=== PATIENT | female | born 1950 | race Two or more races ===

== ENCOUNTER 2016-08-12 16:40 | Emergency (ER) | payer OTHER ==
[2016-08-12 16:51] VITALS: TEMP 98.9; BMI 22.6
--- NOTE | 2016-08-12 16:58 | PDOC ---
History of Present Illness - General History Source: Patient, Family, Old Records Exam Limitations: No Limitations - History of Present Illness Initial Comments: 08/12/16 17:49 The patient is a 66 year old female, accompanied by granddaughter, with a significant past medical history of asthma, rheumatoid arthritis, diabetes, CHF , hypercholesterolemia, and HTN, who presents to the emergency department today for further evaluation of shortness of breath since today. The patient states that she woke this morning and felt sick with associated tiredness and body aches. She states that she had pork chops for lunch and began vomiting right after finishing. She states that her vomit was yellow and contained undigested food. The patient states that a few hours after her initial episode of vomiting she began to develop her current symptoms (shortness of breath). She states that her shortness of breath has been alleviated since receiving oxygen in the emergency department The patient denies fever, chills, and sweats. The patient denies chest pain and cough. PCP: Dr. Sneha Calderon [phone] PAST SURGICAL HISTORY: Noncontributory SOCIAL HISTORY: Has a home health aid. Denies history of smoking. Denies alcohol and drug use. <Gordon Thrasher - Last Filed: 08/12/16 20:36> - General History Source: Sibling <Tristan Costa - Last Filed: 08/12/16 20:46> - General Chief Complaint: Shortness of Breath Stated Complaint: DIFFICULTY BREATHING Time Seen by Provider: 08/12/16 16:57 Past History <Gordon Thrasher - Last Filed: 08/12/16 20:36> - Past Medical History Diabetes: Yes HTN: Yes Hypercholesterolemia: Yes - Surgical History Orthopedic Surgery: Yes (lt arm x3) - Psycho/Social/Smoking Cessation Hx Anxiety: No Suicidal Ideation: No Smoking History: Never smoked Have you smoked in the past 12 months: No Hx Alcohol Use: No Drug/Substance Use Hx: No Substance Use Type: None Hx Substance Use Treatment: No <Tristan Costa - Last Filed: 08/12/16 20:46> - Past Medical History Allergies/Adverse Reactions: Allergies Allergy/AdvReac Type Severity Reaction Status Date / Time No Known Allergies Allergy Verified 03/26/15 14:57 Home Medications: Ambulatory Orders Metformin HCl [Glucophage -] 500 mg PO BID 03/26/15 Gabapentin 300 mg PO DAILY 08/12/16 Loratadine 10 mg PO DAILY 08/12/16 Methotrexate [Mexate -] 20 mg PO Q7D 08/12/16 Omeprazole 40 mg PO DAILY 08/12/16 Pantoprazole Sodium 40 mg PO DAILY 08/12/16 Rosuvastatin [Crestor -] 20 mg PO DAILY 08/12/16 Triamterene/Hydrochlorothiazid [Triamterene-Hctz 37.5-25 mg Tb] 1 each PO DAILY 08/12/16 Review of Systems - Review of Systems Able to Perform ROS?: Yes Comments:: 08/12/16 17:50 GENERAL/CONSTITUTIONAL: (+) Generalized weakness/tiredness. No fever or chills. HEAD, EYES, EARS, NOSE AND THROAT: No change in vision. No ear pain or discharge. No sore throat. CARDIOVASCULAR: (+) Shortness of breath. No chest pain. RESPIRATORY: No cough, wheezing, or hemoptysis. GASTROINTESTINAL: (+) Vomiting. Nausea. No diarrhea or constipation. GENITOURINARY: No dysuria, frequency, or change in urination. MUSCULOSKELETAL: (+) Body aches. SKIN: No rash NEUROLOGIC: No headache, vertigo, loss of consciousness, or change in strength/ sensation. ENDOCRINE: No increased thirst. No abnormal weight change. HEMATOLOGIC/LYMPHATIC: No anemia, easy bleeding, or history of blood clots. ALLERGIC/IMMUNOLOGIC: No hives or skin allergy. <Gordon Thrasher - Last Filed: 08/12/16 20:36> *Physical Exam - Vital Signs Last Vital Signs Temp Pulse Resp BP Pulse Ox 98.9 F 98 H 20 151/95 100 08/12/16 16:46 08/12/16 16:46 08/12/16 16:46 08/12/16 16:46 08/12/16 16:46 - Physical Exam Comments: 08/12/16 17:50 GENERAL: Awake, alert, and fully oriented, in no acute distress HEAD: No signs of trauma EYES: PERRLA, EOMI, sclera anicteric, conjunctiva clear ENT: Auricles normal inspection, hearing grossly normal, nares patent, oropharynx clear without exudates. Moist mucosa NECK: Normal ROM, supple, no lymphadenopathy, JVD, or masses LUNGS: (+) Left lower lobe crackles. Right lung clear. HEART: (+) Tachycardic, regular rhythm, normal S1 and S2, no murmurs, rubs or gallops ABDOMEN: Soft, nontender, normoactive bowel sounds. No guarding, no rebound. No masses EXTREMITIES: Normal range of motion, no edema. No clubbing or cyanosis. No cords, erythema, or tenderness NEUROLOGICAL: Cranial nerves II through XII grossly intact. Normal speech, normal gait SKIN: Warm, Dry, normal turgor, no rashes or lesions noted. <Gordon Thrasher - Last Filed: 08/12/16 20:36> - Vital Signs Last Vital Signs Temp Pulse Resp BP Pulse Ox 98.9 F 98 H 20 151/95 100 08/12/16 16:46 08/12/16 16:46 08/12/16 16:46 08/12/16 16:46 08/12/16 16:46 <Tristan Costa - Last Filed: 08/12/16 20:46> Heart Score/ECG Review - ECG Impressions Comment:: 08/12/16 17:[address] Costa Impression: Normal sinus rhythm Normal rate Normal axis Normal EKG Vent rate 99 bpm <Gordon Thrasher - Last Filed: 08/12/16 20:36> ED Treatment Course - LABORATORY CBC & Chemistry Diagram: 08/12/16 12:00 08/12/16 12:00 - ADDITIONAL ORDERS Additional order review: 08/12/16 12:00 RBC 3.32 L MCV 105.9 H MCHC 33.2 RDW 16.7 H MPV 9.2 D Neutrophils % Y Lymphocytes % Y - RADIOLOGY Radiograph Interpretation: 08/12/16 18:34 EXAM#: TYPE/EXAM: RESULT: [id number] US/GALLBLADDER US Gallbladder ultrasound Clinical information: bilious emesis No prior abdominal imaging studies are available at this facility for direct comparison. The current exam demonstrates mild nonspecific common bile duct dilatation with a 0.7 cm diameter. No gross intraductal calculus is identified. There is no definite gallbladder calculus. A 0.5 cm moderately echogenic nonmobile focus is seen along the posterior gallbladder wall at the level the middle third consistent with a polyp. The remainder of the gallbladder demonstrates no discrete abnormality. No pericholecystic fluid accumulation is noted. The pancreatic head and body demonstrate no gross mass lesion. The pancreatic tail is obscured due to overlapping bowel gas. The liver and right kidney demonstrate no sonographic abnormality. No free intraperitoneal fluid is noted. Impression: Mild nonspecific common bile duct dilatation is seen with a 0.7 cm diameter. There is no definite sonographic evidence of cholelithiasis or acute cholecystitis. A 0.5 cm gallbladder polyp is noted. Correlation with 3-4 month follow-up sonography is suggested to document stability. Chest X-ray. Impression: No official read. EXAM#: TYPE/EXAM: RESULT: [id number] CT/ABDOMEN PELVIS CT WITH CONTR Abdomen and pelvis CT with intravenous contrast Clinical information: common bile duct dilatation on ultrasound Multiplanar imaging was performed following the intravenous administration of nonionic contrast. As requested enteric contrast was not administered. As noted on sonography performed earlier the same date there is minimal to mild common bile duct dilatation with a 7 mm diameter. No gross intraductal calculus is visualized. There is no intrahepatic biliary tract dilatation. No dilatation of the main pancreatic duct is seen. A 4 to 5 mm gallbladder polyp is noted better visualized on sonography. There is mild focal nonspecific wall thickening involving the gallbladder fundus. This appearance could not be appreciated on recently performed sonography. No gallbladder overdistention or pericholecystic fluid is seen. There is no definite radiopaque gallbladder calculus. The liver, spleen, pancreas, adrenal glands and kidneys demonstrate no discrete abnormality. There is no evidence of pneumoperitoneum, free intraperitoneal fluid or bowel obstruction. A small umbilical hernia is noted containing properitoneal fat only. No aortic aneurysm is identified. There is no discrete lymphadenopathy. The appendix is not definitely visualized however there are no indirect CT signs of acute appendicitis. No evidence of acute diverticulitis. There is no gross small bowel pathology. Lower lumbar degenerative disc changes are seen. IMPRESSION: Minimal to mild common bile duct dilatation is noted as also visualized on recently performed sonography. No intrahepatic biliary tract dilatation is identified. Mild focal nonspecific wall thickening is seen involving the gallbladder fundus. Correlation with endoscopic sonography may be performed. As on sonography a 4 to 5 mm gallbladder polyp is noted at the level of the middle third. Small umbilical hernia containing fat only. The partially imaged lower lung hall demonstrate findings consistent with pulmonary fibrosis (as better visualized on a chest CT exam of 03/28/2015). Reported By: Sandro Kurtz MD 08/12/162032 <Gordon Thrasher - Last Filed: 08/12/16 20:36> - LABORATORY CBC & Chemistry Diagram: 08/12/16 12:00 08/12/16 12:00 - RADIOLOGY Radiology Studies Ordered: Category Date Time Status CHEST X-RAY PORTABLE* [RAD] Stat Radiology 08/12/16 16:48 Ordered <Tristan Costa - Last Filed: 08/12/16 20:46> *DC/Admit/Observation/Transfer - Attestations Scribe Attestion: 08/12/16 17:50 Documentation prepared by Gordon Thrasher, acting as spanish medical interpreter for Tristan Costa DO. <Gordon Thrasher - Last Filed: 08/12/16 20:36> - Discharge Dispostion Admit: No - Attestations Physician Attestion: 08/12/16 16:57 I, Dr. Tristan Costa, attest that this document has been prepared under my direction and personally reviewed by me in its entirety. I further attest, that it accurately reflects all work, treatment, procedures and medical decision -making performed by me. <Tristan Costa - Last Filed: 08/12/16 20:46> Diagnosis at time of Disposition: Acquired dilation of common bile duct - Discharge Dispostion Disposition: HOME Condition at time of disposition: Good - Referrals Referrals: Sneha Heiwtt MD [Primary Care Provider] - Asaf Muller MD [Staff Physician] - - Patient Instructions Printed Discharge Instructions: DI for Biliary Colic Additional Instructions: USe the zofran for nausea or vomiting. Call Dr. Muller tomorrow for follow up.
[2016-08-12 17:27] LABS: MCH 35.2 pg (25.7-33.7); MCHC 33.2 g/dl (32.0-36.0); MEAN CELL VOLUME 105.9 fl (80-96); MEAN PLT VOLUME 9.2 fl (7.5-11.1); PLATELET COUNT 219 K/MM3 (134-434); RDW 16.7 % (11.6-15.6); WHITE BLOOD COUNT 10.5 K/mm3 (4.0-10.0)
[2016-08-12 17:54] LABS: ALBUMIN 3.5 g/dl (3.4-5.0); BILIRUBIN,TOTAL 0.5 mg/dL (0.2-1.0); CALCIUM 8.8 mg/dL (8.5-10.1); COCKROFT - GAULT 48.8325; TOT PROT 7.6 g/dl (6.4-8.2)
[2016-08-12 20:59] LABS: TROPONIN I < 0.02 ng/ml (0.00-0.05)
[2016-08-12 21:03] LABS: PLATELET ESTIMATE ADEQUATE (NORMAL)
[2016-08-12 21:04] LABS: POLYCHROMASIA RARE
[2016-08-12 21:51] VITALS: BP 142/81; PULSE 81
--- NOTE | 2016-08-13 10:56 | EKG ---
Test Reason : Blood Pressure : / mmHG Vent. Rate : 099 BPM Atrial Rate : 099 BPM P-R Int : 160 ms QRS Dur : 068 ms QT Int : 370 ms P-R-T Axes : 029 -25 052 degrees QTc Int : 474 ms POOR DATA QUALITY, INTERPRETATION MAY BE ADVERSELY AFFECTED NORMAL SINUS RHYTHM LEFTWARD AXIS WHEN COMPARED WITH ECG OF 26-MAR-2015 14:32, NO SIGNIFICANT CHANGE WAS FOUND Confirmed by MARISEL TEJADA MD ([id number]) on 08/13/2016 10:56:06 AM Referred By: Confirmed By:MARISEL TEJADA MD
== END 2016-08-12 22:15 | disposition home or self-care (01) ==
LOC: JER 16:40
DX: K83.8 Other specified diseases of biliary tract (principal); J84.10 Pulmonary fibrosis, unspecified
CPT/HCPCS: 36415; 71010-TC; 74177-TC; 76705-TC; 80053; 82550; 83690; 84484; 85025; 93005; 93010; 99284-25

== ENCOUNTER 2016-09-17 18:31 | Emergency (ER) | payer OTHER ==
[2016-09-17 18:41] VITALS: BMI 21.2
--- NOTE | 2016-09-17 18:43 | PDOC ---
History of Present Illness - General History Source: Patient Exam Limitations: No Limitations - History of Present Illness Initial Comments: 09/17/16 19:00 The patient is a 66 year old female, accompanied by granddaughter, with a significant past medical history of asthma, diabetes, hypertension, hyperlipidemia, CHF, and rheumatoid arthritis, who presents to the emergency department complaining of a dry cough and fever since yesterday. As per granddaughter, when she arrived to the patients home today, she noted the patient was not herself. Patient reports she has been experiencing a fever, for which her health aide gave her tea and tylenol for with mild relief. She reports associated diaphoresis, but denies any chest pain, shortness of breath, palpitations, or lower extremity edema. She denies any weakness, chills, headache, dizziness, or rhinorrhea. The patient denies any recent travel or sick contacts. Allergies: None reported. Past Surgical History: Lt arm(X3) Social History: Non-smoker. Denies alcohol or drug use. PCP: Dr. Calderon <Soha Carcamo - Last Filed: 09/17/16 19:06> <Bel Fair - Last Filed: 09/18/16 06:30> - General Chief Complaint: Cold Symptoms Stated Complaint: CHEST PAIN Time Seen by Provider: 09/17/16 18:43 Past History <Soha Carcamo - Last Filed: 09/17/16 19:06> - Past Medical History Diabetes: Yes HTN: Yes Hypercholesterolemia: Yes Other medical history: arthritis - Surgical History Orthopedic Surgery: Yes (lt arm x3) - Psycho/Social/Smoking Cessation Hx Anxiety: No Suicidal Ideation: No Smoking History: Never smoked Have you smoked in the past 12 months: No Information on smoking cessation initiated: No Hx Alcohol Use: No Drug/Substance Use Hx: No Substance Use Type: None Hx Substance Use Treatment: No <Bel Fair - Last Filed: 09/18/16 06:30> - Past Medical History Allergies/Adverse Reactions: Allergies Allergy/AdvReac Type Severity Reaction Status Date / Time No Known Allergies Allergy Verified 03/26/15 14:57 Home Medications: Ambulatory Orders Metformin HCl [Glucophage -] 500 mg PO BID 03/26/15 Gabapentin 300 mg PO DAILY 08/12/16 Methotrexate [Mexate -] 20 mg PO Q7D 08/12/16 Omeprazole 40 mg PO DAILY 08/12/16 Pantoprazole Sodium 40 mg PO DAILY 08/12/16 Rosuvastatin [Crestor -] 20 mg PO DAILY 08/12/16 Triamterene/Hydrochlorothiazid [Triamterene-Hctz 37.5-25 mg Tb] 1 each PO DAILY 08/12/16 Albuterol Sulfate Inhaler - [Ventolin Hfa Inhaler -] 1 - 2 inh PO QID 09/17/16 Budesonide/Formeterol Fumarate [SYMBICORT 80/4.5mcg -] 1 inh PO DAILY 09/17/16 Review of Systems - Review of Systems Able to Perform ROS?: Yes Comments:: 09/17/16 19:00 GENERAL/CONSTITUTIONAL: Yes: +fever. No chills. No weakness. HEAD, EYES, EARS, NOSE AND THROAT: No change in vision. No ear pain or discharge. No sore throat. CARDIOVASCULAR: No chest pain or shortness of breath. RESPIRATORY: Yes: +cough. No wheezing or hemoptysis. GASTROINTESTINAL: No nausea, vomiting, diarrhea or constipation. GENITOURINARY: No dysuria, frequency, or change in urination. MUSCULOSKELETAL: No joint or muscle swelling or pain. No neck or back pain. SKIN: No rash NEUROLOGIC: No headache, vertigo, loss of consciousness, or change in strength/ sensation. ENDOCRINE: No increased thirst. No abnormal weight change. HEMATOLOGIC/LYMPHATIC: No anemia, easy bleeding, or history of blood clots. ALLERGIC/IMMUNOLOGIC: No hives or skin allergy. <Soha Carcamo - Last Filed: 09/17/16 19:06> *Physical Exam - Vital Signs Last Vital Signs Temp Pulse Resp BP Pulse Ox 98.6 F 85 20 143/68 98 09/17/16 18:38 09/17/16 18:38 09/17/16 18:38 09/17/16 18:38 09/17/16 18:52 - Physical Exam Comments: 09/17/16 19:07 GENERAL: Awake, alert, and fully oriented, in no acute distress HEAD: No signs of trauma EYES: PERRLA, EOMI, sclera anicteric, conjunctiva clear ENT: Auricles normal inspection, hearing grossly normal, nares patent, oropharynx clear without exudates. Moist mucosa NECK: Normal ROM, supple, no lymphadenopathy, JVD, or masses LUNGS: Fibrotic crackles at the bilateral bases. No wheezes. HEART: Regular rate and rhythm, normal S1 and S2, no murmurs, rubs or gallops ABDOMEN: Soft, nontender, normoactive bowel sounds. No guarding, no rebound. No masses EXTREMITIES: Normal range of motion, no edema. No clubbing or cyanosis. No cords, erythema, or tenderness NEUROLOGICAL: Cranial nerves II through XII grossly intact. Normal speech, normal gait SKIN: Rash to the left foot over the lateral dorsal aspect of the 4th and 5th toes. Warm, Dry, normal turgor, no lesions noted. <Soha Carcamo - Last Filed: 09/17/16 19:06> - Vital Signs Last Vital Signs Temp Pulse Resp BP Pulse Ox 98.6 F 85 20 143/68 97 09/17/16 18:38 09/17/16 18:38 09/17/16 18:38 09/17/16 18:38 09/17/16 18:38 <Bel Fair - Last Filed: 09/18/16 06:30> ED Treatment Course - LABORATORY CBC & Chemistry Diagram: 09/17/16 19:20 09/17/16 19:20 <Bel Fair - Last Filed: 09/18/16 06:30> Medical Decision Making - Medical Decision Making 09/17/16 22:46 Patient Name: Madiha Davis THIS IS A PRELIMINARY REPORT FROM [facility] OPER[facility] EXAM: X-ray chest PA and lateral views IMAGES: 3 EXAM DATE AND TIME: 21:10:04.0 REASON FOR EXAM: Cough COMPARISON: Not provided FINDINGS: There are coarse bilateral interstitial markings, possibly chronic changes. No focal airspace consolidation. No pneumothorax. The costophrenic angles are well defined The cardiac silhouette is within normal limits Atherosclerotic calcifications in the thoracic aorta Mild degenerative changes in the thoracic spine THIS DOCUMENT HAS BEEN ELECTRONICALLY SIGNED 09/18/16 06:26 Granddaughter brings grandirving into the hospital with EMS, as she was in bed and under the covers and feeling unwell. Grandma is usually up and about the housr. Granddaughter goes there daily to eat a meal. Pt states that she has generalized malaise. but no specific complaints. She is coughing in the ER. CXR is normal. Labs normal and exam normal. Pt will be discharged home with PMD follow up. Hydrated in the ER and she is feeling better. UA is normal. Pt has vesicle like papular rash arounf and on the left 4th and 5th toes and dorsal foot. No rash on the rest of the leg. Rash is itchy but not painful. This is not shingles. Pt has a dog, and perhaps this is insect bites, or bug bites. SHe will be given permethrin to apply to the foot. Follow with PMD. <Bel Fair - Last Filed: 09/18/16 06:30> *DC/Admit/Observation/Transfer - Attestations Scribe Attestion: 09/17/16 19:01 Documentation prepared by Soha Carcamo, acting as medical office scheduler for Bel Fair MD. <Soha Carcamo - Last Filed: 09/17/16 19:06> - Discharge Dispostion Admit: No <Bel Fair - Last Filed: 09/18/16 06:30> Diagnosis at time of Disposition: Generalized weakness, Rash - Discharge Dispostion Disposition: HOME Condition at time of disposition: Stable - Referrals Referrals: Sneha Hewitt MD [Primary Care Provider] - - Patient Instructions Printed Discharge Instructions: DI for Fatigue, Insect Bites and Stings Print Language: ALBANIAN
[2016-09-17] MEDS ORDERED: SODIUM CHLORIDE 0.9% 500 ML INFUS.BAG IV ONE (18:54)
[2016-09-17 19:43] LABS: MCH 35.1 pg (25.7-33.7); MCHC 32.9 g/dl (32.0-36.0); MEAN CELL VOLUME 106.7 fl (80-96); MEAN PLT VOLUME 8.8 fl (7.5-11.1); PLATELET COUNT 165 K/MM3 (134-434); RDW 15.7 % (11.6-15.6); WHITE BLOOD COUNT 7.1 K/mm3 (4.0-10.0)
[2016-09-17 19:45] LABS: URINE APPEARANCE CLEAR; URINE BILIRUBIN NEGATIVE (NEGATIVE); URINE BLOOD NEGATIVE (NEGATIVE); URINE COLOR LTYELLOW; URINE GLUCOSE (UA) NEGATIVE (NEGATIVE); URINE KETONE NEGATIVE (NEGATIVE); URINE LEUK ESTERASE NEGATIVE (NEGATIVE); URINE NITRITE NEGATIVE (NEGATIVE); URINE PROTEIN NEGATIVE (NEGATIVE); URINE UROBILINOGEN NEGATIVE E.U./dl (0.2-1.0)
[2016-09-17 20:06] LABS: ALBUMIN 3.2 g/dl (3.4-5.0); ALK PHOS 91 U/L (45-117); ANION GAP 9 (8-16); BILIRUBIN,TOTAL 0.3 mg/dL (0.2-1.0); CALCIUM 8.8 mg/dL (8.5-10.1); CO2 29 mmol/L (21-32); COCKROFT - GAULT 69.7595; CREATININE 0.7 mg/dL (0.55-1.02); GLUCOSE,RANDOM 86 mg/dL (74-106); METAMYELOCYTE 2 % (0-2); PLATELET ESTIMATE ADEQUATE (NORMAL); POLYCHROMASIA OCC; SGOT/AST 19 U/L (15-37); SGPT/ALT 26 U/L (12-78); TOT PROT 7.1 g/dl (6.4-8.2)
[2016-09-17 21:55] VITALS: BP 149/84; PULSE 80; TEMP 98.5
--- NOTE | 2016-09-18 15:32 | EKG ---
Test Reason : Blood Pressure : / mmHG Vent. Rate : 077 BPM Atrial Rate : 077 BPM P-R Int : 164 ms QRS Dur : 074 ms QT Int : 392 ms P-R-T Axes : 034 -07 056 degrees QTc Int : 443 ms NORMAL SINUS RHYTHM NORMAL ECG WHEN COMPARED WITH ECG OF 12-AUG-2016 16:59, NO SIGNIFICANT CHANGE WAS FOUND Confirmed by JOVON BRANDT MD ([id number]) on 09/18/2016 3:31:39 PM Referred By: Confirmed By:JOVON BRANDT MD
== END 2016-09-17 23:06 | disposition home or self-care (01) ==
LOC: JER 18:31
DX: R21 Rash and other nonspecific skin eruption (principal); Z79.84 Long term (current) use of oral hypoglycemic drugs; E11.9 Type 2 diabetes mellitus without complications; I10 Essential (primary) hypertension; E78.00 Pure hypercholesterolemia, unspecified
CPT/HCPCS: 36415; 71020-TC; 80053; 81003; 85025; 87040; 87086; 93005; 93010; 99283-25

== ENCOUNTER 2016-09-21 09:33 | Day surgery (SDC) | payer OTHER ==
[2016-09-21 10:33] VITALS: BMI 23.0
[2016-09-21] MEDS ORDERED: PROPOFOL 20 ML ONE ×2 (11:14)
[2016-09-21 12:19] VITALS: TEMP 98
[2016-09-21 13:11] VITALS: BP 150/84; PULSE 60
--- NOTE | 2016-09-22 13:45 | PATH ---
Surgical Pathology Report Patient Name: ALYCIA ROLLINS [facility]. Rec. #: [id number] /Age/Gender: 1950 (Age: 66) / F Account: [id number] Location: [facility]-ENDOSCOPY Taken: 09/21/2016 Received: 09/21/2016 Reported: 09/22/2016 Physicians: Asaf Muller M.D. Specimen(s) Received A: BX POLYPS GASTRIC BODY B: BX ERYTHEMA BODY C: BX IRREGULAR Z-LINE Clinical History Persistent GERD despite PPI (medication) Irregular Z-line, hiatal hernia, polyps, erythema of body Final Diagnosis A. STOMACH, GASTRIC BODY, POLYPS, BIOPSY: GASTRIC OXYNTIC MUCOSA WITH FUNDIC GLAND POLYPS WITH FOCAL HYPERPLASTIC CHANGE AND MODERATE CHRONIC GASTRITIS. NEGATIVE FOR DYSPLASIA. IMMUNOSTAIN FOR H. PYLORI IS NEGATIVE FOR ORGANISMS. B. STOMACH, BODY, ERYTHEMA, BIOPSY: GASTRIC OXYNTIC MUCOSA WITH MODERATE CHRONIC GASTRITIS WITH CHANGES SUGGESTIVE OF PPI EFFECT. IMMUNOSTAIN FOR H. PYLORI IS NEGATIVE FOR ORGANISMS. C. IRREGULAR Z-LINE, BIOPSY: SQUAMOCOLUMNAR JUNCTIONAL MUCOSA WITH CHRONIC INFLAMMATION AND REFLUX TYPE CHANGES. NO INTESTINAL METAPLASIA (SILVERIO'S ESOPHAGUS) IDENTIFIED. Electronically Signed Renzo Bonilla M.D. Gross Description A. Received in formalin, labeled "biopsy polyps of gastric body" are 4 ornelas, irregular portions of soft tissue ranging from 0.1-0.3 cm in greatest dimension. The specimens are submitted in toto in one cassette. B. Received in formalin, labeled "biopsy erythema of body" is a ornelas, irregular portion of soft tissue measuring 0.3 cm in greatest dimension. The specimen is submitted in toto in one cassette. C. Received in formalin, labeled "biopsy irregular Z-line" are 2 ornelas, irregular portions of soft tissue measuring 0.3 and 0.4 cm in greatest dimension. The specimens are submitted in toto in one cassette. 09/21/201609/21/2016
== END 2016-09-21 13:09 | disposition home or self-care (01) ==
LOC: JASU-ENDO 09:33
PROVIDERS: ATTEND Internal Medicine Gastroenterology
PROC: 0DB68ZX Excision of Stomach, Via Natural or Artificial Opening Endoscopic, Diagnostic (ICD-10-PCS; 2016-09-21)
PROC: 0DB58ZX Excision of Esophagus, Via Natural or Artificial Opening Endoscopic, Diagnostic (ICD-10-PCS; principal; 2016-09-21 10:30)
DX: K21.9 Gastro-esophageal reflux disease without esophagitis (principal); K31.7 Polyp of stomach and duodenum; K44.9 Diaphragmatic hernia without obstruction or gangrene
CPT/HCPCS: 88305-TC; 88342-TC

== ENCOUNTER 2016-09-28 17:33 | Inpatient (IN) | payer OTHER ==
[2016-09-28] MEDS ORDERED: SODIUM CHLORIDE 1,000 ML IV STA (18:00)
[2016-09-28] MEDS ORDERED: ACETAMINOPHEN 500 MG TABLET (FP) PO ONE (18:00)
--- NOTE | 2016-09-28 18:12 | PDOC ---
History of Present Illness - General History Source: Patient, Family, Old Records Exam Limitations: No Limitations <Niesha Jacques - Last Filed: 09/28/16 18:09> - General History Source: Patient, Family, Old Records Exam Limitations: No Limitations - History of Present Illness Initial Comments: 09/28/16 18:14 The patient is a 66 year old female, accompanied by granddaughter, with a significant past medical history of asthma, diabetes, hypertension, hyperlipidemia, CHF, and rheumatoid arthritis, who presents to the emergency department today for further evaluation of generalized weakness since this morning. As per granddaughter the patient was at her baseline. Granddaughter states that when she got home the patient had vomited on herself and was too weak to ambulate. Granddaughter notes that the patient is much more lethargic compared to her baseline. Patient endorse diffuse abdominal pain. PAST MEDICAL HISTORY: Asthma, diabetes, hypertension, hyperlipidemia, CHF, and rheumatoid arthritis PAST SURGICAL HISTORY: Endoscopy FAMILY HISTORY: No pertinent history reported SOCIAL HISTORY: None reported ALLERGIES: NKDA MEDICATIONS: Reviewed <Gordon Thrasher - Last Filed: 09/28/16 18:15> - General Chief Complaint: Weakness Stated Complaint: Weakness Time Seen by Provider: 09/28/16 17:52 Past History - Past Medical History Asthma: Yes Diabetes: Yes GI Disorders: Yes (Reflux) HTN: Yes Hypercholesterolemia: Yes - Surgical History Orthopedic Surgery: Yes (lt arm x3) - Psycho/Social/Smoking Cessation Hx Anxiety: No Suicidal Ideation: No Smoking History: Never smoked Have you smoked in the past 12 months: No Information on smoking cessation initiated: No Hx Alcohol Use: No Drug/Substance Use Hx: No Substance Use Type: None Hx Substance Use Treatment: No <Niesha Jacques - Last Filed: 09/28/16 18:09> <Gordon Thrasher - Last Filed: 09/28/16 18:15> - Past Medical History Allergies/Adverse Reactions: Allergies Allergy/AdvReac Type Severity Reaction Status Date / Time No Known Allergies Allergy Verified 09/28/16 17:59 Home Medications: Ambulatory Orders Metformin HCl [Glucophage -] 500 mg PO BID 03/26/15 Gabapentin 300 mg PO DAILY 08/12/16 Methotrexate [Mexate -] 20 mg PO Q7D 08/12/16 Omeprazole 40 mg PO DAILY 08/12/16 Triamterene/Hydrochlorothiazid [Triamterene-Hctz 37.5-25 mg Tb] 1 each PO DAILY 08/12/16 Albuterol Sulfate Inhaler - [Ventolin HFA Inhaler -] 1 - 2 inh PO QID PRN Insulin Glargine,Hum.rec.anlog [Lantus Solostar PEN -] 0 units SQ HS 09/20/16 Methotrexate [Mexate -] 1 tab PO DAILY 09/20/16 Pantoprazole Sodium [Protonix -] 40 mg PO DAILY 09/20/16 Pantoprazole Sodium [Protonix -] 40 mg PO DAILY #30 tablet.ec 09/21/16 Review of Systems - Review of Systems Able to Perform ROS?: Yes Comments:: 09/28/16 18:14 CONSTITUTIONAL: Present: Generalized weakness. Absent: fever, chills, diaphoresis, malaise, loss of appetite HEENT: Absent: rhinorrhea, nasal congestion, throat pain, throat swelling, difficulty swallowing, mouth swelling, ear pain, eye pain, visual Changes CARDIOVASCULAR: Absent: chest pain, syncope, palpitations, irregular heart rate, lightheadedness , peripheral edema RESPIRATORY: Absent: cough, shortness of breath, dyspnea with exertion, orthopnea, wheezing, stridor, hemoptysis GASTROINTESTINAL: Present: Abdominal pain Absent: Abdominal distension, nausea, vomiting, diarrhea, constipation, melena, hematochezia GENITOURINARY: Absent: dysuria, frequency, urgency, hesitancy, hematuria, flank pain, genital pain MUSCULOSKELETAL: Absent: myalgia, arthralgia, joint swelling SKIN: Absent: rash, itching, pallor HEMATOLOGIC/IMMUNOLOGIC: Absent: easy bleeding, easy bruising, lymphadenopathy, frequent infections ENDOCRINE: Absent: unexplained weight gain, unexplained weight loss, heat intolerance, cold intolerance NEUROLOGIC: Absent: headache, focal weakness or paresthesias, dizziness, unsteady gait, seizure, mental status changes, bladder or bowel incontinence PSYCHIATRIC: Absent: anxiety, depression, suicidal or homicidal ideation, hallucinations. <Gordon Thrasher - Last Filed: 09/28/16 18:15> *Physical Exam - Vital Signs Last Vital Signs Temp Pulse Resp BP Pulse Ox 104.3 F H 126 H 18 151/84 94 L 09/28/16 17:47 09/28/16 17:47 09/28/16 17:47 09/28/16 17:47 09/28/16 17:47 <Niesha Jacques - Last Filed: 09/28/16 18:09> - Vital Signs Last Vital Signs Temp Pulse Resp BP Pulse Ox 104.3 F H 126 H 18 151/84 94 L 09/28/16 17:47 09/28/16 17:47 09/28/16 17:47 09/28/16 17:47 09/28/16 17:47 - Physical Exam Comments: 09/28/16 18:14 GENERAL: Well developed, well nourished. Awake and alert. In no acute distress. HEENT: Normocephalic, atraumatic. PERRLA, EOMI. No conjunctival pallor. Sclera are non- icteric. Moist mucous membranes. Oropharynx is clear. NECK: Supple. Full ROM. No JVD. Carotid pulses 2+ and symmetric, without bruits. No thyromegaly. No lymphadenopathy. CARDIOVASCULAR: Regular rate and rhythm. No murmurs, rubs, or gallops. Distal pulses are 2+ and symmetric. PULMONARY: No evidence of respiratory distress. Lungs clear to auscultation bilaterally. No wheezing, rales or rhonchi. ABDOMINAL: (+) suprapubic and lower abdominal tenderness on palpation. Soft. Non- distended. No rebound or guarding. No organomegaly. Normoactive bowel sounds. MUSCULOSKELETAL Normal range of motion at all joints. No bony deformities or tenderness. No CVA tenderness. EXTREMITIES: No cyanosis. No clubbing. No edema. No calf tenderness. SKIN: Warm and dry. Normal capillary refill. No rashes. No jaundice. NEUROLOGICAL: Alert, awake, appropriate. Cranial nerves 2-12 intact. No deficits to light touch and temperature in face, upper extremities and lower extremities. No motor deficits in the in face, upper extremities and lower extremities. Normoreflexic in the upper and lower extremities. Normal speech. Toes are downgoing bilaterally. PSYCHIATRIC: Cooperative. Good eye contact. Appropriate mood and affect. <Gordon Thrasher - Last Filed: 09/28/16 18:15> ED Treatment Course - RADIOLOGY Radiology Studies Ordered: Category Date Time Status CHEST X-RAY PORTABLE* [RAD] Stat Radiology 09/28/16 17:58 Ordered <Niesha Jacques - Last Filed: 09/28/16 18:09> Medical Decision Making - Medical Decision Making 09/28/16 18:10 66-year-old female with history of diabetes, hypertension, CHF, rheumatoid arthritis, GERD status post endoscopy one week ago presents to the emergency department with her granddaughter who states that the patient has been lethargic today. Review of systems is only positive for abdominal pain. The patient is febrile and tachycardic. Differential diagnosis includes but is not limited to: Bowel perforation, urinary tract infection, pneumonia, dehydration, DKA, uncontrolled diabetes, electrolyte abnormality, toxic/metabolic derangement. Plan: 1. EKG 2. Labs 3. Urine analysis 4. IV fluids for hydration 5. Glycemic control 6. Chest x-ray 7. CT scan of abdomen and pelvis 8. Observe and reevaluate <Niesha Jacques - Last Filed: 09/28/16 18:09> *DC/Admit/Observation/Transfer - Attestations Physician Attestion: 09/28/16 18:12 I, Dr. Niesha Jacques, attest that the scribes documentation that appears above has been prepared under my direction and personally reviewed by me in its entirety. I confirmed that the note above accurately reflects all work, treatment, procedures, and medical decision-making performed by me. <Niesha Jacques - Last Filed: 09/28/16 18:09> - Attestations Scribe Attestion: 09/28/16 18:15 Documentation prepared by Gordon Thrasher, acting as medical receptionist for Niesha Jacques MD. <Gordon Thrasher - Last Filed: 09/28/16 18:15> Diagnosis at time of Disposition: Fever - Referrals Referrals: Sneha Hewitt MD [Primary Care Provider] -
[2016-09-28] MEDS ORDERED: ACETAMINOPHEN 325 MG TABLET (FP) ONE (18:16)
[2016-09-28 18:56] LABS: BASOPHIL 0.2 % (0-2.0); EOSINOPHIL 0.6 % (0-4.5); MCH 34.1 pg (25.7-33.7); MCHC 32.8 g/dl (32.0-36.0); MEAN CELL VOLUME 103.9 fl (80-96); NEUTROPHILS 86.8 % (42.8-82.8); PLATELET COUNT 151 K/MM3 (134-434); RDW 15.3 % (11.6-15.6); WHITE BLOOD COUNT 13.8 K/mm3 (4.0-10.0)
[2016-09-28] MEDS ORDERED: PIPERACILLIN/TAZOB 3.375 GM/50 ML PRE-DOCKED IV ONE (19:10)
[2016-09-28 19:52] LABS: URINE APPEARANCE CLEAR; URINE BILIRUBIN NEGATIVE (NEGATIVE); URINE BLOOD NEGATIVE (NEGATIVE); URINE COLOR DKYELLOW; URINE GLUCOSE (UA) NEGATIVE (NEGATIVE); URINE KETONE 1+ (NEGATIVE); URINE LEUK ESTERASE NEGATIVE (NEGATIVE); URINE NITRITE NEGATIVE (NEGATIVE); URINE UROBILINOGEN NEGATIVE E.U./dl (0.2-1.0)
[2016-09-28 20:05] LABS: URINE PROTEIN 2+ (NEGATIVE)
[2016-09-28 20:15] LABS: URINE MUCUS MANY; URINE RBC 3 /hpf (0-3); URINE WBC 2 /hpf (3-5)
[2016-09-28 21:16] LABS: ALBUMIN 2.7 g/dl (3.4-5.0); ANION GAP 9 (8-16); CALCIUM 7.7 mg/dL (8.5-10.1); CO2 25 mmol/L (21-32); CREATININE 0.9 mg/dL (0.55-1.02); GLUCOSE,RANDOM 109 mg/dL (74-106); SGOT/AST 22 U/L (15-37); SGPT/ALT 22 U/L (12-78)
[2016-09-28 21:17] LABS: ALK PHOS 59 U/L (45-117); BILIRUBIN,TOTAL 0.8 mg/dL (0.2-1.0); TOT PROT 5.9 g/dl (6.4-8.2)
[2016-09-28] MEDS ORDERED: IBUPROFEN 800 MG/8 ML IJ IVPB ONE (21:23)
[2016-09-28] MEDS ORDERED: IBUPROFEN 800 MG/8 ML IJ IVPB STA (21:23)
--- NOTE | 2016-09-28 21:30 | PDOC ---
*Physical Exam - Vital Signs Last Vital Signs Temp Pulse Resp BP Pulse Ox 102.3 F H 102 H 19 122/66 100 09/28/16 20:25 09/28/16 20:25 09/28/16 20:25 09/28/16 20:25 09/28/16 20:25 ED Treatment Course - LABORATORY CBC & Chemistry Diagram: 09/28/16 18:40 09/28/16 20:40 - ADDITIONAL ORDERS Additional order review: Laboratory Results 09/28/16 09/28/16 09/28/16 20:40 19:30 19:19 Sodium 142 Cancelled Potassium 3.4 L Cancelled Chloride 108 H Cancelled Carbon Dioxide 25 Cancelled Anion Gap 9 Cancelled BUN 20 H D Cancelled Creatinine 0.9 D Cancelled Creat Clearance w eGFR > 60 Cancelled Random Glucose 109 H D Cancelled Lactic Acid Calcium 7.7 L Cancelled Phosphorus Magnesium Total Bilirubin 0.8 D Cancelled AST 22 Cancelled ALT 22 Cancelled Alkaline Phosphatase 59 D Cancelled Creatine Kinase Troponin I Total Protein 5.9 L Cancelled Albumin 2.7 L Cancelled Lipase Urine Color Dkyellow Urine Appearance Clear Urine pH 5.0 Urine Protein 2+ H Urine Glucose (UA) Negative Urine Ketones 1+ H Urine Blood Negative Urine Nitrite Negative Urine Bilirubin Negative Urine Urobilinogen Negative Ur Leukocyte Esterase Negative Urine RBC 3 Urine WBC 2 Ur Epithelial Cells Rare Urine Mucus Many Acetone, Qual 09/28/16 09/28/16 09/28/16 18:40 18:40 18:40 Sodium Cancelled Potassium Cancelled Chloride Cancelled Carbon Dioxide Cancelled Anion Gap Cancelled BUN Cancelled Creatinine Cancelled Creat Clearance w eGFR Cancelled Random Glucose Cancelled Lactic Acid 1.7 Calcium Cancelled Phosphorus Cancelled Magnesium Cancelled Total Bilirubin Cancelled AST Cancelled ALT Cancelled Alkaline Phosphatase Cancelled Creatine Kinase Cancelled Troponin I Cancelled Total Protein Cancelled Albumin Cancelled Lipase Cancelled Urine Color Urine Appearance Urine pH Urine Protein Urine Glucose (UA) Urine Ketones Urine Blood Urine Nitrite Urine Bilirubin Urine Urobilinogen Ur Leukocyte Esterase Urine RBC Urine WBC Ur Epithelial Cells Urine Mucus Acetone, Qual Negative L 09/28/16 18:40 RBC 3.79 MCV 103.9 H MCHC 32.8 RDW 15.3 MPV 9.0 Neutrophils % 86.8 H D Lymphocytes % 10.7 D Monocytes % 1.7 L Eosinophils % 0.6 D Basophils % 0.2 - RADIOLOGY Radiology Studies Ordered: Category Date Time Status HEAD CT WITHOUT CONTRAST [CT] Stat CT Scan 09/28/16 21:23 Ordered - Medications Given in the ED: ED Medications Discontinued Medications Generic Name Dose Route Start Last Admin Trade Name Freq PRN Reason Stop Dose Admin Acetaminophen 1,000 mg 09/28/16 18:00 09/28/16 18:17 Tylenol - PO 09/28/16 18:01 1,000 mg ONCE ONE Administration Sodium Chloride 1,000 mls @ 1,000 mls/hr 09/28/16 18:00 09/28/16 18:17 Normal Saline - IV 09/28/16 18:59 1,000 mls/hr ASDIR STA Administration Piperacillin Sod/Tazobactam Sod 3.375 gm 09/28/16 19:10 09/28/16 20:32 Zosyn 3.375gm Ivpb (Pre-Docked) IV 09/28/16 19:11 3.375 gm ONCE ONE Administration Protocol *DC/Admit/Observation/Transfer Diagnosis at time of Disposition: Fever Qualifiers: Encounter type: initial encounter Pneumonia Qualifiers: Aspiration pneumonia type: unspecified Laterality: right Lung location: lower lobe of lung - Discharge Dispostion Condition at time of disposition: Stable Admit: Yes - Referrals Referrals: Sneha Hewitt MD [Primary Care Provider] - - Patient Instructions - Post Discharge Activity
--- NOTE | 2016-09-28 22:50 | PN ---
Teaching Attending Note Name of Resident: Mariposa Tovar ATTENDING PHYSICIAN STATEMENT I saw and evaluated the patient. I reviewed the resident's note and discussed the case with the resident. I agree with the resident's findings and plan as documented. SUBJECTIVE: 66 yo f with pmhx of asthma, htn, hld and Dm, CHF, RA who presents with generalized weakness. Notes vomiting X 1 this am and with lethargy. Pt. is poor historian at bedside and is only aware of herself. OBJECTIVE: Physical: VS: Vital Signs Period Temp Pulse Resp BP Sys/Agee Pulse Ox Last 24 Hr 102.3 F-104.3 F 91-126 17-22 122-151/63-84 94-100 GEN: [id number](self), No acute distress HEENT: NCAT, PERRL CARD: RRR S1, S2 RESP: Coarse breath sounds r. base ABD: BS X4, NTD EXT: - C/C/E CXR: RLL Infilterat CT ABD/PELVIS- Negative CBCD WBC 13.8 K/mm3 (4.0-10.0) H D 09/28/16 18:40 RBC 3.79 M/mm3 (3.60-5.2) 09/28/16 18:40 Hgb 12.9 GM/dL (10.7-15.3) D 09/28/16 18:40 Hct 39.4 % (32.4-45.2) 09/28/16 18:40 MCV 103.9 fl (80-96) H 09/28/16 18:40 MCHC 32.8 g/dl (32.0-36.0) 09/28/16 18:40 RDW 15.3 % (11.6-15.6) 09/28/16 18:40 Plt Count 151 K/MM3 (134-434) 09/28/16 18:40 MPV 9.0 fl (7.5-11.1) 09/28/16 18:40 CMP Sodium 142 mmol/L (136-145) 09/28/16 20:40 Potassium 3.4 mmol/L (3.5-5.1) L 09/28/16 20:40 Chloride 108 mmol/L (98-107) H 09/28/16 20:40 Carbon Dioxide 25 mmol/L (21-32) 09/28/16 20:40 Anion Gap 9 (8-16) 09/28/16 20:40 BUN 20 mg/dL (7-18) H D 09/28/16 20:40 Creatinine 0.9 mg/dL (0.55-1.02) D 09/28/16 20:40 Creat Clearance w eGFR > 60 (>60) 09/28/16 20:40 Random Glucose 109 mg/dL (74-106) H D 09/28/16 20:40 Calcium 7.7 mg/dL (8.5-10.1) L 09/28/16 20:40 Total Bilirubin 0.8 mg/dL (0.2-1.0) D 09/28/16 20:40 AST 22 U/L (15-37) 09/28/16 20:40 ALT 22 U/L (12-78) 09/28/16 20:40 Alkaline Phosphatase 59 U/L (45-117) D 09/28/16 20:40 Total Protein 5.9 g/dl (6.4-8.2) L 09/28/16 20:40 Albumin 2.7 g/dl (3.4-5.0) L 09/28/16 20:40 CARDIAC ENZYMES Creatine Kinase Cancelled 09/28/16 18:40 Troponin I Cancelled 09/28/16 18:40 ASSESSMENT AND PLAN: 66 yo F with pmhx DM, and HTN, COPD, ashtma, who presents with fever found to be septic secondary to Pneumonia 1.) Sepsis secondary to community aquired pneumonia - Ceftriaxone/Azithro - [place] cx - Repeat LA - IVF - Tylenol prn fever 2.) AMS - DDx: Infection/?COPD - ABG - C/w Abx - NPO until MS improves 2.) DM - FS - RAISS 3.) HTN - Not on any home meds 4.) Hypokalemia - Chk. Mg2+ - Replete 5.) Asthma/COPD - C/w home meds 6.) Diarrhea - Check C. Diff 6.) DVt Ppx - SCD Rest as per resident note Place in Med Sx
[2016-09-28] MEDS ORDERED: AZITHROMYCIN IVPB 500 MG in DEXTROSE 5%-WATER - 250 ML IVPB ONE (22:51)
[2016-09-28] MEDS ORDERED: cefTRIAXone SODIUM 1 GM VIAL ONE (23:05)
[2016-09-28] MEDS ORDERED: ALBUTEROL SO4 6.7 GM HFA INHALER IH PRN ×2 (23:08→23:15)
[2016-09-28] MEDS ORDERED: SODIUM CHLORIDE 1,000 ML IV SCH (23:15)
--- NOTE | 2016-09-28 23:39 | HP ---
CHIEF COMPLAINT: weakness PCP: HISTORY OF PRESENT ILLNESS: 66 year old female with a past medical history of DM, CHF, HTN, HLD, asthma, COPD presents to ER with generalized weakness. As per chart patient, granddaughter states that patient was not at baseline when she found her at home , vomited on herself, too weak to ambulate. ROS N/A, patient to lethargic to respond. ER course notable for fever 104F, tachycardic, oxygen 94 on RA. With leukocytosis and CXR with infiltrated of right base. Lactic acid wnl. Patient was given one time IV rocephin and azithromycin and IVF bolus in ER. CT abdomen was done, showing some watery stool in colon. History of diarrhea is unknown at this point. Recent Travel: unknown PAST MEDICAL HISTORY: DM, CHF, HTN, HLD, asthma, COPD, GERD PAST SURGICAL HISTORY: Social History: Smoking:no Alcohol:no Drugs: no Family History: Allergies No Known Allergies Allergy (Verified 09/28/16 17:59) HOME MEDICATIONS: Home Medications Medication Instructions Recorded Metformin HCl [Glucophage -] 500 mg PO BID 03/26/15 Gabapentin 300 mg PO DAILY 08/12/16 Albuterol Sulfate Inhaler - 1 - 2 inh PO QID PRN 09/17/16 [Ventolin HFA Inhaler -] Insulin Glargine,Hum.rec.anlog 12 units SQ HS 09/20/16 [Lantus Solostar PEN -] Methotrexate [Mexate -] 1 tab PO DAILY 09/20/16 Pantoprazole Sodium [Protonix -] 40 mg PO DAILY 09/20/16 Budesonide/Formeterol Fumarate 2 puff IH BID 09/28/16 [SYMBICORT 80/4.5mcg -] Metoclopramide HCl [Reglan] 5 mg PO TID 09/28/16 PHYSICAL EXAMINATION GENERAL: not awake when i entered room; hard to arouse, oriented to self, not to time or place HEAD: Normal with no signs of trauma. LUNGS: Breath sounds decreased,mild rales right lung base. No wheezes,. No accessory muscle use. HEART: Regular rate and rhythm, normal S1 and S2, systolic murmur extending to right collar, rub or gallop. ABDOMEN: Soft, nontender, not distended, normoactive bowel sounds, no guarding, no rebound, no masses. No hepatomegaly or splenomegaly. UPPER EXTREMITIES: 2+ pulses, warm, well-perfused. No cyanosis. No clubbing. No peripheral edema. LOWER EXTREMITIES: 2+ pulses, warm, well-perfused. No calf tenderness. No peripheral edema. NEUROLOGICAL: lethargic; not responding to all questioning, unknown baseline at this time Current Medications Generic Name Dose Route Start Last Admin Trade Name Freq PRN Reason Stop Dose Admin Acetaminophen 650 mg 09/28/16 23:06 Tylenol - PO Q4H PRN FEVER OR PAIN Albuterol Sulfate 2 puff 09/28/16 23:08 Ventolin Hfa Inhaler - IH Q6H PRN SHORT OF BREATH/WHEEZING Albuterol Sulfate 1 puff 09/28/16 23:15 Ventolin Hfa Inhaler - IH Q6H PRN SHORT OF BREATH/WHEEZING Budesonide/Formoterol Fumarate 2 puff 09/29/16 10:00 Symbicort 80/4.5mcg - IH BID SHELIA Gabapentin 300 mg 09/29/16 10:00 Neurontin - PO DAILY SHELIA Heparin Sodium (Porcine) 5,000 unit 09/29/16 02:00 Heparin - SQ Q8H-IV SHELIA Ceftriaxone Sodium 50 mls @ 100 mls/hr 09/29/16 10:00 Rocephin 1gm Ivpb (Pre-Docked) IVPB DAILY SHELIA Azithromycin 250 mg/ Dextrose 250 mls @ 250 mls/hr 09/29/16 16:00 IVPB DAILY SHELIA Sodium Chloride 1,000 mls @ 72 mls/hr 09/28/16 23:16 09/28/16 23:43 Normal Saline - IV 09/30/16 13:09 72 mls/hr ASDIR SHELIA Administration Insulin Aspart 1 vial 09/29/16 07:00 Novolog Vial Sliding Scale - SQ ACHS SHELIA Protocol Methotrexate 0 mg 09/29/16 10:00 Mexate - PO DAILY SHELIA Metoclopramide HCl 5 mg 09/29/16 06:00 Reglan - PO TID SHELIA Pantoprazole Sodium 40 mg 09/29/16 10:00 Protonix - PO DAILY SHELIA ASSESSMENT/PLAN: 66 year old female with past medical history of DM, CHF, HLD, HTN, COPD, asthma , presents with generalized weakness and lethargy, admitted for community acquired pneumonia. #CAP: -gentle hydration, LA wnl; repeat -cont IV rocpehin and azithromycin -follow up cultures, urine antigens #watery stool on abdominal CT: -monitor for diarrhea, if so, send for c diff #COPD/asthma: -cont albuterol and symbicort -stat ABG assess CO2 status due to lethargy #hypokalemia: -replace/cristi #DM: -insulin SS -BGM ACHS #HTN: -controlled not on any meds #hx of HLD: -not on any home meds FEN: Fluids: gentle hydration NS 75ml/s hr; 2 bags Electrolytes: k 3.4 Diet: npo for now until patient more alert VTE: heparin sq Disposition: med/surg; continue current management Problem List - Problem (1) Fever Code(s): R50.9 - FEVER, UNSPECIFIED Qualifiers: Encounter type: initial encounter (2) Pneumonia Code(s): J18.9 - PNEUMONIA, UNSPECIFIED ORGANISM Qualifiers: Aspiration pneumonia type: unspecified Laterality: right Lung location: lower lobe of lung (3) CHF (congestive heart failure) Code(s): I50.9 - HEART FAILURE, UNSPECIFIED Qualifiers: Congestive heart failure type: unspecified congestive heart failure type Congestive heart failure chronicity: unspecified congestive heart failure chronicity Qualified Code(s): I50.9 - Heart failure, unspecified (4) Diabetes Code(s): E11.9 - TYPE 2 DIABETES MELLITUS WITHOUT COMPLICATIONS (5) Generalized weakness Code(s): R53.1 - WEAKNESS (6) HTN (hypertension) Code(s): I10 - ESSENTIAL (PRIMARY) HYPERTENSION (7) Diarrhea Code(s): R19.7 - DIARRHEA, UNSPECIFIED Visit type - Emergency Visit Emergency Visit: Yes ED Registration Date: 09/28/16 Care time: The patient presented to the Emergency Department on the above date and was hospitalized for further evaluation of their emergent condition. - New Patient This patient is new to me today: Yes Date on this admission: 09/29/16 - Critical Care Critical Care patient: No
[2016-09-28] MEDS: SODIUM CHLORIDE 1,000 ML IV SCH (23:43)
[2016-09-28] MEDS ORDERED: POTASSIUM CHLORIDE TABS 20 MEQ TABLET.ER (FP) PO ONE (23:56)
[2016-09-29] MEDS ORDERED: POTASSIUM CHLORIDE ORAL LIQUID 20 MEQ/15 ML ONE (00:13)
[2016-09-29 01:32] LABS: ARTERIAL BLD GAS O2 SATURATION 98.6 % (90-98.9)
[2016-09-29 01:33] LABS: ALLENS TEST POSITIVE; ART PUNCT SITE RIGHT RADIAL; ARTERIAL BLOOD GAS BASE EXCESS -5.2 meq/l (-2-2); ARTERIAL BLOOD GAS HCO3 18.3 meq/L (22-26); LPM/O2% 2LPM; PT. ON O2? YES; TYPE OF O2 NASAL CANNULA
[2016-09-29 01:36] LABS: ARTERIAL BLOOD GAS pH 7.39 (7.35-7.45)
[2016-09-29] MEDS: SODIUM CHLORIDE 1,000 ML IV SCH (01:57)
[2016-09-29] MEDS: HEPARIN NA (PORCINE) 5,000 UNITS/ML 1ML VIAL SQ SCH ×3 (02:59→17:21)
[2016-09-29 04:33] VITALS: BMI 23.6
[2016-09-29] MEDS: METOCLOPRAMIDE HCL 10 MG TABLET (FP) PO SCH ×3 (06:25→21:40)
[2016-09-29] MEDS: INSULIN SLIDING SCALE (NOVOLOG) 1 VIAL SQ SCH ×4 (06:34→21:40)
[2016-09-29 07:44] LABS: BASOPHIL 0.2 % (0-2.0); EOSINOPHIL 3.3 % (0-4.5); MCH 35.4 pg (25.7-33.7); MCHC 33.2 g/dl (32.0-36.0); MEAN CELL VOLUME 106.7 fl (80-96); NEUTROPHILS 90.9 % (42.8-82.8); PLATELET COUNT 109 K/MM3 (134-434); RDW 15.5 % (11.6-15.6)
[2016-09-29 08:31] LABS: ANION GAP 9 (8-16); CALCIUM 7.8 mg/dL (8.5-10.1); CO2 24 mmol/L (21-32); CREATININE 0.7 mg/dL (0.55-1.02); GLUCOSE,RANDOM 100 mg/dL (74-106)
--- NOTE | 2016-09-29 09:14 | PN ---
Physical Exam: SUBJECTIVE: Patient seen and examined by me at bedside. Patient reports she does not remember what happened yesterday. She reports having chills and is having "pain everywhere". Otherwise, denies chest pain and shortness of breath. OBJECTIVE: Vital Signs Period Temp Pulse Resp BP Sys/Agee Pulse Ox Last 24 Hr 98 F-98.9 F 60-91 16-22 118-133/60-73 99-100 GENERAL: Awake, alert, ill appearing. LUNGS: Decreased breath sounds throughout lung bases bilaterally, mild rales right lung base. No wheezes,. No accessory muscle use. HEART: Tachycardic regular rhythm, 2/6 systolic murmur, normal S1 and S2. No rubs or gallops ABDOMEN: Soft, nontender, not distended, normoactive bowel sounds, no guarding, no rebound, no masses. LOWER EXTREMITIES:No calf tenderness. No peripheral edema. NEUROLOGICAL: Normal speech. No facial drooping Laboratory Results - last 24 hr 09/29/16 09/29/16 09/29/16 00:20 01:10 06:30 WBC 10.0 RBC 3.21 L Hgb 11.4 D Hct 34.3 MCV 106.7 H MCHC 33.2 RDW 15.5 Plt Count 109 L D MPV 9.0 Neutrophils % 90.9 H Lymphocytes % 3.9 L D Monocytes % 1.7 L Eosinophils % 3.3 D Basophils % 0.2 Puncture Site Right radial ABG pH 7.39 ABG pCO2 at Pt Temp 30.8 L ABG pO2 at Pt Temp 110.0 H ABG HCO3 18.3 L ABG O2 Sat (Measured) 98.6 ABG O2 Content 16.1 ABG Base Excess -5.2 L Eran Test Positive O2 Delivery Device Nasal cannula Oxygen Flow Rate 2lpm Sodium Potassium Chloride Carbon Dioxide Anion Gap BUN Creatinine POC Glucometer Random Glucose Lactic Acid Calcium Troponin I < 0.02 09/29/16 09/29/16 09/29/16 06:30 06:33 07:35 WBC RBC Hgb Hct MCV MCHC RDW Plt Count MPV Neutrophils % Lymphocytes % Monocytes % Eosinophils % Basophils % Puncture Site ABG pH ABG pCO2 at Pt Temp ABG pO2 at Pt Temp ABG HCO3 ABG O2 Sat (Measured) ABG O2 Content ABG Base Excess Eran Test O2 Delivery Device Oxygen Flow Rate Sodium 146 H Potassium 4.1 D Chloride 113 H Carbon Dioxide 24 Anion Gap 9 BUN 16 Creatinine 0.7 D POC Glucometer 101 Random Glucose 100 Lactic Acid 1.9 Calcium 7.8 L Troponin I Active Medications Generic Name Dose Route Start Last Admin Trade Name Freq PRN Reason Stop Dose Admin Acetaminophen 650 mg 09/28/16 23:06 Tylenol - PO Q4H PRN FEVER OR PAIN Albuterol Sulfate 2 puff 09/28/16 23:08 Ventolin Hfa Inhaler - IH Q6H PRN SHORT OF BREATH/WHEEZING Albuterol Sulfate 1 puff 09/28/16 23:15 Ventolin Hfa Inhaler - IH Q6H PRN SHORT OF BREATH/WHEEZING Budesonide/Formoterol Fumarate 2 puff 09/29/16 10:00 Symbicort 80/4.5mcg - IH BID SHELIA Gabapentin 300 mg 09/29/16 10:00 Neurontin - PO DAILY SHELIA Heparin Sodium (Porcine) 5,000 unit 09/29/16 02:00 09/29/16 02:59 Heparin - SQ 5,000 unit Q8H-IV SHELIA Administration Ceftriaxone Sodium 50 mls @ 100 mls/hr 09/29/16 10:00 Rocephin 1gm Ivpb (Pre-Docked) IVPB DAILY SHELIA Azithromycin 250 mg/ Dextrose 250 mls @ 250 mls/hr 09/29/16 16:00 IVPB DAILY SHELIA Sodium Chloride 1,000 mls @ 72 mls/hr 09/28/16 23:16 09/29/16 01:57 Normal Saline - IV 09/30/16 13:09 72 mls/hr ASDIR SHELIA Administration Insulin Aspart 1 vial 09/29/16 07:00 09/29/16 06:34 Novolog Vial Sliding Scale - SQ Not Given ACHS [facility] Protocol Methotrexate 0 mg 09/29/16 10:00 Mexate - PO DAILY SHELIA Metoclopramide HCl 5 mg 09/29/16 06:00 09/29/16 06:25 Reglan - PO Not Given TID SHELIA Pantoprazole Sodium 40 mg 09/29/16 10:00 Protonix - PO DAILY SHELIA IMAGES: Head CT (09/28/16): No evidence of a focal intracranial lesion or hemorrhage is seen. Chest X-ray (09/28/16): Interval mild atelectatic changes versus infiltrates in the right lung base, medially. Follow-up chest x-ray is needed for further evaluation. Abdominal CT (09/28/16): Chronic COPD changes, interstitial thickening and scarring again seen in included portion of the lower lung. Previously described mild thickening of the gallbladder wall at the fundus is less well appreciated on this noncontrast exam. There is no evidence of small bowel obstruction. Watery stool in the ascending, transverse and descending colon without gross wall thickening with normal stool burden in the sigmoid colon. Tiny fat- containing umbilical hernia. ASSESSMENT/PLAN: Patient is a 66 year old female with a PMHx of DM, HTN, Asthma, COPD, Rheumatoid Arthritis who presented with generalized weakness and lethargy who was found to have sepsis from community acquired pneumonia. Sepsis Secondary to Community Acquired- Acute -Continue IV NS @72mls/hr -Continue Rocephin 1gm IVPB daily day#2 -Continue Azithromycin 250mg IVPB daily day #2 -Blood cultures and Urine cultures pending -Urine antigens pending -Tylenol 650mg Q4H PRN Diarrhea-Acute -Possibly secondary to gastroenteritis -Abdominal CT revealed watery stool -Continue IV hydration Hypokalemia- Resolved -KCl 40mg PO given -Today's level 4.1 -Continue to monitor COPD/Asthma- Controlled -Continue home medications with albuterol and symbicort DMII-Controlled -ISS -Levemir 12 units HS -BGM HTN -Controlled on no medicatins -Continue to monitor BP Rheumatoid Arthritis-Chronic -Continue Methotrexate 2.5mg once a week on Tuesday's F/E/N -IV NS @100mls/hr -Electrolytes wnl -NPO except for meds. Will resume once patient can tolerate PO Disposition -Remains tachycardic with chills. Patient will remain overnight Visit type - Emergency Visit Emergency Visit: Yes ED Registration Date: 09/28/16 Care time: The patient presented to the Emergency Department on the above date and was hospitalized for further evaluation of their emergent condition. - New Patient This patient is new to me today: Yes Date on this admission: 09/30/16 - Critical Care Critical Care patient: No
[2016-09-29] MEDS: GABAPENTIN 300 MG CAPSULE (FP) PO SCH (09:52)
[2016-09-29] MEDS: CEFTRIAXONE 50 ML IVPB SCH (09:52)
[2016-09-29] MEDS: PANTOPRAZOLE 40 MG TABLET (FP) PO SCH (09:52)
[2016-09-29] MEDS ORDERED: METHOTREXATE 2.5 MG TABLET PO SCH (10:00)
[2016-09-29] MEDS ORDERED: SODIUM CHLORIDE 1,000 ML IV SCH (10:53)
[2016-09-29] MEDS ORDERED: INSULIN (NOVOLOG) ASPART 100 UNITS/ML 10ML VIAL ONE (11:53)
--- NOTE | 2016-09-29 13:39 | EKG ---
Test Reason : Blood Pressure : / mmHG Vent. Rate : 125 BPM Atrial Rate : 125 BPM P-R Int : 154 ms QRS Dur : 076 ms QT Int : 312 ms P-R-T Axes : 040 -42 060 degrees QTc Int : 450 ms SINUS TACHYCARDIA POSSIBLE LEFT ATRIAL ENLARGEMENT LEFT AXIS DEVIATION ABNORMAL ECG WHEN COMPARED WITH ECG OF 17-SEP-2016 19:15, VENT. RATE HAS INCREASED BY 48 BPM Confirmed by JUAN CHARLES, ARLEEN ([id number]) on 09/29/2016 1:39:08 PM Referred By: Confirmed By:ARLEEN MARTINEZ MD
[2016-09-29] MEDS: BUDESONIDE/FORMETEROL FUMARATE 80/4.5 mcg INHALER IH SCH ×2 (15:45→21:39)
[2016-09-29] MEDS ORDERED: AZITHROMYCIN IVPB 250 MG in DEXTROSE 5%-WATER - 250 ML IVPB SCH (16:00)
[2016-09-29] MEDS ORDERED: PT OWN MED DRAWER 7, Y5N ONE (17:07)
--- NOTE | 2016-09-29 18:07 | PN ---
Teaching Attending Note Name of Resident: Dyan Webb ATTENDING PHYSICIAN STATEMENT I saw and evaluated the patient. I reviewed the resident's note and discussed the case with the resident. I agree with the resident's findings and plan as documented. SUBJECTIVE: Patient complains of shaking chills. OBJECTIVE: Vital Signs Period Temp Pulse Resp BP Sys/Agee Pulse Ox Last 24 Hr 98 F-102.3 F 60-102 16-22 118-135/52-73 95-100 HEART: S1S2, RRR LUNGS: Bibasilar crackles ABDOMEN: Soft, non-tender, non-distended, normal BS EXTREMITIES: No edema ASSESSMENT AND PLAN: This is a 66 year old woman with a history of type 2 DM, HTN, hyperlipidemia, asthma, COPD, RA who presented to the ER with generalized weakness and lethargy. 1. Sepsis secondary to pneumonia - Afebrile, WBC improved - Continue IV fluid - Continue Rocephin, Zithromax - Blood and urine cultures pending 2. Diarrhea - Stool negative for C. difficile - Continue IV fluid 3. Hypokalemia - Improved 4. COPD/asthma - Stable - Continue Symbicort, albuterol as needed 5. Type 2 DM - Metformin held - Continue Novolog sliding scale 6. HTN - On no medication 7. Hyperlipidemia 8. Rheumatoid arthritis - Continue Methotrexate
[2016-09-29] MEDS: ACETAMINOPHEN 325 MG TABLET (FP) PO PRN (20:32)
--- NOTE | 2016-09-29 20:45 | HOSP ---
Subjective - Review of Symptoms Events since last encounter: Called to evaluate patient due to fever of 102.2F oral. General: Yes: Fatigue, Other. No: Night Sweats HEENT: Yes: Head Aches Pulmonary: Yes: Cough. No: Dyspnea, Pleuritic Chest Pain Cardiovascular: No: Chest Pain, Palpitations, Orthopnea, Light Headedness Gastrointestinal: No: Nausea, Vomiting, Abdominal Pain Genitourinary: No: Dysuria, Frequency, Incontinence Musculoskeletal: Yes: Other (whole body aches and pain) Neurological: No: Weakness, Numbness Physical Examination Vital Signs: Vital Signs Temperature 102.2 F H 09/29/16 20:11 Pulse Rate 101 H 09/29/16 20:11 Respiratory Rate 20 09/29/16 20:11 Blood Pressure 141/69 09/29/16 20:11 O2 Sat by Pulse Oximetry (%) 100 09/29/16 10:00 Constitutional: Yes: Calm Eyes: Yes: Conjunctiva Clear HENT: Yes: Atraumatic, Normocephalic Cardiovascular: Yes: Regular Rate and Rhythm, Murmur Respiratory: Yes: On Nasal O2, Other (bilateral ins/exp crackles). No: Rhonchi , Wheezes Gastrointestinal: Yes: Normal Bowel Sounds, Soft Extremities: Yes: WNL Edema: No Peripheral Pulses: Left Radial: 2+, Right Radial: 2+, Left Doralis Pedis: 2+, Right Dorsalis Pedis: 2+ Neurological: Yes: Alert, Oriented Psychiatric: Yes: Alert, Oriented Labs: CBC, BMP 09/29/16 06:30 09/29/16 06:30 Hospitalist Encounter Assessment: This is a 66 year old woman with a history of type 2 DM, HTN, hyperlipidemia, asthma, COPD, RA who presented to the ER with generalized weakness and lethargy. Admitted for sepsis secondary to pneumonia. #community acquired pneumonia with fever spike -oral 102.2 -rectal 103.1 -patient on IVF 100mls/hr NS -cont IV antibiotics azithromycin and rocephin -blood and urine cultures were done with in the last 24hrs; both negative -c diff negative -white count trending down -cont Tylenol 650mg q4h prn for fever/pain -monitor vitals Visit type - Emergency Visit Emergency Visit: Yes ED Registration Date: 09/28/16 Care time: The patient presented to the Emergency Department on the above date and was hospitalized for further evaluation of their emergent condition. - New Patient This patient is new to me today: No - Critical Care Critical Care patient: No
[2016-09-29] MEDS: INSULIN DETEMIR 100 UNITS/ML MDV SQ SCH ×2 (21:40→22:32)
[2016-09-30] MEDS: HEPARIN NA (PORCINE) 5,000 UNITS/ML 1ML VIAL SQ SCH ×3 (02:07→17:11)
[2016-09-30] MEDS: METOCLOPRAMIDE HCL 10 MG TABLET (FP) PO SCH ×3 (05:42→22:55)
[2016-09-30] MEDS: INSULIN SLIDING SCALE (NOVOLOG) 1 VIAL SQ SCH ×4 (06:11→23:03)
--- NOTE | 2016-09-30 06:49 | PN ---
Physical Exam: SUBJECTIVE: Patient seen and examined by me at bedside. Overnight events noted for fever >103. Patient still reports feeling ill but improved from yesterday. Chills resolved. She denies any nausea, vomiting, abdominal pain, chest pain , shortness of breath. OBJECTIVE: Vital Signs Period Temp Pulse Resp BP Sys/Agee Pulse Ox Last 24 Hr 97.8 F-103.5 F 71-101 16-20 115-141/52-69 100-100 GENERAL: Awake, alert, in no acute distress LUNGS: Decreased breath sounds throughout lung bases bilaterally, mild rales right lung base. No wheezes,. No accessory muscle use. HEART: Tachycardic regular rhythm, 2/6 systolic murmur, normal S1 and S2. No rubs or gallops ABDOMEN: Soft, nontender, not distended, normoactive bowel sounds, no guarding, no rebound, no masses. LOWER EXTREMITIES:No calf tenderness. No peripheral edema. NEUROLOGICAL: Normal speech. No facial drooping Laboratory Results - last 24 hr 09/29/16 09/29/16 09/29/16 06:30 06:30 06:33 WBC 10.0 RBC 3.21 L Hgb 11.4 D Hct 34.3 MCV 106.7 H MCHC 33.2 RDW 15.5 Plt Count 109 L D MPV 9.0 Neutrophils % 90.9 H Lymphocytes % 3.9 L D Monocytes % 1.7 L Eosinophils % 3.3 D Basophils % 0.2 Sodium 146 H Potassium 4.1 D Chloride 113 H Carbon Dioxide 24 Anion Gap 9 BUN 16 Creatinine 0.7 D POC Glucometer 101 Random Glucose 100 Lactic Acid Calcium 7.8 L 09/29/16 09/29/16 09/29/16 07:35 12:03 17:17 WBC RBC Hgb Hct MCV MCHC RDW Plt Count MPV Neutrophils % Lymphocytes % Monocytes % Eosinophils % Basophils % Sodium Potassium Chloride Carbon Dioxide Anion Gap BUN Creatinine POC Glucometer 95 177 Random Glucose Lactic Acid 1.9 Calcium 09/29/16 09/30/16 21:31 05:34 WBC RBC Hgb Hct MCV MCHC RDW Plt Count MPV Neutrophils % Lymphocytes % Monocytes % Eosinophils % Basophils % Sodium Potassium Chloride Carbon Dioxide Anion Gap BUN Creatinine POC Glucometer 162 99 Random Glucose Lactic Acid Calcium Active Medications Generic Name Dose Route Start Last Admin Trade Name Freq PRN Reason Stop Dose Admin Acetaminophen 650 mg 06/20/17 23:06 09/29/16 20:32 Tylenol - PO 650 mg Q4H PRN Administration FEVER OR PAIN Albuterol Sulfate 2 puff 09/28/16 23:08 Ventolin Hfa Inhaler - IH Q6H PRN SHORT OF BREATH/WHEEZING Albuterol Sulfate 1 puff 09/28/16 23:15 Ventolin Hfa Inhaler - IH Q6H PRN SHORT OF BREATH/WHEEZING Budesonide/Formoterol Fumarate 2 puff 09/29/16 10:00 09/29/16 21:39 Symbicort 80/4.5mcg - IH 2 puff BID SHELIA Administration Gabapentin 300 mg 09/29/16 10:00 09/29/16 09:52 Neurontin - PO 300 mg DAILY SHELIA Administration Heparin Sodium (Porcine) 5,000 unit 09/29/16 02:00 09/30/16 02:07 Heparin - SQ 5,000 unit Q8H-IV SHELIA Administration Ceftriaxone Sodium 50 mls @ 100 mls/hr 09/29/16 10:00 09/29/16 09:52 Rocephin 1gm Ivpb (Pre-Docked) IVPB 100 mls/hr DAILY SHELIA Administration Sodium Chloride 1,000 mls @ 100 mls/hr 09/29/16 10:53 09/29/16 11:59 Normal Saline - IV 09/30/16 09:15 100 mls/hr ASDIR SHELIA Administration Azithromycin 500 mg/ Dextrose 250 mls @ 250 mls/hr 09/30/16 10:00 IVPB DAILY [facility] Insulin Aspart 1 vial 09/29/16 07:00 09/30/16 06:11 Novolog Vial Sliding Scale - SQ Not Given ACHS [facility] Protocol Insulin Detemir 12 units 09/29/16 22:00 09/29/16 22:32 Levemir Vial SQ Not Given HS [facility] Methotrexate 20 mg 10/02/16 10:00 Mexate - PO Sa@10 SHELIA Metoclopramide HCl 5 mg 09/29/16 06:00 09/30/16 05:42 Reglan - PO 5 mg TID SHELIA Administration Pantoprazole Sodium 40 mg 09/29/16 10:00 09/29/16 09:52 Protonix - PO 40 mg DAILY SHELIA Administration IMAGES: Head CT (09/28/16): No evidence of a focal intracranial lesion or hemorrhage is seen. Chest X-ray (09/28/16): Interval mild atelectatic changes versus infiltrates in the right lung base, medially. Follow-up chest x-ray is needed for further evaluation. Abdominal CT (09/28/16): Chronic COPD changes, interstitial thickening and scarring again seen in included portion of the lower lung. Previously described mild thickening of the gallbladder wall at the fundus is less well appreciated on this noncontrast exam. There is no evidence of small bowel obstruction. Watery stool in the ascending, transverse and descending colon without gross wall thickening with normal stool burden in the sigmoid colon. Tiny fat- containing umbilical hernia. ASSESSMENT/PLAN: Patient is a 66 year old female with a PMHx of DM, HTN, Asthma, COPD, Rheumatoid Arthritis who presented with generalized weakness and lethargy who was found to have sepsis from community acquired pneumonia. Sepsis Secondary to Community Acquired- Acute -Continue IV NS @100mls/hr -Continue Rocephin 1gm IVPB daily day#3 -Continue Azithromycin 250mg IVPB daily day #3 -Blood cultures and Urine cultures negative -Urine antigens negative -Tylenol 650mg Q4H PRN Diarrhea-Acute -Possibly secondary to gastroenteritis -Abdominal CT revealed watery stool -C.diff negative -Continue IV hydration Hypokalemia- Resolved -Continue to monitor COPD/Asthma- Controlled -Continue home medications with albuterol and symbicort DMII-Controlled -ISS -Levemir 12 units HS -BGM HTN -Controlled on no medicatins -Continue to monitor BP Rheumatoid Arthritis-Chronic -Continue Methotrexate 2.5mg 8 tabs once a week on Tuesday's F/E/N -IV NS @100mls/hr -Electrolytes wnl -Diabetic controlled diet. Disposition -Remains tachycardic with chills. Patient will remain overnight Visit type - Emergency Visit Emergency Visit: Yes ED Registration Date: 09/28/16 Care time: The patient presented to the Emergency Department on the above date and was hospitalized for further evaluation of their emergent condition. - New Patient This patient is new to me today: No - Critical Care Critical Care patient: No
[2016-09-30 08:09] LABS: MCH 34.9 pg (25.7-33.7); MCHC 32.8 g/dl (32.0-36.0); MEAN CELL VOLUME 106.3 fl (80-96); MEAN PLT VOLUME 9.6 fl (7.5-11.1); PLATELET COUNT 99 K/MM3 (134-434); RDW 15.3 % (11.6-15.6); WHITE BLOOD COUNT 5.7 K/mm3 (4.0-10.0)
[2016-09-30 08:35] LABS: ANION GAP 8 (8-16); CALCIUM 7.6 mg/dL (8.5-10.1); CO2 24 mmol/L (21-32); GLUCOSE,RANDOM 103 mg/dL (74-106); MAGNESIUM 1.8 mg/dL (1.8-2.4)
[2016-09-30 08:36] LABS: CREATININE 0.5 mg/dL (0.55-1.02)
[2016-09-30 10:04] LABS: PLATELET ESTIMATE DECREASED (NORMAL)
--- NOTE | 2016-09-30 10:48 | PN ---
Teaching Attending Note Name of Resident: Dyan Webb ATTENDING PHYSICIAN STATEMENT I saw and evaluated the patient. I reviewed the resident's note and discussed the case with the resident. I agree with the resident's findings and plan as documented. SUBJECTIVE: Patient says she feels better. Had fever 103.5 overnight. OBJECTIVE: Vital Signs Period Temp Pulse Resp BP Sys/Agee Pulse Ox Last 24 Hr 97.8 F-103.5 F 80-101 20-20 115-141/61-73 100 HEART: S1S2, RRR LUNGS: Bibasilar crackles ABDOMEN: Soft, non-tender, non-distended, normal BS EXTREMITIES: No edema ASSESSMENT AND PLAN: This is a 66 year old woman with a history of type 2 DM, HTN, hyperlipidemia, asthma, COPD, RA who presented to the ER with generalized weakness and lethargy. 1. Sepsis secondary to pneumonia - WBC improved but still having fevers - Continue IV fluid - Continue Rocephin, Zithromax - Blood cultures negative after 24 hours - Urine culture negative 2. Diarrhea - Improved - Stool negative for C. difficile 3. Hypokalemia - Improved 4. COPD/asthma - Stable - Continue Symbicort, albuterol as needed 5. Type 2 DM - Metformin held - Continue Levemir, Novolog sliding scale 6. HTN - On no medication 7. Hyperlipidemia 8. Rheumatoid arthritis - Continue Methotrexate
[2016-09-30] MEDS: GABAPENTIN 300 MG CAPSULE (FP) PO SCH (10:49)
[2016-09-30] MEDS: PANTOPRAZOLE 40 MG TABLET (FP) PO SCH (10:49)
[2016-09-30] MEDS: BUDESONIDE/FORMETEROL FUMARATE 80/4.5 mcg INHALER IH SCH ×2 (10:52→22:55)
[2016-09-30] MEDS: ACETAMINOPHEN 325 MG TABLET (FP) PO PRN ×2 (11:16→22:44)
[2016-09-30] MEDS: CEFTRIAXONE 50 ML IVPB SCH (12:56)
[2016-09-30] MEDS: SODIUM CHLORIDE 1,000 ML IV SCH (13:05)
[2016-09-30] MEDS: AZITHROMYCIN IVPB 250 ML IVPB SCH (14:05)
[2016-09-30] MEDS ORDERED: diphenhydrAMINE HCL 12.5 MG/5 ML UNIT-DOSE CUPS PO ONE ×2 (18:58→22:45)
[2016-09-30] MEDS ORDERED: HYDROCORTISONE 0.5% TOPICAL CREAM 30 GM TUBE TP PRN (18:58)
[2016-09-30] MEDS ORDERED: PT OWN MED DRAWER 7, Y5N ONE (22:35)
[2016-09-30] MEDS: INSULIN DETEMIR 100 UNITS/ML MDV SQ SCH (23:03)
[2016-09-30] MEDS ORDERED: GABAPENTIN 300 MG CAPSULE (FP) PO SCH (23:30)
[2016-10-01] MEDS: HEPARIN NA (PORCINE) 5,000 UNITS/ML 1ML VIAL SQ SCH ×3 (02:14→17:23)
[2016-10-01] MEDS: METOCLOPRAMIDE HCL 10 MG TABLET (FP) PO SCH ×3 (05:09→16:20)
[2016-10-01] MEDS: INSULIN SLIDING SCALE (NOVOLOG) 1 VIAL SQ SCH ×3 (06:47→16:22)
[2016-10-01 07:53] LABS: MCH 34.8 pg (25.7-33.7); MCHC 33.3 g/dl (32.0-36.0); MEAN CELL VOLUME 104.4 fl (80-96); MEAN PLT VOLUME 9.8 fl (7.5-11.1); PLATELET COUNT 106 K/MM3 (134-434); RDW 15.1 % (11.6-15.6); WHITE BLOOD COUNT 4.1 K/mm3 (4.0-10.0)
[2016-10-01] MEDS: SODIUM CHLORIDE 1,000 ML IV SCH (09:32)
[2016-10-01] MEDS ORDERED: PT OWN MED DRAWER 7, Y5N ONE (09:33)
[2016-10-01] MEDS: AZITHROMYCIN IVPB 250 ML IVPB SCH (09:36)
[2016-10-01] MEDS: CEFTRIAXONE 50 ML IVPB SCH (09:36)
[2016-10-01] MEDS: BUDESONIDE/FORMETEROL FUMARATE 80/4.5 mcg INHALER IH SCH (09:36)
[2016-10-01] MEDS: PANTOPRAZOLE 40 MG TABLET (FP) PO SCH (09:36)
--- NOTE | 2016-10-01 12:15 | DS ---
Physical Exam: SUBJECTIVE: Patient seen and examined by me at bedside. No overnight events noted. Patient had no fevers or diarrhea in over 24 hours. Patient offers no complaints. Patient denies fever, chills, nausea, vomiting, abdominal pain, chest pain, palpitations. OBJECTIVE: Vital Signs Period Temp Pulse Resp BP Sys/Agee Pulse Ox Last 24 Hr 98 F-99.1 F 77-90 14-20 113-142/46-97 94-100 PHYSICAL EXAM GENERAL: Awake, alert, in no acute distress LUNGS: Decreased breath sounds throughout lung bases bilaterally, No wheezes, rhonchi, or rales. No accessory muscle use. HEART: regular rate and rhythm, 2/6 systolic murmur, normal S1 and S2. No rubs or gallops ABDOMEN: Soft, nontender, not distended, normoactive bowel sounds, no guarding, no rebound, no masses. LOWER EXTREMITIES:No calf tenderness. No peripheral edema. NEUROLOGICAL: Normal speech. No facial drooping LABS Laboratory Results - last 24 hr 09/30/16 09/30/16 10/01/16 16:43 23:02 06:25 WBC 4.1 RBC 2.92 L Hgb 10.2 L Hct 30.5 L MCV 104.4 H MCHC 33.3 RDW 15.1 Plt Count 106 L MPV 9.8 POC Glucometer 115 106 10/01/16 06:46 WBC RBC Hgb Hct MCV MCHC RDW Plt Count MPV POC Glucometer 90 IMAGES: Head CT (09/28/16): No evidence of a focal intracranial lesion or hemorrhage is seen. Chest X-ray (09/28/16): Interval mild atelectatic changes versus infiltrates in the right lung base, medially. Follow-up chest x-ray is needed for further evaluation. Abdominal CT (09/28/16): Chronic COPD changes, interstitial thickening and scarring again seen in included portion of the lower lung. Previously described mild thickening of the gallbladder wall at the fundus is less well appreciated on this noncontrast exam. There is no evidence of small bowel obstruction. Watery stool in the ascending, transverse and descending colon without gross wall thickening with normal stool burden in the sigmoid colon. Tiny fat- containing umbilical hernia. HOSPITAL COURSE: Patient is a 66 year old female with a PMHx of DM, HTN, Asthma, COPD, Rheumatoid Arthritis who presented with generalized weakness and lethargy who was found to have sepsis from community acquired pneumonia. Patient was started on IV antibiotics and was given IV fluids and Tylenol due to fevers. Patient's blood cultures were sent and came back negative and urine antigens were negative. Patient the last 24 hours has no fevers and reports feeling better than initial presentation. Patient stable for discharge and will be discharged with a prescription order for Azithromycin and Ceftin to complete 10 days of antibiotic course. Patient advised to follow up with PCP within a week. Patient's son set to take her home. Date of Admission:09/28/16 Date of Discharge: 10/01/16 Minutes to complete discharge: 45 Discharge Summary Reason For Visit: FEVER Current Active Problems Diarrhea (Acute) Fever (Acute) Pneumonia (Acute) Rash (Acute) Diabetes (Chronic) HTN (hypertension) (Chronic) Condition: Stable - Instructions Diet, Activity, Other Instructions: -You were admitted for a diagnosis of pneumonia. -You were given antibiotics here and I will prescribe you antibiotics to complete at home. 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 -You will need to follow up with your primary care doctor within one week for re -evaluation of symptoms -You may resume your regular diet and daily activities -Continue to stay hydrated -You may take Tylenol over the counter for any fevers or pain -If you have worsening symptoms, return to the emergency department. Referrals: Sneha Hewitt MD [Primary Care Provider] - Disposition: HOME - Home Medications Comprehensive Discharge Medication List: Ambulatory Orders Metformin HCl [Glucophage -] 500 mg PO BID 03/26/15 Gabapentin 300 mg PO DAILY 08/12/16 Albuterol Sulfate Inhaler - [Ventolin HFA Inhaler -] 1 - 2 inh PO QID PRN Insulin Glargine,Hum.rec.anlog [Lantus Solostar PEN -] 12 units SQ HS 09/20/16 Methotrexate [Mexate -] 8 tab PO WEEKLY 09/20/16 Pantoprazole Sodium [Protonix -] 40 mg PO DAILY 09/20/16 Budesonide/Formeterol Fumarate [SYMBICORT 80/4.5mcg -] 2 puff IH BID 09/28/16 Metoclopramide HCl [Reglan] 5 mg PO TID 09/28/16 Azithromycin 500 mg PO DAILY #1 tablet 10/01/16 Cefuroxime Axetil [Ceftin -] 500 mg PO BID #12 tablet 10/01/16 Hydrocortisone 0.5% Cream [Hytone 0.5% Cream -] 1 applic TP BID PRN #0 tube This patient is new to me today: No Emergency Visit: Yes ED Registration Date: 09/28/16 Care time: The patient presented to the Emergency Department on the above date and was hospitalized for further evaluation of their emergent condition. Critical Care patient: No - Discharge Referral Referred to [facility] No
--- NOTE | 2016-10-01 12:21 | PN ---
Teaching Attending Note Name of Resident: Dyan Webb ATTENDING PHYSICIAN STATEMENT I saw and evaluated the patient. I reviewed the resident's note and discussed the case with the resident. I agree with the resident's findings and plan as documented. SUBJECTIVE: Patient has no complaints. OBJECTIVE: Vital Signs Period Temp Pulse Resp BP Sys/Agee Pulse Ox Last 24 Hr 98 F-99.1 F 77-90 14-20 113-142/46-97 94-100 HEART: S1S2, RRR LUNGS: Clear ABDOMEN: Soft, non-tender, non-distended, normal BS EXTREMITIES: No edema ASSESSMENT AND PLAN: This is a 66 year old woman with a history of type 2 DM, HTN, hyperlipidemia, asthma, COPD, RA who presented to the ER with generalized weakness and lethargy. 1. Sepsis secondary to pneumonia - WBC improved - Afebrile >24 hrs - On Rocephin, Zithromax - discharge on Ceftin to complete 10 days 2. Diarrhea - Improved - Stool negative for C. difficile 3. Hypokalemia - Improved 4. COPD/asthma - Stable - Continue Symbicort, albuterol as needed 5. Type 2 DM - Resume Metformin at discharge 6. HTN - On no medication 7. Hyperlipidemia 8. Rheumatoid arthritis - Continue Methotrexate 9. Thrombocytopenia secondary to sepsis - Improving
[2016-10-01 16:02] VITALS: BP 127/58; PULSE 90; TEMP 98
[2016-10-02] MEDS ORDERED: METHOTREXATE 2.5 MG TABLET PO SCH ×2 (10:00)
== END 2016-10-01 17:59 | disposition home or self-care (01) | DRG 871 ==
LOC: JER 17:33 → JERBED 21:30 → UNDOADMIN 23:24 → J5S 09-29 01:22
PROVIDERS: ADMIT Internal Medicine; ATTEND Internal Medicine
DX: A41.9 Sepsis, unspecified organism (principal); J18.9 Pneumonia, unspecified organism; R19.7 Diarrhea, unspecified; E87.6 Hypokalemia; J44.9 Chronic obstructive pulmonary disease, unspecified; J45.909 Unspecified asthma, uncomplicated; E11.9 Type 2 diabetes mellitus without complications; I10 Essential (primary) hypertension; E78.5 Hyperlipidemia, unspecified; M06.9 Rheumatoid arthritis, unspecified; R21 Rash and other nonspecific skin eruption; D69.6 Thrombocytopenia, unspecified
CPT/HCPCS: 36415; 36600; 70450-TC; 71010-TC; 74176-TC; 80048; 80053; 81003; 81015; 82009; 82803; 83605; 83735; 84484; 85025; 85027; 87040; 87086; 87324; 87449; 93005; 93010; 97116-GP; 97161-GP; 99285-25; J1644

== ENCOUNTER 2017-01-12 08:39 | Inpatient (IN) | payer OTHER ==
[2017-01-12] MEDS ORDERED: ACETAMINOPHEN INJECTION 100 ML IVPB ONE (09:45)
[2017-01-12] MEDS ORDERED: ACETAMINOPHEN 1000 MG/100 ML VIAL (NON FORMULARY) IVPB ONE (09:47)
[2017-01-12 10:10] LABS: BASOPHIL 0.6 % (0-2.0); EOSINOPHIL 5.4 % (0-4.5); MCH 33.4 pg (25.7-33.7); MCHC 33.1 g/dl (32.0-36.0); MEAN CELL VOLUME 100.8 fl (80-96); MEAN PLT VOLUME 8.8 fl (7.5-11.1); NEUTROPHILS 65.4 % (42.8-82.8); PLATELET COUNT 190 K/MM3 (134-434); RDW 14.9 % (11.6-15.6)
[2017-01-12 10:12] LABS: URINE APPEARANCE CLEAR; URINE BILIRUBIN NEGATIVE (NEGATIVE); URINE BLOOD NEGATIVE (NEGATIVE); URINE COLOR LTYELLOW; URINE GLUCOSE (UA) NEGATIVE (NEGATIVE); URINE KETONE NEGATIVE (NEGATIVE); URINE LEUK ESTERASE NEGATIVE (NEGATIVE); URINE NITRITE NEGATIVE (NEGATIVE); URINE PROTEIN NEGATIVE (NEGATIVE); URINE UROBILINOGEN NEGATIVE mg/dL (0.2-1.0)
[2017-01-12] MEDS ORDERED: VANCOMYCIN 1,000 MG in DEXTROSE 5%-WATER - 250 ML IVPB ONE (10:21)
[2017-01-12] MEDS ORDERED: PIPERACILLIN/TAZOB 4.5 GM 4.5 GM in DEXTROSE 5%-WATER - 100 ML IVPB ONE (10:21)
[2017-01-12] MEDS ORDERED: SODIUM CHLORIDE 0.9% 500 ML INFUS.BAG IV ONE (10:22)
[2017-01-12] MEDS ORDERED: AZITHROMYCIN IVPB 500 MG in DEXTROSE 5%-WATER - 250 ML IVPB ONE (10:22)
[2017-01-12 10:35] LABS: ALBUMIN 3.1 g/dl (3.4-5.0); ANION GAP 4 (8-16); BILIRUBIN,TOTAL 0.7 mg/dL (0.2-1.0); CALCIUM 8.9 mg/dL (8.5-10.1); CO2 31 mmol/L (21-32); CREATININE 0.7 mg/dL (0.55-1.02); GLUCOSE,RANDOM 116 mg/dL (74-106); MAGNESIUM 2.1 mg/dL (1.8-2.4); SGOT/AST 23 U/L (15-37); SGPT/ALT 30 U/L (12-78)
[2017-01-12 10:38] LABS: ALK PHOS 109 U/L (45-117); TOT PROT 7.8 g/dl (6.4-8.2); TROPONIN I < 0.02 ng/ml (0.00-0.05)
[2017-01-12] MEDS ORDERED: AZITHROMYCIN IVPB 250 ML IVPB ONE (10:38)
[2017-01-12] MEDS ORDERED: VANCOMYCIN 1 GRAM (PRE-DOCKED) 250 ML IVPB ONE (10:39)
[2017-01-12] MEDS ORDERED: PIPERACILLIN/TAZOB 4.5 GM 100 ML IVPB ONE (10:39)
--- NOTE | 2017-01-12 10:49 | PDOC ---
History of Present Illness - General History Source: Patient, Other (Aide) Exam Limitations: No Limitations - History of Present Illness Initial Comments: 01/12/17 11:10 The patient is a 66 year old female, with a significant past medical history of Asthma, DM, HTN, HLD, CHF, GERD, and rheumatoid arthritis who presents to the emergency department accompanied by aide with fever, productive cough (green) and body aches for the past week. Patient reports generalized pain and headache , 4/10 in severity with no associated nausea, vomiting, dizziness or lightheadedness. Headache began gradually 5 days ago. Patient denies taking any medications for the pain and presents to the ED for further evaluation. Upon arrival, patients vital signs significant for 101.5 fever and 112 pulse. She denies chest pain, SOB, abdominal pain, nausea, vomit, diarrhea or constipation. She denies dysuria, frequency, urgency or hematuria. Allergies: NKA Past surgical history:Hysterectomy, Ankle wrist surgery Social history: None PCP: Dr. Joya <Jessie Quinones - Last Filed: 01/12/17 11:10> <Patricia Goodman - Last Filed: 01/12/17 11:35> - General Chief Complaint: SIRS, Suspected/Possible Stated Complaint: R/O PNEUMONIA Time Seen by Provider: 01/12/17 08:56 Past History <Jessie Quinones - Last Filed: 01/12/17 11:10> - Past Medical History Asthma: Yes Diabetes: Yes GI Disorders: Yes (Reflux) HTN: Yes Hypercholesterolemia: Yes - Surgical History Orthopedic Surgery: Yes (lt arm x3) - Suicide/Smoking/Psychosocial Hx Smoking History: Never smoked Have you smoked in the past 12 months: No Information on smoking cessation initiated: No Hx Alcohol Use: No Drug/Substance Use Hx: No Substance Use Type: None Hx Substance Use Treatment: No <Patricia Goodman - Last Filed: 01/12/17 11:35> - Past Medical History Allergies/Adverse Reactions: Allergies Allergy/AdvReac Type Severity Reaction Status Date / Time No Known Allergies Allergy Verified 01/12/17 08:47 Home Medications: Ambulatory Orders Metformin HCl [Glucophage -] 500 mg PO BID 03/26/15 Gabapentin 300 mg PO DAILY 08/12/16 Albuterol Sulfate Inhaler - [Ventolin HFA Inhaler -] 1 - 2 inh PO QID PRN Insulin Glargine,Hum.rec.anlog [Lantus Solostar PEN -] 12 units SQ HS 09/20/16 Pantoprazole Sodium [Protonix -] 40 mg PO DAILY 09/20/16 Budesonide/Formeterol Fumarate [SYMBICORT 80/4.5mcg -] 2 puff IH BID 09/28/16 Metoclopramide HCl [Reglan] 5 mg PO TID 09/28/16 Cefuroxime Axetil [Ceftin -] 500 mg PO BID #12 tablet 10/01/16 Review of Systems - Review of Systems Able to Perform ROS?: Yes Comments:: 01/12/17 11:11 GENERAL/CONSTITUTIONAL: No fever or chills. No weakness. HEAD, EYES, EARS, NOSE AND THROAT: No change in vision. No ear pain or discharge. No sore throat. CARDIOVASCULAR: No chest pain or shortness of breath. RESPIRATORY: No cough, wheezing, or hemoptysis. GASTROINTESTINAL: + suprapubic abdominal pain, nausea, vomiting. No diarrhea or constipation. GENITOURINARY: No dysuria, frequency, or change in urination. MUSCULOSKELETAL: No joint or muscle swelling or pain. No neck or back pain. SKIN: No rash NEUROLOGIC: + dizziness. No headache, vertigo, loss of consciousness, or change in strength/sensation. ENDOCRINE: No increased thirst. No abnormal weight change. HEMATOLOGIC/LYMPHATIC: No anemia, easy bleeding, or history of blood clots. ALLERGIC/IMMUNOLOGIC: No hives or skin allergy. <Jessie Quinones - Last Filed: 01/12/17 11:10> *Physical Exam - Vital Signs Last Vital Signs Temp Pulse Resp BP Pulse Ox 101.5 F H 112 H 20 131/86 95 01/12/17 08:47 01/12/17 08:47 01/12/17 08:47 01/12/17 08:47 01/12/17 08:47 - Physical Exam Comments: 01/12/17 11:26 GENERAL: Awake, alert, and fully oriented, in no acute distress. +Appears comfortable HEAD: No signs of trauma EYES: PERRLA, EOMI, sclera anicteric, conjunctiva clear ENT: Auricles normal inspection, hearing grossly normal, nares patent, oropharynx clear without exudates. Moist mucosa NECK: Normal ROM, supple, no lymphadenopathy, JVD, or masses LUNGS: Breath sounds equal, clear to auscultation bilaterally. No wheezes, and no crackles HEART: Regular rate and rhythm, normal S1 and S2, no murmurs, rubs or gallops ABDOMEN: +Suprapubic tenderness. Soft, nontender, normoactive bowel sounds. No guarding, no rebound. No masses. No CVA tenderness. EXTREMITIES: Normal range of motion, no edema. No clubbing or cyanosis. No cords, erythema, or tenderness NEUROLOGICAL: Normal speech, cranial nerves intact, negative pronator drift, 5/ 5 strength in all 4 extremities, normal sensation to light touch in all 4 extremities, normal cerebellar exam, normal gait, normal reflexes and tone SKIN: Warm, Dry, normal turgor, no rashes or lesions noted. <Jessie Quinones - Last Filed: 01/12/17 11:10> - Vital Signs Last Vital Signs Temp Pulse Resp BP Pulse Ox 101.5 F H 112 H 20 131/86 95 01/12/17 08:47 01/12/17 08:47 01/12/17 08:47 01/12/17 08:47 01/12/17 08:47 <Patricia Goodman - Last Filed: 01/12/17 11:35> ED Treatment Course - LABORATORY CBC & Chemistry Diagram: 01/12/17 09:35 01/12/17 09:35 - ADDITIONAL ORDERS Additional order review: Laboratory Results 01/12/17 01/12/17 01/12/17 10:02 10:02 09:35 Sodium Potassium Chloride Carbon Dioxide Anion Gap BUN Creatinine Creat Clearance w eGFR Random Glucose Lactic Acid 1.4 Calcium Magnesium Total Bilirubin AST ALT Alkaline Phosphatase Troponin I B-Natriuretic Peptide 114.56 Total Protein Albumin Lipase Urine Color Ltyellow Urine Appearance Clear Urine pH 7.0 D Urine Protein Negative Urine Glucose (UA) Negative Urine Ketones Negative Urine Blood Negative Urine Nitrite Negative Urine Bilirubin Negative Urine Urobilinogen Negative 01/12/17 09:35 Sodium 137 Potassium 4.2 Chloride 102 Carbon Dioxide 31 D Anion Gap 4 L BUN 9 D Creatinine 0.7 D Creat Clearance w eGFR > 60 Random Glucose 116 H Lactic Acid Calcium 8.9 Magnesium 2.1 Total Bilirubin 0.7 AST 23 ALT 30 D Alkaline Phosphatase 109 D Troponin I < 0.02 B-Natriuretic Peptide Total Protein 7.8 D Albumin 3.1 L Lipase 184 Urine Color Urine Appearance Urine pH Urine Protein Urine Glucose (UA) Urine Ketones Urine Blood Urine Nitrite Urine Bilirubin Urine Urobilinogen 01/12/17 09:35 RBC 3.74 D MCV 100.8 H MCHC 33.1 RDW 14.9 MPV 8.8 D Neutrophils % 65.4 D Lymphocytes % 21.3 D Monocytes % 7.3 D Eosinophils % 5.4 H Basophils % 0.6 - Medications Given in the ED: ED Medications Discontinued Medications Generic Name Dose Route Start Last Admin Trade Name Freq PRN Reason Stop Dose Admin Acetaminophen 1,000 mg 01/12/17 09:47 01/12/17 09:56 Ofirmev Injection - IVPB 01/12/17 09:48 1,000 mg ONCE ONE Administration Piperacillin Sod/Tazobactam 100 mls @ 200 mls/hr 01/12/17 10:21 01/12/17 10:49 Sod 4.5 gm/ Dextrose IVPB 01/12/17 10:50 200 mls/hr ONCE ONE Administration Protocol Sodium Chloride 1,000 ml 01/12/17 10:22 01/12/17 10:23 Normal Saline - IV 01/12/17 10:23 1,000 ml ONCE ONE Administration <Jessie Quinones - Last Filed: 01/12/17 11:10> - LABORATORY CBC & Chemistry Diagram: 01/12/17 09:35 01/12/17 09:35 - ADDITIONAL ORDERS Additional order review: Laboratory Results 01/12/17 01/12/17 01/12/17 10:02 10:02 09:35 Sodium Potassium Chloride Carbon Dioxide Anion Gap BUN Creatinine Creat Clearance w eGFR Random Glucose Lactic Acid 1.4 Calcium Magnesium Total Bilirubin AST ALT Alkaline Phosphatase Troponin I B-Natriuretic Peptide 114.56 Total Protein Albumin Lipase Urine Color Ltyellow Urine Appearance Clear Urine pH 7.0 D Urine Protein Negative Urine Glucose (UA) Negative Urine Ketones Negative Urine Blood Negative Urine Nitrite Negative Urine Bilirubin Negative Urine Urobilinogen Negative 01/12/17 09:35 Sodium 137 Potassium 4.2 Chloride 102 Carbon Dioxide 31 D Anion Gap 4 L BUN 9 D Creatinine 0.7 D Creat Clearance w eGFR > 60 Random Glucose 116 H Lactic Acid Calcium 8.9 Magnesium 2.1 Total Bilirubin 0.7 AST 23 ALT 30 D Alkaline Phosphatase 109 D Troponin I < 0.02 B-Natriuretic Peptide Total Protein 7.8 D Albumin 3.1 L Lipase 184 Urine Color Urine Appearance Urine pH Urine Protein Urine Glucose (UA) Urine Ketones Urine Blood Urine Nitrite Urine Bilirubin Urine Urobilinogen 01/12/17 09:35 RBC 3.74 D MCV 100.8 H MCHC 33.1 RDW 14.9 MPV 8.8 D Neutrophils % 65.4 D Lymphocytes % 21.3 D Monocytes % 7.3 D Eosinophils % 5.4 H Basophils % 0.6 - RADIOLOGY Radiology Studies Ordered: Category Date Time Status CHEST X-RAY PORTABLE* [RAD] Stat Radiology 01/12/17 09:44 Taken - Medications Given in the ED: ED Medications Discontinued Medications Generic Name Dose Route Start Last Admin Trade Name Freq PRN Reason Stop Dose Admin Acetaminophen 1,000 mg 01/12/17 09:47 01/12/17 09:56 Ofirmev Injection - IVPB 01/12/17 09:48 1,000 mg ONCE ONE Administration Sodium Chloride 1,000 ml 01/12/17 10:22 01/12/17 10:23 Normal Saline - IV 01/12/17 10:23 1,000 ml ONCE ONE Administration <Patricia Goodman - Last Filed: 01/12/17 11:35> Medical Decision Making - Medical Decision Making 01/12/17 10:57 66-year-old female with multiple medical problems including rheumatoid arthritis and recent admission to the hospital for pneumonia presents with 1 week of productive cough, fevers, headaches and body aches. Vitals here remarkable for fever and tachycardia to the low 1 teens. Exam with inspiratory crackles bilaterally, dry mucous membranes, and right calf edema and tenderness to palpation. Differential includes but is not limited to pneumonia versus influenza versus viral syndrome. Will hydrate given dry mucous membranes and will order a lower extremity Doppler given subtle but noticeable right lower extremity edema. -labs -abx -antipyretics -LE US -flu swab -likely admit 01/12/17 11:33 CXR c/f PNA. Given recent admission, covered pt with mario alberto rojo azithro. Pt admitted to Dr. Dahl. Case discussed in detail with admitting physician including history, physical exam and ancillary studies. Admitting physician has assumed care for the patient, will follow all pending diagnostics and will complete the evaluation and treatment. <Patricia Goodman - Last Filed: 01/12/17 11:35> *DC/Admit/Observation/Transfer - Attestations Scribe Attestion: 01/12/17 11:26 Documentation prepared by Jessie Quinones, acting as medical records auditor for Patricia Goodman MD <Jessie Quinones - Last Filed: 01/12/17 11:10> - Discharge Dispostion Admit: Yes - Attestations Physician Attestion: 01/12/17 11:35 I, Dr. Patricia Goodman MD, attest that this document has been prepared under my direction and personally reviewed by me in its entirety. I further attest, that it accurately reflects all work, treatment, procedures and medical decision -making performed by me. <Patricia Goomdan - Last Filed: 01/12/17 11:35> Diagnosis at time of Disposition: Pneumonia - Discharge Dispostion Condition at time of disposition: Stable - Referrals Referrals: Sneha Hewitt MD [Primary Care Provider] -
--- NOTE | 2017-01-12 11:53 | HP ---
CHIEF COMPLAINT: feeling sick/body black PCP: Dr. Red HISTORY OF PRESENT ILLNESS: This is a 66 year old female with a significant past medical history of community acquired pneumonia, (09/25), presents to the emergency dept. complaining of fever, cough, body pain. BERNARDO and inability to ambulate for one day. Patient states that she has become short of breath with chest pain during slight movement which provoked her to come to the ED. Ms. Davis lives at home with her son. She endorses fever, chills, cough productive of green/brown sputum. She denies n,v,sore throat, diarrhea, urinary symptoms. She denies sick contacts. Traveled to [facility] last May. Patient was admitted to [facility] 09/25, for CAP, treated in hospital with IV azithromycin and IV ceftriaxone, sent home of ceftin and azithromycin. ER course was notable for: (1)WBC, lactate wnl. CXR left costophrenic angle not fully visible (2)fever 101.5; as per ER team was given O2 via NC due to hypoxia Recent Travel: [facility] last year PAST MEDICAL HISTORY: COPD, Asthma, DM, Arthritis, CAP, DVT PAST SURGICAL HISTORY: Social History: Smoking:no Alcohol:no Drugs: no Family History: Allergies No Known Allergies Allergy (Verified 01/12/17 08:47) HOME MEDICATIONS: Home Medications Medication Instructions Recorded Metformin HCl [Glucophage -] 500 mg PO BID 03/26/15 Gabapentin 300 mg PO DAILY 08/12/16 Albuterol Sulfate Inhaler - 1 - 2 inh PO QID PRN 09/17/16 [Ventolin HFA Inhaler -] Insulin Glargine,Hum.rec.anlog 12 units SQ HS 09/20/16 [Lantus Solostar PEN -] Pantoprazole Sodium [Protonix -] 40 mg PO DAILY 09/20/16 Budesonide/Formeterol Fumarate 2 puff IH BID 09/28/16 [SYMBICORT 80/4.5mcg -] Metoclopramide HCl [Reglan] 5 mg PO TID 09/28/16 Cefuroxime Axetil [Ceftin -] 500 mg PO BID #12 tablet 10/01/16 REVIEW OF SYSTEMS CONSTITUTIONAL: Positive: fever, chills ,generalized weakness, malaise, Absent: diaphoresis, loss of appetite, weight change HEENT: Absent: rhinorrhea, nasal congestion, throat pain, throat swelling, difficulty swallowing, mouth swelling, ear pain, eye pain, visual changes CARDIOVASCULAR: Positive: chest pain Absent: syncope, palpitations, irregular heart rate, lightheadedness, peripheral edema RESPIRATORY: Positive: cough , sob, dyspnea with exertion, Absent:orthopnea, wheezing, stridor, hemoptysis GASTROINTESTINAL: Absent: abdominal pain, abdominal distension, nausea, vomiting, diarrhea, constipation, melena, hematochezia GENITOURINARY: Absent: dysuria, frequency, urgency, hesitancy, hematuria, flank pain, genital pain MUSCULOSKELETAL: Positive: myalgia, arthralgia, joint swelling, Absent: back pain, neck pain SKIN: Absent: rash, itching, pallor HEMATOLOGIC/IMMUNOLOGIC: Absent: easy bleeding, easy bruising, lymphadenopathy, frequent infections ENDOCRINE: Absent: unexplained weight gain, unexplained weight loss, heat intolerance, cold intolerance NEUROLOGIC: Absent: headache, focal weakness or paresthesias, dizziness, unsteady gait, seizure, mental status changes, bladder or bowel incontinence PSYCHIATRIC: Absent: anxiety, depression, suicidal or homicidal ideation, hallucinations. PHYSICAL EXAMINATION Vital Signs - 24 hr 01/12/17 08:47 Temperature 101.5 F H Pulse Rate 112 H Respiratory 20 Rate Blood Pressure 131/86 O2 Sat by Pulse 95 Oximetry (%) GENERAL: Awake, alert, laying in bed, and fully oriented, in pain HEAD: Normal with no signs of trauma. EYES: Pupils equal, round and reactive to light, extraocular movements intact, sclera anicteric, conjunctiva clear. No lid lag. EARS, NOSE, THROAT: Ears normal, nares patent, oropharynx clear without exudates. Moist mucous membranes. NECK: Normal range of motion, supple without lymphadenopathy, JVD, or masses. LUNGS: Breath sounds equal, clear to auscultation bilaterally. No wheezes, left LL crackles. No accessory muscle use. HEART: tachycardia and reg rhythm, normal S1 and S2 without murmur, rub or gallop. ABDOMEN: Soft, nontender, not distended, normoactive bowel sounds, no guarding, no rebound, no masses. No hepatomegaly or splenomegaly. MUSCULOSKELETAL: No bony deformities. Tenderness of bilateral knee joints, right wrist. No CVA tenderness. UPPER EXTREMITIES: 2+ pulses, warm, well-perfused. No cyanosis. No clubbing. Right wrist swelling LOWER EXTREMITIES: 2+ pulses, warm, well-perfused. No calf tenderness. trace b/ l edema NEUROLOGICAL: Cranial nerves II-XII intact. Normal speech. PSYCHIATRIC: Cooperative. Good eye contact. Appropriate mood and affect. SKIN: Warm, dry, normal turgor, no rashes or lesions noted, normal capillary refill. CBCD WBC 10.0 K/mm3 (4.0-10.0) D 01/12/17 09:35 RBC 3.74 M/mm3 (3.60-5.2) D 01/12/17 09:35 Hgb 12.5 GM/dL (10.7-15.3) D 01/12/17 09:35 Hct 37.7 % (32.4-45.2) D 01/12/17 09:35 MCV 100.8 fl (80-96) H 01/12/17 09:35 MCHC 33.1 g/dl (32.0-36.0) 01/12/17 09:35 RDW 14.9 % (11.6-15.6) 01/12/17 09:35 Plt Count 190 K/MM3 (134-434) D 01/12/17 09:35 MPV 8.8 fl (7.5-11.1) D 01/12/17 09:35 CMP Sodium 137 mmol/L (136-145) 01/12/17 09:35 Potassium 4.2 mmol/L (3.5-5.1) 01/12/17 09:35 Chloride 102 mmol/L (98-107) 01/12/17 09:35 Carbon Dioxide 31 mmol/L (21-32) D 01/12/17 09:35 Anion Gap 4 (8-16) L 01/12/17 09:35 BUN 9 mg/dL (7-18) D 01/12/17 09:35 Creatinine 0.7 mg/dL (0.55-1.02) D 01/12/17 09:35 Creat Clearance w eGFR > 60 (>60) 01/12/17 09:35 Random Glucose 116 mg/dL (74-106) H 01/12/17 09:35 Calcium 8.9 mg/dL (8.5-10.1) 01/12/17 09:35 Total Bilirubin 0.7 mg/dL (0.2-1.0) 01/12/17 09:35 AST 23 U/L (15-37) 01/12/17 09:35 ALT 30 U/L (12-78) D 01/12/17 09:35 Alkaline Phosphatase 109 U/L (45-117) D 01/12/17 09:35 Total Protein 7.8 g/dl (6.4-8.2) D 01/12/17 09:35 Albumin 3.1 g/dl (3.4-5.0) L 01/12/17 09:35 CARDIAC ENZYMES Troponin I < 0.02 ng/ml (0.00-0.05) 01/12/17 09:35 CXR:Portable chest x-ray, AP sitting Since 11/22/2016, the cardiac silhouette remains within normal limits in size with mild unfolding of the aortic arch. Bilateral interstitial thickening again noted without interval change. However, it has increased to prior chest x-ray dated 03/16/2015 Mediastinum and visualized osseous structures appear intact. ASSESSMENT/PLAN: This is a 66 year old female with a significant past medical history of DVT and CAP, presents to the emergency room with above symptoms, admitted for sepsis. Need to rule out other causes of shortness for shortness of breath and chest pain, including PE and ACS. #Sepsis secondary to pneumonia: need to rule out other etiology for sob/cp -Cbc, IVF -IV antibiotics; was treated in September for CAP; will discuss with ID if need to treat for HAP. -ID consulted #sob/cp: -trend troponin; neg x1 -ecg -consider CTA to rule out PE; patient has hx of dvt #COPD/asthma: -cont inhaled broncodilators -incentive spirometry -duonebs prn #DM -Insulin SS -levemir 12 U HS -bgm achs FEN: Fluids: IVF NA Electrolytes: wnl Diet : diabetic VTE prophylaxis: heparin sq GI prophylaxis: protonix Problem List - Problem (1) Pneumonia Code(s): J18.9 - PNEUMONIA, UNSPECIFIED ORGANISM (2) Chest pain Code(s): R07.9 - CHEST PAIN, UNSPECIFIED Qualifiers: Chest pain type: unspecified Qualified Code(s): R07.9 - Chest pain, unspecified; R07.9 - Chest pain, unspecified (3) Fever Code(s): R50.9 - FEVER, UNSPECIFIED Qualifiers: Encounter type: initial encounter (4) Shortness of breath Code(s): R06.02 - SHORTNESS OF BREATH (5) Diabetes Code(s): E11.9 - TYPE 2 DIABETES MELLITUS WITHOUT COMPLICATIONS Visit type - Emergency Visit Emergency Visit: Yes ED Registration Date: 01/12/17 Care time: The patient presented to the Emergency Department on the above date and was hospitalized for further evaluation of their emergent condition. - New Patient This patient is new to me today: Yes Date on this admission: 01/12/17 - Critical Care Critical Care patient: No
[2017-01-12] MEDS ORDERED: SODIUM CHLORIDE 1,000 ML IV SCH (12:30)
--- NOTE | 2017-01-12 13:04 | EKG ---
Test Reason : Blood Pressure : / mmHG Vent. Rate : 103 BPM Atrial Rate : 103 BPM P-R Int : 168 ms QRS Dur : 072 ms QT Int : 354 ms P-R-T Axes : 026 -40 040 degrees QTc Int : 463 ms SINUS TACHYCARDIA LEFT AXIS DEVIATION ABNORMAL ECG WHEN COMPARED WITH ECG OF 28-SEP-2016 18:04, NO SIGNIFICANT CHANGE WAS FOUND Confirmed by ARLEEN MARTINEZ MD ([id number]) on 01/12/2017 1:03:50 PM Referred By: Confirmed By:ARLEEN MARTINEZ MD
--- NOTE | 2017-01-12 13:17 | HP ---
CHIEF COMPLAINT: Generalised bodyache, fever, cough, difficulty breathing PCP: Dr. Joya HISTORY OF PRESENT ILLNESS: 01/12/17 11:10 The patient is a 66 year old swedish speaking female, with a significant past medical history of Asthma, DM, HTN, HLD, CHF, GERD, and rheumatoid arthritis who presents to the emergency department due to fever, nonproductive cough and body aches for the past week. Patient reports generalized pain and headache, 4/ 10 in severity with no associated nausea, vomiting, dizziness or lightheadedness. Headache began gradually 5 days ago. Patient denies taking any medications for the pain and presents to the ED for further evaluation. Upon arrival, patients vital signs significant for 101.5 fever and 112 pulse. Patiet reports right knee pain and enlargment with B/L hand swelling and pain too. She denies chest pain, SOB, abdominal pain, nausea, vomit, diarrhea or constipation. She denies dysuria, frequency, urgency or hematuria. Recent Travel:No PAST MEDICAL HISTORY:Asthma, DM, HTN, HLD, CHF, GERD, and rheumatoid arthritis PAST SURGICAL HISTORY: Hysteroectomy, Ankle, wrist surgery. Social History: Smoking:never Alcohol:never Drugs: never Family History: Heart attach (Mother), stroke in her father Allergies No Known Allergies Allergy (Verified 01/12/17 08:47) HOME MEDICATIONS: Home Medications Medication Instructions Recorded Metformin HCl [Glucophage -] 500 mg PO BID 03/26/15 Gabapentin 300 mg PO DAILY 08/12/16 Albuterol Sulfate Inhaler - 1 - 2 inh PO QID PRN 09/17/16 [Ventolin HFA Inhaler -] Insulin Glargine,Hum.rec.anlog 12 units SQ HS 09/20/16 [Lantus Solostar PEN -] Pantoprazole Sodium [Protonix -] 40 mg PO DAILY 09/20/16 Budesonide/Formeterol Fumarate 2 puff IH BID 09/28/16 [SYMBICORT 80/4.5mcg -] Metoclopramide HCl [Reglan] 5 mg PO TID 09/28/16 Cefuroxime Axetil [Ceftin -] 500 mg PO BID #12 tablet 10/01/16 REVIEW OF SYSTEMS CONSTITUTIONAL: Absent: fever, chills, diaphoresis, generalized weakness, malaise, loss of appetite, weight change HEENT: Absent: rhinorrhea, nasal congestion, throat pain, throat swelling, difficulty swallowing, mouth swelling, ear pain, eye pain, visual changes CARDIOVASCULAR: Absent: chest pain, syncope, palpitations, irregular heart rate, lightheadedness , peripheral edema RESPIRATORY: Absent: cough, shortness of breath, dyspnea with exertion, orthopnea, wheezing, stridor, hemoptysis GASTROINTESTINAL: Absent: abdominal pain, abdominal distension, nausea, vomiting, diarrhea, constipation, melena, hematochezia GENITOURINARY: Absent: dysuria, frequency, urgency, hesitancy, hematuria, flank pain, genital pain MUSCULOSKELETAL: Absent: myalgia, arthralgia, joint swelling, back pain, neck pain SKIN: Absent: rash, itching, pallor HEMATOLOGIC/IMMUNOLOGIC: Absent: easy bleeding, easy bruising, lymphadenopathy, frequent infections ENDOCRINE: Absent: unexplained weight gain, unexplained weight loss, heat intolerance, cold intolerance NEUROLOGIC: Absent: headache, focal weakness or paresthesias, dizziness, unsteady gait, seizure, mental status changes, bladder or bowel incontinence PSYCHIATRIC: Absent: anxiety, depression, suicidal or homicidal ideation, hallucinations. PHYSICAL EXAMINATION Vital Signs - 24 hr 01/12/17 12:58 Pulse Rate [ 92 H Radial] Respiratory 18 Rate Blood Pressure 153/66 [Right Arm] O2 Sat by Pulse 98 Oximetry (%) GENERAL: Awake, alert, and fully oriented, in no acute distress. HEAD: Normal with no signs of trauma. EYES: Pupils equal, round and reactive to light, extraocular movements intact, sclera anicteric, conjunctiva clear. No lid lag. EARS, NOSE, THROAT: Ears normal, nares patent, oropharynx clear without exudates. Moist mucous membranes. NECK: Normal range of motion, supple without lymphadenopathy, JVD, or masses. LUNGS: Breath sounds equal, clear to auscultation bilaterally. No wheezes, and no crackles. No accessory muscle use. HEART: Regular rate and rhythm, normal S1 and S2 without murmur, rub or gallop. ABDOMEN: Soft, nontender, not distended, normoactive bowel sounds, no guarding, no rebound, no masses. No hepatomegaly or splenomegaly. MUSCULOSKELETAL: Normal range of motion at all joints. No bony deformities or tenderness. No CVA tenderness. UPPER EXTREMITIES: 2+ pulses, warm, well-perfused. No cyanosis. No clubbing. No peripheral edema. LOWER EXTREMITIES: 2+ pulses, warm, well-perfused. No calf tenderness. No peripheral edema. NEUROLOGICAL: Cranial nerves II-XII intact. Normal speech. Normal gait. PSYCHIATRIC: Cooperative. Good eye contact. Appropriate mood and affect. SKIN: Warm, dry, normal turgor, no rashes or lesions noted, normal capillary refill. Extremities :right knee with swelling and warmth no erythema, pain on moving the joint both hands with swelling of the first and second joints- right hand with erythema and warmth of the first and second joints no shoulder swelling CBC, BMP 01/12/17 09:35 01/12/17 09:35 Current Medications Acetaminophen (Tylenol -) 650 mg PO Q4H PRN PRN Reason: FEVER OR PAIN Budesonide/Formoterol Fumarate (Symbicort 80/4.5mcg -) 2 puff IH BID [facility] Gabapentin (Neurontin -) 300 mg PO DAILY [facility] Heparin Sodium (Porcine) (Heparin -) 5,000 unit SQ Q8H-IV [facility] Last Admin: 01/12/17 18:32 Dose: 5,000 unit Sodium Chloride (Normal Saline -) 1,000 mls @ 100 mls/hr IV ASDIR [facility] Stop: 01/12/17 22:29 Last Admin: 01/12/17 15:36 Dose: 100 mls/hr Azithromycin 250 mg/ Dextrose 250 mls @ 250 mls/hr IVPB DAILY [facility] Ceftriaxone Sodium 1 gm/ (Dextrose) 50 mls @ 100 mls/hr IVPB DAILY [facility] Last Admin: 01/12/17 15:36 Dose: 100 mls/hr Insulin Aspart (Novolog Vial Sliding Scale -) 1 vial SQ ACHS [facility] PRN Reason: Protocol Last Admin: 01/12/17 17:05 Dose: 2 units Insulin Detemir (Levemir Vial) 12 units SQ HS [facility] Pantoprazole Sodium (Protonix -) 20 mg PO DAILY [facility] 01/12/2017 CXR - Chronic interstitial lung disease worsen since last image in 2014 Knee Xray- pending reading LE US: Negative for DVT ASSESSMENT/PLAN: 66 year old female, with a significant past medical history of Asthma, DM, HTN, HLD, CHF, GERD, and rheumatoid arthritis who presents to the emergency department due to generalized body ache, fever, dry cough, shoertness of breath , she also complained of multiple jount pain (right knee and both hands) she was found to be septic secondary to possible pneumonia and wasadmitted for further evaluation . # Sepsis secondary to CAP vs HAC vs septic joint vs asthma exacerbation * tachycardic 112, febrile 101.5 with chronic changes on CXR * CURB 65 score 0 * O2 to keep o2 sat > 90 % * vanco/zosyn was given in ED , continue with Rocephin 1gm IV qDaily and Azithromycin 250mg IV qDaily * duoneb PRN , * Cotinue Symbicort * Influenza A-B swab negative * Blood culture pending * Urine culture * UA is negative * Well score is low * Doppler LE is negative for PE * # Rheumatoid arthritis * presented with right knee enlargement , both hand swelling * Poly arthritis currently off meds * Xray for the Right knee to R/O effusion , low suspicious infectious * consider aspiration if shows any effusion * consider NSAIDS for pain * consider rhemoatology consultation * start Prednison 40 mg PO once * # DM , * Hold home meds * BGM * ISS * Levemir 12 unites HS * Diabetic diet , low sodium diet * monitor blood sugar # HTN , * controlled , * no on any meds * monitor #CHF, * no symptoms of exacerbation * not on any meds for CHF * last echo from 2014 was normal * # FEN: * on no fluids * Monitor lytes * diabetic low sodium diet # Proph : * DVT : 5000 units SQ Q8hr * GI: protonix 40 mg PO daily (home meds ) * # dispo: * Admit to med surg * confirm patient meds with PCP Visit type - Emergency Visit Emergency Visit: Yes ED Registration Date: 01/12/17 Care time: The patient presented to the Emergency Department on the above date and was hospitalized for further evaluation of their emergent condition. - New Patient This patient is new to me today: Yes Date on this admission: 01/14/17 - Critical Care Critical Care patient: No
[2017-01-12 13:32] VITALS: BMI 26.2
--- NOTE | 2017-01-12 13:50 | CON.ID ---
Consult Consult Specialty:: Infectious Disease Reason for Consultation:: Pneumonia - History of Present Illness History of Present Illness: 66yo Mosotho-speaking F with history of asthma, DM, HTN, HLD, CHF, GERD, and RA who initially presented to the ED with fever (101), SOB, and cough along side of multiple joint pain in hands/shoulders. She reports having her symptoms start 10 days ago with cough and some increased work of breathing which progressively worsened until now. Her joint pain started about 3 days ago and notes her R MCP joints becoming increasingly painful and inflamed. Pt states she has been coughing, but hardly producing any sputum. When she did cough up sputum she stated it was green. Pt also endorses having watery diarrhea for about 2 days which she described as black. No blood on toilet paper or yarely blood noted. Pt denies chills, urinary symptoms including dysuria and polyuria, recent travel, and any sick contacts. Pt states she's been on steroids within the past 2 months for her hand pain, but stopped them because they were not working. SoHx: No recent sick contacts. Lives in [place] alone No smoking No alcohol use NKDA - History Source History Provided By: Patient, Medical Record Limitations to Obtaining History: No Limitations - Past Medical History Cardio/Vascular: Yes: HTN, Hyperlipdemia Pulmonary: Yes: Asthma Gastrointestinal: Yes: GERD Rheumatology: Yes: Rheumatoid Arthritis Endocrine: Yes: Diabetes Mellitus - Past Surgical History Additional Surgical History: Hysterectomy many years ago. L ankle surgery after mechanical fall (4 years ago) - Alcohol/Substance Use Hx Alcohol Use: No History of Substance Use: reports: None - Smoking History Smoking history: Never smoked Have you smoked in the past 12 months: No - Social History Usual Living Arrangement: Alone ADL: Independent History of Recent Travel: No Home Medications - Allergies Allergies/Adverse Reactions: Allergies Allergy/AdvReac Type Severity Reaction Status Date / Time No Known Allergies Allergy Verified 01/12/17 08:47 - Home Medications Home Medications: Ambulatory Orders Metformin HCl [Glucophage -] 500 mg PO BID 03/26/15 Gabapentin 300 mg PO DAILY 08/12/16 Albuterol Sulfate Inhaler - [Ventolin HFA Inhaler -] 1 - 2 inh PO QID PRN Insulin Glargine,Hum.rec.anlog [Lantus Solostar PEN -] 12 units SQ HS 09/20/16 Pantoprazole Sodium [Protonix -] 40 mg PO DAILY 09/20/16 Budesonide/Formeterol Fumarate [SYMBICORT 80/4.5mcg -] 2 puff IH BID 09/28/16 Metoclopramide HCl [Reglan] 5 mg PO TID 09/28/16 Cefuroxime Axetil [Ceftin -] 500 mg PO BID #12 tablet 10/01/16 Physical Exam Vital Signs: Vital Signs Temperature 101.5 F H 01/12/17 08:47 Pulse Rate 92 H 01/12/17 12:58 Respiratory Rate 18 01/12/17 12:58 Blood Pressure 153/66 01/12/17 12:58 O2 Sat by Pulse Oximetry (%) 98 01/12/17 12:58 Constitutional: Yes: Well Nourished, Moderate Distress Eyes: Yes: Conjunctiva Clear, EOM Intact, PERRL Cardiovascular: Yes: Tachycardia (regular rhythm). No: Murmur Respiratory: Yes: Regular, On Nasal O2 (2LNC), Rales (trace rales). No: Accessory Muscle Use, Rhonchi, Wheezes Gastrointestinal: Yes: Normal Bowel Sounds, Soft. No: Hepatomegaly, Splenomegaly, Tenderness Extremities: Yes: Other (Joints: warm and Inflammed: R MCP joints of 1st, 2nd, 3rd digit, Right knee, Right shoulder. Pulses strong and symmetrical. No lesions or rashes noted.) Imaging - Results Chest X-ray: Report Reviewed, Image Reviewed (bilateral interstitial opacities on XR; not previously on 2014 CXR. Interstitial processess noted first appearing on [address] scan) Ultrasound: Report Reviewed (No DVT, bakers cyst R knee), Image Reviewed Assessment/Plan Assessment: Acute exacerbation of Rheumatoid Arthritis Possible Community-acquired PNA Plan: 66yo F who presented to ED with cough, SOB found to have fever of 101F, WBC 10, 000, and CXR with interstitial infiltrates who was admitted for possible CAP. Pt also experiencing severe multi-articular inflammation and pain causing dysfunction with daily living. --Will use Rocephin 1gm IV qDaily and Azithromycin 250mg IV qDaily (first dose given in ED) to cover for CAP --Rocephin will start today; Azithromycin continued tomorrow --Would highly recommend Rheumatology consult to manage her polyarticular pain and inflammation. Will discuss with primary team Case discussed with Dr. Kian Herrera, DO - Internal Medicine PGY-1
--- NOTE | 2017-01-12 15:24 | PN ---
Teaching Attending Note Name of Resident: Brock Herrera ATTENDING PHYSICIAN STATEMENT I saw and evaluated the patient. I reviewed the resident's note and discussed the case with the resident. I agree with the resident's findings and plan as documented. SUBJECTIVE: fevers today cough/sob for one week c/o joint pain right hand first and second joints, both shoulders and right knee lives alone last hospitalization in September OBJECTIVE: Vital Signs Period Temp Pulse Resp BP Sys/Agee Pulse Ox Last 24 Hr 98.9 F-101.5 F 87-112 18-20 131-153/66-86 95-98 cor-rrr lungs bibasilar crackles abd soft,nt ext right knee with swelling and warmth no erythema, pain on moving the joint both hands with swelling of the first and second joints- right hand with erythema and warmth of the first and second joints no shoulder swelling CBC, BMP 01/12/17 09:35 01/12/17 09:35 Microbiology 01/12/17 11:00 Nasopharyngeal Swab Influenza Types A,B Antigen (CHEPE) - Final 01/12/17 11:00 Nasopharyngeal Swab - Final ASSESSMENT AND PLAN: pneumonia - CAP polyarticular arthritis, history of RA (currently off meds)-no history of gout received vancomycin/zithromax/zosyn continue rocephin/zithromax Problem List - Problems (1) Pneumonia Code(s): J18.9 - PNEUMONIA, UNSPECIFIED ORGANISM (2) Polyarticular arthritis Code(s): M13.0 - POLYARTHRITIS, UNSPECIFIED
[2017-01-12] MEDS ORDERED: DEXTROSE 5%-WATER - 50 ML IVPB ONE (15:34)
[2017-01-12] MEDS ORDERED: cefTRIAXone SODIUM 1 GM VIAL ONE (15:34)
[2017-01-12] MEDS: CEFTRIAXONE 1 GM in DEXTROSE 5%-WATER - 50 ML IVPB SCH (15:36)
[2017-01-12] MEDS: INSULIN SLIDING SCALE (NOVOLOG) 1 VIAL SQ SCH ×2 (17:05→21:27)
[2017-01-12] MEDS ORDERED: predniSONE 20 MG TABLET (UD) PO ONE (18:23)
--- NOTE | 2017-01-12 18:28 | PN ---
Teaching Attending Note Name of Resident: Inderjit Anthony ATTENDING PHYSICIAN STATEMENT I saw and evaluated the patient. I reviewed the resident's note and discussed the case with the resident. I agree with the resident's findings and plan as documented. SUBJECTIVE:66yo F wtih PMH asthma, DM, HTN, dyslipidemia, CHF and RA presented to the ER with non productive cough, generalized malaise and diffuse body aches for the past few weeks. also c/o diffuse hand pain and R knee pain. denies CP, SOB, fever, chills, N/V/C/D, hemoptysis, sick contacts or recent travel OBJECTIVE: Last Vital Signs Temp Pulse Resp BP Pulse Ox 98.9 F 92 H 18 153/66 98 01/12/17 11:35 01/12/17 12:58 01/12/17 12:58 01/12/17 12:58 01/12/17 12:58 General lethargic CV S1 S2 RRR no murmur/rub/gallop Lungs CTA B/L anteriorly no wheezing Abdomen soft NT/ND obese Extremities swelling limited to dorsal aspect of hand with significant tenderness, unable to move the digits, diffuse body pains, with R knee swelling +effusion, limited ROM on passive movement ASSESSMENT AND PLAN: 66yo F wtih PMH asthma, DM, HTN, dyslipidemia, CHF and RA presented to the ER with non productive cough 1. Sepsis due to CAP- Medicine admission. Tm 101.5 with tachycardia. both improved. received Vanco and ZOsyn in the ER. agree with ID that can be transition to Ceftriaxone and Azithromycin. cont symbicort, nebs prn. supplemental oxygen as needed to maintain spO2 >90%. Flu negative. Wells score low. Doppler negative for DVT. f/u Cx 2. RA flare- multiple joint involvement. does not appear she is taking steroids at home. will give prednisone 40mg po x1. rheum eval. Knee XR to r/o effusion. knee is not tender or warm therefore low suspicion for infected joint. 3. DM- hold oral agents. continue levemir 12 units HS and iss. 4. HTN- controlled. not on home medication 5. CHF- no signs of volume overload. ?hx of CHF. echo from 2014 was normal. not on any CHF medications 6. DVT ppx- hep sq 7. will need to confirm medications and diagnosis with PMD as pt seems to be poor historian and unreliable.
[2017-01-12] MEDS: HEPARIN NA (PORCINE) 5,000 UNITS/ML 1ML VIAL SQ SCH (18:32)
[2017-01-12] MEDS: INSULIN DETEMIR 100 UNITS/ML MDV SQ SCH (21:26)
[2017-01-12] MEDS: BUDESONIDE/FORMETEROL FUMARATE 80/4.5 mcg INHALER IH SCH (22:00)
[2017-01-12] MEDS: ACETAMINOPHEN 325 MG TABLET (FP) PO PRN (22:00)
[2017-01-13] MEDS: HEPARIN NA (PORCINE) 5,000 UNITS/ML 1ML VIAL SQ SCH ×3 (02:40→18:16)
[2017-01-13] MEDS: INSULIN SLIDING SCALE (NOVOLOG) 1 VIAL SQ SCH ×4 (06:38→21:54)
[2017-01-13] MEDS ORDERED: INSULIN (NOVOLOG) ASPART 100 UNITS/ML 10ML VIAL ONE ×3 (06:38→21:46)
[2017-01-13] MEDS: ACETAMINOPHEN 325 MG TABLET (FP) PO PRN ×2 (06:39→21:56)
[2017-01-13 08:14] LABS: BASOPHIL 0.9 % (0-2.0); EOSINOPHIL 0.3 % (0-4.5); MCHC 32.8 g/dl (32.0-36.0); MEAN CELL VOLUME 100.3 fl (80-96); MEAN PLT VOLUME 9.3 fl (7.5-11.1); NEUTROPHILS 77.6 % (42.8-82.8); PLATELET COUNT 184 K/MM3 (134-434); RDW 14.4 % (11.6-15.6); WHITE BLOOD COUNT 8.9 K/mm3 (4.0-10.0)
[2017-01-13 08:30] LABS: INR 1.1 (0.82-1.09); PROTHROMBIN TIME (PATIENT) 12.1 SEC (9.98-11.88)
[2017-01-13 08:42] LABS: ALBUMIN 2.7 g/dl (3.4-5.0); ANION GAP 7 (8-16); CALCIUM 9.1 mg/dL (8.5-10.1); CO2 28 mmol/L (21-32); GLUCOSE,RANDOM 144 mg/dL (74-106)
[2017-01-13 08:45] LABS: ALK PHOS 91 U/L (45-117); BILIRUBIN,TOTAL 0.5 mg/dL (0.2-1.0); CREATININE 0.6 mg/dL (0.55-1.02); SGOT/AST 18 U/L (15-37); SGPT/ALT 24 U/L (12-78); TOT PROT 7.1 g/dl (6.4-8.2)
[2017-01-13] MEDS ORDERED: cefTRIAXone SODIUM 1 GM VIAL ONE (09:09)
[2017-01-13] MEDS ORDERED: PT OWN MED DRAWER 7, Y5N ONE (09:09)
[2017-01-13] MEDS ORDERED: DEXTROSE 5%-WATER - 50 ML IVPB ONE (09:09)
[2017-01-13] MEDS: GABAPENTIN 300 MG CAPSULE (FP) PO SCH (09:12)
[2017-01-13] MEDS: PANTOPRAZOLE 20 MG TABLET (FP) PO SCH (09:12)
[2017-01-13] MEDS: BUDESONIDE/FORMETEROL FUMARATE 80/4.5 mcg INHALER IH SCH ×2 (09:13→21:50)
[2017-01-13] MEDS: CEFTRIAXONE 1 GM in DEXTROSE 5%-WATER - 50 ML IVPB SCH (09:13)
[2017-01-13] MEDS ORDERED: CEFTRIAXONE 1 GM in DEXTROSE 5%-WATER - 50 ML IVPB SCH (10:00)
[2017-01-13] MEDS: AZITHROMYCIN IVPB 250 MG in DEXTROSE 5%-WATER - 250 ML IVPB SCH (11:36)
--- NOTE | 2017-01-13 11:42 | PN ---
Physical Exam: Consulting Service: Infectious Disease SUBJECTIVE: Patient seen resting comfortably in bed. Pt has been afebrile throughout the night. She reports OBJECTIVE: Vital Signs Period Temp Pulse Resp BP Sys/Agee Pulse Ox Last 24 Hr 98.7 F-99.8 F 92-99 18-21 139-161/66-90 98-98 GENERAL: Pt resting comfortably in bed eating lunch. NAD. HEENT: Moist mucosa, top dentures in place LUNGS: Coarse breath sounds noted b/l. No accessory muscle use. HEART: RRR, No murmurs noted. S1 and S2 normal ABDOMEN: Soft, nontender, nondistended, JOINTS: R MCP joints warm to touch with joint effusions noted. Slight pain on palpation. No erythema (improved from previous exam) R Knee warm to touch. Slight pain on palpation. No erythema B/L shoulder pain with palpation. No enlargement or effusions noted. No erythema EXTREMITIES: No distal leg edema noted. See JOINTS section. Strong and symmetrical pulses distally NEUROLOGICAL: Alert and oriented x3 PSYCH: Normal mood, normal affect. Laboratory Results - last 24 hr 01/12/17 01/12/17 01/12/17 15:30 17:39 20:57 WBC RBC Hgb Hct MCV MCH MCHC RDW Plt Count MPV Neutrophils % Lymphocytes % Monocytes % Eosinophils % Basophils % ESR PT with INR INR Sodium Potassium Chloride Carbon Dioxide Anion Gap BUN Creatinine Creat Clearance w eGFR POC Glucometer 183 148 Random Glucose Calcium Total Bilirubin AST ALT Alkaline Phosphatase Troponin I < 0.02 C-Reactive Protein Total Protein Albumin 01/13/17 01/13/17 01/13/17 05:24 06:45 06:45 WBC 8.9 RBC 3.55 L Hgb 11.7 Hct 35.6 MCV 100.3 H MCH 33.0 MCHC 32.8 RDW 14.4 Plt Count 184 MPV 9.3 Neutrophils % 77.6 Lymphocytes % 17.2 Monocytes % 4.0 Eosinophils % 0.3 D Basophils % 0.9 ESR PT with INR 12.10 H INR 1.10 Sodium Potassium Chloride Carbon Dioxide Anion Gap BUN Creatinine Creat Clearance w eGFR POC Glucometer 179 Random Glucose Calcium Total Bilirubin AST ALT Alkaline Phosphatase Troponin I C-Reactive Protein Total Protein Albumin 01/13/17 01/13/17 01/13/17 06:45 06:45 06:45 WBC RBC Hgb Hct MCV MCH MCHC RDW Plt Count MPV Neutrophils % Lymphocytes % Monocytes % Eosinophils % Basophils % ESR 110 H PT with INR INR Sodium 142 Potassium 4.2 Chloride 107 Carbon Dioxide 28 Anion Gap 7 L BUN 11 D Creatinine 0.6 Creat Clearance w eGFR > 60 POC Glucometer Random Glucose 144 H D Calcium 9.1 Total Bilirubin 0.5 D AST 18 D ALT 24 Alkaline Phosphatase 91 Troponin I C-Reactive Protein 8.7 H Total Protein 7.1 Albumin 2.7 L Active Medications Generic Name Dose Route Start Last Admin Trade Name Freq PRN Reason Stop Dose Admin Acetaminophen 650 mg 01/12/17 12:28 01/13/17 06:39 Tylenol - PO 650 mg Q4H PRN Administration FEVER OR PAIN Budesonide/Formoterol Fumarate 2 puff 01/12/17 22:00 01/13/17 09:13 Symbicort 80/4.5mcg - IH 2 puff BID [facility] Administration Gabapentin 300 mg 01/13/17 10:00 01/13/17 09:12 Neurontin - PO 300 mg DAILY [facility] Administration Heparin Sodium (Porcine) 5,000 unit 01/12/17 18:00 01/13/17 09:12 Heparin - SQ 5,000 unit Q8H-IV [facility] Administration Azithromycin 250 mg/ Dextrose 250 mls @ 250 mls/hr 01/13/17 10:00 01/13/17 11: 36 IVPB 250 mls/hr DAILY [facility] Administration Ceftriaxone Sodium 1 gm/ 50 mls @ 100 mls/hr 01/12/17 15:30 01/13/17 09:13 Dextrose IVPB 100 mls/hr DAILY [facility] Administration Insulin Aspart 1 vial 01/12/17 16:30 01/13/17 06:38 Novolog Vial Sliding Scale - SQ 2 units ACHS [facility] Administration Protocol Insulin Detemir 12 units 01/12/17 22:00 01/12/17 21:26 Levemir Vial SQ 12 units HS [facility] Administration Pantoprazole Sodium 20 mg 01/13/17 10:00 01/13/17 09:12 Protonix - PO 20 mg DAILY [facility] Administration ASSESSMENT: Suspected CAPna Acute exacerbation of rheumatoid arthritis PLAN: 66yo F who presented to ED with cough, SOB found to have fever of 101F, WBC 10, 000, and CXR with interstitial infiltrates who was admitted for possible CAP. Pt also experiencing severe multi-articular inflammation and pain causing dysfunction with daily living. She is clinically better currently. Day 2 of antibiotics: Continue Rocephin 1gm qDaily IV and Zithromax 250mg qDaily for coverage against community-acquired PNA --Pt clinically better Cultures pending; Flu Negative Primary team requested Rheumatology consult --Knee XR per primary team shows degenerative changes and joint effusions R>L --Patient currently on 40mg Prednisone Case discussed with Dr. Ha Herrera, DO - Internal Medicine PGY-1 Visit type - Emergency Visit Emergency Visit: No - New Patient This patient is new to me today: No - Critical Care Critical Care patient: No
--- NOTE | 2017-01-13 13:48 | PN ---
Teaching Attending Note Name of Resident: Inderjit Anthony ATTENDING PHYSICIAN STATEMENT I saw and evaluated the patient. I reviewed the resident's note and discussed the case with the resident. I agree with the resident's findings and plan as documented. SUBJECTIVE:overall improved. continues to have diffuse body aches but feels much better. denies CP, SOB, fever, chills, N/V/C/D OBJECTIVE: Last Vital Signs Temp Pulse Resp BP Pulse Ox 98.7 F 99 H 19 139/83 98 01/13/17 02:00 01/13/17 02:00 01/13/17 09:00 01/13/17 02:00 01/13/17 09:00 General NAD CV S1 S2 RRR no murmur/rub/gallop Lungs Coarse crackles L side no wheezing Abdomen soft NT/ND obese Extremities swelling limited to dorsal aspect of hand with tenderness along each MCP and PIP joints B/L hands, tenderness of shoulders and B/L knees however improved ROM on passive movement minimal swelling to R knee ASSESSMENT AND PLAN: 66yo F wtih PMH asthma, DM, HTN, dyslipidemia, CHF and RA presented to the ER with non productive cough 1. Sepsis due to CAP- no fevers since admission. tachycardia resolved. on Ceftriaxone and Azithro day 2. cont symbicort, nebs prn. supplemental oxygen as needed to maintain spO2 >90%. f/u Cx 2. RA flare- multiple joint involvement. ESR/CRP pending. improvement after prednisone 40mg x1. will give additional dose. awaiting rheum evaluation and recommendations. as per pt she has not seen control technician. will reach out to pmd for collateral info. should ideally being on DMARDS. XR showing degenerative changes. PT assessment 3. DM- controlled. hold oral agents. continue levemir 12 units HS and iss. 4. HTN- controlled. not on home medication 5. CHF- no signs of volume overload. ?hx of CHF. echo from 2014 was normal. not on any CHF medications 6. DVT ppx- hep sq 7. will need to confirm medications and diagnosis with PMD as pt seems to be poor historian and unreliable. 8. d/c planning in AM if continues to improve and evaluated by Rheum
[2017-01-13] MEDS ORDERED: guaiFENesin 200 MG/10 ML 10 ML UNIT-DOSE CUPS PO PRN (14:53)
[2017-01-13] MEDS ORDERED: predniSONE 20 MG TABLET (UD) PO ONE (15:10)
--- NOTE | 2017-01-13 16:06 | PN ---
Teaching Attending Note Name of Resident: Brock Herrera ATTENDING PHYSICIAN STATEMENT I saw and evaluated the patient. I reviewed the resident's note and discussed the case with the resident. I agree with the resident's findings and plan as documented. SUBJECTIVE: No c/o chest pain or dyspnea at present Afebrile OBJECTIVE: Cor S1S2 + rales lower lung hall bilat + deforming arthritis, hands ASSESSMENT AND PLAN: Pneumonia Exacerbation, RA continue zithromax/ ceftriaxone
--- NOTE | 2017-01-13 16:43 | PN ---
Physical Exam: SUBJECTIVE: Patient seen and examined at bedside. She is doing well, but did not move out of bed, she still complains of knee pains and shoulder pain, her cough is better . She denies any chest pain, fever, N/V/D/C. OBJECTIVE: Vital Signs Period Temp Pulse Resp BP Sys/Agee Pulse Ox Last 24 Hr 98.0 F-99.8 F 92-99 19-21 121-161/75-90 98-98 GENERAL: Awake, alert, and fully oriented, in no acute distress HEAD: Normal with no signs of trauma EYES: sclera anicteric, conjunctiva clear EARS, NOSE, THROAT: Moist mucous membranes NECK: No appreciated JVD while sitting upright LUNGS: diminished breath sounds, no wheezes, with Bi basilar crackles. No accessory muscle use HEART: Regular rate and rhythm, no murmur ABDOMEN: Soft, non tender, no distended, normal active bowel sounds, no guarding , no rebound MUSCULOSKELETAL: No CVA tenderness, , bilateral hand swelling, hand joint RA deformities (swan neck) LOWER EXTREMITIES: warm, well-perfused, no peripheral edema,right knee enlargement with effusion NEUROLOGICAL: Normal mentation, grossly normal motor PSYCHIATRIC: Appropriate mood and affect SKIN: Warm and dry, no jaundice Laboratory Results - last 24 hr 01/12/17 01/12/17 01/12/17 15:30 17:39 20:57 WBC RBC Hgb Hct MCV MCH MCHC RDW Plt Count MPV Neutrophils % Lymphocytes % Monocytes % Eosinophils % Basophils % ESR PT with INR INR Sodium Potassium Chloride Carbon Dioxide Anion Gap BUN Creatinine Creat Clearance w eGFR POC Glucometer 183 148 Random Glucose Calcium Total Bilirubin AST ALT Alkaline Phosphatase Troponin I < 0.02 C-Reactive Protein Total Protein Albumin 01/13/17 01/13/17 01/13/17 05:24 06:45 06:45 WBC 8.9 RBC 3.55 L Hgb 11.7 Hct 35.6 MCV 100.3 H MCH 33.0 MCHC 32.8 RDW 14.4 Plt Count 184 MPV 9.3 Neutrophils % 77.6 Lymphocytes % 17.2 Monocytes % 4.0 Eosinophils % 0.3 D Basophils % 0.9 ESR PT with INR 12.10 H INR 1.10 Sodium Potassium Chloride Carbon Dioxide Anion Gap BUN Creatinine Creat Clearance w eGFR POC Glucometer 179 Random Glucose Calcium Total Bilirubin AST ALT Alkaline Phosphatase Troponin I C-Reactive Protein Total Protein Albumin 01/13/17 01/13/17 01/13/17 06:45 06:45 06:45 WBC RBC Hgb Hct MCV MCH MCHC RDW Plt Count MPV Neutrophils % Lymphocytes % Monocytes % Eosinophils % Basophils % ESR 110 H PT with INR INR Sodium 142 Potassium 4.2 Chloride 107 Carbon Dioxide 28 Anion Gap 7 L BUN 11 D Creatinine 0.6 Creat Clearance w eGFR > 60 POC Glucometer Random Glucose 144 H D Calcium 9.1 Total Bilirubin 0.5 D AST 18 D ALT 24 Alkaline Phosphatase 91 Troponin I C-Reactive Protein 8.7 H Total Protein 7.1 Albumin 2.7 L 01/13/17 11:55 WBC RBC Hgb Hct MCV MCH MCHC RDW Plt Count MPV Neutrophils % Lymphocytes % Monocytes % Eosinophils % Basophils % ESR PT with INR INR Sodium Potassium Chloride Carbon Dioxide Anion Gap BUN Creatinine Creat Clearance w eGFR POC Glucometer 170 Random Glucose Calcium Total Bilirubin AST ALT Alkaline Phosphatase Troponin I C-Reactive Protein Total Protein Albumin Active Medications Generic Name Dose Route Start Last Admin Trade Name Freq PRN Reason Stop Dose Admin Acetaminophen 650 mg 01/12/17 12:28 01/13/17 06:39 Tylenol - PO 650 mg Q4H PRN Administration FEVER OR PAIN Budesonide/Formoterol Fumarate 2 puff 01/12/17 22:00 01/13/17 09:13 Symbicort 80/4.5mcg - IH 2 puff BID SHELIA Administration Gabapentin 300 mg 01/13/17 10:00 01/13/17 09:12 Neurontin - PO 300 mg DAILY SHELIA Administration Guaifenesin 10 ml 01/13/17 14:53 Robitussin - PO Q6H PRN COUGH Heparin Sodium (Porcine) 5,000 unit 01/12/17 18:00 01/13/17 09:12 Heparin - SQ 5,000 unit Q8H-IV SHELIA Administration Azithromycin 250 mg/ Dextrose 250 mls @ 250 mls/hr 01/13/17 10:00 01/13/17 11: 36 IVPB 250 mls/hr DAILY SHELIA Administration Ceftriaxone Sodium 1 gm/ 50 mls @ 100 mls/hr 01/12/17 15:30 01/13/17 09:13 Dextrose IVPB 100 mls/hr DAILY SHELIA Administration Insulin Aspart 1 vial 01/12/17 16:30 01/13/17 11:57 Novolog Vial Sliding Scale - SQ 2 units ACHS SHELIA Administration Protocol Insulin Detemir 12 units 01/12/17 22:00 01/12/17 21:26 Levemir Vial SQ 12 units HS SHELIA Administration Pantoprazole Sodium 20 mg 01/13/17 10:00 01/13/17 09:12 Protonix - PO 20 mg DAILY SHELIA Administration CBC, BMP 01/13/17 06:45 01/13/17 06:45 ASSESSMENT/PLAN: 66 year old female, with a significant past medical history of Asthma, DM, HTN, HLD, CHF, GERD, and rheumatoid arthritis who presents to the emergency department due to generalized body ache, fever, dry cough, shortness of breath, she also complained of multiple joint pain (right knee and both hands) she was found to be septic secondary to possible pneumonia and was admitted for further evaluation . # Sepsis secondary to CAP vs HAC vs septic joint vs asthma exacerbation * tachycardia 112, febrile 101.5 with chronic changes on CXR * CURB 65 score 0 * O2 to keep o2 sat > 90 % * vanco/zosyn was given in ED , continue with Rocephin 1gm IV qDaily and Azithromycin 250mg IV qd * duoneb PRN , * Cotinue Symbicort * Guaifenesin 10 ml PO Q6hr PRN for cough * Influenza A-B swab negative * Blood culture pending * Urine culture * UA is negative * Well score is low * Doppler LE is negative for PE * # Rheumatoid arthritis * presented with right knee enlargement , both hand swelling * Poly arthritis currently off meds * Xray for the Right knee to R/O effusion , low suspicious infectious * consider aspiration if shows any effusion * consider NSAIDS for pain * Rheumatology consultation * start Prednisone 40 mg PO once daily * # DM , * Hold home meds * BGM * ISS * Levemir 12 unites HS * Diabetic diet , low sodium diet * monitor blood sugar # HTN , * controlled , * no on any meds * monitor #CHF, * no symptoms of exacerbation * not on any meds for CHF * last echo from 2014 was normal * # FEN: * on no fluids * Monitor lytes * diabetic low sodium diet # Proph : * DVT : 5000 units SQ Q8hr * GI: protonix 40 mg PO daily (home meds ) * # dispo: * Admit to med- surg * confirm patient meds with PCP Visit type - Emergency Visit Emergency Visit: Yes ED Registration Date: 01/12/17 Care time: The patient presented to the Emergency Department on the above date and was hospitalized for further evaluation of their emergent condition. - New Patient This patient is new to me today: No - Critical Care Critical Care patient: No
[2017-01-13] MEDS: INSULIN DETEMIR 100 UNITS/ML MDV SQ SCH (21:50)
--- NOTE | 2017-01-14 00:36 | CONSULT ---
Consult Consult Specialty:: Rheumatology - History of Present Illness History of Present Illness: 66 year old female, with a significant past medical history of rheumatoid arthritis, asthma, DM, HTN, HLD, CHF and GERD, admitted with a 1 week history of fever, nonproductive cough and body aches. On admission temp was 101.5, since then T max 99.6. CXR with interstitial changes and no pneumonia. Rheumatoid arthritis. I initially saw the patient on 10/03/15, however she did not follow up with me as I do not take her insurance and she did not see other bordereau clerk. She has a 10 year history of sero-positive rheumatoid arthritis. Initially she was treated with Methotrexate and in 2007 Leflunomide was added to her treatment. On 09/15/15 she developed ulcers in mouth and genitals and laboratory work-up revealed WBC of 2.2 and platelets 67,000. On the physical examination she had mild disease activity ( 1 swollen joint). The medications were discontinued, mucositis and leukopenia resolved. As she did not have rheumatologic follow-up she did not star other DMARD and developed progressive pain in most peripheral joints. In the past dificult to control diabetes with Prednisone. X rays of the knees revealed mild narrowing of both medial compartments L>R. X ray of the knees from 10/03/15 revealed femoral tibial joint space preserved and significant narrowing of the patello-femoral space in the right knee ( lateral aspect). X rays of the hands (10/03/15) revealed s/p Fx right ulna, narrowingof the radio carpal joint in the right wrist and otherwise mild degenerative changes - History Source History Provided By: Patient, Medical Record - Past Medical History Cardio/Vascular: Yes: HTN, Hyperlipdemia Pulmonary: Yes: Asthma Gastrointestinal: Yes: GERD Rheumatology: Yes: Rheumatoid Arthritis Endocrine: Yes: Diabetes Mellitus - Past Surgical History Additional Surgical History: Hysterectomy many years ago. L ankle surgery after mechanical fall (4 years ago) - Alcohol/Substance Use Hx Alcohol Use: No History of Substance Use: reports: None - Smoking History Smoking history: Never smoked Have you smoked in the past 12 months: No - Social History Usual Living Arrangement: Alone ADL: Independent History of Recent Travel: No Home Medications - Allergies Allergies/Adverse Reactions: Allergies Allergy/AdvReac Type Severity Reaction Status Date / Time No Known Allergies Allergy Verified 01/12/17 08:47 - Home Medications Home Medications: Ambulatory Orders Metformin HCl [Glucophage -] 500 mg PO BID 03/26/15 Gabapentin 300 mg PO DAILY 08/12/16 Albuterol Sulfate Inhaler - [Ventolin HFA Inhaler -] 1 - 2 inh PO QID PRN Insulin Glargine,Hum.rec.anlog [Lantus Solostar PEN -] 12 units SQ HS 09/20/16 Pantoprazole Sodium [Protonix -] 40 mg PO DAILY 09/20/16 Budesonide/Formeterol Fumarate [SYMBICORT 80/4.5mcg -] 2 puff IH BID 09/28/16 Metoclopramide HCl [Reglan] 5 mg PO TID 09/28/16 Cefuroxime Axetil [Ceftin -] 500 mg PO BID #12 tablet 10/01/16 Prednisone 5 mg PO DAILY PRN 01/12/17 Methotrexate [Mexate -] 2.5 mg PO WEEKLY 01/13/17 Family Disease History - Family Disease History Family Disease History: Other: Father (Rheumatoid arthritis) Review of Systems - Review of Systems Constitutional: reports: Malaise Eyes: reports: No Symptoms HENT: reports: No Symptoms Neck: reports: No Symptoms Cardiovascular: reports: No Symptoms Respiratory: reports: Cough, SOB Gastrointestinal: reports: No Symptoms Genitourinary: reports: No Symptoms Musculoskeletal: reports: Other (See HPI) Physical Exam Vital Signs: Vital Signs Temperature 99.6 F 01/13/17 21:00 Pulse Rate 90 01/13/17 21:00 Respiratory Rate 20 01/13/17 21:00 Blood Pressure 141/50 01/13/17 21:00 O2 Sat by Pulse Oximetry (%) 98 01/13/17 09:00 Constitutional: Yes: Moderate Distress Eyes: Yes: WNL HENT: Yes: WNL Neck: Yes: WNL Cardiovascular: Yes: WNL Respiratory: Yes: Other (Bilateral basal crackles.) Gastrointestinal: Yes: WNL Musculoskeletal: Yes: Other (Swelling of both writs, all MCPs and all PIPs in both hands. Tenderness of both shoulders and mild tenderness of knees.) Labs: CBC, BMP 01/13/17 06:45 01/13/17 06:45 Laboratory Tests 01/12/17 01/13/17 01/13/17 10:02 06:45 06:45 ESR 110 H Calcium 9.1 Total Bilirubin 0.5 D AST 18 D ALT 24 Alkaline Phosphatase 91 Urine Color Ltyellow Urine Appearance Clear Urine pH 7.0 D Ur Specific [place] 1.020 Urine Protein Negative Urine Glucose (UA) Negative Urine Ketones Negative Urine Blood Negative Urine Nitrite Negative Urine Bilirubin Negative Urine Urobilinogen Negative Problem List - Problems (1) Rheumatoid arthritis Assessment/Plan: Rheumatoid arthritis, disease very active. Not on DMARDs and history of cytopenia and mucositis probable related to Leflunomide and possible also to Methotrexate. Plan: Start Sulfasalazine 500 mg BID for 3 days and then 1 gr BID. Depomedrol 40 mg IM one dose. Naproxen 500 mg BID. She requires f/u with bordereau clerk as outpatient. Code(s): M06.9 - RHEUMATOID ARTHRITIS, UNSPECIFIED
[2017-01-14] MEDS: HEPARIN NA (PORCINE) 5,000 UNITS/ML 1ML VIAL SQ SCH ×3 (01:58→18:22)
[2017-01-14] MEDS: INSULIN SLIDING SCALE (NOVOLOG) 1 VIAL SQ SCH ×3 (06:33→17:26)
[2017-01-14 08:35] LABS: MCH 33.2 pg (25.7-33.7); MCHC 32.7 g/dl (32.0-36.0); MEAN CELL VOLUME 101.4 fl (80-96); MEAN PLT VOLUME 8.9 fl (7.5-11.1); PLATELET COUNT 203 K/MM3 (134-434); RDW 14.7 % (11.6-15.6); WHITE BLOOD COUNT 7.8 K/mm3 (4.0-10.0)
[2017-01-14 08:51] LABS: ANION GAP 8 (8-16); CALCIUM 8.8 mg/dL (8.5-10.1); CO2 23 mmol/L (21-32); CREATININE 0.7 mg/dL (0.55-1.02); GLUCOSE,RANDOM 275 mg/dL (74-106)
[2017-01-14] MEDS ORDERED: NAPROXEN 500 MG TABLET (FP) PO SCH (10:00)
[2017-01-14] MEDS ORDERED: methylPREDNISolone ACET (DEPO) 40 MG/1 ML VIAL IM ONE (10:00)
[2017-01-14] MEDS ORDERED: PT OWN MED DRAWER 7, Y5N ONE ×4 (10:30→13:27)
[2017-01-14] MEDS ORDERED: DEXTROSE 5%-WATER - 50 ML IVPB ONE (10:31)
[2017-01-14] MEDS ORDERED: cefTRIAXone SODIUM 1 GM VIAL ONE (10:31)
[2017-01-14] MEDS: PANTOPRAZOLE 20 MG TABLET (FP) PO SCH (10:46)
[2017-01-14] MEDS: GABAPENTIN 300 MG CAPSULE (FP) PO SCH (10:46)
[2017-01-14] MEDS: BUDESONIDE/FORMETEROL FUMARATE 80/4.5 mcg INHALER IH SCH (10:48)
[2017-01-14] MEDS: AZITHROMYCIN IVPB 250 MG in DEXTROSE 5%-WATER - 250 ML IVPB SCH (10:51)
[2017-01-14] MEDS: CEFTRIAXONE 1 GM in DEXTROSE 5%-WATER - 50 ML IVPB SCH (10:52)
--- NOTE | 2017-01-14 11:14 | PN ---
Physical Exam: Consulting Specialty: Infectious Disease SUBJECTIVE: Patient seen by rheumatology last night. Pt feeling much better today and agrees with decision to go home. Afebrile overnight, no acute events. Understand she needs to follow up with outpatient rheumatology. Only complaint is that she can't seem to bring up mucous when she coughs OBJECTIVE: Vital Signs Period Temp Pulse Resp BP Sys/Agee Pulse Ox Last 24 Hr 98.0 F-99.6 F 90-94 20-20 121-157/50-85 GENERAL: Alert, awake, NAD LUNGS: Rales bilaterally, no wheezes, no crackles, no accessory muscle use. HEART: RRR, S1, S2 without murmur, rub or gallop. ABDOMEN: Soft, nontender, nondistended, normoactive bowel sounds JOINTS: R MCP joints with slight pain on palpation. No erythema. No enlargement noted compared to L MCP R Knee no pain on palpation. No erythema B/L shoulder pain with palpation. No enlargement or effusions noted. No erythema NEUROLOGICAL: Alert and oriented x3 Laboratory Results - last 24 hr 01/13/17 01/13/17 01/13/17 11:55 17:07 21:52 WBC RBC Hgb Hct MCV MCH MCHC RDW Plt Count MPV Sodium Potassium Chloride Carbon Dioxide Anion Gap BUN Creatinine POC Glucometer 170 152 262 Random Glucose Calcium Rheumatoid Factor 01/14/17 01/14/17 01/14/17 05:24 08:00 08:00 WBC 7.8 RBC 3.58 L Hgb 11.9 Hct 36.3 MCV 101.4 H MCH 33.2 MCHC 32.7 RDW 14.7 Plt Count 203 MPV 8.9 Sodium 139 Potassium 4.5 Chloride 108 H Carbon Dioxide 23 Anion Gap 8 BUN 22 H D Creatinine 0.7 POC Glucometer 196 Random Glucose 275 H D Calcium 8.8 Rheumatoid Factor 01/14/17 08:00 WBC RBC Hgb Hct MCV MCH MCHC RDW Plt Count MPV Sodium Potassium Chloride Carbon Dioxide Anion Gap BUN Creatinine POC Glucometer Random Glucose Calcium Rheumatoid Factor 888.5 H Active Medications Generic Name Dose Route Start Last Admin Trade Name Freq PRN Reason Stop Dose Admin Acetaminophen 650 mg 01/12/17 12:28 01/13/17 21:56 Tylenol - PO 650 mg Q4H PRN Administration FEVER OR PAIN Budesonide/Formoterol Fumarate 2 puff 01/12/17 22:00 01/14/17 10:48 Symbicort 80/4.5mcg - IH 2 puff BID SHELIA Administration Gabapentin 300 mg 01/13/17 10:00 01/14/17 10:46 Neurontin - PO 300 mg DAILY SHELIA Administration Guaifenesin 10 ml 01/13/17 14:53 Robitussin - PO Q6H PRN COUGH Heparin Sodium (Porcine) 5,000 unit 01/12/17 18:00 01/14/17 10:46 Heparin - SQ 5,000 unit Q8H-IV SHELIA Administration Azithromycin 250 mg/ Dextrose 250 mls @ 250 mls/hr 01/13/17 10:00 01/14/17 10: 51 IVPB 250 mls/hr DAILY SHELIA Administration Ceftriaxone Sodium 1 gm/ 50 mls @ 100 mls/hr 01/12/17 15:30 01/14/17 10:52 Dextrose IVPB 100 mls/hr DAILY SHELIA Administration Insulin Aspart 1 vial 01/12/17 16:30 01/14/17 06:33 Novolog Vial Sliding Scale - SQ 2 units ACHS SHELIA Administration Protocol Insulin Detemir 12 units 01/12/17 22:00 01/13/17 21:50 Levemir Vial SQ 12 units HS SHELIA Administration Naproxen 500 mg 01/14/17 10:00 01/14/17 10:52 Naprosyn - PO 500 mg BID SHELIA Administration Pantoprazole Sodium 20 mg 01/13/17 10:00 01/14/17 10:46 Protonix - PO 20 mg DAILY SHELIA Administration Sulfasalazine 500 mg 01/14/17 10:00 Azulfidine En-Tabs - PO BID SHELIA ASSESSMENT: Acute exacerbation of rheumatoid arthritis Community-acquired Pneumonia PLAN: Day 3 of antibiotics today --Switch to Ceftin 500mg BID PO for total of 7 days coverage --OTC mucinex to help with phlegm complaint D/C planning per primary team Per rheumatology: Start Sulfasalazine 500 mg BID for 3 days and then 1 gr BID. Depomedrol 40 mg IM one dose. Naproxen 500 mg BID. --F/u with rheumatology as outpatient Case will be discussed with ID team Brock Herrera, DO - Internal Medicine PGY-1 Visit type - Emergency Visit Emergency Visit: No - New Patient This patient is new to me today: No - Critical Care Critical Care patient: No
--- NOTE | 2017-01-14 12:08 | PN ---
Teaching Attending Note Name of Resident: Inderjit Anthony ATTENDING PHYSICIAN STATEMENT I saw and evaluated the patient. I reviewed the resident's note and discussed the case with the resident. I agree with the resident's findings and plan as documented. SUBJECTIVE: OBJECTIVE: Last Vital Signs Temp Pulse Resp BP Pulse Ox 98.7 F 93 H 20 145/85 98 01/14/17 06:00 01/14/17 06:00 01/14/17 06:00 01/14/17 06:00 01/13/17 09:00 General NAD Lungs Coarse crackles L side no wheezing Extremities decreased hand swelling, no bone point tenderness along joints. B/L knee pain on full extension but ROM improved. no swelling. ASSESSMENT AND PLAN: 66yo F wtih PMH asthma, DM, HTN, dyslipidemia, CHF and RA presented to the ER with non productive cough 1. Sepsis due to CAP- no fevers since admission. tachycardia resolved. on Ceftriaxone and Azithro day 3. can be transitioned to po. cont symbicort, nebs prn. supplemental oxygen as needed to maintain spO2 >90%. f/u Cx 2. RA flare- multiple joint involvement. significant improvement. s/p medrol x1. started on sulfasalzine 500mg BID x3days and then increase to 1g BID and naproxen. appreciate rhematologist recommendations. pt states she has appt with Rheum February 23. encouraged to keep appt. ambulated well with PT. 3. DM- controlled. hold oral agents. continue levemir 12 units HS and iss. 4. HTN- controlled. not on home medication 5. CHF- no signs of volume overload. ?hx of CHF. echo from 2014 was normal. not on any CHF medications 6. DVT ppx- hep sq 7. d/c home
[2017-01-14] MEDS ORDERED: INSULIN (NOVOLOG) ASPART 100 UNITS/ML 10ML VIAL ONE (12:40)
--- NOTE | 2017-01-14 12:45 | DS ---
Physical Exam: SUBJECTIVE: Patient seen and examined at bedside. She is doing better , she denies chest pain, sob, cough is better, knee and shoulder pain has improved. She is stable to discharged home. OBJECTIVE: Vital Signs Period Temp Pulse Resp BP Sys/Agee Pulse Ox Last 24 Hr 98.0 F-99.6 F 90-94 20-20 121-157/50-85 PHYSICAL EXAM GENERAL: The patient is awake, alert, and fully oriented, in no acute distress. HEAD: Normal with no signs of trauma. EYES: conjunctiva clear. ENT: moist mucous membranes. LUNGS: + bibasilar crackles, no accessory muscle use. HEART: Regular rate and rhythm, S1, S2 without murmur, rub or gallop. ABDOMEN: Soft, nontender, nondistended, normoactive bowel sounds, no guarding. EXTREMITIES: warm, well-perfused, no edema. Right knee enlargement compare to left. NEUROLOGICAL: good mentation SKIN: Warm, dry, no rashes or lesions noted. LABS Laboratory Results - last 24 hr 01/13/17 01/13/17 01/14/17 17:07 21:52 05:24 WBC RBC Hgb Hct MCV MCH MCHC RDW Plt Count MPV Sodium Potassium Chloride Carbon Dioxide Anion Gap BUN Creatinine POC Glucometer 152 262 196 Random Glucose Calcium Rheumatoid Factor 01/14/17 01/14/17 01/14/17 08:00 08:00 08:00 WBC 7.8 RBC 3.58 L Hgb 11.9 Hct 36.3 MCV 101.4 H MCH 33.2 MCHC 32.7 RDW 14.7 Plt Count 203 MPV 8.9 Sodium 139 Potassium 4.5 Chloride 108 H Carbon Dioxide 23 Anion Gap 8 BUN 22 H D Creatinine 0.7 POC Glucometer Random Glucose 275 H D Calcium 8.8 Rheumatoid Factor 888.5 H 01/14/17 12:19 WBC RBC Hgb Hct MCV MCH MCHC RDW Plt Count MPV Sodium Potassium Chloride Carbon Dioxide Anion Gap BUN Creatinine POC Glucometer 268 Random Glucose Calcium Rheumatoid Factor HOSPITAL COURSE: Date of Admission:01/12/17 Date of Discharge: 01/14/17 Ms. Davis is a 66yo F wtih PMH asthma, DM, HTN, dyslipidemia, CHF and RA presented to the ER with non productive cough, poly articular joint pain. She was found to have sepsis due to CAP- no fevers since admission. tachycardia was resolved. She was treated with Ceftriaxone and Azithro for 3 days and will be send home with ceftim 500 BID for 7days total completed 3 days inhouse, will receive any 4 days as out patient. She will cont symbicort PRN, nebs PRN. and follow up with her PCP within one week. In term of RA flare she had multiple joint involvement. ESR/CRP elevated. She improved after prednisone 40mg x2 .Dr. Ellis child care supervisor saw her and Sulfasalazine 500 mg BID for 3 days followed with 1 gm BID , Naproxine 500 BID PO . She need to follow up with her [facility] as can not accept her insurance. In term of DM it is controlled. We hold oral agents. continue levemir 12 units HS and iss. She can resume her home meds. In term of HTN- controlled. not on home medication In term CHF- no signs of volume overload. ?hx of CHF. echo from 2015 was normal. not on any CHF medications She was on hep for DVT ppx as in patient . Patient is stable and ready to discharged home. Minutes to complete discharge: 30 Discharge Summary Reason For Visit: PNEUMONIA Current Active Problems Pneumonia (Acute) Polyarticular arthritis (Acute) Rheumatoid arthritis (Acute) Condition: Stable - Instructions Diet, Activity, Other Instructions: Please take your medicine as prescribed . You were diagnosed with Pneumonia you need to take your antibiotics for the next 4 days . You will be taking ceftin twice a day and zithromax once a day. You had a flare of rheumatoid arthritis and you will be taking Sulfalsalazine 500 mg twice daily for the next 3 days and then continue with one 1 gm twice daily. you will also take Naproxen 500 mg twice daily as needed. Take the naproxen with food. you can use Mucinix over the counter medicine from any pharmacy that can help bring up the phlegm. Please follow up with your primary care physician within one week Please follow up with Dr.Barry Wladen infectious disease doctor within one week Please follow up with your [facility] (joint doctor) within one week. Please follow diabetic diet Please resume your daily activity as tolerated. Referrals: Win Bonner MD [Staff Physician] - 1 Week Sneha Hewitt MD [Primary Care Provider] - 1 Week Disposition: HOME - Home Medications Comprehensive Discharge Medication List: Ambulatory Orders Metformin HCl [Glucophage -] 500 mg PO BID 03/26/15 Gabapentin 300 mg PO DAILY 08/12/16 Albuterol Sulfate Inhaler - [Ventolin HFA Inhaler -] 1 - 2 inh PO QID PRN Insulin Glargine,Hum.rec.anlog [Lantus Solostar PEN -] 12 units SQ HS 09/20/16 Pantoprazole Sodium [Protonix -] 40 mg PO DAILY 09/20/16 Budesonide/Formeterol Fumarate [SYMBICORT 80/4.5mcg -] 2 puff IH BID 09/28/16 Metoclopramide HCl [Reglan] 5 mg PO TID 09/28/16 Cefuroxime Axetil [Ceftin -] 500 mg PO BID #12 tablet 10/01/16 Prednisone 5 mg PO DAILY PRN 01/12/17 Methotrexate [Mexate -] 2.5 mg PO WEEKLY 01/13/17 This patient is new to me today: No Emergency Visit: Yes ED Registration Date: 01/12/17 Care time: The patient presented to the Emergency Department on the above date and was hospitalized for further evaluation of their emergent condition. Critical Care patient: No - Discharge Referral Referred to [facility] No
--- NOTE | 2017-01-14 14:44 | PN ---
Teaching Attending Note Name of Resident: Brock Herrera ATTENDING PHYSICIAN STATEMENT I saw and evaluated the patient. I reviewed the resident's note and discussed the case with the resident. I agree with the resident's findings and plan as documented. SUBJECTIVE: C/O occasional cough No c/o chest pain/ dyspnea No c/o fever/ chills OBJECTIVE: Cor S1S2 + crepitations at bases Abdo soft + deforming RA ASSESSMENT AND PLAN: Pneumonia Exacerbation RA Clinically improved Substitute po ceftin OK for discharge from ID standpoint
[2017-01-14 16:21] VITALS: BP 141/70; PULSE 82; TEMP 97.7
== END 2017-01-14 18:12 | disposition home or self-care (01) | DRG 871 ==
LOC: JER 08:39 → JERBED 11:35 → J6S 13:41
PROVIDERS: ADMIT Internal Medicine; ATTEND Internal Medicine
DX: A41.9 Sepsis, unspecified organism (principal); J18.9 Pneumonia, unspecified organism; E11.9 Type 2 diabetes mellitus without complications; I11.0 Hypertensive heart disease with heart failure; I50.9 Heart failure, unspecified; E78.5 Hyperlipidemia, unspecified; K21.9 Gastro-esophageal reflux disease without esophagitis; M06.9 Rheumatoid arthritis, unspecified; Z90.710 Acquired absence of both cervix and uterus; J45.909 Unspecified asthma, uncomplicated; Z79.84 Long term (current) use of oral hypoglycemic drugs; J44.9 Chronic obstructive pulmonary disease, unspecified; Z86.718 Personal history of other venous thrombosis and embolism; Z79.4 Long term (current) use of insulin
CPT/HCPCS: 36415; 71010-TC; 73560-TC-LT; 73560-TC-RT; 80048; 80053; 81003; 83605; 83690; 83735; 83880; 84484; 85025; 85027; 85610; 85651; 86140; 86431; 87040; 87086; 87804; 87899; 93005; 93010; 93971-TC; 94010; 97116-GP; 97161-GP; 99284-25; J1644

== ENCOUNTER 2017-01-28 10:22 | Inpatient (IN) | payer OTHER ==
[2017-01-28 10:55] VITALS: BMI 26.6
[2017-01-28] MEDS ORDERED: KETOROLAC TROMETHAMINE 30 MG/1 ML VIAL IM ONE (10:55)
[2017-01-28] MEDS ORDERED: traMADol HCL 50 MG TABLET PO ONE (10:56)
--- NOTE | 2017-01-28 11:06 | PDOC ---
History of Present Illness - General History Source: Patient - History of Present Illness Timing/Duration: other Severity: severe Associated Symptoms: denies: chest pain, cough, fever/chills, shortness of breath <Lesia Evangelista - Last Filed: 01/28/17 14:38> <Chica Cerna - Last Filed: 01/28/17 16:52> - General Chief Complaint: Pain Stated Complaint: PAIN Time Seen by Provider: 01/28/17 10:39 Past History - Past Medical History Asthma: Yes Diabetes: Yes GI Disorders: Yes (Reflux) HTN: Yes Hypercholesterolemia: Yes - Surgical History Orthopedic Surgery: Yes (lt arm x3) - Suicide/Smoking/Psychosocial Hx Smoking History: Never smoked Have you smoked in the past 12 months: No Hx Alcohol Use: No Drug/Substance Use Hx: No Substance Use Type: None Hx Substance Use Treatment: No <Lesia Evangelista - Last Filed: 01/28/17 14:38> <Chica Cerna - Last Filed: 01/28/17 16:52> - Past Medical History Allergies/Adverse Reactions: Allergies Allergy/AdvReac Type Severity Reaction Status Date / Time No Known Allergies Allergy Verified 01/28/17 11:13 Home Medications: Ambulatory Orders Metformin HCl [Glucophage -] 500 mg PO BID 03/26/15 Gabapentin 300 mg PO DAILY 08/12/16 Albuterol Sulfate Inhaler - [Ventolin HFA Inhaler -] 1 - 2 inh PO QID PRN Insulin Glargine,Hum.rec.anlog [Lantus Solostar PEN -] 12 units SQ HS 09/20/16 Pantoprazole Sodium [Protonix -] 40 mg PO DAILY 09/20/16 Methotrexate [Mexate -] 2.5 mg PO WEEKLY 01/13/17 Naproxen [Naprosyn -] 500 mg PO BID #60 tablet 01/14/17 Review of Systems - Review of Systems Constitutional: No: Chills, Fever Respiratory: No: Cough, Shortness of Breath, Wheezing Musculoskeletal: Yes: Joint Pain, Joint Swelling <Lesia Evangelista Last Filed: 01/28/17 14:38> *Physical Exam - Vital Signs Last Vital Signs Temp Pulse Resp BP Pulse Ox 98.5 F 73 19 165/99 01/28/17 10:25 01/28/17 10:25 01/28/17 10:25 01/28/17 10:25 - Physical Exam General Appearance: Yes: Appropriately Dressed. No: Apparent Distress HEENT: positive: Normal Voice Neck: positive: Supple Respiratory/Chest: positive: Lungs Clear, Normal Breath Sounds. negative: Respiratory Distress Cardiovascular: positive: Regular Rate, S1, S2 Gastrointestinal/Abdominal: positive: Soft. negative: Tender Extremity: positive: Tender, Swelling, Other (swelling and tenderness to MCP joints of fingers b/l, R knee diffusely swollen and tender, no erythema, warmth , has pain w/ ROM of b/l knees and shoulders) Integumentary: positive: Dry, Warm Neurologic: positive: Fully Oriented, Alert, Normal Mood/Affect <Lesia Evangelista - Last Filed: 01/28/17 14:38> - Vital Signs Last Vital Signs Temp Pulse Resp BP Pulse Ox 98.2 F 85 19 157/75 99 01/28/17 16:14 01/28/17 16:14 01/28/17 16:14 01/28/17 16:14 01/28/17 16:14 <Chica Cerna - Last Filed: 01/28/17 16:52> ED Treatment Course - LABORATORY CBC & Chemistry Diagram: 01/28/17 14:50 01/28/17 14:50 - Medications Given in the ED: ED Medications Discontinued Medications Generic Name Dose Route Start Last Admin Trade Name Freq PRN Reason Stop Dose Admin Ketorolac Tromethamine 30 mg 01/28/17 10:55 01/28/17 11:20 Toradol Injection - IM 01/28/17 10:56 30 mg ONCE ONE Administration Tramadol HCl 50 mg 01/28/17 10:56 01/28/17 11:25 Ultram - PO 01/28/17 10:57 50 mg ONCE ONE Administration <Chica Cerna - Last Filed: 01/28/17 16:52> Medical Decision Making - Medical Decision Making 01/28/17 11:05 66-year-old female, history of asthma, diabetes, hypertension, hyperlipidemia, CHF, GERD and rheumatoid arthritis and naproxen, follows up with rheumatology at [facility] here with pain to multiple joints consistent with her arthritis as per patient. For the past 3 days has had pain to bilateral shoulders, hands and knees. States she has not been able to ambulate w/ walker secondary to knee pain. Denies fever or chills. Of note, patient was admitted to ED 2 weeks ago for sepsis 2/2 PNA. While in-house, was seen by rheumatology for pain to multiple joints. As per rheum documentation, pt's RA was "very active" and patient was started on sulfasalazine, depo-Medrol and naproxen. Patient states she's is currently only on naproxen which does not relieve pain. Of note, patient not on DMARDs or prednisone secondary to adverse side effects See exam RA flare On naproxen w/ no relief Not able to jacek DMARDs or prednisone in the past Stable and well appp w/ no hot, red joint -pain control and reassess -has upcoming appt w/ rheum in [place] 01/28/17 11:16 01/28/17 13:57 On reassessment, patient states pain to shoulders and hands improved, but continues to have severe pain to her knees and started unable to ambulate in ED. May need admission for rheum consult for pain management. Will contact hospitalist and admit 01/28/17 14:39 <Lesia Evangelista - Last Filed: 01/28/17 14:38> *DC/Admit/Observation/Transfer - Discharge Dispostion Admit: Yes <Lesia Evangelista - Last Filed: 01/28/17 14:38> - Attestations Physician Attestion: I reviewed the case with the mid-level practitioner and agree with the mid- level practitioner's assessment, diagnosis and disposition. <Chica Cerna - Last Filed: 01/28/17 16:52> Diagnosis at time of Disposition: Rheumatoid arthritis flare, Unable to ambulate - Discharge Dispostion Condition at time of disposition: Fair - Referrals
[2017-01-28] MEDS ORDERED: traMADol HCL 50 MG TABLET ONE (11:17)
[2017-01-28] MEDS ORDERED: KETOROLAC TROMETHAMINE 30 MG/1 ML VIAL ONE (11:18)
[2017-01-28 15:10] LABS: BASOPHIL 0.6 % (0-2.0); EOSINOPHIL 7.1 % (0-4.5); MCH 33.1 pg (25.7-33.7); MCHC 33.4 g/dl (32.0-36.0); MEAN CELL VOLUME 99.2 fl (80-96); MEAN PLT VOLUME 9.5 fl (7.5-11.1); NEUTROPHILS 68.8 % (42.8-82.8); PLATELET COUNT 184 K/MM3 (134-434); RDW 14.2 % (11.6-15.6); WHITE BLOOD COUNT 7.5 K/mm3 (4.0-10.0)
[2017-01-28 15:59] LABS: ANION GAP 8 (8-16); CALCIUM 8.8 mg/dL (8.5-10.1); CO2 27 mmol/L (21-32); CREATININE 0.6 mg/dL (0.55-1.02); GLUCOSE,RANDOM 115 mg/dL (74-106); SGOT/AST 36 U/L (15-37); SGPT/ALT 36 U/L (12-78)
[2017-01-28 16:00] LABS: ALK PHOS 117 U/L (45-117); BILIRUBIN,TOTAL 0.6 mg/dL (0.2-1.0); TOT PROT 7.5 g/dl (6.4-8.2)
--- NOTE | 2017-01-28 17:32 | HP ---
CHIEF COMPLAINT: increased pain on bilateral shoulders, hands and knees PCP: HISTORY OF PRESENT ILLNESS: Patient is a 66 year-old female with a past medical history of asthma, diabetes , hypertension, hyperlipidemia, CHF, GERD and rheumatoid arthritis. She presents to the ED for increased pain on bilateral shoulders, hands and knees. States she has not been able to ambulate secondary to knee pain. Denies fever or chills. On last admission, patient was seen by rheumatology for pain to multiple joints and was started on sulfasalazine, depo-Medrol and naproxen. Patient states she's is currently only on naproxen which does not relieve pain and noted her joints to be getting more inflamed and more painful. Patient confirms that she has been on steriods in the past but her sugars become elevated. She is on weekly Methotreate, last infusion was this week. ER course was notable for: (1) inflamed hands, knees (2) (3) Recent Travel: n/a PAST MEDICAL HISTORY: PAST SURGICAL HISTORY: Social History: Smoking: none Alcohol: none Drugs: none Family History: Allergies No Known Allergies Allergy (Verified 01/28/17 11:13) HOME MEDICATIONS: Home Medications Medication Instructions Recorded Metformin HCl [Glucophage -] 500 mg PO BID 03/26/15 Gabapentin 300 mg PO DAILY 08/12/16 Albuterol Sulfate Inhaler - 1 - 2 inh PO QID PRN 09/17/16 [Ventolin HFA Inhaler -] Insulin Glargine,Hum.rec.anlog 12 units SQ HS 09/20/16 [Lantus Solostar PEN -] Pantoprazole Sodium [Protonix -] 40 mg PO DAILY 09/20/16 Methotrexate [Mexate -] 2.5 mg PO WEEKLY 01/13/17 Naproxen [Naprosyn -] 500 mg PO BID #60 tablet 01/14/17 REVIEW OF SYSTEMS CONSTITUTIONAL: Absent: fever, chills, diaphoresis, generalized weakness, malaise, loss of appetite, weight change HEENT: Absent: rhinorrhea, nasal congestion, throat pain, throat swelling, difficulty swallowing, mouth swelling, ear pain, eye pain, visual changes CARDIOVASCULAR: Absent: chest pain, syncope, palpitations, irregular heart rate, lightheadedness , peripheral edema RESPIRATORY: Absent: cough, shortness of breath, dyspnea with exertion, orthopnea, wheezing, stridor, hemoptysis GASTROINTESTINAL: Absent: abdominal pain, abdominal distension, nausea, vomiting, diarrhea, constipation, melena, hematochezia GENITOURINARY: Absent: dysuria, frequency, urgency, hesitancy, hematuria, flank pain, genital pain MUSCULOSKELETAL: Absent: myalgia, arthralgia, joint swelling, back pain, neck pain SKIN: Absent: rash, itching, pallor HEMATOLOGIC/IMMUNOLOGIC: Absent: easy bleeding, easy bruising, lymphadenopathy, frequent infections ENDOCRINE: Absent: unexplained weight gain, unexplained weight loss, heat intolerance, cold intolerance NEUROLOGIC: Absent: headache, focal weakness or paresthesias, dizziness, unsteady gait, seizure, mental status changes, bladder or bowel incontinence PSYCHIATRIC: Absent: anxiety, depression, suicidal or homicidal ideation, hallucinations. PHYSICAL EXAMINATION Vital Signs - 24 hr 01/28/17 16:14 Temperature 98.2 F Pulse Rate [ 85 Left Radial] Respiratory 19 Rate Blood Pressure 157/75 [Right Arm] O2 Sat by Pulse 99 Oximetry (%) GENERAL: Awake, alert, and fully oriented, in no acute distress. HEAD: Normal with no signs of trauma. EYES: Pupils equal, round and reactive to light, extraocular movements intact, sclera anicteric, conjunctiva clear. No lid lag. EARS, NOSE, THROAT: Ears normal, nares patent, oropharynx clear without exudates. Moist mucous membranes. NECK: Normal range of motion, supple without lymphadenopathy, JVD, or masses. LUNGS: Breath sounds equal, clear to auscultation bilaterally. No wheezes, and no crackles. No accessory muscle use. HEART: Regular rate and rhythm, normal S1 and S2 without murmur, rub or gallop. ABDOMEN: Soft, nontender, not distended, normoactive bowel sounds, no guarding, no rebound, no masses. No hepatomegaly or splenomegaly. MUSCULOSKELETAL: painful and inflamed knees and hands, painful, tender to touch UPPER EXTREMITIES: 2+ pulses, warm, well-perfused. No cyanosis. No clubbing. No peripheral edema. LOWER EXTREMITIES: 2+ pulses, warm, well-perfused. No calf tenderness. No peripheral edema. NEUROLOGICAL: Cranial nerves II-XII intact. Normal speech. Normal gait. Laboratory Results - last 24 hr 01/28/17 01/28/17 14:50 14:50 WBC 7.5 RBC 3.61 Hgb 12.0 Hct 35.8 MCV 99.2 H MCH 33.1 MCHC 33.4 RDW 14.2 Plt Count 184 MPV 9.5 Neutrophils % 68.8 Lymphocytes % 21.4 D Monocytes % 2.1 L Eosinophils % 7.1 H D Basophils % 0.6 Sodium 141 Potassium 3.9 Chloride 106 Carbon Dioxide 27 Anion Gap 8 BUN 13 D Creatinine 0.6 Creat Clearance w eGFR > 60 Random Glucose 115 H D Calcium 8.8 Total Bilirubin 0.6 AST 36 D ALT 36 D Alkaline Phosphatase 117 D Total Protein 7.5 Albumin 3.0 L ASSESSMENT/PLAN: Patient is a 66 year old female, with a significant past medical history of asthma, diabetes, hypertensin, HLD, CHF, GERD, and rheumatoid arthritis who presents to the emergency department due to generalized body ache, Muscular/Skeletal: Rheumatoid arthritis flare, acute on chronic presented with right knee pain, both hand swelling Xray for bilateral knees to rule out effusion Hand xrays to rule out fracture NSAIDs for pain Prednisone 60mg now with taper Rheumatology consult (has seen Dr. Ellis in the past) Will need to ambulate with PT prior to discharge Endocrine: Diabetes BGMs, Levemir, diabetic diet, monitor blood sugars Cardiology: Hypertension, chronic monitor vitals CHF, chronic, not in exacerbation On no home meds FEN: PO Monitor labs diabetic diet Proph: DVT: Heparin Protonix Disposition: OBS
[2017-01-28] MEDS ORDERED: predniSONE 20 MG TABLET (UD) PO ONE ×2 (17:58→20:30)
[2017-01-28] MEDS ORDERED: ACETAMINOPHEN 325 MG TABLET (FP) PO PRN (18:02)
[2017-01-28] MEDS ORDERED: INSULIN DETEMIR 100 UNITS/ML MDV SQ SCH (22:00)
[2017-01-28] MEDS: HEPARIN NA (PORCINE) 5,000 UNITS/ML 1ML VIAL SQ SCH (22:14)
[2017-01-28] MEDS: NAPROXEN 500 MG TABLET (FP) PO SCH (22:15)
[2017-01-28] MEDS: INSULIN SLIDING SCALE (NOVOLOG) 1 VIAL SQ SCH (22:15)
[2017-01-28] MEDS: ALBUTEROL SO4 2.5/IPRATROPIUM 0.5 INH SOL 3 ML VIAL.NEB. NEB SCH (22:21)
[2017-01-29] MEDS: INSULIN SLIDING SCALE (NOVOLOG) 1 VIAL SQ SCH ×4 (06:24→21:39)
[2017-01-29 07:53] LABS: MCH 32.9 pg (25.7-33.7); MEAN CELL VOLUME 99.8 fl (80-96); MEAN PLT VOLUME 9.7 fl (7.5-11.1); PLATELET COUNT 202 K/MM3 (134-434); WHITE BLOOD COUNT 6.4 K/mm3 (4.0-10.0)
[2017-01-29 08:22] LABS: ALBUMIN 2.9 g/dl (3.4-5.0); ALK PHOS 118 U/L (45-117); ANION GAP 8 (8-16); BILIRUBIN,TOTAL 0.5 mg/dL (0.2-1.0); CALCIUM 9.1 mg/dL (8.5-10.1); CO2 26 mmol/L (21-32); CREATININE 0.7 mg/dL (0.55-1.02); GLUCOSE,RANDOM 197 mg/dL (74-106); SGOT/AST 28 U/L (15-37); SGPT/ALT 32 U/L (12-78); TOT PROT 7.7 g/dl (6.4-8.2)
[2017-01-29] MEDS: ALBUTEROL SO4 2.5/IPRATROPIUM 0.5 INH SOL 3 ML VIAL.NEB. NEB SCH ×2 (09:40→23:00)
[2017-01-29] MEDS ORDERED: GABAPENTIN 300 MG CAPSULE (FP) PO SCH (10:00)
[2017-01-29] MEDS ORDERED: predniSONE 20 MG TABLET (UD) PO ONE (10:00)
[2017-01-29] MEDS ORDERED: INSULIN (NOVOLOG) ASPART 100 UNITS/ML 10ML VIAL ONE (10:49)
[2017-01-29] MEDS: PANTOPRAZOLE 40 MG TABLET (FP) PO SCH (10:57)
[2017-01-29] MEDS: NAPROXEN 500 MG TABLET (FP) PO SCH ×2 (10:57→21:36)
[2017-01-29] MEDS: HEPARIN NA (PORCINE) 5,000 UNITS/ML 1ML VIAL SQ SCH ×2 (10:57→21:34)
[2017-01-29] MEDS: ACETAMINOPHEN 325 MG TABLET (FP) PO SCH ×2 (12:04→17:35)
--- NOTE | 2017-01-29 13:09 | EKG ---
Test Reason : Blood Pressure : / mmHG Vent. Rate : 082 BPM Atrial Rate : 082 BPM P-R Int : 178 ms QRS Dur : 070 ms QT Int : 392 ms P-R-T Axes : 043 -06 054 degrees QTc Int : 457 ms NORMAL SINUS RHYTHM NORMAL ECG WHEN COMPARED WITH ECG OF 12-JAN-2017 10:02, NO SIGNIFICANT CHANGE WAS FOUND Confirmed by JOVON BRANDT MD ([id number]) on 01/29/2017 1:09:40 PM Referred By: Confirmed By:JOVON BRANDT MD
--- NOTE | 2017-01-29 13:14 | PN ---
Physical Exam: SUBJECTIVE: Patient seen and examined at the bedside. She reports better movement of her upper extremities, less swelling of her knees. Still having discomfort with ambulation. Assured patient she will need PT prior to discharge. OBJECTIVE: Rhematology consulted Prednisone 60mg yesterday - seems to be helping her swelling Will taper steriods Vital Signs Period Temp Pulse Resp BP Sys/Agee Pulse Ox Last 24 Hr 97.7 F-99.0 F 75-98 19-20 138-157/75-88 97-99 GENERAL: Awake, alert, and fully oriented, in no acute distress. HEAD: Normal with no signs of trauma. EYES: Pupils equal, round and reactive to light, extraocular movements intact, sclera anicteric, conjunctiva clear. No lid lag. EARS, NOSE, THROAT: Ears normal, nares patent, oropharynx clear without exudates. Moist mucous membranes. NECK: Normal range of motion, supple without lymphadenopathy, JVD, or masses. LUNGS: Breath sounds equal, clear to auscultation bilaterally. No wheezes, and no crackles. No accessory muscle use. HEART: Regular rate and rhythm, normal S1 and S2 without murmur, rub or gallop. ABDOMEN: Soft, nontender, not distended, normoactive bowel sounds, no guarding, no rebound, no masses. No hepatomegaly or splenomegaly. MUSCULOSKELETAL: painful and inflamed knees and hands, painful, tender to touch UPPER EXTREMITIES: 2+ pulses, warm, well-perfused. No cyanosis. No clubbing. No peripheral edema. LOWER EXTREMITIES: 2+ pulses, warm, well-perfused. No calf tenderness. No peripheral edema. NEUROLOGICAL: difficulty ambulating, pain ful joints Laboratory Results - last 24 hr 01/28/17 01/28/17 01/28/17 14:50 14:50 22:11 WBC 7.5 RBC 3.61 Hgb 12.0 Hct 35.8 MCV 99.2 H MCH 33.1 MCHC 33.4 RDW 14.2 Plt Count 184 MPV 9.5 Neutrophils % 68.8 Lymphocytes % 21.4 D Monocytes % 2.1 L Eosinophils % 7.1 H D Basophils % 0.6 Sodium 141 Potassium 3.9 Chloride 106 Carbon Dioxide 27 Anion Gap 8 BUN 13 D Creatinine 0.6 Creat Clearance w eGFR > 60 POC Glucometer 163 Random Glucose 115 H D Calcium 8.8 Total Bilirubin 0.6 AST 36 D ALT 36 D Alkaline Phosphatase 117 D Total Protein 7.5 Albumin 3.0 L 01/29/17 01/29/17 01/29/17 05:49 07:25 07:25 WBC 6.4 RBC 3.66 Hgb 12.0 Hct 36.5 MCV 99.8 H MCH 32.9 MCHC 33.0 RDW 14.0 Plt Count 202 MPV 9.7 Neutrophils % Lymphocytes % Monocytes % Eosinophils % Basophils % Sodium 139 Potassium 4.6 Chloride 105 Carbon Dioxide 26 Anion Gap 8 BUN 17 D Creatinine 0.7 Creat Clearance w eGFR > 60 POC Glucometer 199 Random Glucose 197 H D Calcium 9.1 Total Bilirubin 0.5 AST 28 D ALT 32 Alkaline Phosphatase 118 H Total Protein 7.7 Albumin 2.9 L 01/29/17 11:06 WBC RBC Hgb Hct MCV MCH MCHC RDW Plt Count MPV Neutrophils % Lymphocytes % Monocytes % Eosinophils % Basophils % Sodium Potassium Chloride Carbon Dioxide Anion Gap BUN Creatinine Creat Clearance w eGFR POC Glucometer 273 Random Glucose Calcium Total Bilirubin AST ALT Alkaline Phosphatase Total Protein Albumin Active Medications Generic Name Dose Route Start Last Admin Trade Name Thadq PRN Reason Stop Dose Admin Acetaminophen 650 mg 01/29/17 12:00 01/29/17 12:04 Tylenol - PO 650 mg Q6HPO SHELIA Administration Albuterol/Ipratropium 1 amp 01/28/17 22:00 01/29/17 09:40 Duoneb - NEB 1 amp BID SHELIA Administration Gabapentin 300 mg 01/29/17 10:00 01/29/17 10:57 Neurontin - PO 300 mg DAILY SHELIA Administration Heparin Sodium (Porcine) 5,000 unit 01/28/17 22:00 01/29/17 10:57 Heparin - SQ 5,000 unit BID SHELIA Administration Insulin Aspart 1 vial 01/28/17 22:00 01/29/17 11:42 Novolog Vial Sliding Scale - SQ 8 units ACHS SHELIA Administration Protocol Insulin Detemir 5 units 01/28/17 22:00 01/28/17 22:14 Levemir Vial SQ 5 units HS SHELIA Administration Naproxen 500 mg 01/28/17 22:00 01/29/17 10:57 Naprosyn - PO 500 mg BID SHELIA Administration Pantoprazole Sodium 40 mg 01/29/17 10:00 10/21/17 10:57 Protonix - PO 40 mg DAILY SHELIA Administration ASSESSMENT/PLAN: Patient is a 66 year-old female with a past medical history of asthma, diabetes , hypertension, hyperlipidemia, CHF, GERD and rheumatoid arthritis. She presents to the ED for increased pain on bilateral shoulders, hands and knees. States she has not been able to ambulate secondary to knee pain. Denies fever or chills. On last admission, patient was seen by rheumatology for pain to multiple joints and was started on sulfasalazine, Medrol and naproxen. Patient states she's is currently only on naproxen which does not relieve pain and noted her joints to be getting more inflamed and more painful. Patient confirms that she has been on steroids in the past but her sugars become elevated. She is on weekly Methotreate, last infusion was this week. Imaging: Right hand xray 01/28/2017: deg. changes, no fracture Left hand xray 01/28/2017: old trauma involving distal radius and ulna with 2 screws fusing the distal radius and ulna non healing of the distal ulnar fracture and insertion of opaque materail in the distal radius Right knee xray - no sign of fracture Left knee xray - degenerative changes Muscular/Skeletal: Rheumatoid arthritis flare, acute on chronic Patient presented with right knee pain, both hand swelling and difficulty ambulating secondary to painful joints Imaging of joints as above, remains afebrile. Pt states she is more comfora Hand xrays to rule out fracture NSAIDs for pain scheduled Prednisone 60mg started yesterday with 6 day taper Rheumatology consult (has seen Dr. Ellis in the past) Will need to ambulate with PT prior to discharge, PT ordered Endocrine: Diabetes BGMs, Levemir, diabetic diet, monitor blood sugars Cardiology: Hypertension, controlled monitor vitals CHF, chronic, not in exacerbation On no home meds FEN: PO Monitor labs diabetic diet Proph: DVT: Heparin Protonix Disposition: OBS Visit type - Emergency Visit Emergency Visit: Yes ED Registration Date: 01/28/17 Care time: The patient presented to the Emergency Department on the above date and was hospitalized for further evaluation of their emergent condition. - New Patient This patient is new to me today: No - Critical Care Critical Care patient: No - Discharge Referral Referred to [facility] No
[2017-01-29] MEDS ORDERED: PT OWN MED DRAWER 7, Y5N ONE (21:02)
[2017-01-29] MEDS: INSULIN DETEMIR 100 UNITS/ML MDV SQ SCH (21:35)
[2017-01-29] MEDS: GABAPENTIN 300 MG CAPSULE (FP) PO SCH (21:36)
[2017-01-30] MEDS: ACETAMINOPHEN 325 MG TABLET (FP) PO SCH ×4 (00:13→17:42)
[2017-01-30] MEDS: INSULIN SLIDING SCALE (NOVOLOG) 1 VIAL SQ SCH ×4 (06:18→21:48)
[2017-01-30 07:49] LABS: ALBUMIN 2.9 g/dl (3.4-5.0); ALK PHOS 90 U/L (45-117); ANION GAP 10 (8-16); BILIRUBIN,TOTAL 0.6 mg/dL (0.2-1.0); CALCIUM 8.6 mg/dL (8.5-10.1); CO2 26 mmol/L (21-32); CREATININE 0.7 mg/dL (0.55-1.02); GLUCOSE,RANDOM 109 mg/dL (74-106); SGOT/AST 15 U/L (15-37); SGPT/ALT 23 U/L (12-78)
[2017-01-30 08:18] LABS: BASOPHIL 0.7 % (0-2.0); MCH 32.7 pg (25.7-33.7); MCHC 33.2 g/dl (32.0-36.0); MEAN CELL VOLUME 98.7 fl (80-96); MEAN PLT VOLUME 9.4 fl (7.5-11.1); NEUTROPHILS 72.9 % (42.8-82.8); PLATELET COUNT 191 K/MM3 (134-434); RDW 13.9 % (11.6-15.6); WHITE BLOOD COUNT 7.9 K/mm3 (4.0-10.0)
[2017-01-30] MEDS ORDERED: PT OWN MED DRAWER 7, Y5N ONE (08:45)
[2017-01-30] MEDS: NAPROXEN 500 MG TABLET (FP) PO SCH ×2 (09:03→21:47)
[2017-01-30] MEDS: PANTOPRAZOLE 40 MG TABLET (FP) PO SCH (09:03)
[2017-01-30] MEDS: GABAPENTIN 300 MG CAPSULE (FP) PO SCH ×2 (09:03→21:47)
[2017-01-30] MEDS: HEPARIN NA (PORCINE) 5,000 UNITS/ML 1ML VIAL SQ SCH ×2 (09:04→21:48)
[2017-01-30] MEDS: ALBUTEROL SO4 2.5/IPRATROPIUM 0.5 INH SOL 3 ML VIAL.NEB. NEB SCH ×2 (10:00→21:45)
[2017-01-30] MEDS ORDERED: predniSONE 20 MG TABLET (UD) PO SCH (10:00)
[2017-01-30] MEDS ORDERED: INSULIN (NOVOLOG) ASPART 100 UNITS/ML 10ML VIAL ONE ×2 (11:40→18:22)
--- NOTE | 2017-01-30 18:49 | PN ---
Physical Exam: SUBJECTIVE: Patient seen and examined at bedside. Eating dinner without assistance. OBJECTIVE: Vital Signs Period Temp Pulse Resp BP Sys/Agee Pulse Ox Last 24 Hr 98.6 F-99.1 F 69-91 18-20 129-142/66-77 97-99 GENERAL: The patient is awake, alert, and fully oriented, in no acute distress. HEAD: Normal with no signs of trauma. LUNGS: Breath sounds equal, clear to auscultation bilaterally, no wheezes, no crackles, no accessory muscle use. HEART: Regular rate and rhythm, S1, S2 without murmur, rub or gallop. ABDOMEN: Soft, nontender, nondistended, normoactive bowel sounds, no guarding, no rebound, no hepatosplenomegaly, no masses. UPPER EXTREMITIES: Bilateral RA changes, swan-neck deformities; no swelling, no edema; moves upper arms freely LOWER EXTREMITES: diffuse tenderness both lower extremities, no swelling, no edema NEUROLOGICAL: Cranial nerves II through XII grossly intact. Normal speech, gait not observed. Laboratory Results - last 24 hr 01/29/17 01/29/17 01/30/17 07:25 21:27 06:10 WBC 7.9 RBC 3.25 L Hgb 10.6 L D Hct 32.1 L MCV 98.7 H MCH 32.7 MCHC 33.2 RDW 13.9 Plt Count 191 MPV 9.4 Neutrophils % 72.9 Lymphocytes % 23.3 Monocytes % 2.1 L Eosinophils % 1.0 D Basophils % 0.7 Sodium Potassium Chloride Carbon Dioxide Anion Gap BUN Creatinine Creat Clearance w eGFR POC Glucometer 278 Random Glucose Hemoglobin A1c % 7.5 H D Calcium Total Bilirubin AST ALT Alkaline Phosphatase Total Protein Albumin 01/30/17 01/30/17 01/30/17 06:10 06:17 11:15 WBC RBC Hgb Hct MCV MCH MCHC RDW Plt Count MPV Neutrophils % Lymphocytes % Monocytes % Eosinophils % Basophils % Sodium 143 Potassium 3.8 Chloride 107 Carbon Dioxide 26 Anion Gap 10 BUN 22 H D Creatinine 0.7 Creat Clearance w eGFR > 60 POC Glucometer 113 186 Random Glucose 109 H D Hemoglobin A1c % Calcium 8.6 Total Bilirubin 0.6 AST 15 D ALT 23 D Alkaline Phosphatase 90 D Total Protein 7.0 Albumin 2.9 L 01/30/17 16:21 WBC RBC Hgb Hct MCV MCH MCHC RDW Plt Count MPV Neutrophils % Lymphocytes % Monocytes % Eosinophils % Basophils % Sodium Potassium Chloride Carbon Dioxide Anion Gap BUN Creatinine Creat Clearance w eGFR POC Glucometer 250 Random Glucose Hemoglobin A1c % Calcium Total Bilirubin AST ALT Alkaline Phosphatase Total Protein Albumin Active Medications Generic Name Dose Route Start Last Admin Trade Name Freq PRN Reason Stop Dose Admin Acetaminophen 650 mg 01/29/17 12:00 01/30/17 17:42 Tylenol - PO 650 mg Q6HPO SHELIA Administration Albuterol/Ipratropium 1 amp 01/28/17 22:00 01/30/17 10:00 Duoneb - NEB 1 amp BID SHELIA Administration Gabapentin 300 mg 01/29/17 22:00 01/30/17 09:03 Neurontin - PO 300 mg BID SHELIA Administration Heparin Sodium (Porcine) 5,000 unit 01/28/17 22:00 01/30/17 09:04 Heparin - SQ 5,000 unit BID SHELIA Administration Insulin Aspart 1 vial 01/28/17 22:00 01/30/17 17:43 Novolog Vial Sliding Scale - SQ 6 units ACHS SHELIA Administration Protocol Insulin Detemir 10 units 01/29/17 22:00 01/29/17 21:35 Levemir Vial SQ 10 units HS SHELIA Administration Naproxen 500 mg 01/28/17 22:00 01/30/17 09:03 Naprosyn - PO 500 mg BID SHELIA Administration Pantoprazole Sodium 40 mg 01/29/17 10:00 01/30/17 09:03 Protonix - PO 40 mg DAILY SHELIA Administration Prednisone 30 mg 01/31/17 10:00 Deltasone - PO 01/31/17 10:01 DAILY SHELIA Imaging Right hand xray 01/28/2017: degenerative changes, no fracture Left hand xray 01/28/2017: old trauma involving distal radius and ulna with 2 screws fusing the distal radius and ulna; non healing of the distal ulnar fracture and insertion of opaque material in the distal radius Right knee xray - no sign of fracture Left knee xray - degenerative changes ASSESSMENT/PLAN 66 year-old female with a PMH significant for HTN, HLD, CHF, asthma, IDDM, GERD , and rheumatoid arthritis. Placed on observation for symptoms of RA flare. Rheumatoid arthritis --issue of non-compliance --PCP is Dr. Cui who manages patient's RA; as per patient, Dr. Cui has for the past 6 months refused to give her methotrexate and has refused to place her on additional steroid courses; she has seen Dr. Ellis in the hospital but not as outpatient because he does not take her insurance; she has an appointment to see a electrician assistant at [facility] on 03/09/17 but indicated it is too far to go; she has not seen her regular rheumatoloigst in over a year --no joint swelling, edema, or warmth observed on today's exam --continue steroid taper and Naprosyn --PT evaluation in am IDDM --Levemir 10U qhs --Novolog sliding scale coverage Hypertension --BP was initially elevated, improved --on no meds Hyperlipidemia --on no meds CHF, NOS --echo from 03/2015 reviewed, normal LV, normal RV, no significant valvular pathology --no on diuretics --appears euvolemic F/E/N Fluids: PO intake adequate Electrolytes: replete as indicated Nutrition: diabetic, low sodium Physical therapy evaluation DVT prophylaxis: subq heparin Dispo: PT evaluation in am; likely discharge. Full Code. Proph: DVT: Heparin Protonix Disposition: OBS Visit type - Emergency Visit Emergency Visit: Yes ED Registration Date: 01/28/17 Care time: The patient presented to the Emergency Department on the above date and was hospitalized for further evaluation of their emergent condition. - New Patient This patient is new to me today: Yes Date on this admission: 01/30/17 - Critical Care Critical Care patient: No
[2017-01-30] MEDS: INSULIN DETEMIR 100 UNITS/ML MDV SQ SCH (21:47)
[2017-01-31] MEDS: ACETAMINOPHEN 325 MG TABLET (FP) PO SCH ×5 (01:29→23:19)
[2017-01-31] MEDS: INSULIN SLIDING SCALE (NOVOLOG) 1 VIAL SQ SCH ×4 (06:09→22:03)
[2017-01-31] MEDS ORDERED: predniSONE 10 MG TABLET (UD) PO SCH (10:00)
[2017-01-31] MEDS ORDERED: PT OWN MED DRAWER 7, Y5N ONE (10:08)
[2017-01-31] MEDS: PANTOPRAZOLE 40 MG TABLET (FP) PO SCH (10:11)
[2017-01-31] MEDS: NAPROXEN 500 MG TABLET (FP) PO SCH ×2 (10:11→21:58)
[2017-01-31] MEDS: GABAPENTIN 300 MG CAPSULE (FP) PO SCH ×2 (10:11→21:57)
[2017-01-31] MEDS: HEPARIN NA (PORCINE) 5,000 UNITS/ML 1ML VIAL SQ SCH ×2 (10:12→21:56)
[2017-01-31] MEDS: ALBUTEROL SO4 2.5/IPRATROPIUM 0.5 INH SOL 3 ML VIAL.NEB. NEB SCH ×2 (10:15→22:20)
--- NOTE | 2017-01-31 10:33 | PN ---
Physical Exam: SUBJECTIVE: Patient seen and examined. Observed ambulating from bathroom to bed. OBJECTIVE: Vital Signs Period Temp Pulse Resp BP Sys/Agee Pulse Ox Last 24 Hr 98.2 F-99.0 F 69-84 18-20 128-141/69-74 96-99 GENERAL: The patient is awake, alert, and fully oriented, in no acute distress. HEAD: Normal with no signs of trauma. LUNGS: Breath sounds equal, clear to auscultation bilaterally, no wheezes, no crackles, no accessory muscle use. HEART: Regular rate and rhythm, S1, S2 without murmur, rub or gallop. ABDOMEN: Soft, nontender, nondistended, normoactive bowel sounds, no guarding, no rebound, no hepatosplenomegaly, no masses. UPPER EXTREMITIES: Bilateral RA changes, swan-neck deformities; no swelling, no edema; moves upper arms freely LOWER EXTREMITES: diffuse tenderness both lower extremities, no swelling, no edema; unsteady gait. NEUROLOGICAL: Cranial nerves II through XII grossly intact. Normal speech Laboratory Results - last 24 hr 01/29/17 01/30/17 01/30/17 07:25 11:15 16:21 POC Glucometer 186 250 Hemoglobin A1c % 7.5 H D 01/30/17 01/31/17 21:44 06:08 POC Glucometer 175 107 Hemoglobin A1c % Active Medications Generic Name Dose Route Start Last Admin Trade Name Lucio PRN Reason Stop Dose Admin Acetaminophen 650 mg 01/29/17 12:00 01/31/17 06:09 Tylenol - PO 650 mg Q6HPO SHELIA Administration Albuterol/Ipratropium 1 amp 01/28/17 22:00 01/30/17 21:45 Duoneb - NEB 1 amp BID SHELIA Administration Gabapentin 300 mg 01/29/17 22:00 01/31/17 10:11 Neurontin - PO 300 mg BID SHELIA Administration Heparin Sodium (Porcine) 5,000 unit 01/28/17 22:00 01/31/17 10:12 Heparin - SQ 5,000 unit BID SHELIA Administration Insulin Aspart 1 vial 01/28/17 22:00 01/31/17 06:09 Novolog Vial Sliding Scale - SQ Not Given ACHS SHELIA Protocol Insulin Detemir 10 units 01/29/17 22:00 01/30/17 21:47 Levemir Vial SQ 10 units HS SHELIA Administration Naproxen 500 mg 01/28/17 22:00 01/31/17 10:11 Naprosyn - PO 500 mg BID SHELIA Administration Pantoprazole Sodium 40 mg 01/29/17 10:00 01/31/17 10:11 Protonix - PO 40 mg DAILY SHELIA Administration Imaging Right hand xray 01/28/2017: degenerative changes, no fracture Left hand xray 01/28/2017: old trauma involving distal radius and ulna with 2 screws fusing the distal radius and ulna; non healing of the distal ulnar fracture and insertion of opaque material in the distal radius Right knee xray - no sign of fracture Left knee xray - degenerative changes ASSESSMENT/PLAN 66 year-old female with a PMH significant for HTN, HLD, CHF, asthma, IDDM, GERD , and rheumatoid arthritis. Admitted for inability to ambulate secndary to RA flare. Seropositive rheumatoid arthritis, chronic with acute flare Inability to ambulate --no joint swelling, edema, or warmth observed on today's exam, has improved with steroids --continues to have pain particularly in right knee; Dr. Ellis injected right knee today with depomedrol 40mg and lidocaine 1% 2mL --continue steroid taper and Naprosyn --yesterday patient advised she has not been on methotrexate for months; today she advised Dr. Ellis and AJ Siu she restarted methotrexate 20mg/week one week ago; per Dr. Ellis patient should continue this medication and needs close followup with a consultant internship; patient has appointment at [facility] on 03/09/17 --PT evaluation today, could only walk 45 feet with difficulty IDDM --Levemir 10U qhs --Novolog sliding scale coverage Hypertension --BP was initially elevated, improved --on no meds Hyperlipidemia --on no meds CHF, NOS --echo from 03/2015 reviewed, normal LV, normal RV, no significant valvular pathology --no on diuretics --appears euvolemic F/E/N Fluids: PO intake adequate Electrolytes: replete as indicated Nutrition: diabetic, low sodium Daily physical therapy DVT prophylaxis: subq heparin Dispo: converted to inpatient status based upon continued inability to ambulate sufficiently well secondary to RA flare. Full Code. Visit type - Emergency Visit Emergency Visit: Yes ED Registration Date: 01/28/17 Care time: The patient presented to the Emergency Department on the above date and was hospitalized for further evaluation of their emergent condition. - New Patient This patient is new to me today: No - Critical Care Critical Care patient: No
--- NOTE | 2017-01-31 10:36 | CONSULT ---
Consult Consult Specialty:: Rheumatology - History of Present Illness History of Present Illness: 66 year old female, with a significant past medical history of rheumatoid arthritis, asthma, DM, HTN, HLD, CHF and GERD, admitted with a 1 week history of fever, nonproductive cough and body aches. The patient was recently admitted with active rheumatoid arthritis, and at this time she returned to the hospital with severe joint pain. Rheumatoid arthritis. I initially saw the patient on 10/03/15, however she did not follow up with me as I do not take her insurance She has a 10 year history of sero-positive rheumatoid arthritis. In the past intolerance to Leflunomide ( cytopenia and oral ulcers). She was seen by another profile trimmer who treated her with Methrtrexate and apparently a subcutaneous biological (she could not remember the name). Apparently she has not been compliant with follow-ups and recently she was not on any DMARD. She also discontinued Prednisone due to uncontrolled diabetes. Last week she retuned to her profile trimmer and restarted on Methotrexate 20 mg/w. At the present time she reports pain in most peripheral joints, in particular the right knee. On admission she was started on Prednisone 60 mg/d and then tapered down to 30 mg/d. - History Source History Provided By: Patient, Medical Record - Past Medical History Cardio/Vascular: Yes: HTN, Hyperlipdemia Pulmonary: Yes: Asthma Gastrointestinal: Yes: GERD Rheumatology: Yes: Rheumatoid Arthritis Endocrine: Yes: Diabetes Mellitus - Alcohol/Substance Use Hx Alcohol Use: No History of Substance Use: reports: None - Smoking History Smoking history: Never smoked Have you smoked in the past 12 months: No - Social History Usual Living Arrangement: Alone ADL: Independent History of Recent Travel: No Home Medications - Allergies Allergies/Adverse Reactions: Allergies Allergy/AdvReac Type Severity Reaction Status Date / Time No Known Allergies Allergy Verified 01/28/17 11:13 - Home Medications Home Medications: Ambulatory Orders Metformin HCl [Glucophage -] 500 mg PO BID 03/26/15 Gabapentin 300 mg PO DAILY 08/12/16 Albuterol Sulfate Inhaler - [Ventolin HFA Inhaler -] 1 - 2 inh PO QID PRN Insulin Glargine,Hum.rec.anlog [Lantus Solostar PEN -] 12 units SQ HS 09/20/16 Pantoprazole Sodium [Protonix -] 40 mg PO DAILY 09/20/16 Methotrexate [Mexate -] 2.5 mg PO WEEKLY 01/13/17 Naproxen [Naprosyn -] 500 mg PO BID #60 tablet 01/14/17 Family Disease History - Family Disease History Family Disease History: Other: Father (Rheumatoid arthritis) Review of Systems - Review of Systems Constitutional: reports: Malaise Eyes: reports: No Symptoms HENT: reports: No Symptoms Neck: reports: No Symptoms Cardiovascular: reports: No Symptoms Respiratory: reports: No Symptoms Gastrointestinal: reports: No Symptoms Physical Exam Vital Signs: Vital Signs Temperature 98.2 F 01/30/17 22:00 Pulse Rate 82 01/31/17 02:00 Respiratory Rate 18 01/31/17 02:00 Blood Pressure 128/74 01/31/17 02:00 O2 Sat by Pulse Oximetry (%) 96 01/31/17 05:31 Constitutional: Yes: Mild Distress Eyes: Yes: WNL HENT: Yes: WNL Neck: Yes: WNL Cardiovascular: Yes: WNL Respiratory: Yes: WNL Gastrointestinal: Yes: WNL Musculoskeletal: Yes: Other (Swelling in wrists and all MCPs and PIPs. The right knee was tender and had small effusion.) Labs: CBC, BMP 01/30/17 06:10 01/30/17 06:10 Problem List - Problems (1) Rheumatoid arthritis flare Assessment/Plan: Seropositive rheumatoid arthritis, recently no ofn DMARDs with flare-up of the disease. The patient was started on Prednisone, presently 30 mg/d. The patient requires follow-up with her profile trimmer ass out patient, and Continue DMARDs (she restarted Methotrexate 20 mg/week) continue with the medication and evaluate starting a biological DMARD. PROCEDURE. Under aseptic conditions I injected the right knee with 40 mg Depomedrol and 2 ml Lidocaine1%. Code(s): M06.9 - RHEUMATOID ARTHRITIS, UNSPECIFIED
[2017-01-31] MEDS: INSULIN DETEMIR 100 UNITS/ML MDV SQ SCH (21:56)
[2017-02-01] MEDS: ACETAMINOPHEN 325 MG TABLET (FP) PO SCH ×3 (05:32→18:01)
[2017-02-01] MEDS ORDERED: INSULIN (NOVOLOG) ASPART 100 UNITS/ML 10ML VIAL ONE ×4 (06:00→16:35)
[2017-02-01] MEDS: INSULIN SLIDING SCALE (NOVOLOG) 1 VIAL SQ SCH ×4 (06:22→21:14)
[2017-02-01] MEDS ORDERED: INSULIN DETEMIR 100 UNITS/ML MDV SQ ONE ×2 (06:41→12:32)
[2017-02-01] MEDS ORDERED: predniSONE 20 MG TABLET (UD) PO SCH (10:00)
[2017-02-01] MEDS: ALBUTEROL SO4 2.5/IPRATROPIUM 0.5 INH SOL 3 ML VIAL.NEB. NEB SCH ×2 (10:00→22:32)
[2017-02-01] MEDS: predniSONE 10 MG TABLET (UD) PO SCH (11:02)
[2017-02-01] MEDS ORDERED: INSULIN DETEMIR 100 UNITS/ML MDV SQ SCH (11:02)
[2017-02-01] MEDS: GABAPENTIN 300 MG CAPSULE (FP) PO SCH ×2 (11:03→21:14)
[2017-02-01] MEDS: PANTOPRAZOLE 40 MG TABLET (FP) PO SCH (11:03)
[2017-02-01] MEDS: NAPROXEN 500 MG TABLET (FP) PO SCH ×2 (11:08→21:14)
[2017-02-01] MEDS: HEPARIN NA (PORCINE) 5,000 UNITS/ML 1ML VIAL SQ SCH ×2 (11:22→21:13)
--- NOTE | 2017-02-01 19:10 | PN ---
Teaching Attending Note Name of Resident: Delia Morales ATTENDING PHYSICIAN STATEMENT I saw and evaluated the patient. I reviewed the resident's note and discussed the case with the resident. I agree with the resident's findings and plan as documented. SUBJECTIVE: pain in joints Knees,, shoulders and hips OBJECTIVE: NAD CV: RRR Lung s: CTAB ext : joint deformities in hands' joints. ulnar deviation . small R knee effusion . R shoulder tenderness and restricted range of motion A/P 66 y/o lady with h/o RA and other medical problems who presented with joints paina nd was found to have R knee effusion. 1- RA flare : improved gait and pain after steroids and knee injection -cont steroids taper - cont MTX as otu pt - f/u with Rheum - passed PT 2- cont other meds for chronic problems dc home with VNS
--- NOTE | 2017-02-01 19:37 | DS ---
Physical Exam: SUBJECTIVE: Patient seen and examined. She is feeling better today. She still c/o pain in her john shoulders, thumbs and Right knee, but this pain is improved. Pt is Niuean speaking; resident able to translate. No events overnight. She is stable for discharge home. OBJECTIVE: Vital Signs Period Temp Pulse Resp BP Sys/Agee Pulse Ox Last 24 Hr 98.0 F-98.8 F 64-86 18-20 125-145/61-86 96-99 PHYSICAL EXAM GENERAL: The patient is awake, alert, and fully oriented, in no acute distress. HEAD: Normal with no signs of trauma. EYES: Extraocular movements intact, sclera anicteric, conjunctiva clear. ENT: Moist mucous membranes. NECK: Trachea midline, supple. LUNGS: Breath sounds equal, clear to auscultation bilaterally, no wheezes, no crackles, no accessory muscle use. HEART: Regular rate and rhythm, S1, S2 without murmur, rub or gallop. ABDOMEN: Soft, nontender, nondistended, no guarding, no rebound, no masses. UPPER EXTREMITIES: Bradley neck deformities, RA deformities to thumbs, and ulnar deviation noted bilaterally, all Right > Left. No swelling. Unable to abduct arms above 90 degrees 2/2 pain. EXTREMITIES: Small Right knee effusion appreciated. Warm, well-perfused, no edema. Diffuse tenderness to palpation of john lower extremities. NEUROLOGICAL: Cranial nerves II through XII grossly intact. Normal speech, gait not observed. PSYCH: Normal mood, normal affect. SKIN: Warm, dry, normal turgor, no rashes or lesions noted. LABS Laboratory Results - last 24 hr 01/31/17 02/01/17 02/01/17 21:18 05:29 11:18 POC Glucometer 165 116 162 02/01/17 16:23 POC Glucometer 212 HOSPITAL COURSE: Date of Admission:01/31/17 Date of Discharge: 02/01/17 Ms. Davis is a 66yo F with a PMH of rheumatoid arthritis, diabetes, htn, hld, chf, asthma, gerd, presenting with increased pain to john shoulders, hands and knees. Pt was unable to ambulate 2/2 pain. Xrays of john hands and knees reveal degenerative changes with no fractures or acute bony destruction. Prednisone and Naproxen given for Rheumatoid arthritis flare. Pt seen by Physical Therapy today, who assessed that pt is full weight bearing on john lower extremities with a rolling walker. Pt seen by Dr. Ellis (Rheumatology), who provided instructions for Prednisone taper. DM is controlled with diet and insulin regimen. HTN is controlled, pt not taking any medication currently for htn. HLD is controlled, pt not taking any medication currently for hld. CHF -> no signs of volume overload on CXR. Pt not taking any medications for chf. Pt was on Heparin for DVT prophylaxis. Pt is stable and ready to be discharged home. Minutes to complete discharge: 30 Discharge Summary Reason For Visit: RHEUMATOID ARTHRITIS Current Active Problems Rheumatoid arthritis flare (Acute) Unable to ambulate (Acute) Hyperlipidemia (Chronic) Condition: Improved - Instructions Diet, Activity, Other Instructions: You were hospitalized for your rheumatoid arthritis flare. Please continue your home medications as prescribed. Regarding your Naproxen please only take half of your dose as needed for pain, meaning 250mg no more than twice a day for no more than one week. Please follow-up with your Primary Care Doctor within one week. Please follow-up with your Eff[facility]ts Compounder. You will be taking steroids until you see your Efferves[facility] Salts Compounder. Start Prednisone at 30mg once daily for 7 days. Then decrease to 20mg once daily for 7 days. Then decrease to 10mg once daily, and continue this dose until you are able to see your Effervescent Salts Compounder again. Continue your Methotrexate 20mg once weekly. If your symptoms of pain continue or worsen, please come back to the hospital. Referrals: Sneha Hewitt MD [Primary Care Provider] - 1 Week Disposition: HOME - Home Medications Comprehensive Discharge Medication List: Ambulatory Orders Metformin HCl [Glucophage -] 500 mg PO BID 03/26/15 Gabapentin 300 mg PO DAILY 08/12/16 Albuterol Sulfate Inhaler - [Ventolin HFA Inhaler -] 1 - 2 inh PO QID PRN Insulin Glargine,Hum.rec.anlog [Lantus Solostar PEN -] 12 units SQ HS 09/20/16 Pantoprazole Sodium [Protonix -] 40 mg PO DAILY 09/20/16 Insulin Sliding Scale [Novolog Vial Sliding Scale -] See Protocol SQ ACHS #2 vial 02/01/17 Methotrexate [Mexate -] 20 mg PO WEEKLY #0 tab 02/01/17 Naproxen [Naprosyn -] 250 mg PO BID tablet 02/01/17 Prednisone [Deltasone -] 30 mg PO ASDIR #200 tablet 02/01/17 Tramadol HCl 25 mg PO TID PRN #15 tablet MDD 3 tabs 02/01/17 This patient is new to me today: Yes Date on this admission: 02/01/17 Emergency Visit: Yes ED Registration Date: 01/31/17 Care time: The patient presented to the Emergency Department on the above date and was hospitalized for further evaluation of their emergent condition. Critical Care patient: No - Discharge Referral Referred to [facility] No
[2017-02-02] MEDS: ACETAMINOPHEN 325 MG TABLET (FP) PO SCH ×3 (00:30→11:41)
[2017-02-02] MEDS: INSULIN SLIDING SCALE (NOVOLOG) 1 VIAL SQ SCH ×2 (06:33→11:33)
[2017-02-02] MEDS: ALBUTEROL SO4 2.5/IPRATROPIUM 0.5 INH SOL 3 ML VIAL.NEB. NEB SCH (09:20)
[2017-02-02] MEDS: PANTOPRAZOLE 40 MG TABLET (FP) PO SCH (10:05)
[2017-02-02] MEDS: GABAPENTIN 300 MG CAPSULE (FP) PO SCH (10:05)
[2017-02-02] MEDS: predniSONE 10 MG TABLET (UD) PO SCH (10:05)
[2017-02-02] MEDS: NAPROXEN 500 MG TABLET (FP) PO SCH (10:06)
[2017-02-02] MEDS: HEPARIN NA (PORCINE) 5,000 UNITS/ML 1ML VIAL SQ SCH (10:06)
[2017-02-02] MEDS ORDERED: INSULIN (NOVOLOG) ASPART 100 UNITS/ML 10ML VIAL ONE (11:32)
[2017-02-02 15:25] VITALS: BP 138/77; PULSE 73; TEMP 99.1
== END 2017-02-02 15:44 | disposition home or self-care (01) | DRG 547 ==
LOC: JER 10:22 → JERBED 14:30 → UNDOADMOB 14:30 → J5S 17:21 → JERBED 17:21 → OBSVTOIN 18:15 → INTOOBSV 18:15 → J5S 01-31 18:15 → JERBED 01-31 18:15 → OBSVTOIN 01-31 18:15
PROVIDERS: ADMIT Internal Medicine; ATTEND Internal Medicine
PROC: 3E0U33Z Introduction of Anti-inflammatory into Joints, Percutaneous Approach (ICD-10-PCS; principal; 2017-01-31)
PROC: 3E0U3BZ Introduction of Anesthetic Agent into Joints, Percutaneous Approach (ICD-10-PCS; 2017-01-31)
DX: M06.9 Rheumatoid arthritis, unspecified (principal); K21.9 Gastro-esophageal reflux disease without esophagitis; J45.909 Unspecified asthma, uncomplicated; E11.9 Type 2 diabetes mellitus without complications; I11.0 Hypertensive heart disease with heart failure; I50.9 Heart failure, unspecified; E78.5 Hyperlipidemia, unspecified; Z79.4 Long term (current) use of insulin; Z91.19 Patient's noncompliance with other medical treatment and regimen; M25.461 Effusion, right knee
CPT/HCPCS: 36415; 71010-TC; 73130-TC-LT; 73130-TC-RT; 73560-TC-LT; 73560-TC-RT; 80053; 83036; 85025; 85027; 93005; 93010; 93970-TC; 94640; 97116-GP; 97161-GP; 99283-25; G0378; J1644

== ENCOUNTER 2017-06-27 13:34 | Observation (INO) | payer OTHER ==
--- NOTE | 2017-06-27 14:58 | PDOC ---
History of Present Illness - General History Source: Patient Exam Limitations: No Limitations - History of Present Illness Initial Comments: 06/27/17 15:16 The patient is a 67 year old female, with a significant past medical history of hypertension, hyperlipidemia, diabetes mellitus, pulmonary fibrosis, who presents to the emergency department with, chest pain, shortness of breath and chills beginning this morning. The patient states she visited [place] ED on Tuesday (3 days ago) and was prescribed Zithromax antibiotics for a non productive cough which she has been taking as prescribed. The patient states she feels better wearing O2 here in the ED than she did when she was home without it. The patient also reports nausea today without vomiting. She denies recent fevers, headache or dizziness. She denies recent vomit, diarrhea or constipation. She denies recent dysuria, frequency, urgency or hematuria. Allergies: NKA Primary Care Physician: Dr. Sneha Suresh <Orestes Sanches - Last Filed: 06/27/17 16:07> <Chanel Cruz - Last Filed: 06/27/17 19:05> - General Chief Complaint: Chest Pain Stated Complaint: CHILL Time Seen by Provider: 06/27/17 14:42 Past History <Orestes Sanches - Last Filed: 06/27/17 16:07> - Past Medical History Asthma: Yes Diabetes: Yes GI Disorders: Yes (Reflux) HTN: Yes Hypercholesterolemia: Yes - Surgical History Orthopedic Surgery: Yes (lt arm x3) - Suicide/Smoking/Psychosocial Hx Smoking History: Never smoked Have you smoked in the past 12 months: No Information on smoking cessation initiated: No Hx Alcohol Use: No Drug/Substance Use Hx: No Substance Use Type: None Hx Substance Use Treatment: No <Chanel Cruz - Last Filed: 06/27/17 19:05> - Past Medical History Allergies/Adverse Reactions: Allergies Allergy/AdvReac Type Severity Reaction Status Date / Time No Known Allergies Allergy Verified 06/24/17 18:01 Home Medications: Ambulatory Orders metFORMIN HCL [Glucophage -] 500 mg PO BID 03/26/15 Gabapentin 300 mg PO DAILY 08/12/16 Albuterol Sulfate Inhaler - [Ventolin HFA Inhaler -] 1 - 2 inh PO QID PRN Insulin Glargine,Hum.rec.anlog [Lantus Solostar PEN -] 12 units SQ HS 09/20/16 Pantoprazole Sodium [Protonix -] 40 mg PO DAILY 09/20/16 Insulin Sliding Scale [Novolog Vial Sliding Scale -] See Protocol SQ ACHS #2 vial 02/01/17 Methotrexate [Mexate -] 20 mg PO WEEKLY #0 tab 02/01/17 Naproxen [Naprosyn -] 250 mg PO BID tablet 02/01/17 Tramadol HCl 25 mg PO TIDCM PRN #7 tablet MDD 75 mg 02/01/17 predniSONE [Deltasone -] 30 mg PO ASDIR #200 tablet 02/01/17 Azithromycin [Zithromax 250mg Tablets -] 250 mg PO UTDICT #6 tab 06/24/17 Review of Systems - Review of Systems Comments:: 06/27/17 15:18 GENERAL/CONSTITUTIONAL: +Chills. No fever. No weakness. HEAD, EYES, EARS, NOSE AND THROAT: No change in vision. No ear pain or discharge. No sore throat. GASTROINTESTINAL: +Nausea. No vomiting, diarrhea or constipation. GENITOURINARY: No dysuria, frequency, or change in urination. CARDIOVASCULAR: +Chest pain. +Shortness of breath. RESPIRATORY: +Dry cough. No wheezing, or hemoptysis. MUSCULOSKELETAL: No joint or muscle swelling or pain. No neck or back pain. SKIN: No rash NEUROLOGIC: No headache, vertigo, loss of consciousness, or change in strength/ sensation. ENDOCRINE: No increased thirst. No abnormal weight change. HEMATOLOGIC/LYMPHATIC: No anemia, easy bleeding, or history of blood clots. ALLERGIC/IMMUNOLOGIC: No hives or skin allergy. <Orestes Sanches - Last Filed: 06/27/17 16:07> *Physical Exam - Vital Signs Last Vital Signs Temp Pulse Resp BP Pulse Ox 98.1 F 100 H 26 H 178/89 100 06/27/17 13:55 06/27/17 13:55 06/27/17 13:55 06/27/17 13:55 06/27/17 13:55 - Physical Exam Comments: 06/27/17 16:07 Constitutional: Awake, alert, oriented. No acute distress. Head: Normocephalic. Atraumatic Eyes: PERRL. EOMI. Conjunctivae are not pale. ENT: Mucous membranes are moist and intact. Posterior pharynx without exudates or erythema. Uvula midline. Neck: Supple. Full ROM. No lymphadenopathy. Cardiovascular: Regular rate. Regular rhythm. S1, S2 regular. Distal pulses are 2+ and symmetric. Pulmonary/Chest: (+) Course breath sounds bilaterally with rhonchi at the bases. (+) Tachypnea. Patient is speaking in full sentences. Abdominal: Soft and non-distended. There is no tenderness. No rebound, guarding or rigidity. No organomegaly. No palpable masses. Good bowel sounds. Back: No CVA tenderness. Musculoskeletal: No edema. No cyanosis. No clubbing. Full range of motion in all extremities. No calf tenderness. Radial/pedal pulses are intact and 2+ bilaterally Skin: Skin is warm and dry. No petechiae. No purpura. Neurological: Alert and oriented to person, place, and time. Cranial nerves II -XII are grossly intact. Normal speech. Strength is grossly symmetric. No sensory deficits. Psychiatric: Good eye contact. Normal interaction, affect and behavior. <Orestes Sanches - Last Filed: 06/27/17 16:07> - Vital Signs Last Vital Signs Temp Pulse Resp BP Pulse Ox 98.1 F 100 H 26 H 178/89 100 06/27/17 13:55 06/27/17 13:55 06/27/17 13:55 06/27/17 13:55 06/27/17 13:55 <Chanel Cruz - Last Filed: 06/27/17 19:05> Heart Score/ECG Review - ECG Intrepretation Comment:: 06/27/17 17:23 sinus at 91, L axis deviation, q waves inferior leads that are age indeterminate , no acute st/t wave findings <Chanel Cruz - Last Filed: 06/27/17 19:05> ED Treatment Course - LABORATORY CBC & Chemistry Diagram: 06/27/17 15:40 06/27/17 15:40 <Orestes Sanches - Last Filed: 06/27/17 16:07> - LABORATORY CBC & Chemistry Diagram: 06/27/17 15:40 06/27/17 15:40 <Chanel Cruz - Last Filed: 06/27/17 19:05> Medical Decision Making - Medical Decision Making 06/27/17 17:22 a/p:67yo female with cough/congestion - dry cough, cp -feeling better with O2 -cxr shows interstitial lung disease - concern for poss pna that has not responded to azithromycin -will obtain labs, ct chest without contrast for further eval of cough -will monitor and reassess 06/27/17 18:46 pt with interstitial lung disease, difficult to assess for underlying pna 06/27/17 19:04 repeat trop and finger stick pending ct chest pending pt signed out to the oncoming ED physician pending ct, labs, further eval <Chanel Cruz - Last Filed: 06/27/17 19:05> *DC/Admit/Observation/Transfer - Attestations Scribe Attestion: 06/27/17 15:21 Documentation prepared by Orestes Sanches, acting as medical economics consultant for Chanel Cruz DO. <Orestes Sanches - Last Filed: 06/27/17 16:07> - Attestations Physician Attestion: 06/27/17 19:05 I, Dr. Chanel Cruz DO, attest that this document has been prepared under my direction and personally reviewed by me in its entirety. I further attest, that it accurately reflects all work, treatment, procedures and medical decision -making performed by me. <Chanel Cruz - Last Filed: 06/27/17 19:05> Diagnosis at time of Disposition: Cough, Diabetes - Referrals Referrals: Sneha Hewitt MD [Primary Care Provider] - - Patient Instructions - Post Discharge Activity
[2017-06-27] MEDS ORDERED: ONDANSETRON 4 MG/2 ML VIAL IVPUSH ONE (14:59)
[2017-06-27] MEDS ORDERED: ACETAMINOPHEN 1000 MG/100 ML VIAL (NON FORMULARY) IVPB ONE (14:59)
[2017-06-27] MEDS ORDERED: ACETAMINOPHEN INJECTION 100 ML IVPB ONE (15:27)
[2017-06-27] MEDS ORDERED: ONDANSETRON 4 MG/2 ML VIAL ONE (15:28)
[2017-06-27 15:53] LABS: BASO % 0.5 % (0-2.0); EOS % 3.9 % (0-4.5); HEMATOCRIT 38.9 % (32.4-45.2); LYMPH % 11.3 % (8-40); MCH 33.3 pg (25.7-33.7); MCHC 33.5 g/dl (32.0-36.0); MEAN CELL VOLUME 99.4 fl (80-96); MEAN PLT VOLUME 9.6 fl (7.5-11.1); MONO % 4.5 % (3.8-10.2); NEUT % 79.8 % (42.8-82.8); PLATELET COUNT 188 K/MM3 (134-434); RBC 3.92 M/mm3 (3.60-5.2); RDW 15.5 % (11.6-15.6); WHITE BLOOD COUNT 8.4 K/mm3 (4.0-10.0)
--- NOTE | 2017-06-27 16:02 | EKG ---
Test Reason : Blood Pressure : / mmHG Vent. Rate : 091 BPM Atrial Rate : 091 BPM P-R Int : 162 ms QRS Dur : 070 ms QT Int : 360 ms P-R-T Axes : 036 -30 042 degrees QTc Int : 442 ms NORMAL SINUS RHYTHM LEFT AXIS DEVIATION ABNORMAL ECG WHEN COMPARED WITH ECG OF 24-JUN-2017 18:01, NO SIGNIFICANT CHANGE WAS FOUND Confirmed by MANAS TILLEY MD ([id number]) on 06/27/2017 4:02:00 PM Referred By: Confirmed By:MANAS TILLEY MD
[2017-06-27 16:16] LABS: ALBUMIN 3.2 g/dl (3.4-5.0); ALK PHOS 112 U/L (45-117); ANION GAP 9 (8-16); BILIRUBIN,TOTAL 0.2 mg/dL (0.2-1.0); BLOOD UREA NITROGEN 15 mg/dL (7-18); CALCIUM 8.3 mg/dL (8.5-10.1); CHLORIDE 102 mmol/L (98-107); CO2 26 mmol/L (21-32); CREATININE 0.9 mg/dL (0.55-1.02); SGPT/ALT 47 U/L (12-78); SODIUM 137 mmol/L (136-145); TOT PROT 7.1 g/dl (6.4-8.2)
[2017-06-27 16:18] LABS: N-TERMINAL BNP 52.54 pg/ml (5-125)
[2017-06-27 16:24] LABS: GLUCOSE,RANDOM 365 mg/dL (74-106); POTASSIUM 4.3 mmol/L (3.5-5.1); SGOT/AST 30 U/L (15-37)
[2017-06-27] MEDS ORDERED: SODIUM CHLORIDE 0.9% 1000 ML INFUS.BAG IV ONE (17:24)
[2017-06-27 19:11] LABS: MAGNESIUM 2.1 mg/dL (1.8-2.4)
--- NOTE | 2017-06-27 19:18 | PDOC ---
*Physical Exam - Vital Signs Last Vital Signs Temp Pulse Resp BP Pulse Ox 98.1 F 100 H 26 H 178/89 100 06/27/17 13:55 06/27/17 13:55 06/27/17 13:55 06/27/17 13:55 06/27/17 13:55 ED Treatment Course - LABORATORY CBC & Chemistry Diagram: 06/27/17 15:40 06/27/17 15:40 - ADDITIONAL ORDERS Additional order review: Laboratory Results 06/27/17 06/27/17 15:40 15:40 Sodium 137 Potassium 4.3 Chloride 102 Carbon Dioxide 26 Anion Gap 9 BUN 15 Creatinine 0.9 Creat Clearance w eGFR > 60 Random Glucose 365 H* Calcium 8.3 L Magnesium 2.1 Total Bilirubin 0.2 D AST 30 ALT 47 Alkaline Phosphatase 112 Creatine Kinase 115 Troponin I < 0.02 B-Natriuretic Peptide Cancelled 52.54 Total Protein 7.1 Albumin 3.2 L 06/27/17 15:40 RBC 3.92 MCV 99.4 H MCHC 33.5 RDW 15.5 MPV 9.6 Neutrophils % 79.8 Lymphocytes % 11.3 D Monocytes % 4.5 Eosinophils % 3.9 D Basophils % 0.5 - Medications Given in the ED: ED Medications Discontinued Medications Generic Name Dose Route Start Last Admin Trade Name Freq PRN Reason Stop Dose Admin Acetaminophen 1,000 mg 06/27/17 14:59 06/27/17 15:39 Ofirmev Injection - IVPB 06/27/17 15:00 1,000 mg ONCE ONE Administration Ondansetron HCl 4 mg 06/27/17 14:59 06/27/17 15:40 Zofran Injection IVPUSH 06/27/17 15:00 4 mg ONCE ONE Administration Sodium Chloride 500 ml 06/27/17 17:24 06/27/17 17:26 Normal Saline - IV 06/27/17 17:25 500 ml ONCE ONE Administration Medical Decision Making - Medical Decision Making 06/27/17 23:36 Pt feeling better than earlier, but still with some mild SOB. CT without acute pulm findings, just slight worsening of her interstitial lung disease. Pt feels apprehensive for discharge home at this hour and that she still doesn't feel well enough to go. Will place pt to ED obs, could likely go home in the am if feeling improved. *DC/Admit/Observation/Transfer Diagnosis at time of Disposition: Cough, Diabetes - Discharge Dispostion Admit: Yes - Referrals Referrals: Sneha Hewitt MD [Primary Care Provider] - - Patient Instructions - Post Discharge Activity
--- NOTE | 2017-06-28 00:47 | HP ---
CHIEF COMPLAINT: dyspnea on exertion x 1 day, productive cough x 1 week PCP: HISTORY OF PRESENT ILLNESS: 67 y/o F with PMH HTN, HLD, DM, pulmonary fibrosis, RA, who presents to the ED c /o SOB, myalgias, and chills over the past 1-2 days. As per pt, a week ago, she developed a productive cough with yellow sputum (without blood). For this reason , she went to [facility] for further evaluation. She was discharged on Tuesday on Zithromax. Ever since, she has noted dyspnea on exertion, as well as generalized myalgias, subjective chills, and nausea without emesis. However, pt states that her sx are alleviated from tx received in the ED- NC oxygen, and IVF. She is no longer feeling SOB. Pt denies sick contacts, fever, chest pain or pressure, abdominal pain, or changes in urinary or bowel function. ER course was notable for: (1) BG 365 (2) NS, zofran, ofirmev injection (3) Recent Travel: none PAST MEDICAL HISTORY: as above PAST SURGICAL HISTORY: five years ago- broken RUE, R foot - has had "five surgeries" Social History: Smoking: denies Alcohol: denies Drugs: denies Family History: non-contributory Allergies No Known Allergies Allergy (Verified 06/24/17 18:01) HOME MEDICATIONS: Home Medications Medication Instructions Recorded metFORMIN HCL [Glucophage -] 500 mg PO BID 03/26/15 Gabapentin 300 mg PO DAILY 08/12/16 Albuterol Sulfate Inhaler - 1 - 2 inh PO QID PRN 09/17/16 [Ventolin HFA Inhaler -] Insulin Glargine,Hum.rec.anlog 12 units SQ HS 09/20/16 [Lantus Solostar PEN -] Pantoprazole Sodium [Protonix -] 40 mg PO DAILY 09/20/16 Insulin Sliding Scale [Novolog See Protocol SQ ACHS #2 vial 02/01/17 Vial Sliding Scale -] Methotrexate [Mexate -] 20 mg PO WEEKLY #0 tab 02/01/17 Naproxen [Naprosyn -] 250 mg PO BID tablet 02/01/17 Tramadol HCl 25 mg PO TIDCM PRN #7 tablet MDD 02/01/17 75 mg predniSONE [Deltasone -] 30 mg PO ASDIR #200 tablet 02/01/17 Azithromycin [Zithromax 250mg 250 mg PO UTDICT #6 tab 06/24/17 Tablets -] REVIEW OF SYSTEMS CONSTITUTIONAL: +chills Absent: fever, chills, diaphoresis, generalized weakness, malaise, loss of appetite, weight change HEENT: Absent: rhinorrhea, nasal congestion, throat pain, throat swelling, difficulty swallowing, mouth swelling, ear pain, eye pain, visual changes CARDIOVASCULAR: Absent: chest pain, syncope, palpitations, irregular heart rate, lightheadedness , peripheral edema RESPIRATORY: +MEIER Absent: cough, shortness of breath, dyspnea with exertion, orthopnea, wheezing, stridor, hemoptysis GASTROINTESTINAL:+nausea Absent: abdominal pain, abdominal distension, nausea, vomiting, diarrhea, constipation, melena, hematochezia GENITOURINARY: Absent: dysuria, frequency, urgency, hesitancy, hematuria, flank pain, genital pain MUSCULOSKELETAL: +myalgia Absent: myalgia, arthralgia, joint swelling, back pain, neck pain SKIN: Absent: rash, itching, pallor HEMATOLOGIC/IMMUNOLOGIC: Absent: easy bleeding, easy bruising, lymphadenopathy, frequent infections ENDOCRINE: Absent: unexplained weight gain, unexplained weight loss, heat intolerance, cold intolerance NEUROLOGIC: Absent: headache, focal weakness or paresthesias, dizziness, unsteady gait, seizure, mental status changes, bladder or bowel incontinence PSYCHIATRIC: Absent: anxiety, depression, suicidal or homicidal ideation, hallucinations. PHYSICAL EXAMINATION Vital Signs 06/27/17 06/27/17 13:55 22:52 Temperature 98.1 F 98 F Pulse Rate 100 H Pulse Rate [ 89 Apical] Respiratory 26 H 20 Rate Blood Pressure 178/89 Blood Pressure 167/85 [Right Arm] O2 Sat by Pulse 100 100 Oximetry (%) GENERAL: Resting comfortably. Awake, alert, and fully oriented, in no acute distress. HEAD: Normal with no signs of trauma. EYES: Pupils equal, round and reactive to light, extraocular movements intact, sclera anicteric, conjunctiva clear. EARS, NOSE, THROAT: Ears normal, nares patent, oropharynx clear without exudates. Moist mucous membranes. NECK: Normal range of motion, supple LUNGS: +Poor inspiratory effort. Decreased BS b/l. No wheezes, and no crackles. No accessory muscle use. HEART: Regular rate and rhythm, normal S1 and S2 without murmur, rub or gallop. ABDOMEN: Soft, obese, nontender, not distended, normoactive bowel sounds, no guarding, no rebound. MUSCULOSKELETAL: Normal range of motion at all joints. LOWER EXTREMITIES: 2+ posterior tibial pulses, warm, well-perfused. No peripheral edema. NEUROLOGICAL: Cranial nerves II-XII intact. Laboratory Results 06/27/17 06/27/17 06/27/17 15:40 15:40 15:40 WBC 8.4 RBC 3.92 Hgb 13.0 Hct 38.9 MCV 99.4 H MCH 33.3 MCHC 33.5 RDW 15.5 Plt Count 188 MPV 9.6 Neutrophils % 79.8 Lymphocytes % 11.3 D Monocytes % 4.5 Eosinophils % 3.9 D Basophils % 0.5 Sodium 137 Potassium 4.3 Chloride 102 Carbon Dioxide 26 Anion Gap 9 BUN 15 Creatinine 0.9 Creat Clearance w eGFR > 60 POC Glucometer Random Glucose 365 H* Calcium 8.3 L Magnesium 2.1 Total Bilirubin 0.2 D AST 30 ALT 47 Alkaline Phosphatase 112 Creatine Kinase 115 Troponin I < 0.02 B-Natriuretic Peptide 52.54 Cancelled Total Protein 7.1 Albumin 3.2 L EKG: sinus, 91 HR, LAD, q waves inf age indeterminate, no ST-T changes. CXR: chronic interstitial changes Chest CT: chronic interstitial changes, with fibrosis. No acute pathology noted. ASSESSMENT/PLAN: 67 y/o F with PMH HTN, HLD, DM, pulmonary fibrosis, RA, who presents to the ED c /o SOB, myalgias, and chills over the past 1-2 days. As per pt, a week ago, she developed a productive cough with yellow sputum (without blood). For this reason , she went to [facility] for further evaluation. She was discharged on Tuesday on Zithromax. Pt admitted to meds-surg for dyspnea on exertion r/o ACS #Dyspnea on exertion, r/o ACS -Pt with chronic interstitial changes on CXR, CT - without evidence of acute process -Possible d/t rheumatoid arthritis - fibrotic changes, acute change may be from asthma exacerbation -sat well (100%) on RA. Not requiring NC 02, however keep as PRN -Duonebs q4h PRN for SOB -Pulm consult - Dr. Mirza -First two trops (-), will trend 3rd. Follow EKG -F/u ECHO #DM -ISS ACHS -BGM #Rheumatoid arthritis -Continue methotrexate 20mg PO wkly #HTN- uncontrolled -will need to verify home meds with pharmacy #F/E/N -Continue to monitor electrolytes -Na controlled, diabetic controlled diet #Dispo med-surg Visit type - Emergency Visit Emergency Visit: Yes ED Registration Date: 06/27/17 Care time: The patient presented to the Emergency Department on the above date and was hospitalized for further evaluation of their emergent condition. - New Patient This patient is new to me today: Yes Date on this admission: 06/28/17 - Critical Care Critical Care patient: No Hospitalist Screening - Colonoscopy Questionnaire Colonoscopy Questionnaire: Colonoscopy Questionnaire - Patient: 50 - 75 years old and never had a screening colonoscopy: Unknown History of colon or rectal polyps, or CA: Unknown History of IBD, Crohn's disease or UC: Unknown History of abdominal radiation therapy as a child: Unknown - Relative: 1 with colon or rectal CA, or polyps at age 60 or younger: Unknown Colon or rectal CA diagnosed at age 45 or younger: Unknown Multiple relatives with colon or rectal CA: Unknown - Outcome: Screening Result: Negative Screen
--- NOTE | 2017-06-28 00:59 | PN ---
Teaching Attending Note Name of Resident: Iveth Silver ATTENDING PHYSICIAN STATEMENT I saw and evaluated the patient. I reviewed the resident's note and discussed the case with the resident. I agree with the resident's findings and plan as documented. SUBJECTIVE: 67 F with Pmhx. of Asthma, DM, HTN, HLD, CHF, GERD, RA, intersistial lung disease who presents with shortness of breath, chest pain and chills. States symptomas started 1 week ago. She has had productive cough with yellow sputum. She went to [facility] and was d/cd with a Z-pack. States she currently feels sob and chest pain have improved. No SOB currently. No fevers or chills. No N, V ,D, OBJECTIVE: Physical: VS: Vital Signs Period Temp Pulse Resp BP Sys/Agee Pulse Ox Last 24 Hr 98 F-98.1 F 89-100 20-26 167-178/85-89 100-100 GEN: NAd, Resting in bed, AA0X3 HEENT: NCAT, PERRL, Throat without erythema or exudates CARD: RRR S1, S2 RESP: CTAB ABD: BSx4, NTD to palpation EXT: - C/C/E CBCD WBC 8.4 K/mm3 (4.0-10.0) 06/27/17 15:40 RBC 3.92 M/mm3 (3.60-5.2) 06/27/17 15:40 Hgb 13.0 GM/dL (10.7-15.3) 06/27/17 15:40 Hct 38.9 % (32.4-45.2) 06/27/17 15:40 MCV 99.4 fl (80-96) H 06/27/17 15:40 MCHC 33.5 g/dl (32.0-36.0) 06/27/17 15:40 RDW 15.5 % (11.6-15.6) 06/27/17 15:40 Plt Count 188 K/MM3 (134-434) 06/27/17 15:40 MPV 9.6 fl (7.5-11.1) 06/27/17 15:40 CMP Sodium 137 mmol/L (136-145) 06/27/17 15:40 Potassium 4.3 mmol/L (3.5-5.1) 06/27/17 15:40 Chloride 102 mmol/L (98-107) 06/27/17 15:40 Carbon Dioxide 26 mmol/L (21-32) 06/27/17 15:40 Anion Gap 9 (8-16) 06/27/17 15:40 BUN 15 mg/dL (7-18) 06/27/17 15:40 Creatinine 0.9 mg/dL (0.55-1.02) 06/27/17 15:40 Creat Clearance w eGFR > 60 (>60) 06/27/17 15:40 Random Glucose 365 mg/dL (74-106) H* 06/27/17 15:40 Calcium 8.3 mg/dL (8.5-10.1) L 06/27/17 15:40 Total Bilirubin 0.2 mg/dL (0.2-1.0) D 06/27/17 15:40 AST 30 U/L (15-37) 06/27/17 15:40 ALT 47 U/L (12-78) 06/27/17 15:40 Alkaline Phosphatase 112 U/L (45-117) 06/27/17 15:40 Total Protein 7.1 g/dl (6.4-8.2) 06/27/17 15:40 Albumin 3.2 g/dl (3.4-5.0) L 06/27/17 15:40 CARDIAC ENZYMES Creatine Kinase 78 IU/L (26-192) 06/27/17 22:00 Troponin I < 0.02 ng/ml (0.00-0.05) 06/27/17 22:00 Ambulatory Orders RX: metFORMIN HCL [Glucophage -] 500 mg PO BID 03/26/15 RX: Gabapentin 300 mg PO DAILY 08/12/16 RX: Albuterol Sulfate Inhaler - [Ventolin HFA Inhaler -] 1 - 2 inh PO QID PRN RX: Insulin Glargine,Hum.rec.anlog [Lantus Solostar PEN -] 12 units SQ HS RX: Pantoprazole Sodium [Protonix -] 40 mg PO DAILY 09/20/16 RX: Insulin Sliding Scale [Novolog Vial Sliding Scale -] See Protocol SQ ACHS # 2 vial 02/01/17 RX: Methotrexate [Mexate -] 20 mg PO WEEKLY #0 tab 02/01/17 RX: Naproxen [Naprosyn -] 250 mg PO BID tablet 02/01/17 RX: Tramadol HCl 25 mg PO TIDCM PRN #7 tablet MDD 75 mg 02/01/17 RX: predniSONE [Deltasone -] 30 mg PO ASDIR #200 tablet 02/01/17 RX: Azithromycin [Zithromax 250mg Tablets -] 250 mg PO UTDICT #6 tab 06/24/17 CT CHEST- Excessive chronic intersistial disease, no acute process. EKG: NSR, LAD, QtC 442 ASSESSMENT AND PLAN: 67 F with Pmhx. of Asthma, DM, HTN, HLD, CHF, GERD, RA, intersistial lung disease who presents with shortness of breath, 1.) Shortness of Breath/Chest pain - DDx: Asthma RO ACS/Intersisitial lung dz - WELLS Score 0 - ECHO - Pulm. Consult - Trend Trop/EKG 2.) ASTHMA, Acute Exacerbation - ABG - Nebs prn - Improved - PEFR 3.) DM - FS - RAISS - Lantus 4.) RA - C/W Methotrexate - CHECK HOME PRED. DOSE 5.) Dvt Ppx - Scds Place in Obs- Tele
[2017-06-28] MEDS ORDERED: ALBUTEROL SO4 2.5/IPRATROPIUM 0.5 INH SOL 3 ML VIAL.NEB. NEB PRN (01:55)
[2017-06-28 05:05] LABS: ALLENS TEST POSITIVE; ARTERIAL BLD GAS O2 SATURATION 96.2 % (90-98.9); ARTERIAL BLOOD GAS BASE EXCESS 2.8 meq/l (-2-2); ARTERIAL BLOOD GAS PCO2 40.9 mmHg (35-45); ARTERIAL BLOOD GAS PO2 78.8 mmHg (80-100); ARTERIAL BLOOD GAS pH 7.43 (7.35-7.45)
[2017-06-28 07:54] LABS: BASO % 0.4 % (0-2.0); EOS % 5.1 % (0-4.5); HEMATOCRIT 37.6 % (32.4-45.2); HEMOGLOBIN 12.6 GM/dL (10.7-15.3); LYMPH % 28.1 % (8-40); MCH 33.3 pg (25.7-33.7); MCHC 33.6 g/dl (32.0-36.0); MEAN CELL VOLUME 99.1 fl (80-96); MEAN PLT VOLUME 9.6 fl (7.5-11.1); MONO % 5.9 % (3.8-10.2); NEUT % 60.5 % (42.8-82.8); PLATELET COUNT 175 K/MM3 (134-434); RBC 3.79 M/mm3 (3.60-5.2); RDW 15.6 % (11.6-15.6); WHITE BLOOD COUNT 6.7 K/mm3 (4.0-10.0)
[2017-06-28 08:20] LABS: ANION GAP 3 (8-16); BLOOD UREA NITROGEN 16 mg/dL (7-18); CALCIUM 8.7 mg/dL (8.5-10.1); CHLORIDE 108 mmol/L (98-107); CO2 31 mmol/L (21-32); CREATININE 0.6 mg/dL (0.55-1.02); GLUCOSE,RANDOM 134 mg/dL (74-106); MAGNESIUM 2.2 mg/dL (1.8-2.4); PHOSPHOROUS 2.9 mg/dL (2.5-4.9); POTASSIUM 4.4 mmol/L (3.5-5.1); SODIUM 142 mmol/L (136-145)
[2017-06-28] MEDS ORDERED: ALBUTEROL SO4 2.5/IPRATROPIUM 0.5 INH SOL 3 ML VIAL.NEB. NEB ONE ×2 (08:38→17:14)
[2017-06-28] MEDS ORDERED: INSULIN (NOVOLOG) ASPART 100 UNITS/ML 10ML VIAL ONE ×3 (08:39→21:22)
[2017-06-28] MEDS: INSULIN SLIDING SCALE (NOVOLOG) 1 VIAL SQ SCH ×4 (09:09→21:26)
[2017-06-28 13:31] VITALS: BMI 33.4
[2017-06-28] MEDS ORDERED: INSULIN REGULAR HUMAN 100 UNITS/ML *VIAL ONE (14:04)
--- NOTE | 2017-06-28 14:31 | CON.PULM ---
Consult Consult Specialty:: PULMONARY Referred by:: JA Burnham Reason for Consultation:: shortness of breath - History of Present Illness Chief Complaint: shortness of breath History of Present Illness: 67yo HTN, hyperlipidemia, DM, rheuatoid arthritis, interstitial lung disease who presents with worsening shortness of breath x 1 day. Some chest discomfort with coughing. Cough is nonproductive and has been wheezing mostly at night. No fevers but with subjective chills. Denies sick contacts. She is a never smoker. - History Source History Provided By: Patient, Medical Record Limitations to Obtaining History: Language Barrier - Past Medical History Cardio/Vascular: Yes: HTN, Hyperlipdemia Pulmonary: Yes: Asthma Gastrointestinal: Yes: GERD Rheumatology: Yes: Rheumatoid Arthritis Endocrine: Yes: Diabetes Mellitus - Alcohol/Substance Use Hx Alcohol Use: No History of Substance Use: reports: None - Smoking History Smoking history: Never smoked Have you smoked in the past 12 months: No - Social History Usual Living Arrangement: Alone ADL: Independent History of Recent Travel: No Home Medications - Allergies Allergies/Adverse Reactions: Allergies Allergy/AdvReac Type Severity Reaction Status Date / Time No Known Allergies Allergy Verified 06/24/17 18:01 - Home Medications Home Medications: Ambulatory Orders metFORMIN HCL [Glucophage -] 500 mg PO BID 03/26/15 Gabapentin 300 mg PO DAILY 08/12/16 Albuterol Sulfate Inhaler - [Ventolin HFA Inhaler -] 1 - 2 inh PO QID PRN Insulin Glargine,Hum.rec.anlog [Lantus Solostar PEN -] 12 units SQ HS 09/20/16 Pantoprazole Sodium [Protonix -] 40 mg PO DAILY 09/20/16 Insulin Sliding Scale [Novolog Vial Sliding Scale -] See Protocol SQ ACHS #2 vial 02/01/17 Methotrexate [Mexate -] 20 mg PO WEEKLY #0 tab 02/01/17 Naproxen [Naprosyn -] 250 mg PO BID tablet 02/01/17 Tramadol HCl 25 mg PO TIDCM PRN #7 tablet MDD 75 mg 02/01/17 Prednisone 10 mg PO 06/28/17 Family Disease History - Family Disease History Family Disease History: Other: Father (Rheumatoid arthritis) Review of Systems - Review of Systems Constitutional: reports: Chills, Malaise, Weakness Eyes: denies: Recent Change in Vision HENT: denies: Nasal Congestion, Throat Pain Neck: denies: Stiffness, Tenderness Cardiovascular: reports: Chest Pain, Shortness of Breath. denies: Edema, Palpitations Respiratory: reports: Cough, SOB, Wheezing. denies: Hemoptysis Gastrointestinal: reports: Nausea. denies: Abdominal Pain, Vomiting Genitourinary: denies: Dysuria, Hematuria Neurological: reports: Dizziness, Headache Physical Exam Vital Sings: Vital Signs Temperature 97.9 F 06/28/17 08:45 Pulse Rate 82 06/28/17 12:41 Respiratory Rate 18 06/28/17 12:41 Blood Pressure 153/74 06/28/17 12:41 O2 Sat by Pulse Oximetry (%) 96 06/28/17 12:41 Constitutional: Yes: Calm Eyes: Yes: Conjunctiva Clear, EOM Intact HENT: Yes: Atraumatic, Normocephalic Neck: Yes: Supple, Trachea Midline Cardiovascular: Yes: Regular Rate and Rhythm Respiratory: Yes: Rales (bibasilar) ...Clubbing: No Gastrointestinal: Yes: Normal Bowel Sounds, Soft. No: Tenderness Edema: No Labs: CBC, BMP 06/28/17 07:37 06/28/17 07:37 ABG Results ABG pH 7.43 (7.35-7.45) 06/28/17 01:28 ABG pCO2 at Pt Temp 40.9 mmHg (35-45) D 06/28/17 01:28 ABG pO2 at Pt Temp 78.8 mmHg (80-100) L D 06/28/17 01:28 ABG HCO3 26.8 meq/L (22-26) H 06/28/17 01:28 ABG O2 Sat (Measured) 96.2 % (90-98.9) 06/28/17 01:28 ABG O2 Content 16.5 % vol (15-22) 06/28/17 01:28 ABG Base Excess 2.8 meq/l (-2-2) H 06/28/17 01:28 Imaging - Results Chest X-ray: Report Reviewed, Image Reviewed Cat Scan: Report Reviewed, Image Reviewed (chronic interstitial lung disease) Problem List - Problems (1) Upper respiratory infection Code(s): J06.9 - ACUTE UPPER RESPIRATORY INFECTION, UNSPECIFIED (2) Interstitial lung disease Code(s): J84.9 - INTERSTITIAL PULMONARY DISEASE, UNSPECIFIED (3) Rheumatoid arthritis Code(s): M06.9 - RHEUMATOID ARTHRITIS, UNSPECIFIED (4) Diabetes Code(s): E11.9 - TYPE 2 DIABETES MELLITUS WITHOUT COMPLICATIONS (5) HTN (hypertension) Code(s): I10 - ESSENTIAL (PRIMARY) HYPERTENSION (6) Hyperlipidemia Code(s): E78.5 - HYPERLIPIDEMIA, UNSPECIFIED Assessment/Plan Upper Respiratory Tract Infection Interstitial Lung Disease Rheumatoid Arthritis HTN Hyperlipidemia DM - would place on empiric medrol for 24-48hrs and assess response - inhaled bronchodilators standing and PRN - O2 to keep SpO2 >90% - verify home dose of prednisone - can monitor off antibiotics - glucose control while on systemic steroids - DVT prophylaxis - outpt PFTs and f/u Thank you for this consult Grayson Vasquez MD
[2017-06-28] MEDS ORDERED: ALBUTEROL SO4 0.083% IH SOL 2.5 MG/3 ML VIAL.NEB. NEB PRN (14:45)
[2017-06-28] MEDS ORDERED: methylPREDNISolone NA SUCC 40 MG/1 ML VIAL ONE (16:13)
[2017-06-28] MEDS: methylPREDNISolone NA SUCC 40 MG/1 ML VIAL IVPUSH SCH ×2 (16:17→19:42)
[2017-06-28] MEDS: ALBUTEROL SO4 2.5/IPRATROPIUM 0.5 INH SOL 3 ML VIAL.NEB. NEB SCH ×2 (17:21→21:00)
[2017-06-29] MEDS: methylPREDNISolone NA SUCC 40 MG/1 ML VIAL IVPUSH SCH ×2 (02:07→10:09)
[2017-06-29] MEDS: INSULIN SLIDING SCALE (NOVOLOG) 1 VIAL SQ SCH ×2 (06:06→12:01)
[2017-06-29 07:45] VITALS: TEMP 98.6
[2017-06-29] MEDS: ALBUTEROL SO4 2.5/IPRATROPIUM 0.5 INH SOL 3 ML VIAL.NEB. NEB SCH (08:30)
--- NOTE | 2017-06-29 10:02 | DS ---
Physical Exam: SUBJECTIVE: Patient seen and examined. She states she feels a little better and shes able to ambulate with less distress from when she came to the ED OBJECTIVE: Vital Signs Period Temp Pulse Resp BP Sys/Gaee Pulse Ox Last 24 Hr 97.4 F-98.9 F 70-99 18-20 121-153/63-88 95-97 PE Neuro: alert, awake, cn 2-12intact Pulm: course bases, rales CV: s1 s2 rrr Abd: s nt nd + bs Ext: bilateral knee tenderness, no le edema, +DP pulses Laboratory Results - last 24 hr 06/28/17 06/28/17 06/28/17 14:00 17:18 21:11 POC Glucometer [id number] 160.23315 331 06/29/17 06/29/17 01:39 05:55 POC Glucometer 267 279 HOSPITAL COURSE: Date of Admission:06/27/17 Date of Discharge: 06/29/17 Minutes to complete discharge: 37 Discharge Summary Reason For Visit: INTERSTITIAL LUNG DISEASE Current Active Problems Cough (Acute) Interstitial lung disease (Acute) Upper respiratory infection (Acute) Diabetes (Chronic) Hospital Course: Initial Hospital Course: Briefly, this 67 year old female with PMH HTN, HLD, DM, pulmonary fibrosis, RA, presented to the ED c/o SOB, myalgias, and chills x 1-2 days. Per pt, a week ago , she developed a productive cough with yellow sputum (without blood) went to [facility] and was discharged on zithromax. Since discharged she dyspneic on exertion, generalized myalgias, subjective chills, and nausea no vomiting. Her symptoms resolved after oxygen and fluids in the ED. Imaging: Chest CT: chronic interstitial changes, with fibrosis. No acute pathology noted. Subsequent Hospital Course/Progress Note/DC Summary: 1. Dyspnea on exertion, interstitial lung disease/URI - Improved with short course IV medrol - Home with prednisone 40mg daily x5 days - Resume home dose prednisone 10mg daily 2. R/o ACS - ECHO normal - Trops negative 3. DM II - Resume home po anti diabetics 4. Rheumatoid arthritis - Continue methotrexate 20mg PO wkly - Prednisone 10mg daily - Ambulates with cane 5. HTN - Controlled on DC Dispo: - Home with above meds and PCP followup Condition: Stable - Instructions Diet, Activity, Other Instructions: Please return to the ED for any new, persistent, or worsening symptoms. Follow up with your PCP in 1 week Take home medications as directed Take 40mg of prednisone daily for 5 days and then resume 10mg daily Follow up with Dr. Ellis Referrals: Aly Ellis MD [Staff Physician] - Sneha Hewitt MD [Primary Care Provider] - Disposition: HOME - Home Medications Comprehensive Discharge Medication List: Ambulatory Orders metFORMIN HCL [Glucophage -] 500 mg PO BID 03/26/15 Gabapentin 300 mg PO DAILY 08/12/16 Albuterol Sulfate Inhaler - [Ventolin HFA Inhaler -] 1 - 2 inh PO QID PRN Insulin Glargine,Hum.rec.anlog [Lantus Solostar PEN -] 12 units SQ HS 09/20/16 Pantoprazole Sodium [Protonix -] 40 mg PO DAILY 09/20/16 Insulin Sliding Scale [Novolog Vial Sliding Scale -] See Protocol SQ ACHS #2 vial 02/01/17 Methotrexate [Mexate -] 20 mg PO WEEKLY #0 tab 02/01/17 Naproxen [Naprosyn -] 250 mg PO BID tablet 02/01/17 Tramadol HCl 25 mg PO TIDCM PRN #7 tablet MDD 75 mg 02/01/17 Prednisone 10 mg PO DAILY #20 tablet 06/29/17 Prednisone 10 mg PO DAILY #30 tab 06/29/17 This patient is new to me today: Yes Date on this admission: 06/29/17 Emergency Visit: Yes ED Registration Date: 06/27/17 Care time: The patient presented to the Emergency Department on the above date and was hospitalized for further evaluation of their emergent condition. Critical Care patient: No - Discharge Referral Referred to [facility] No
[2017-06-29 10:11] VITALS: BP 141/84; PULSE 100
[2017-06-29] MEDS ORDERED: ACETAMINOPHEN 325 MG TABLET (FP) PO ONE (10:41)
[2017-07-02] MEDS ORDERED: METHOTREXATE 2.5 MG TABLET PO SCH (10:00)
== END 2017-06-29 11:25 | disposition home or self-care (01) ==
LOC: JER 13:34 → JERBED 23:41 → UNDOADMOB 06-28 00:01 → JERBED 06-28 00:01 → J5S 06-28 17:59
PROVIDERS: ADMIT Internal Medicine; ATTEND Nurse Practitioner Acute Care
PROC: 3E033NZ Introduction of Analgesics, Hypnotics, Sedatives into Peripheral Vein, Percutaneous Approach (ICD-10-PCS; principal; 2017-06-27)
PROC: 3E033GC Introduction of Other Therapeutic Substance into Peripheral Vein, Percutaneous Approach (ICD-10-PCS; 2017-06-27)
PROC: 3E0337Z Introduction of Electrolytic and Water Balance Substance into Peripheral Vein, Percutaneous Approach (ICD-10-PCS; 2017-06-27)
PROC: 3E0F7GC Introduction of Other Therapeutic Substance into Respiratory Tract, Via Natural or Artificial Opening (ICD-10-PCS; 2017-06-27)
DX: J84.9 Interstitial pulmonary disease, unspecified (principal); R06.09 Other forms of dyspnea; R07.9 Chest pain, unspecified; R05 Cough; J06.9 Acute upper respiratory infection, unspecified; E11.9 Type 2 diabetes mellitus without complications; I10 Essential (primary) hypertension; E78.5 Hyperlipidemia, unspecified; J84.10 Pulmonary fibrosis, unspecified; J45.901 Unspecified asthma with (acute) exacerbation; K21.9 Gastro-esophageal reflux disease without esophagitis; Z79.84 Long term (current) use of oral hypoglycemic drugs; Z79.4 Long term (current) use of insulin; M06.9 Rheumatoid arthritis, unspecified
CPT/HCPCS: 36415; 36600; 71046-TC-FY; 71250-TC; 80048; 80053; 82550; 82803; 82962; 83735; 83880; 84100; 84484; 85025; 93005; 93010; 93306-TC; 94640; 96374; 96375; 99285-25; G0378; J0131; J7030

== ENCOUNTER 2017-10-19 07:31 | Day surgery (SDC) | payer OTHER ==
[2017-10-19] MEDS ORDERED: diphenhydrAMINE HCL 25 MG CAPSULE (FP) PO ONE (09:30)
[2017-10-19] MEDS ORDERED: ACETAMINOPHEN 500 MG TABLET (FP) PO ONE (09:30)
[2017-10-19] MEDS ORDERED: methylPREDNISolone NA SUCC 125 MG/2 ML VIAL IVPB ONE (09:30)
[2017-10-19] MEDS ORDERED: RITUXIMAB 1,000 MG in DEXTROSE 5%-WATER - 400 ML IVPB ONE (10:00)
[2017-10-19 14:35] VITALS: BP 161/83; PULSE 88; TEMP 98.2
== END 2017-10-19 13:50 | disposition home or self-care (01) ==
LOC: JCHEMO 07:31 → J7W 07:54 → JCHEMO 13:50
PROVIDERS: ATTEND Internal Medicine Rheumatology
PROC: 3E03305 Introduction of Other Antineoplastic into Peripheral Vein, Percutaneous Approach (ICD-10-PCS; principal; 2017-10-19)
PROC: 3E033GC Introduction of Other Therapeutic Substance into Peripheral Vein, Percutaneous Approach (ICD-10-PCS; 2017-10-19)
DX: M05.79 Rheumatoid arthritis with rheumatoid factor of multiple sites without organ or systems involvement (principal)
CPT/HCPCS: 96375; 96413; 96415; J9310

== ENCOUNTER 2018-04-21 07:25 | Day surgery (SDC) | payer OTHER ==
[~2018-04-21 07:25] MED LIST: ACETAMINOPHEN 500 MG TABLET (FP) PO ONE; RITUXIMAB 1,000 MG in DEXTROSE 5%-WATER - 400 ML IVPB ONE; SODIUM CHLORIDE 1,000 ML IV ONE; diphenhydrAMINE HCL 25 MG CAPSULE (FP) PO ONE; methylPREDNISolone NA SUCC 125 MG/2 ML VIAL IVPUSH ONE
[2018-04-21 09:00] LABS: BASO % 0.6 % (0-2.0); EOS % 4.8 % (0-4.5); HEMATOCRIT 39.6 % (32.4-45.2); HEMOGLOBIN 13.6 GM/dL (10.7-15.3); LYMPH % 31.2 % (8-40); MCH 31.6 pg (25.7-33.7); MCHC 34.5 g/dl (32.0-36.0); MEAN CELL VOLUME 91.6 fl (80-96); MEAN PLT VOLUME 9.1 fl (7.5-11.1); MONO % 11.2 % (3.8-10.2); NEUT % 52.2 % (42.8-82.8); PLATELET COUNT 143 K/MM3 (134-434); RBC 4.32 M/mm3 (3.60-5.2); RDW 17.8 % (11.6-15.6); WHITE BLOOD COUNT 7.5 K/mm3 (4.0-10.0)
[2018-04-21] MEDS ORDERED: ACETAMINOPHEN 500 MG TABLET (FP) PO ONE (09:15)
[2018-04-21] MEDS ORDERED: methylPREDNISolone NA SUCC 125 MG/2 ML VIAL IVPB ONE (09:15)
[2018-04-21] MEDS ORDERED: diphenhydrAMINE HCL 25 MG CAPSULE (FP) PO ONE (09:15)
[2018-04-21] MEDS ORDERED: SODIUM CHLORIDE 1,000 ML IV ONE (09:30)
[2018-04-21 09:35] LABS: ALBUMIN 3.5 g/dl (3.4-5.0); ALK PHOS 85 U/L (45-117); ANION GAP 7 MMOL/L (8-16); BILIRUBIN,TOTAL 0.3 mg/dL (0.2-1); BLOOD UREA NITROGEN 15 mg/dL (7-18); CALCIUM 9.3 mg/dL (8.5-10.1); CHLORIDE 107 mmol/L (98-107); CO2 25 mmol/L (21-32); CREATININE 0.8 mg/dL (0.55-1.3); GLUCOSE,RANDOM 232 mg/dL (74-106); MAGNESIUM 2.1 mg/dL (1.8-2.4); POTASSIUM 4.5 mmol/L (3.5-5.1); PREALBUMIN 29.6 mg/dl (20-40); SGOT/AST 14 U/L (15-37); SGPT/ALT 32 U/L (13-61); SODIUM 140 mmol/L (136-145); TOT PROT 6.6 g/dl (6.4-8.2)
[2018-04-21] MEDS ORDERED: RITUXIMAB 1,000 MG in DEXTROSE 5%-WATER - 400 ML IVPB ONE (10:00)
[2018-04-21 15:10] VITALS: BP 154/81; PULSE 81; TEMP 98.2
== END 2018-04-21 14:45 | disposition home or self-care (01) ==
LOC: JCHEMO 07:25 → J7W 08:00 → JCHEMO 14:45
PROVIDERS: ATTEND Internal Medicine Rheumatology
DX: M05.79 Rheumatoid arthritis with rheumatoid factor of multiple sites without organ or systems involvement (principal)
CPT/HCPCS: 36415; 80053; 82962; 83735; 84134; 85025; 96361; 96367; 96375; 96413; 96415; J7030; J9312

== ENCOUNTER 2018-05-05 09:01 | Day surgery (SDC) | payer OTHER ==
[2018-05-05] MEDS ORDERED: ACETAMINOPHEN 500 MG TABLET (FP) PO ONE (10:00)
[2018-05-05] MEDS ORDERED: methylPREDNISolone NA SUCC 125 MG/2 ML VIAL IVPB ONE (10:00)
[2018-05-05] MEDS ORDERED: diphenhydrAMINE HCL 25 MG CAPSULE (FP) PO ONE (10:00)
[2018-05-05 10:05] VITALS: TEMP 98
[2018-05-05] MEDS ORDERED: RITUXIMAB 1,000 MG in DEXTROSE 5%-WATER - 400 ML IVPB ONE (10:30)
[2018-05-05 14:27] VITALS: BP 153/90; PULSE 90
== END 2018-05-05 14:30 | disposition home or self-care (01) ==
LOC: JCHEMO 09:01 → J7W 09:04 → JCHEMO 14:30
PROVIDERS: ATTEND Internal Medicine Rheumatology
DX: M05.79 Rheumatoid arthritis with rheumatoid factor of multiple sites without organ or systems involvement (principal)
CPT/HCPCS: 96375; 96413; 96415; J9312

== ENCOUNTER 2020-01-05 10:45 | Emergency (ER) | payer OTHER ==
[2020-01-05 10:59] VITALS: BP 136/73; PULSE 89; TEMP 98.8; BMI 30.9
--- OUTSIDE RECORDS SUMMARY | 2020-01-05 11:17 | XMS ---
:1950 Author Organization [facility] Care Team Providers Name Role Phone Ringstad Unavailable Unavailable Ringstad Unavailable Unavailable Ringstad Unavailable Unavailable Ringstad Unavailable Unavailable Ringstad Unavailable Unavailable Ringstad Unavailable Unavailable Ringstad Unavailable Unavailable Ringstad Unavailable Unavailable Ringstad Unavailable Unavailable Ringstad Unavailable Unavailable Ringstad Unavailable Unavailable Levar Unavailable [phone] [place] Unavailable [phone] [place] Unavailable [phone] Brenda Unavailable Unavailable Brenda Unavailable Unavailable Coon Unavailable Unavailable Coon Unavailable Unavailable Coon Unavailable Unavailable Coon Unavailable Unavailable Coon Unavailable Unavailable Coon Unavailable Unavailable Radhika CHARLES MD Unavailable [phone] Radhika CHARLES MD Unavailable [phone] BALJIT CASTILLO Unavailable Unavailable Ringstad Unavailable Unavailable Ringstad Unavailable Unavailable Ringstad Unavailable Unavailable Ringstad Unavailable Unavailable Ringstad Unavailable Unavailable Ringstad Unavailable Unavailable Ringstad Unavailable Unavailable Ringstad Unavailable Unavailable Ringstad Unavailable Unavailable Ringstad Unavailable Unavailable Ringstad Unavailable Unavailable ERIK CHAMBERS Unavailable Unavailable MD Fred Unavailable Unavailable MD Fred Unavailable Unavailable MD Fred Unavailable Unavailable MD Fred Unavailable Unavailable MD Fred Unavailable Unavailable [facility] Unavailable Unavailable Aszalos, Angela Unavailable Unavailable Aszalos, Angela Unavailable Unavailable Aszalos, Angela Unavailable Unavailable Aszalos, Angela Unavailable Unavailable Aszalos, Angela Unavailable Unavailable Aszalos, Angela Unavailable Unavailable Aszalos, Angela Unavailable Unavailable Aszalos, Angela Unavailable Unavailable Aszalos, Angela Unavailable Unavailable Jing Michelle MD Unavailable Unavailable Miguel AngelJing MD Unavailable Unavailable Miguel AngelJing MD Unavailable Unavailable Miguel AngelJing MD Unavailable Unavailable Miguel Angel, Jing MD Unavailable Unavailable Miguel Angel, Jing MD Unavailable Unavailable Miguel Angel, Jing MD Unavailable Unavailable Miguel AngelJing MD Unavailable Unavailable Miguel AngelJing MD Unavailable Unavailable Miguel AngelJing MD Unavailable Unavailable Miguel AngelJing MD Unavailable Unavailable Miguel AngelJing MD Unavailable Unavailable Miguel AngelJing MD Unavailable Unavailable Miguel Angel, Jing MD Unavailable Unavailable Miguel AngelJing MD Unavailable Unavailable [facility] Unavailable Unavailable [place] Unavailable [phone] [place] Unavailable [phone] Ayaka Unavailable [phone] Ramya Unavailable Unavailable Ramya Unavailable Unavailable Ramya Unavailable Unavailable Ramay Unavailable Unavailable Re-disclosure Warning The records that you are about to access may contain information from federally- assisted alcohol or drug abuse programs. If such information is present, then the following federally mandated warning applies: This information has been disclosed to you from records protected by federal confidentiality rules (42 CFR part 2). The federal rules prohibit you from making any further disclosure of this information unless further disclosure is expressly permitted by the written consent of the person to whom it pertains or as otherwise permitted by 42 CFR part 2. A general authorization for the release of medical or other information is NOT sufficient for this purpose. The Federal rules restrict any use of the information to criminally investigate or prosecute any alcohol or drug abuse patient.The records that you are about to access may contain highly sensitive health information, the redisclosure of which is protected by Article 27-F of the [facility] Public Health law. If you continue you may haveaccess to information: Regarding HIV / AIDS; Provided by facilities licensed or operated by the [facility] Office of Mental Health; or Provided by the [facility] Office for People With Developmental Disabilities. If such information is present, then the following [facility] mandated warning applies: This information has been disclosed to you from confidential records which are protected by state law. State law prohibits you from making any further disclosure of this information without the specific written consent of the person to whom it pertains, or as otherwise permitted by law. Any unauthorized further disclosure in violation of state law may result in a fine or mcc sentence or both. A general authorization for the release of medical or other information is NOT sufficient authorization for further disclosure. Allergies and Adverse Reactions Type Description Substance Reaction Status Data Source(s ) No Known Allergies No Known Allergies No Known Allergies eCW[facility] ([facility]) No Known Allergies No Known Allergies No Known Allergies eCW3 ([facility]) Propensity to Propensity to Propensity to NEXTG EN ([facility] adverse reactions adverse reactions adverse reactions [facility] (disorder) (disorder) (disorder) Center) No Known Allergies No Known Allergies No Known Allergies eCW3 ([facility]) No Known Allergies No Known Allergies No Known Allergies eCW3 ([facility]) No Known Allergies No Known Allergies No Known Allergies eCW3 ([facility]) No Known Allergies No Known Allergies No Known Allergies eCW3 ([facility]) No Known Allergies No Known Allergies No Known Allergies eCW3 ([facility]) No Known Allergies No Known Allergies No Known Allergies eCW3 ([facility]) No Information No Information No Information eC W2 ([facility]) No Known Allergies No Known Allergies No Known Allergies eCW3 ([facility]) No Known Allergies No Known Allergies No known allergies eCW2 ([facility]situation[facility] Encounters Encounter Providers Location Date Indications Data Source(s ) Attender: [facility] 11/15/2019 GEE (Sa adriana [facility] [place] 12:30:00 PM [facility] EDT - Center) 11/15/2019 12:30:00 PM EDT Attender: Shayy [facility] 11/12/2019 MYLES Michelle MD Center 11:13:[address] AM [address] [facility] EDT - Center) 11/12/2019 11:13:00 AM EDT Outpatient Attender: [email or web address] 11/10/2019 GSI ([facility] 12:23:42 PM [facility] EDT Collaborative) Patient admitted. Outpatient Attender: HRHC9 [facility] 07/13/2019 06:03:44 PM [facility]SI ([facility]) Patient admitted. Outpatient Attender: HRHC9 [facility] 06/29/2019 06:49:44 AM GSI ([facility]) Patient admitted. Outpatient Attender: [email or web address] [facility] 05/29/2019 01:44:19 PM GSI ([facility]) Patient admitted. Attender: [facility]2019 [facility] EST ([facility] 02/15/2019 [facility] 09:39:00 AM [facility] Medical [place]) (NBillable) [facility] 2019 eCW3 ([facility] 12:00:00 AM EDT [facility] - 2019 Care) Management 12:00:00 AM EDT (NBillable) [facility] 12/28/2018 eCW3 ([facility] 12:00:00 AM EDT [facility] - 12/28/2018 Care) Management 12:00:00 AM EDT (NBillable) [facility] 12/22/2018 eCW3 ([facility] 12:00:00 AM EDT [facility] - 12/22/2018 Care) Management 12:00:00 AM EDT Attender: [facility] 12/13/2018 DOMITILA [facility] 10:23:00 AM EDT ([facility] 12/13/2018 [facility] 10:23:00 AM EDT Medical Center) Attender: [facility] 12/13/2018 MYLES Michelle [place] Center 10:23:00 AM EDT ([facility] 12/13/2018 [facility] 10:23:00 AM EDT Medical Center) (NBillable) [facility] 11/24/2018 eCW3 ([facility] 12:00:00 AM EDT [facility] - 11/24/2018 Care) Management 12:00:00 AM EDT Attender: Bo [facility] 11/10/2018 NEX GORDONMARCELLO [facility] 09:57:00 AM EDT ([facility] 11/10/2018 [facility] 09:57:00 AM EDT Medical Center) Attender: Joyce [facility] 11/09/2018 DOMITILA BARBER [facility] 06:43:00 PM EDT ([facility] 11/09/2018 [facility] 06:43:00 PM EDT Medical Center) (NBillable) [facility] 11/01/2018 eCW3 ([facility] 12:00:00 AM EDT [facility] - 11/01/2018 Care) Management 12:00:00 AM EDT (NBillable) [facility] 09/18/2018 eCW3 ([facility] 12:00:00 AM EDT [facility] - 09/18/2018 Care) Management 12:00:00 AM EDT Outpatient Attender: JONATHAN Costello 09/15/2018 [facility] Leni SMILEY 10:48:00 AM EDT Medical RICHARDAdmitter: Center JONATHAN CASTILLOReferrer: JONATHAN CASTILLO Attender: [facility] 08/28/2018 MYLES Michelle MD [place] 10:25:00 AM EDT ([facility] 08/28/2018 [facility] 10:25:00 AM EDT Medical Center) Attender: [facility] 08/22/2018 MYLES Michelle MD [place] 09:39:00 AM EDT ([facility] 08/22/2018 [facility] 09:39:00 AM EDT Medical Center) (NBillable) [facility] 08/15/2018 eCW3 ([facility] 12:00:00 AM EDT [facility] - 08/15/2018 Care) Management 12:00:00 AM EDT Attender: [facility] 08/10/2018 MYLES Michelle MD [place] 10:22:00 AM EDT ([facility] 08/10/2018 [facility] 10:22:00 AM EDT Medical Center) (NBillable) [facility] 07/14/2018 eCW3 ([facility] 12:00:00 AM EDT [facility]Care - 07/14/2018 Care) Management 12:00:00 AM EDT Outpatient 07/04/2018 GSI 12:09:57 PM EDT ([facility] Collaborative ) (NBillable) [facility] 06/30/2018 eCW3 ([facility] 12:00:00 AM EDT [facility] - 06/30/2018 Care) Management 12:00:00 AM EDT Emergency H 06/29/2018 [facility] 12:29:00 PM EDT Medical Center Attender: [facility] 06/29/2018 GEE Garr[facility] 11:27:00 AM EDT ([facility] - 06/29/2018 [facility] 11:27:00 AM EDT Medical Center) Outpatient Attender: Joyce Costello 06/29/2018 [facility] Migueldmitter: 11:27:00 AM EDT [facility] RingstadReferrer: Joyce Merchant Attender: [facility]/31/2018 [facility] 09:[facility] AM EST ([facility] 05/31/2018 [facility] 09:55:00 AM EST Medical Center) Attender: [facility] 05/25/2018 [facility] 02:30:00 PM EST ([facility] - 05/25/2018 [facility] 02:30:00 PM EST Medical Center) Outpatient Admitter: REYES 05/18/2018 [place] kimberley ERIK MUÑIZUTA 01:40:00 PM EST edical Center OutpatientOFFICE/ Attender: Georgenguyen [facility]16/2018 [facility] 10:52:00 AM EST (Sherrill holden EST - 05/16/2018 [facility] 10:52:00 AM EST Medical Center) Emergency 05/12/2018 [facility] 03:32:00 PM EST Medical Center OutpatientOFFICE/ Attender: [facility] 05/09/2018 [facility] OUTPATIENT VIS[facility], [facility] [place] 10:59:00 AM EST ( [facility] CLARY Ibarra MD - 05/09/2018 [place] 10:59:00 AM EST Medical Center) Attender: [facility] 05/02/2018 NEXTGEN [facility] [place] 11:04:00 AM EST ([facility] - 05/02/2018 [place] 11:04:00 AM EST Medical Center) OutpatientOFFICE/ Attender: [facility] 04/26/2018 NEXT GEN OUTPATIENT VISIT, [facility] [place] 10:47:00 AM EST ( [facility] Ibarra MD - 04/26/2018 [place] 10:47:00 AM EST Medical Center) Attender: [facility] 04/14/2018 NELLY Bud Bui [place] 02:23:00 PM EST ([facility] 04/14/2018 [place] 02:23:00 PM [facility] Medical Center) Attender: [facility] 04/14/2018 DOMITILA Mcknighttareta [place] 01:41:00 PM EST ([facility] 04/14/2018 [place] 01:41:00 PM [facility] Medical Center) Attender: [facility] 04/13/2018 DOMITILA Mcknighttareta [place] 09:41:00 AM EST ([facility] 04/13/2018 [place] 09:41:00 AM [facility] Medical Center) Attender: [facility] 03/28/2018 [facility]ILA [facility] 11:17:00 AM EST ([facility] 03/28/2018 [place] 11:17:00 AM [facility] Medical Center) 03/27/2018 [facility] 02:11:00 PM EST ([facility] 03/27/2018 [place] 02:11:00 PM EST Medical Center) OutpatientOFFICE/ Attender: [facility] 03/15/2018 NEXT GEN OUTPATIENT VISIT, [facility] [place] 10:59:00 AM EST ( [facility] CLARY Ibarra MD - 03/15/2018 [place] 10:59:00 AM [facility] Medical Center) Attender: [facility] 03/07/2018 [facility] 02:21:00 PM EST ([facility] 03/07/2018 [place] 02:21:00 PM [facility] Medical Center) OutpatientOFFICE/ Attender: [facility] 03/01/2018 NEXTGEN OUTPATIENT VISIT, Armen Cristobal 01:59:00 PM EST ( [facility] - 03/01/2018 [place] 01:59:00 PM EST Medical Center) Attender: Joyce [facility] 02/24/2018 DOMITILA Mcknightreta Center 10:25:00 AM EST ([facility] 02/24/2018 [place] 10:25:00 AM EST Medical Center) [facility] 02/23/2018 eCW2 ([facility] 12:00:00 AM EST [facility] Care) OutpatientOFFICE/ Attender: [facility] 02/22/2018 NEXT GEN OUTPATIENT VISIT, [place] 01:29:00 PM EST ( [facility] Ibarra MD - 02/22/2018 [place] 01:29:00 PM EST Medical Center) Attender: [facility] 02/22/2018 NELLY Bud Patel [place] 09:20:00 AM EST ([facility] 02/22/2018 [place] 09:20:00 AM EST Medical Center) [facility] 02/07/2018 eCW2 [facility] 12[facility]00 AM EDT [facility] Center Care) Attender: [facility] 02/01/2018 [facility] [place] 11:14:00 AM EDT ([facility] - 02/01/2018 [place] 11:14:00 AM EDT Medical Center) Attender: [facility] 01/25/2018 [facility] 10:38:00 AM EDT ([facility] - 01/25/2018 [place] 10:38:00 AM EDT Medical Center) [facility] 12/30/2017 eCW2 ([facility] 12:00:00 AM EDT [facility] Center Care) [facility] 12/29/2017 eCW2 ([facility] 12:00:00 AM EDT [facility] Care) [facility] 01[facility]00 PM EDT ([facility] 12/17/2017 [place] 01:26:00 PM EDT Medical Center) [facility] 12/16/2017 eCW2 ([facility] 12:00:00 AM EDT [facility] Center Care) [facility] 12/09/2017 eCW2 ([facility] 12:00:00 AM EDT [facility] Center Care) [facility] 12/09/2017 eCW2 ([facility] 12:00:00 AM EDT [facility] Care) [facility] 12/08/2017 eCW2 ([facility] 12:00:00 AM EDT [facility] Care) [facility] 12/08/2017 eCW2 ([facility] 12:00:00 AM EDT [facility] Care) [place] [facility] [place] [facility] 12/05/2017 eCW2 ([facility] 12:00:00 AM EDT [facility]) Attender: [facility] 12/01/2017 NEXT GEN Chester Levar 10:52:00 AM EDT ([facility] 12/01/2017 [place] 10:52:00 AM EDT Medical Center) [facility] 11/28/2017 eCW2 [facility] 12:00:00 AM EDT [facility] Center Care) Attender: [facility] 11/24/2017 NEXT GEN Chester Levar 10:12:00 AM EDT ([facility] 11/24/2017 [place] 10:12:00 AM EDT Medical Center) [facility] 10/31/2017 eCW2 ([facility] 12:00:00 AM EDT [facility] Care) [facility] 10/31/2017 eCW2 ([facility] 12:00:00 AM EDT [facility] Care) [facility] 10/25/2017 eCW2 ([facility] 12:00:00 AM EDT [facility] Care) [facility] 10/19/2017 eCW2 ([facility] 12:00:00 AM EDT [facility] Care) [facility] 10/14/2017 eCW2 ([facility] 12:00:00 AM EDT [facility] Care) Attender: [facility] 10/11/2017 [facility] 10:28:00 AM EDT ([facility] - 10/11/2017 [place] 10:28:00 AM EDT Medical Center) [facility] 10/07/2017 eCW2 ([facility] 12:00:00 AM EDT [facility] Care) Attender: Aria [facility] 10/04/2017 [facility] Center 11:21:00 AM EDT ([facility] 10/04/2017 [place] 11:21:00 AM EDT Medical Center) [facility] 09/28/2017 eCW2 ([facility] 12:00:00 AM EDT [facility] Care) [facility] 09/21/2017 eCW2 ([facility] 12:00:00 AM EDT [facility] Care) [facility] 09/21/2017 eCW2 ([facility] 12:00:00 AM EDT [facility] Care) [facility] 09/09/2017 eCW2 ([facility] 12:00:00 AM EDT [facility] Care) [facility] 08/31/2017 eCW2 ([facility] 12:00:00 AM EDT [facility] Care) [facility] 08/19/2017 eCW2 ([facility] 12:00:00 AM EDT [facility] Care) [facility] 08/18/2017 eCW2 ([facility] 12:00:00 AM EDT [facility] Care) [facility] 08/17/2017 eCW2 ([facility] 12:00:00 AM EDT [facility] Care) [facility] 08/15/2017 eCW2 ([facility] 12:00:00 AM EDT [facility] Care) [facility] 08/15/2017 eCW2 ([facility] 12:00:00 AM EDT [facility] Care) [facility] 08/15/2017 eCW2 ([facility] 12:00:00 AM EDT [facility] Care) [facility] 08/12/2017 eCW2 ([facility] 12:00:00 AM EDT [facility] Care) [facility] 08/04/2017 eCW2 ([facility] 12:00:00 AM EDT [facility] Care) [facility] 07/28/2017 eCW2 ([facility] 12:00:00 AM EDT [facility] Care) [facility] 07/27/2017 eCW2 ([facility] 12:00:00 AM EDT [facility] Care) [facility] 07/27/2017 eCW2 ([facility] 12:00:00 AM EDT [facility] Care) [facility] 07/18/2017 eCW2 ([facility] 12:00:00 AM EDT [facility] Care) [facility] 07/14/2017 eCW2 ([facility] 12:00:00 AM EDT [facility] Care) [facility] 07/12/2017 eCW2 ([facility] 12:00:00 AM EDT [facility] Care) [facility] 07/07/2017 eCW2 ([facility] 12:00:00 AM EDT [facility] Care) [facility] 07/07/2017 eCW2 ([facility] 12:00:00 AM EDT [facility] Care) [facility] 06/27/2017 eCW2 ([facility] 12:00:00 AM EDT [facility] Care) [facility] 06/27/2017 eCW2 ([facility] 12:00:00 AM EDT [facility] Care) [facility] 06/20/2017 eCW2 ([facility] 12:00:00 AM EDT [facility] Care) [facility] 06/01/2017 eCW2 ([facility] 12:00:00 AM EST [facility] Care) [facility] 05/23/2017 eCW2 ([facility] 12:00:00 AM EST [facility] Care) [facility] 05/20/2017 eCW2 ([facility] 12:00:00 AM EST [facility] Care) [facility] 05/12/2017 eCW2 ([facility] 12:00:00 AM EST [facility] Care) [facility] 05/10/2017 eCW2 ([facility] 12:00:00 AM EST [facility] Care) [facility] 05/05/2017 eCW2 ([facility] 12:00:00 AM EST [facility] Care) [facility] 05/04/2017 eCW2 ([facility] 12:00:00 AM EST [facility] Care) [facility] 05/03/2017 eCW2 ([facility] 12:00:00 AM EST [facility] Care) [facility] 04/27/2017 eCW2 ([facility] 12:00:00 AM EST [facility] Care) [facility] 03/22/2017 eCW2 ([facility] 12:00:00 AM EST [facility] Care) [facility] 03/22/2017 eCW2 ([facility] 12:00:00 AM EST [facility] Care) [facility] 03/22/2017 eCW2 ([facility] 12:00:00 AM EST [facility] Care) [facility] 02/18/2017 eCW2 ([facility] 12:00:00 AM EST [facility] Care) [facility] 02/18/2017 eCW2 ([facility] 12:00:00 AM EST [facility] Care) [facility] 02/17/2017 eCW2 ([facility] 12:00:00 AM EST [facility] Care) [facility] 02/04/2017 eCW2 ([facility] 12[facility]00:00 AM EDT [facility]) [facility] 02/03/2017 eCW2 ([facility] 12[facility]00:00 AM EDT [facility]) [facility] 01/25/2017 eCW2 ([facility] 12[facility]00:00 AM EDT [facility]) [facility] 01/21/2017 eCW2 ([facility] 12[facility]00:00 AM EDT [facility]) [facility] 12/24/2016 eCW2 ([facility] 12[facility]00:00 AM EDT [facility]) [facility] 12/24/2016 eCW2 ([facility] 12[facility]00:00 AM EDT [facility]) [facility] 11/22/2016 eCW2 ([facility] 12[facility]00:00 AM EDT [facility]) [facility] 10/28/2016 eCW2 ([facility] 12[facility]00:00 AM EDT [facility]) [facility] 10/21/2016 eCW2 ([facility] 12[facility]00:00 AM EDT [facility]) [facility] 10/14/2016 eCW2 ([facility] 12[facility]00:00 AM EDT [facility]) [facility] 10/04/2016 eCW2 ([facility] 12:00:00 AM EDT [facility]) [facility] 08/27/2016 eCW2 ([facility] 12[facility]00:00 AM EDT [facility]) [facility] 08/24/2016 eCW2 ([facility] 12[facility]00:00 AM EDT [facility]) [facility] 08/04/2016 eCW2 ([facility] 12[facility]00:00 AM EDT [facility]) [facility] 07/26/2016 eCW2 ([facility] 12:00:00 AM EDT [facility]) [facility] 06/28/2016 eCW2 ([facility] 12:00:00 AM EDT [facility]) [facility] 06/03/2016 eCW2 ([facility] 12[facility]00:00 AM EST [facility]) [facility] 05/26/2016 eCW2 ([facility] 12:00:00 AM EST [facility]) [facility] 05/26/2016 eCW2 ([facility] 12:00:00 AM EST [facility]) [facility] 03/12/2016 eCW2 ([facility] 12:00:00 AM EST [facility]) [facility] 03/09/2016 eCW2 ([facility] 12:00:00 AM EST [facility]) [facility] 03/09/2016 eCW2 ([facility] 12:00:00 AM EST [facility]) [facility] 02/27/2016 eCW2 ([facility] 12:00:00 AM EST [facility]) [facility] 02/27/2016 eCW2 ([facility] 12:00:00 AM EST [facility]) [facility] 01/21/2016 [facility] 01/14/2016 eCW2 ([facility] 01/05/2016 eCW2 ([facility] [place] [facility] [place] [facility] 12/17/2015 eCW 2 ([facility] 12:00:00 AM EDT [facility]) [place] [facility] [place] [facility] 12/17/2015 eCW 2 ([facility] 12[facility]00:00 AM EDT [facility]) [facility] 12/05/2015 [facility] 12/05/2015 [facility] [place] [facility] [place] [facility] 10/31/2015 eCW2 ([facility] 12:00:00 AM EDT Door [facility]) [place] [facility] [place] [facility] 10/16/2015 eCW2 ([facility] 12:00:00 AM EDT [facility]) [place] [facility] [place] [facility] 08/13/2015 eCW2 ([facility] 12:00:00 AM EDT [facility] [place] [facility] [place] [facility] 07/23/2015 eCW2 ([facility] 12:00:00 AM EDT [facility]) [place] [facility] [place] [facility] 07/23/2015 eCW2 ([facility] 12:00:00 AM EDT [facility]) [place] [facility] [place] [facility] 07/08/2015 eCW2 ([facility] 12:00:00 AM EDT [facility]) [place] [facility] [place] [facility] 06/05/2015 eCW2 ([facility] 12:00:00 AM EST [facility]) [place] [facility] [place] [facility] 05/20/2015 eCW2 ([facility] 12:00:00 AM EST [facility]) [place] [facility] [place] [facility] 05/16/2015 eCW2 ([facility] 12:00:00 AM EST [facility]) [place] [facility] [place] [facility] 05/13/2015 eCW 2 ([facility] 12:00:00 AM EST [facility]) [place] [facility] [place] [facility] 05/02/2015 eCW2 ([facility] 12:00:00 AM EST [facility]) [place] [facility] 04/29/2015 eCW 2 ([facility] 12:00:00 AM EST [facility]) [place] [facility] [place] [facility] 04/21/2015 eCW2 ([facility] 12:00:00 AM EST [facility]) [place] [facility] [place] [facility] 04/21/2015 eCW2 ([facility] 12:00:00 AM EST [facility]) [place] [facility] [place] [facility] 03/19/2015 eCW2 ([facility] 12:00:00 AM EST [facility]) [place] [facility] [place] [facility] 03/17/2015 eCW2 ([facility] 12:00:00 AM EST [facility]) [place] [facility] [place] [facility] 03/12/2015 eCW 2 ([facility] 12:00:00 AM EST [facility]) [place] [facility] [place] [facility] 03/10/2015 eCW2 ([facility] 12:00:00 AM EST [facility]) [place] [facility] [place] [facility] 02/20/2015 eCW2 ([facility] 12:00:00 AM EST [facility]) [place] [facility] [place] [facility] 02/20/2015 eCW2 ([facility] 12:00:00 AM EST [facility]) [place] [facility] [place] [facility] 01/30/2015 eCW2 ([facility] 12:00:00 AM EDT [facility]) [place] [facility] [place] [facility] 01/20/2015 eCW2 ([facility] 12:00:00 AM EDT [facility]) [place] [facility] [place] [facility] 01/17/2015 eCW2 ([facility] 12:00:00 AM EDT [facility]) [place] [facility] [place] [facility] 11/27/2014 eCW2 ([facility] 12:00:00 AM EDT [facility]) [place] [facility] [place] [facility] 06/12/2014 eCW 2 ([facility] 12:00:00 AM EST [facility]) [place] [facility] [place] [facility] 04/17/2014 eCW 2 ([facility] 12:00:00 AM EST [facility]) [place] [facility] [place] [facility] 03/26/2014 eCW 2 ([facility] 12:00:00 AM EST [facility]) [place] [facility] [place] [facility] 03/22/2014 eCW2 ([facility] 12:00:00 AM EST [facility]) [place] [facility] [place] [facility] 03/19/2014 eCW 2 ([facility] 12:00:00 AM EST [facility]) [place] [facility] [place] [facility] 06/28/2013 eCW2 ([facility] 12:00:00 AM EDT [facility]) [place] [facility] [place] [facility] 06/11/2013 eCW2 ([facility] 12:00:00 AM EST [facility]) [place] [facility] [place] [facility] 04/16/2013 eCW2 ([facility] 12:00:00 AM EST [facility]) [place] [facility] [place] [facility] 04/16/2013 eCW2 ([facility] 12:00:00 AM EST [facility]) [place] [facility] [place] [facility] 03/12/2013 eCW2 ([facility] 12:00:00 AM EST [facility]) [place] [facility] [place] [facility] 02/22/2013 eCW 2 ([facility] 12:00:00 AM EST [facility]) [place] [facility] [place] [facility] 02/16/2013 eCW2 ([facility] 12:00:00 AM EST [facility]) [place] [facility] [place] [facility] 02/14/2013 eCW2 ([facility] 12:00:00 AM EST [facility]) [place] [facility] [place] [facility] 01/25/2013 eCW2 ([facility] 12:00:00 AM EDT [facility]) [place] [facility] [place] [facility] 01/09/2013 eCW2 ([facility] 12:00:00 AM EDT [facility]) [place] [facility] [place] [facility] 12/22/2012 eCW2 ([facility] 12:00:00 AM EDT [facility]) [place] [facility] [place] [facility] 12/18/2012 eCW2 ([facility] 12:00:00 AM EDT [facility]) [place] [facility] [place] [facility] 12/07/2012 eCW2 ([facility] 12:00:00 AM EDT [facility]) [place] [facility] [place] [facility] 11/06/2012 eCW2 ([facility] 12:00:00 AM EDT [facility]) [place] [facility] [place] [facility] 10/28/2012 eCW2 ([facility] 12:00:00 AM EDT [facility]) [place] [facility] [place] [facility] 10/11/2012 eCW2 ([facility] 12:00:00 AM EDT [facility]) [place] [facility] [place] [facility] 10/09/2012 eCW2 ([facility] 12:00:00 AM EDT [facility]) [place] [facility] [place] [facility] 09/12/2012 eCW2 ([facility] 12:00:00 AM EDT [facility]) [place] [facility] [place] [facility] 09/05/2012 eCW2 ([facility] 12:00:00 AM EDT [facility]) [place] [facility] [place] [facility] 08/16/2012 eCW2 ([facility] 12:00:00 AM EDT [facility]) [place] [facility] [place] [facility] 08/16/2012 eCW2 ([facility] 12:00:00 AM EDT [facility]) [place] [facility] [place] [facility] 07/07/2012 eCW2 ([facility] 12:00:00 AM EDT [facility]) [place] [facility] [place] [facility] 06/06/2012 eCW2 ([facility] 12:00:00 AM EST [facility]) [place] [facility] [place] [facility] 06/06/2012 eCW2 ([facility] 12:00:00 AM EST [facility]) [place] [facility] [place] [facility] 06/06/2012 eCW2 ([facility] 12:00:00 AM EST [facility]) [place] [facility] [place] [facility] 05/02/2012 eCW2 ([facility] 12:00:00 AM EST [facility]) [place] [facility] [place] [facility] 04/07/2012 eCW2 ([facility] 12:00:00 AM EST [facility]) [place] [facility] [place] [facility] 02/24/2012 eCW2 ([facility] 12:00:00 AM EST [facility]) [place] [facility] [place] [facility] 02/16/2012 eCW2 ([facility] 12:00:00 AM EST [facility]) [place] [facility] [place] [facility] 12/21/2011 eCW2 ([facility] 12:00:00 AM EDT [facility]) [place] [facility] [place] [facility] 12/20/2011 eCW2 ([facility] 12:00:00 AM EDT [facility]) [place] [facility] [place] [facility] 11/06/2011 eCW2 ([facility] 12:00:00 AM EDT [facility]) [place] [facility] [place] [facility] 10/23/2011 eCW2 ([facility] 12:00:00 AM EDT [facility]) [place] [facility] [place] [facility] 09/14/2011 eCW2 ([facility] 12:00:00 AM EDT [facility]) [place] [facility] [place] [facility] 09/09/2011 eCW2 ([facility] 12:00:00 AM EDT [facility]) [place] [facility] [place] [facility] 08/20/2011 eCW2 ([facility] 12:00:00 AM EDT [facility]) [place] [facility] [place] [facility] 08/13/2011 eCW 2 ([facility] 12:00:00 AM EDT [facility]) [place] [facility] [place] [facility] 08/07/2011 eCW2 ([facility] 12:00:00 AM EDT [facility]) [place] [facility] [place] [facility] 08/04/2011 eCW 2 ([facility] 12:00:00 AM EDT [facility]) [place] [facility] [place] [facility] 08/03/2011 eCW2 ([facility] 12:00:00 AM EDT [facility]) [place] [facility] [place] [facility] 07/26/2011 eCW2 ([facility] 12:00:00 AM EDT [facility]) [place] [facility] [place] [facility] 07/16/2011 eCW2 ([facility] 12:00:00 AM EDT [facility]) [place] [facility] [place] [facility] 07/16/2011 eCW2 ([facility] 12:00:00 AM EDT [facility]) [place] [facility] [place] [facility] 07/05/2011 eCW2 ([facility] 12:00:00 AM EDT [facility]) [place] [facility] [place] [facility] 07/05/2011 eCW2 ([facility] 12:00:00 AM EDT [facility]) [place] [facility] [place] [facility] 06/24/2011 eCW2 ([facility] 12:00:00 AM EDT [facility]) [place] [facility] [place] [facility] 06/18/2011 eCW2 ([facility] 12:00:00 AM EST [facility]) [place] [facility] [place] [facility] 06/08/2011 eCW2 ([facility] 12:00:00 AM EST [facility]) [place] [facility] [place] [facility] 06/08/2011 eCW2 ([facility] 12:00:00 AM EST [facility]) [place] [facility] [place] [facility] 06/07/2011 eCW2 ([facility] 12:00:00 AM EST [facility]) [place] [facility] 05/17/2011 eCW2 ([facility] 12:00:00 AM EST [facility]) [place] [facility] [place] [facility] 04/06/2011 eCW2 ([facility] 12:00:00 AM EST [facility]) [place] [facility] [place] [facility] 02/22/2011 eCW2 ([facility] 12:00:00 AM EST [facility]) [place] [facility] [place] [facility] 02/15/2011 eCW2 ([facility] 12:00:00 AM EST [facility]) [place] [facility] [place] [facility] 02/15/2011 eCW2 ([facility] 12:00:00 AM EST [facility]) [place] [facility] [place] [facility] 01/19/2011 eCW2 ([facility] 12:00:00 AM EDT [facility]) [place] [facility] [place] [facility] 01/12/2011 eCW2 ([facility] 12:00:00 AM EDT [facility]) [place] [facility] [place] [facility] 01/11/2011 eCW2 ([facility] 12:00:00 AM EDT [facility]) [place] [facility] [place] [facility] 01/11/2011 eCW2 ([facility] 12:00:00 AM EDT [facility]) [place] [facility] [place] [facility] 01/05/2011 eCW2 ([facility] 12:00:00 AM EDT [facility]) [place] [facility] [place] [facility] 12/31/2010 eCW2 ([facility] 12:00:00 AM EDT [facility]) [place] [facility] [place] [facility] 12/08/2010 eCW2 ([facility] 12:00:00 AM EDT [facility]) [place] [facility] [place] [facility] 12/07/2010 eCW2 ([facility] 12:00:00 AM EDT [facility]) [place] [facility] [place] [facility] 12/03/2010 eCW2 ([facility] 12:00:00 AM EDT [facility]) [place] [facility] [place] [facility] 11/30/2010 eCW2 ([facility] 12:00:00 AM EDT [facility]) [place] [facility] [place] [facility] 11/30/2010 eCW2 ([facility] 12:00:00 AM EDT [facility]) [place] [facility] [place] [facility] 11/24/2010 eCW2 ([facility] 12:00:00 AM EDT [facility]) [place] [facility] [place] [facility] 11/16/2010 eCW2 ([facility] 12:00:00 AM EDT [facility]) [place] [facility] [place] [facility] 11/16/2010 eCW2 ([facility] 12:00:00 AM EDT [facility]) [place] [facility] [place] [facility] 11/10/2010 eCW2 ([facility] 12:00:00 AM EDT [facility]) [place] [facility] [place] [facility] 11/09/2010 eCW2 ([facility] 12:00:00 AM EDT [facility]) [place] [facility] [place] [facility] 11/04/2010 eCW2 ([facility] 12:00:00 AM EDT [facility]) [place] [facility] [place] [facility] 11/03/2010 eCW2 ([facility] 12:00:00 AM EDT [facility]) [place] [facility] [place] [facility] 11/03/2010 eCW2 ([facility] 12:00:00 AM EDT [facility]) [place] [facility] [place] [facility] 10/07/2010 eCW2 ([facility] 12:00:00 AM EDT [facility]) [place] [facility] [place] [facility] 10/07/2010 eCW2 ([facility] 12:00:00 AM EDT [facility]) [place] [facility] [place] [facility] 09/02/2010 eCW2 ([facility] 12:00:00 AM EDT [facility]) [place] [facility] [place] [facility] 09/02/2010 eCW2 ([facility] 12:00:00 AM EDT [facility]) [place] [facility] [place] [facility] 09/02/2010 eCW2 ([facility] 12:00:00 AM EDT [facility]) [place] [facility] [place] [facility] 08/28/2010 eCW2 ([facility] 12:00:00 AM EDT [facility]) [place] [facility] [place] [facility] 08/24/2010 eCW2 ([facility] 12:00:00 AM EDT [facility]) [place] [facility] [place] [facility] 08/12/2010 eCW2 ([facility] 12:00:00 AM EDT [facility]) [place] [facility] [place] [facility] 08/12/2010 eCW2 ([facility] 12:00:00 AM EDT [facility]) [place] [facility] [place] [facility] 08/04/2010 eCW2 ([facility] 12:00:00 AM EDT [facility]) [place] [facility] [place] [facility] 07/30/2010 eCW2 ([facility] 12:00:00 AM EDT [facility]) [place] [facility] [place] [facility] 07/13/2010 eCW2 ([facility] 12:00:00 AM EDT [facility]) [place] [facility] [place] [facility] 06/29/2010 eCW2 ([facility] 12:00:00 AM EDT [facility]) [place] [facility] [place] [facility] 06/02/2010 eCW 2 ([facility] 12:00:00 AM EST [facility]) [place] [facility] [place] [facility] 05/25/2010 eCW2 ([facility] 12:00:00 AM EST [facility]) [place] [facility] [place] [facility] 05/25/2010 eCW 2 ([facility] 12:00:00 AM EST [facility]) [place] [facility] [place] [facility] 05/18/2010 eCW2 ([facility] 12:00:00 AM EST [facility]) [place] [facility] [place] [facility] 05/11/2010 eCW2 ([facility] 12:00:00 AM EST [facility]) [place] [facility] [place] [facility] 04/13/2010 eCW 2 ([facility] 12:00:00 AM EST [facility]) [place] [facility] [place] [facility] 03/09/2010 eCW2 ([facility] 12:00:00 AM EST [facility]) [place] [facility] [place] [facility] 02/04/2010 eCW2 ([facility] 12:00:00 AM EDT [facility]) [place] [facility] [place] [facility] 01/19/2010 eCW2 ([facility] 12:00:00 AM EDT [facility]) [place] [facility] [place] [facility] 01/19/2010 eCW2 ([facility] 12:00:00 AM EDT [facility]) [place] [facility] [place] [facility] 01/06/2010 eCW2 ([facility] 12:00:00 AM EDT [facility]) [place] [facility] [place] [facility] 01/06/2010 eCW2 ([facility] 12:00:00 AM EDT [facility]) [place] [facility] [place] [facility] 01/05/2010 eCW2 ([facility] 12:00:00 AM EDT [facility]) [place] [facility] [place] [facility] 12/29/2009 eCW2 ([facility] 12:00:00 AM EDT [facility]) [place] [facility] [place] [facility] 12/08/2009 eCW2 ([facility] 12:00:00 AM EDT [facility]) [place] [facility] [place] [facility] 12/01/2009 eCW2 ([facility] 12:00:00 AM EDT [facility]) [place] [facility] [place] [facility] 11/19/2009 eCW2 ([facility] 12:00:00 AM EDT [facility]) [place] [facility] [place] [facility] 11/03/2009 eCW2 ([facility] 12:00:00 AM EDT [facility]) [place] [facility] [place] [facility] 11/03/2009 eCW2 ([facility] 12:00:00 AM EDT [facility]) [place] [facility] [place] [facility] 10/06/2009 eCW2 ([facility] 12:00:00 AM EDT [facility]) [place] [facility] [place] [facility] 07/15/2009 eCW2 ([facility] 12:00:00 AM EDT [facility]) [place] [facility] [place] [facility] 06/11/2009 eCW2 ([facility] 12:00:00 AM EST [facility] [place] [facility] [place] [facility] 06/09/2009 eCW2 ([facility] 12:00:00 AM EST [facility] [place] [facility] [place] [facility] 03/19/2009 eCW2 ([facility] 12:00:00 AM EST [facility] [place] [facility] [place] [facility] 03/04/2009 eCW2 ([facility] 12:00:00 AM EST [facility] [place] [facility] [place] [facility] 02/27/2009 eCW2 ([facility] 12:00:00 AM EST [facility] [place] [facility] [place] [facility] 02/14/2009 eCW2 ([facility] 12:00:00 AM EST [facility] [place] [facility] [place] [facility] 02/12/2009 eCW2 ([facility] 12:00:00 AM EST [facility] [place] [facility] [place] [facility] 01/01/2009 eCW2 ([facility] 12:00:00 AM EDT [facility] [place] [facility] [place] [facility] 12/11/2008 eCW2 ([facility] 12:00:00 AM EDT [facility] [place] [facility] [place] [facility] 12/06/2008 eCW2 ([facility] 12:00:00 AM EDT [facility] [place] [facility] [place] [facility] 12/06/2008 eCW2 ([facility] 12:00:00 AM EDT [facility]) [place] [facility] [place] [facility] 12/03/2008 eCW2 ([facility] 12:00:00 AM EDT [facility]) [place] [facility] [place] [facility] 11/19/2008 eCW2 ([facility] 12:00:00 AM EDT [facility]) [place] [facility] [place] [facility] 11/08/2008 eCW2 ([facility] 12:00:00 AM EDT [facility] [place] [facility] [place] [facility] 11/06/2008 eCW2 ([facility] 12:00:00 AM EDT [facility]) [place] [facility] [place] [facility] 10/30/2008 eCW2 ([facility] 12:00:00 AM EDT [facility]) [place] [facility] [place] [facility] 10/28/2008 eCW2 ([facility] 12:00:00 AM EDT [facility]) [place] [facility] [place] [facility] 10/14/2008 eCW2 ([facility] 12:00:00 AM EDT [facility]) [place] [facility] [place] [facility] 10/09/2008 eCW2 ([facility] 12:00:00 AM EDT [facility] [place] [facility] [place] [facility] 10/07/2008 eCW2 ([facility] 12:00:00 AM EDT [facility]) [place] [facility] [place] [facility] 10/01/2008 eCW2 ([facility] 12:00:00 AM EDT [facility]) [place] [facility] [place] [facility] 09/25/2008 eCW2 ([facility] 12:00:00 AM EDT [facility]) [place] [facility] [place] [facility] 09/23/2008 eCW2 ([facility] 12:00:00 AM EDT [facility] [place] [facility] [place] [facility] 09/09/2008 eCW2 ([facility] 12:00:00 AM EDT [facility] [place] [facility] [place] [facility] 08/19/2008 eCW2 ([facility] 12:00:00 AM EDT [facility] [place] [facility] [place] [facility] 08/16/2008 eCW2 ([facility] 12:00:00 AM EDT [facility] [place] [facility] [place] [facility] 08/16/2008 eCW2 ([facility] 12:00:00 AM EDT [facility] [place] [facility] [place] [facility] 08/12/2008 eCW2 ([facility] 12:00:00 AM EDT [facility] [place] [facility] [place] [facility] 08/08/2008 eCW2 ([facility] 12:00:00 AM EDT [facility] [place] [facility] [place] [facility] 07/22/2008 eCW2 ([facility] 12:00:00 AM EDT [facility] [place] [facility] [place] [facility] 07/22/2008 eCW2 ([facility] 12:00:00 AM EDT [facility] [place] [facility] [place] [facility] 07/08/2008 eCW2 ([facility] 12:00:00 AM EDT [facility] [place] [facility] [place] [facility] 07/01/2008 eCW2 ([facility] 12:00:00 AM EDT [facility] [place] [facility] [place] [facility] 06/26/2008 eCW2 ([facility] 12:00:00 AM EDT [facility] [place] [facility] [place] [facility] 06/12/2008 eCW2 ([facility] 12:00:00 AM EST [facility] [place] [facility] [place] [facility] 05/24/2008 eCW2 ([facility] 12:00:00 AM EST [facility] [place] [facility] [place] [facility] 05/24/2008 eCW2 ([facility] 12:00:00 AM EST [facility] [place] [facility] [place] [facility] 05/17/2008 eCW2 ([facility] 12:00:00 AM EST [facility] [place] [facility] [place] [facility] 05/17/2008 eCW2 ([facility] 12:00:00 AM EST [facility] [place] [facility] [place] [facility] 05/11/2008 eCW2 ([facility] 12:00:00 AM EST [facility] [place] [facility] [place] [facility] 05/11/2008 eCW2 ([facility] 12:00:00 AM EST [facility] [place] [facility] [place] [facility] 05/10/2008 eCW2 ([facility] 12:00:00 AM EST [facility] [place] [facility] [place] [facility] 05/07/2008 eCW2 ([facility] 12:00:00 AM EST [facility] [place] [facility] [place] [facility] 05/07/2008 eCW2 ([facility] 12:00:00 AM EST [facility] [place] [facility] [place] [facility] 05/02/2008 eCW2 ([facility] 12:00:00 AM EST [facility] [place] [facility] [place] [facility] 04/26/2008 eCW2 ([facility] 12:00:00 AM EST [facility] [place] [facility] [place] [facility] 04/26/2008 eCW2 ([facility] 12:00:00 AM EST [facility] [place] [facility] [place] [facility] 04/16/2008 eCW2 ([facility] 12:00:00 AM EST [facility] [place] [facility] [place] [facility] 04/15/2008 eCW2 ([facility] 12:00:00 AM EST [facility] [place] [facility] [place] [facility] 04/15/2008 eCW2 ([facility] 12:00:00 AM EST [facility] [place] [facility] [place] [facility] 04/09/2008 eCW2 ([facility] 12:00:00 AM EST [facility]) [place] [facility] [place] [facility] 04/08/2008 eCW2 ([facility] 12:00:00 AM EST Door [facility]) [place] [facility] [place] [facility] 04/08/2008 eCW2 ([facility] 12:00:00 AM EST Door [facility]) [place] [facility] [place] [facility] 01/22/2008 eCW2 ([facility] 12:00:00 AM EDT [facility]) [place] [facility] [place] [facility] 11/22/2007 eCW2 ([facility] 12:00:00 AM EDT [facility]) [place] [facility] [place] [facility] 11/20/2007 eCW2 ([facility] 12:00:00 AM EDT [facility]) [place] [facility] [place] [facility] 10/30/2007 eCW2 ([facility] 12:00:00 AM EDT [facility]) [place] [facility] [place] [facility] 10/23/2007 eCW2 ([facility] 12:00:00 AM EDT [facility]) [place] [facility] [place] [facility] 10/16/2007 eCW2 ([facility] 12:00:00 AM EDT [facility]) [place] [facility] [place] [facility] 09/13/2007 eCW2 ([facility] 12:00:00 AM EDT [facility]) [place] [facility] [place] [facility] 09/06/2007 eCW2 ([facility] 12:00:00 AM EDT [facility]) [place] [facility] [place] [facility] 08/07/2007 eCW2 ([facility] 12:00:00 AM EDT [facility]) [place] [facility] [place] [facility] 08/07/2007 eCW2 ([facility] 12:00:00 AM EDT [facility]) [place] [facility] [place] [facility] 11/25/2006 eCW2 ([facility] 12:00:00 AM EDT [facility]) [place] [facility] [place] [facility] 11/09/2006 eCW2 ([facility] 12:00:00 AM EDT [facility]) [place] [facility] [place] [facility] 09/16/2006 eCW2 ([facility] 12:00:00 AM EDT [facility]) Immunizations Vaccine Date Status Description Data Source(s) Pneumococcal conjugate 10/04/2017 completed PCV13 NEXTG EN ([facility] PCV 13 12:00:00 AM EDT [facility]) Source: New Immunization Record Pneumococcal conjugate PCV 12/24/2016 11:51:00 AM completed eCW3 ([facility] 13 [facility]) pneumococcal polysaccharide 01/05/2016 01:29:00 PM completed eCW3 ([facility] PPV23 [facility]) IIV3. This vaccine code is 12/05/2015 02:19:00 PM completed eCW3 ([facility] [place] one of two which replace CVX [facility]) 15, influenza, split virus. No Known Immunizations completed eCW2 ([facility]) No Known Immunizations completed eCW2 ([facility]) Medications Medication Brand Start Product Dose Route Administrative Pharmacy [facility] Indications Reaction Description Data Name Date Form Instructions Instructions Source(s) Prednisone predni ORAL active take 3 N EXTGEN 2.5 MG Oral sone 2019 {tbl} tablet by (S aint Tablet 2.5 mg 12:00: oral route [facility] prednisone tablet 00 AM every day M edical 2.5 mg [facility]) tablet Rosuvastati rosuva 1.00 ORAL active take 1 NEXTGEN n calcium statin 2018 {tbl} tablet by (S aint 20 MG Oral 20 mg 12:00: oral route Hannah Tablet tablet 00 AM every day Medic al rosuvastati [facility]) n 20 mg tablet Ascorbic Vitami 05/09/ active Take 1 NEX TGEN Acid 500 MG n C 2019 tablet ( Oral Tablet 500 mg 12:00: orally da ramses Young Vitamin C tablet 00 AM Medical 500 mg [facility]) tablet OneTouch blood 05/09/ active Use to NEXT GEN Ultra Blue sugar 2019 measure (Mark t Test Strip diagno 12:00: blood Asaf phs stic 00 AM glucose Medical EST three times Center) daily pantoprazol Proton ORAL active pantopr azole NEXTGEN e 40 MG ix 40 2018 {tbl} 40 MG ([facility] Delayed mg 12:00: Delayed [facility] Release tablet 00 AM Release Oral M edical Oral Tablet ,delay EST Tablet Cent er) [Protonix] ed [Protonix] Protonix 40 releas mg e tablet,ferdinand yed release Losartan losart ORAL active take 1 NEX TGEN Potassium an 50 2018 {tbl} tablet by (Sa int 50 MG Oral mg 12:00: oral route J osephs Tablet tablet 00 AM every day Medic al losartan 50 EST Center) mg tablet Vitamin B Vitami 05/09/ active Take 1 NE XTGEN 12 0.5 MG n B-12 2019 tablet ([facility] Oral Tablet 500 12:00: orally rafael y [facility] Vitamin mcg 00 AM Medical B-12 500 tablet EST Center) mcg tablet gabapentin gabape ORAL active take 1 N EXTGEN 100 MG Oral ntin 2018 {caps capsule by ( [facility] Capsule 100 mg 12:00: ule} oral route 3 Hannah gabapentin capsul 00 AM times every Medical 100 mg e EST day Center) capsule Acetaminoph Mapap ORAL active Acetamin ophe NEXTGEN en 500 MG (aceta 2019 {caps n 500 MG (Sa int Oral minoph 12:00: ule} Oral Capsule [facility] e[facility] Capsule en) 00 AM [Mapap] Medical [Mapap] 500 mg EST Center) Mapap capsul (acetaminop e hen) 500 mg capsule Guaifenesin guaife . ORAL active take 1 0 NEXTGEN 20 MG/ML nesin 2019 mL milliliter (Anthony nt Oral 100 12:00: by oral Hannah Solution mg/5 00 AM route every Me dical guaifenesin mL EST 4 hours as Ce nter) 100 mg/5 mL oral needed oral liquid liquid benzonatate Tessal ORAL active benzona bryant NEXTGEN 100 MG Oral on 2018 {caps 100 MG Oral ([facility] Capsule Perles 12:00: ule} Capsule Abdirahman hs [Tessalon 100 mg 00 AM [Tessalon Me dical Perles] capsul EST Perles] Center) Tessalon e Perles 100 mg capsule Folic Acid folic .00 ORAL active take 1 NE XTGEN 1 MG Oral acid 1 2018 {tbl} tablet by (S aint Tablet mg 12:00: oral route Abdirahman hs folic acid tablet 00 AM every day M edical 1 mg tablet EST Center) Contour blood 03/28/ active use with NEX TGEN Next Test sugar 2017 contour ([facility] Strips diagno 12:00: glucometer [facility] stic 00 AM Medical EST Center) Insulin Lantus 03/15/ active Insulin NEX TGEN Glargine U-100 2018 Glargine 100 (S aint 100 UNT/ML Insuli 12:00: UNT/ML [facility] Injectable n 100 00 AM Injectable M edical Solution unit/m EST Solution Cente r) [Lantus] L [Lantus] Lantus subcut U-100 aneous Insulin 100 soluti unit/mL on subcutaneou s solution Sulfasalazi sulfas ORAL active take 2 NEXTGEN ne 500 MG alazin 2017 {tbl} tablet by (S aint Oral Tablet e 500 12:00: oral route 2 [facility] sulfasalazi mg 00 AM times every Medical ne 500 mg tablet EST day after [facility]) tablet meals pantoprazol Proton .00 ORAL active pantopr azole NEXTGEN e 40 MG ix 40 2017 {tbl} 40 MG ([facility] Delayed mg 12:00: Delayed Hnanah Release tablet 00 AM Release Oral M edical Oral Tablet ,delay EST Tablet Cent er) [Protonix] ed [Protonix] Protonix 40 releas mg e tablet,ferdinand yed release gabapentin gabape ORAL active take 1 N EXTGEN 100 MG Oral ntin 2018 {caps capsule by ( [facility] Capsule 100 mg 12:00: ule} oral route 3 Hannah gabapentin capsul 00 AM times every Medical 100 mg e EST day Center) capsule bacitracin bacitr 03/07/ active apply as NEXTGEN zinc 0.5 acin 2018 needed once (Anthony nt UNT/MG zinc 12:00: a day [facility] Topical 500 00 AM Medical Ointment unit/g EST Center) bacitracin clara zinc 500 topica unit/gram l topical ointme ointment nt Terbinafine terbin 02/22/ TOPICA active apply by NEXTGEN hydrochlori afine 2018 L topical (Anthony nt de 10 MG/ML HCl 1 12:00: route azalia ry [facility] Topical % 00 AM day to the Medic al Cream topica EST affected and Cent er) terbinafine l surrounding HCl 1 % cream areas of topical skin cream Metformin metfor ORAL active take 1 NE XTGEN hydrochlori min 2018 {tbl} tablet by (S aint de 1000 MG 1,000 12:00: oral route 2 [facility] Oral Tablet mg 00 AM times every Medical metformin tablet EST day with Cent er) 1,000 mg morning and tablet evening meals Diclofenac diclof G TOPICA active apply (2G) NEXTGEN Sodium 0.01 enac 1 2017 L by topical ([facility] MG/MG % 12:00: route 4 [facility] Topical Gel topica 00 AM times ever y Medical diclofenac l gel EST day to the Ce nter) 1 % topical affected gel area(s) Famotidine FAMOTI 02/22/ active Famotidi ne NEXTGEN 20 MG Oral DINE 2017 20 MG Oral (Sa int Tablet 20 MG 12:00: Tablet Hannah [Pepcid] TABLET 00 AM [Pepcid] [facility] FAMOTIDINE EST Center) 20 MG TABLET Terbinafine terbin 02/01/ TOPICA complet appl y by NEXTGEN hydrochlori afine 2018 L ed topical (Anthony nt de 10 MG/ML HCl 1 12:00: route azalia ry [facility] Topical % 00 AM day to the Medic al Cream topica EDT affected and Cent er) terbinafine l surrounding HCl 1 % cream areas of topical skin cream Guaifenesin guaife . ORAL active take 1 0 NEXTGEN 20 MG/ML nesin 2018 mL milliliter (Anthony nt Oral 100 12:00: by oral Hannah Solution mg/5 00 AM route every Me dical guaifenesin mL EDT 4 hours as Ce nter) 100 mg/5 mL oral needed oral liquid liquid Prednisone predni ORAL active take 2 N EXTGEN 20 MG Oral sone 2018 {tbl} tablet by (Sa int Tablet 20 mg 12:00: oral route [facility] ph[facility] prednisone tablet 00 AM every day M edical 20 mg EDT Center) tablet 3 ML Lantus 02/01/ active 3 ML Insulin N EXTGEN Insulin Solost 2018 Glargine 100 (S aint Glargine ar 12:00: UNT/ML Pen [facility] e[facility] 100 UNT/ML U-100 00 AM Injector Med ical Pen Insuli EDT [Lantus] Center) Injector n 100 [Lantus] unit/m Lantus L (3 Solostar mL) U-100 subcut Insulin 100 aneous unit/mL (3 pen mL) subcutaneou s pen Losartan losart 1.00 ORAL active take 1 NEX TGEN Potassium an 25 2017 {tbl} tablet by (Sa int 25 MG Oral mg 12:00: oral route J osephs Tablet tablet 00 AM every day Medic al losartan 25 EDT Center) mg tablet bacitracin bacitr 01/25/ active apply as NEXTGEN zinc 0.5 acin 2018 needed once (Anthony nt UNT/MG zinc 12:00: a day [facility] Topical 500 00 AM Medical Ointment unit/g EDT Center) bacitracin clara zinc 500 topica unit/gram l topical ointme ointment nt Ascorbic Vitami 01/25/ active Take 1 NEX TGEN Acid 500 MG n C 2018 tablet ( Oral Tablet 500 mg 12:00: orally da ramses Young Vitamin C tablet 00 AM Medical 500 mg EDT Center) tablet BD Insulin syring 01/25/ active Use with NEXTGEN Syringe e and 2018 Lantus for (Mark t Ult-Fine II needle 12:00: insulin J osephs 1 mL 31 ,insul 00 AM administrati M edical gauge x in,1mL EDT on Center) 08/24" subcutaneous qhs Levofloxaci Levaqu 1.00 ORAL active Levoflo xacin NEXTGEN n 500 MG in 500 2017 {tbl} 500 MG Oral ( [facility] Oral Tablet mg 12:00: Tablet Asaf phs [Levaquin] tablet 00 AM [Levaquin] Medical Levaquin EDT Center) 500 mg tablet Albuterol 1 albute 01/25/ 0.50 RESPIR active inhal e 0.5 NEXTGEN MG/ML rol 2018 mL ATORY milliliter ( Inhalant sulfat 12:00: (INHAL by Abdirahman hs Solution e 00 AM ATION) nebulization Medical albuterol concen EDT route 3 Cente r) sulfate trate times every concentrate 2.5 day 2.5 mg/0.5 mg/0.5 mL solution mL for soluti nebulizatio on for n nebuli zation 120 ACTUAT Floven .00 RESPIR active 120 AC TUAT NEXTGEN Fluticasone t HFA 2018 {puff ATORY Fluticason e ([facility] propionate 110 12:00: } (INHAL propionate Hannah 0.11 mcg/ac 00 AM ATION) 0.11 Medical MG/ACTUAT tuatio EDT MG/ACTUAT [facility] ter) Metered n Metered Dose Dose aeroso Inhaler Inhaler l [Flovent] [Flovent] inhale Flovent HFA r 110 mcg/actuati on aerosol inhaler Contour blood 12/17/ active use with NEX TGEN Next Strips sugar 2018 contour (Anthony nt diagno 12:00: glucometer Abdirahman hs stic 00 AM Medical EDT Center) Folic Acid folic ORAL active take 1 NE XTGEN 1 MG Oral acid 1 2017 {tbl} tablet by (S aint Tablet mg 12:00: oral route Abdirahman hs folic acid tablet 00 AM every day M edical 1 mg tablet EDT Center) Metformin metfor 00 ORAL complet take 1 N EXTGEN hydrochlori min 2018 {tbl} ed tablet by (S aint de 500 MG 500 mg 12:00: oral route 2 Hannah Oral Tablet tablet 00 AM times ever y Medical metformin EDT day with Center ) 500 mg morning and tablet evening meals pantoprazol Pantop .0 active Pantopr azole eCW3 e 40 MG razole 2018 {tabl Sodium 40 mg ( [facility] Delayed Sodium 12:00: et} [facility] Release 40 mg 00 AM Health Oral Tablet EDT Care) Pantoprazol e Sodium 40 mg pantoprazol Pantop .0 active Pantopr azole eCW3 e 40 MG razole 2018 {tabl Sodium 40 mg ( [facility] Delayed Sodium 12:00: et} [facility] Release 40 mg 00 AM Health Oral Tablet EDT Care) Pantoprazol e Sodium 40 mg pantoprazol Pantop 06/20/ 1.0 active Pantopr azole eCW3 e 40 MG razole 2018 {tabl Sodium 40 mg ( [facility] Delayed Sodium 12:00: et} [facility] Release 40 mg 00 AM Health Oral Tablet EDT Care) Pantoprazol e Sodium 40 mg pantoprazol Pantop 1.0 active Pantopr azole eCW3 e 40 MG razole 2018 {tabl Sodium 40 mg ( [facility] Delayed Sodium 12:00: et} [facility] Release 40 mg 00 AM Health Oral Tablet EDT Care) Pantoprazol e Sodium 40 mg pantoprazol Pantop 1.0 active Pantopr azole eCW3 e 40 MG razole 2018 {tabl Sodium 40 mg ( [facility] Delayed Sodium 12:00: et} [facility] Release 40 mg 00 AM Health Oral Tablet EDT Care) Pantoprazol e Sodium 40 mg pantoprazol Pantop 1.0 active Pantopr azole eCW3 e 40 MG razole 2018 {tabl Sodium 40 mg ( [facility] Delayed Sodium 12:00: et} [facility] Release 40 mg 00 AM Health Oral Tablet EDT Care) Pantoprazol e Sodium 40 mg pantoprazol Pantop 1.0 active Pantopr azole eCW3 e 40 MG razole 2018 {tabl Sodium 40 mg ( [facility] Delayed Sodium 12:00: et} [facility] Release 40 mg 00 AM Health Oral Tablet EDT Care) Pantoprazol e Sodium 40 mg pantoprazol Pantop 1.0 active Pantopr azole eCW3 e 40 MG razole 2018 {tabl Sodium 40 mg ( [facility] Delayed Sodium 12:00: et} [facility] Release 40 mg 00 AM Health Oral Tablet EDT Care) Pantoprazol e Sodium 40 mg pantoprazol Pantop 1.0 active Pantopr azole eCW3 e 40 MG razole 2018 {tabl Sodium 40 mg ( [facility] Delayed Sodium 12:00: et} [facility] Release 40 mg 00 AM Health Oral Tablet EDT Care) Pantoprazol e Sodium 40 mg Nebulizer - Nebuli 08/15/ active Nebuliz er - eCW3 2017 ([facility] 12:00: [facility] 00 AM Health EDT Care) Nebulizer - Nebuli 08/15/ active Nebuliz er - eCW3 2017 ([facility] 12:00: [facility] 00 AM Health EDT Care) Nebulizer - Nebuli 05/07/ active Nebuliz er - eCW3 zer - 2018 ([facility] 12:00: [facility] 00 AM Health EDT Care) Nebulizer - Nebuli 05// active Nebuliz er - eCW3 zer - 2018 ([facility] 12:00: [facility] 00 AM Health EDT Care) Nebulizer - Nebuli 05// active Nebuliz er - eCW3 zer - 2018 ([facility] 12:00: [facility] 00 AM Health EDT Care) Nebulizer - Nebuli 05/07/ active Nebuliz er - eCW3 zer - 2018 ([facility] 12:00: [facility] 00 AM Health EDT Care) Nebulizer - Nebuli 05// active Nebuliz er - eCW3 zer - 2018 ([facility] 12:00: [facility] 00 AM Health EDT Care) Nebulizer - Nebuli 05// active Nebuliz er - eCW3 zer - 2018 ([facility] 12:00: [facility] 00 AM Health EDT Care) Nebulizer - Nebuli 05// active Nebuliz er - eCW3 zer - 2018 ([facility] 12:00: [facility] 00 AM Health EDT Care) Wheelchair Wheelc 07/28/ active Wheelcha ir - eCW3 - hair - 2018 ([facility] 12:00: [facility] 00 AM Health EDT Care) Wheelchair Wheelc 07/28/ active Wheelcha ir - eCW3 - hair - 2018 ([facility] 12:00: [facility] 00 AM Health EDT Care) Wheelchair Wheelc 07/28/ active Wheelcha ir - eCW3 - hair - 2018 ([facility] 12:00: [facility] 00 AM Health EDT Care) Wheelchair Wheelc 07/28/ active Wheelcha ir - eCW3 - hair - 2018 ([facility] 12:00: [facility] 00 AM Health EDT Care) Wheelchair Wheelc 07/28/ active Wheelcha ir - eCW3 - hair - 2018 ([facility] 12:00: [facility] 00 AM Health EDT Care) Wheelchair Wheelc 07/28/ active Wheelcha ir - eCW3 - hair - 2018 ([facility] 12:00: [facility] 00 AM Health EDT Care) Wheelchair Wheelc 07/28/ active Wheelcha ir - eCW3 - hair - 2018 ([facility] 12:00: [facility] 00 AM Health EDT Care) Wheelchair Wheelc 07/28/ active Wheelcha ir - eCW3 - hair - 2018 ([facility] 12:00: [facility] 00 AM Health EDT Care) [facility]/28/ [facility] - hair - 2017 ([facility] 12:00: [facility] 00 AM Health EDT Care) Methotrexat Methot .0 active Methotr exate eCW3 e 2.5 MG rexate 2016 {tabl 2.5 MG ([facility] Oral Tablet 2.5 MG 12:00: ets} Rive r AM Health EDT Care) Methotrexat Methot .0 active Methotr exate eCW3 e 2.5 MG rexate 2016 {tabl 2.5 MG ([facility] Oral Tablet 2.5 MG 12:00: ets} [facility] r 00 AM Health EDT Care) Methotrexat Methot .0 active Methotr exate eCW3 e 2.5 MG rexate 2016 {tabl 2.5 MG ([facility] Oral Tablet 2.5 MG 12:00: ets} R[facility] r 00 AM Health EDT Care) Methotrexat Methot .0 active Methotr exate eCW3 e 2.5 MG rexate 2016 {tabl 2.5 MG ([facility] Oral Tablet 2.5 MG 12:00: ets} Rive r 00 AM Health EDT Care) Methotrexat Methot .0 active Methotr exate eCW3 e 2.5 MG rexate 2016 {tabl 2.5 MG ([facility] Oral Tablet 2.5 MG 12:00: ets} R[facility] r 00 AM Health EDT Care) Methotrexat Methot .0 active Methotr exate eCW3 e 2.5 MG rexate 2016 {tabl 2.5 MG ([facility] Oral Tablet 2.5 MG 12:00: ets} Rive r 00 AM Health EDT Care) Methotrexat Methot .0 active Methotr exate eCW3 e 2.5 MG rexate 2016 {tabl 2.5 MG ([facility] Oral Tablet 2.5 MG 12:00: ets} Rive r 00 AM Health EDT Care) Methotrexat Methot .0 active Methotr exate eCW3 e 2.5 MG rexate 2017 {tabl 2.5 MG ([facility] Oral Tablet 2.5 MG 12:00: ets} Rive r 00 AM Health EDT Care) Methotrexat Methot .0 active Methotr exate eCW3 e 2.5 MG rexate 2017 {tabl 2.5 MG ([facility] Oral Tablet 2.5 MG 12:00: ets} Rive r 00 AM Health EDT Care) Clotrimazol Clotri 1.0 active Clotrim azole eCW3 e 10 MG/ML mazole 2017 {appl 1 % ([facility] Topical 1 % 12:00: icati [place] Cream 00 AM on_to Health Clotrimazol EDT _affe Care) e 1 % cted_ area} Clotrimazol Clotri .0 active Clotrim azole eCW3 e 10 MG/ML mazole 2016 {appl 1 % ([facility] Topical 1 % 12:00: icati [facility] Cream 00 AM on_to Health Clotrimazol EDT _affe Care) e 1 % cted_ area} Clotrimazol Clotri 1.0 active Clotrim azole eCW3 e 10 MG/ML mazole 2016 {appl 1 % ([facility] Topical 1 % 12:00: icati [place] Cream 00 AM on_to Health Clotrimazol EDT _affe Care) e 1 % cted_ area} Clotrimazol Clotri .0 active Clotrim azole eCW3 e 10 MG/ML mazole 2016 {appl 1 % ([facility] Topical 1 % 12:00: icati [place] Cream 00 AM on_to Health Clotrimazol EDT _affe Care) e 1 % cted_ area} Clotrimazol Clotri 1.0 active Clotrim azole eCW3 e 10 MG/ML mazole 2016 {appl 1 % ([facility] Topical 1 % 12:00: icati [place] Cream 00 AM on_to Health Clotrimazol EDT _affe Care) e 1 % cted_ area} Clotrimazol Clotri 1.0 active Clotrim azole eCW3 e 10 MG/ML mazole 2017 {appl 1 % ([facility] Topical 1 % 12:00: icati [place] Cream 00 AM on_to Health Clotrimazol EDT _affe Care) e 1 % cted_ area} Clotrimazol Clotri 1.0 active Clotrim azole eCW3 e 10 MG/ML mazole 2016 {appl 1 % ([facility] Topical 1 % 12:00: icati [place] Cream 00 AM on_to Health Clotrimazol EDT _affe Care) e 1 % cted_ area} Clotrimazol Clotri 1.0 active Clotrim azole eCW3 e 10 MG/ML mazole 2017 {appl 1 % ([facility] Topical 1 % 12:00: icati [place] Cream 00 AM on_to Health Clotrimazol EDT _affe Care) e 1 % cted_ area} Clotrimazol Clotri .0 active Clotrim azole eCW3 e 10 MG/ML mazole 2016 {appl 1 % ([facility] Topical 1 % 12:00: icati [place] Cream 00 AM on_to Health Clotrimazol EDT _affe Care) e 1 % cted_ area} Commode Commod 08/06/ active Commode eCW 3 Bedside - 2016 Bedside - ([facility] 12:00: [facility] e - 00 AM Health EDT Care) Commode Commod 08/06/ active Commode eCW 3 Bedside - 2016 Bedside - ([facility]eds[facility] 12:00: [facility] e - 00 AM Health EDT Care) Commode Commod 08/06/ active Commode eCW 3 Bedside - e 2016 Bedside - ([facility]eds[facility] 12:00: [facility] e - 00 AM Health EDT Care) Commode Commod 08/06/ active Commode eCW 3 Bedside - e 2016 Bedside - ([facility] 12:00: [facility] e - 00 AM Health EDT Care) Commode Commod 08/06/ active Commode eCW 3 Bedside - e 2016 Bedside - ([facility] 12:00: [facility] e - 00 AM Health EDT Care) Commode Commod 08/06/ active Commode eCW 3 Bedside - e 2016 Bedside - ([facility] 12:00: [facility] e - 00 AM Health EDT Care) Commode Commod 08/06/ active Commode eCW 3 Bedside - e 2016 Bedside - ([facility]eds[facility] 12:00: [facility] e - 00 AM Health EDT Care) Commode Commod 08/06/ active Commode eCW 3 Bedside - e 2016 Bedside - ([facility] 12:00: [facility] e - 00 AM Health EDT Care) Commode Commod 08/06/ active Commode eCW 3 Bedside - e 2016 Bedside - ([facility] Bedsid 12:00: [facility] e - 00 AM Health EDT Care) Loratadine Clarit .0 active Claritin 10 eCW3 10 MG Oral in 2016 {tabl MG ([facility] Tablet MG 12:00: et} [facility] [Claritin] 00 AM Health Claritin 10 EDT Care) MG Clindamycin Clinda .0 active Clindam ycin eCW3 0.01 MG/MG mycin 2016 {appl Phosphate 1 ([facility] Topical Gel Phosph 12:00: icati % Fortino er Clindamycin ate 1 00 AM on_to Healt h Phosphate 1 % EDT _affe Care) % cted_ area} Flonase Flonas .0 active Flonase eCW 3 Allergy e 2016 {spra Allergy ([facility] Relief 50 Allerg 12:00: y_in_ Relief 50 [facility] MCG/ACT y 00 AM each_ MCG/ACT Health Relief EDT nostr Care) 50 il} MCG/AC T Flonase Flonas .0 active Flonase eCW 3 Allergy e 2016 {spra Allergy ([facility] Relief 50 Allerg 12:00: y_in_ Relief 50 [facility] MCG/ACT y 00 AM each_ MCG/ACT Health Relief EDT nostr Care) 50 il} MCG/AC T Flonase Flonas .0 active Flonase eCW 3 Allergy e 2016 {spra Allergy ([facility] Relief 50 Allerg 12:00: y_in_ Relief 50 [facility] MCG/ACT y 00 AM each_ MCG/ACT Health Relief EDT nostr Care) 50 il} MCG/AC T Clindamycin Clinda 04/17/ 1.0 active Clindam ycin eCW3 0.01 MG/MG mycin 2017 {appl Phosphate 1 ([facility] Topical Gel Phosph 12:00: icati % Fortino er Clindamycin ate 1 00 AM on_to Healt h Phosphate 1 % EDT _affe Care) % cted_ area} Flonase Flonas .0 active Flonase eCW 3 Allergy e 2017 {spra Allergy ([facility] Relief 50 Allerg 12:00: y_in_ Relief 50 [facility] MCG/ACT y 00 AM each_ MCG/ACT Health Relief EDT nostr Care) 50 il} MCG/AC T Loratadine Clarit .0 active Claritin 10 eCW3 10 MG Oral in 2016 {tabl MG ([facility] Tablet MG 12:00: et} [facility] [Claritin] 00 AM [place] [address] EDT [facility]) MG Loratadine Clarit .0 active Claritin 10 eCW3 10 MG Oral in 2016 {tabl MG ([facility] Tablet MG 12:00: et} [facility] [Claritin] 00 AM [place] [address] EDT [facility]) MG Loratadine Clarit .0 active Claritin 10 eCW3 10 MG Oral in 2016 {tabl MG ([facility] Tablet MG 12:00: et} [facility] [Claritin] 00 AM [place] [address] EDT [facility]) MG Loratadine Clarit .0 active Claritin 10 eCW3 10 MG Oral in 2016 {tabl MG ([facility] Tablet MG 12:00: et} [facility] [Claritin] 00 AM [place] [address] EDT [facility]) MG Flonase Flonas .0 active Flonase eCW 3 Allergy e 2017 {spra Allergy ([facility] Relief 50 Allerg 12:00: y_in_ Relief 50 [facility] MCG/ACT y 00 AM each_ MCG/ACT Health Relief EDT nostr Care) 50 il} MCG/AC T Clindamycin Clinda .0 active Clindam ycin eCW3 0.01 MG/MG mycin 2017 {appl Phosphate 1 ([facility] Topical Gel Phosph 12:00: icati % Fortino er Clindamycin ate 1 00 AM on_to Healt h Phosphate 1 % EDT _affe Care) % cted_ area} Loratadine Clarit .0 active Claritin 10 eCW3 10 MG Oral in 2016 {tabl MG ([facility] Tablet MG 12:00: et} [facility] [Claritin] 00 AM Health Claritin 10 EDT Care) MG Clindamycin Clinda .0 active Clindam ycin eCW3 0.01 MG/MG mycin 2017 {appl Phosphate 1 ([facility] Topical Gel Phosph 12:00: icati % Fortino er Clindamycin ate 1 00 AM on_to Healt h Phosphate 1 % EDT _affe Care) % cted_ area} Flonase Flonas .0 active Flonase eCW 3 Allergy e 2016 {spra Allergy ([facility] Relief 50 Allerg 12:00: y_in_ Relief 50 [facility] MCG/ACT y 00 AM each_ MCG/ACT Health Relief EDT nostr Care) 50 il} MCG/AC T Clindamycin Clinda .0 active Clindam ycin eCW3 0.01 MG/MG mycin 2017 {appl Phosphate 1 ([facility] Topical Gel Phosph 12:00: icati % Fortino er Clindamycin ate 1 00 AM on_to Healt h Phosphate 1 % EDT _affe Care) % cted_ area} Flonase Flonas .0 active Flonase eCW 3 Allergy e 2017 {spra Allergy ([facility] Relief 50 Allerg 12:00: y_in_ Relief 50 [facility] MCG/ACT y 00 AM each_ MCG/ACT Health Relief EDT nostr Care) 50 il} MCG/AC T Clindamycin Clinda .0 active Clindam ycin eCW3 0.01 MG/MG mycin 2017 {appl Phosphate 1 ([facility] Topical Gel Phosph 12:00: icati % Fortino er Clindamycin ate 1 00 AM on_to Healt h Phosphate 1 % EDT _affe Care) % cted_ area} Loratadine Clarit .0 active Claritin 10 eCW3 10 MG Oral in 2016 {tabl MG ([facility] Tablet MG 12:00: et} [facility] [Claritin] 00 AM Health Claritin 10 EDT Care) MG Clindamycin Clinda .0 active Clindam ycin eCW3 0.01 MG/MG mycin 2017 {appl Phosphate 1 ([facility] Topical Gel Phosph 12:00: icati % Fortino er Clindamycin ate 1 00 AM on_to Healt h Phosphate 1 % EDT _affe Care) % cted_ area} Clindamycin Clinda .0 active Clindam ycin eCW3 0.01 MG/MG mycin 2017 {appl Phosphate 1 ([facility] Topical Gel Phosph 12:00: icati % Fortino er Clindamycin ate 1 00 AM on_to Healt h Phosphate 1 % EDT _affe Care) % cted_ area} Loratadine Clarit .0 active Claritin 10 eCW3 10 MG Oral in 2016 {tabl MG ([facility] Tablet MG 12:00: et} [facility] [Claritin] 00 AM Health Claritin 10 EDT Care) MG Clindamycin Clinda .0 active Clindam ycin eCW3 0.01 MG/MG mycin 2017 {appl Phosphate 1 ([facility] Topical Gel Phosph 12:00: icati % Fortino er Clindamycin ate 1 00 AM on_to Healt h Phosphate 1 % EDT _affe Care) % cted_ area} Flonase Flonas .0 active Flonase eCW 3 Allergy e 2016 {spra Allergy ([place] Relief 50 Allerg 12:00: y_in_ Relief 50 [place] MCG/ACT y 00 AM each_ MCG/ACT Health Relief EDT nostr Care) 50 il} MCG/AC T Flonase Flonas .0 active Flonase eCW 3 Allergy e 2016 {spra Allergy ([place] Relief 50 Allerg 12:00: y_in_ Relief 50 [place] MCG/ACT y 00 AM each_ MCG/ACT Health Relief EDT nostr Care) 50 il} MCG/AC T Loratadine Clarit .0 active Claritin 10 eCW3 10 MG Oral in 2016 {tabl MG ([facility] Tablet MG 12:00: et} [place] [Claritin] 00 AM Health Claritin 10 EDT Care) MG pantoprazol Pantop .0 active Pantopr azole eCW3 e 40 MG razole 2016 {tabl Sodium 40 MG ( [place] Delayed Sodium 12:00: et} [place] Release 40 MG 00 AM Health Oral Tablet EST Care) Pantoprazol e Sodium 40 MG pantoprazol Pantop 1.0 active Pantopr azole eCW3 e 40 MG razole 2017 {tabl Sodium 40 MG ( [place] Delayed Sodium 12:00: et} [place] Release 40 MG 00 AM Health Oral Tablet EST Care) Pantoprazol e Sodium 40 MG pantoprazol Pantop 1.0 active Pantopr azole eCW3 e 40 MG razole 2017 {tabl Sodium 40 MG ( [place] Delayed Sodium 12:00: et} [place] Release 40 MG 00 AM Health Oral Tablet EST Care) Pantoprazol e Sodium 40 MG pantoprazol Pantop 1.0 active Pantopr azole eCW3 e 40 MG razole 2017 {tabl Sodium 40 MG ( [place] Delayed Sodium 12:00: et} [place] Release 40 MG 00 AM Health Oral Tablet EST Care) Pantoprazol e Sodium 40 MG pantoprazol Pantop .0 active Pantopr azole eCW3 e 40 MG razole 2017 {tabl Sodium 40 MG ( [place] Delayed Sodium 12:00: et} [place] Release 40 MG 00 AM Health Oral Tablet EST Care) Pantoprazol e Sodium 40 MG pantoprazol Pantop 1.0 active Pantopr azole eCW3 e 40 MG razole 2017 {tabl Sodium 40 MG ( [place] Delayed Sodium 12:00: et} [place] Release 40 MG 00 AM Health Oral Tablet EST Care) Pantoprazol e Sodium 40 MG pantoprazol Pantop 1.0 active Pantopr azole eCW3 e 40 MG razole 2017 {tabl Sodium 40 MG ( [place] Delayed Sodium 12:00: et} [place] Release 40 MG 00 AM Health Oral Tablet EST Care) Pantoprazol e Sodium 40 MG pantoprazol Pantop 1.0 active Pantopr azole eCW3 e 40 MG razole 2017 {tabl Sodium 40 MG ( [place] Delayed Sodium 12:00: et} [place] Release 40 MG 00 AM Health Oral Tablet EST Care) Pantoprazol e Sodium 40 MG pantoprazol Pantop 1.0 active Pantopr azole eCW3 e 40 MG razole 2017 {tabl Sodium 40 MG ( [place] Delayed Sodium 12:00: et} [place] Release 40 MG 00 AM Health Oral Tablet EST Care) Pantoprazol e Sodium 40 MG Ascorbic Vitami 1.0 active Vitamin C eCW3 Acid 500 MG n C 2016 {tabl 500 MG ([facility] Oral Tablet 500 MG 12:00: et} [place] [facility] Vitamin C 00 AM Health 500 MG EST Care) Ascorbic Vitami 1.0 active Vitamin C eCW3 Acid 500 MG n C 2015 {tabl 500 MG ([facility] Oral Tablet 500 MG 12:00: et} [place] Vitamin C 00 AM Health 500 MG EST Care) Ascorbic Vitami 1.0 active Vitamin C eCW3 Acid 500 MG n C 2015 {tabl 500 MG ([facility] Oral Tablet 500 MG 12:00: et} [place] Vitamin C 00 AM Health 500 MG EST Care) Ascorbic Vitami .0 active Vitamin C eCW3 Acid 500 MG n C 2015 {tabl 500 MG ([facility] Oral Tablet 500 MG 12:00: et} [place] Vitamin C 00 AM Health 500 MG EST Care) Ascorbic Vitami .0 active Vitamin C eCW3 Acid 500 MG n C 2015 {tabl 500 MG ([facility] Oral Tablet 500 MG 12:00: et} [place] Vitamin C 00 AM Health 500 MG EST Care) Ascorbic Vitami .0 active Vitamin C eCW3 Acid 500 MG n C 2015 {tabl 500 MG ([facility] Oral Tablet 500 MG 12:00: et} [place] Vitamin C 00 AM Health 500 MG EST Care) Ascorbic Vitami .0 active Vitamin C eCW3 Acid 500 MG n C 2015 {tabl 500 MG ([facility] Oral Tablet 500 MG 12:00: et} [place] Vitamin C 00 AM Health 500 MG EST Care) Ascorbic Vitami 1.0 active Vitamin C eCW3 Acid 500 MG n C 2015 {tabl 500 MG ([facility] Oral Tablet 500 MG 12:00: et} [place] Vitamin C 00 AM Health 500 MG EST Care) Ascorbic Vitami 1.0 active Vitamin C eCW3 Acid 500 MG n C 2015 {tabl 500 MG ([facility] Oral Tablet 500 MG 12:00: et} [place] Vitamin C 00 AM Health 500 MG EST Care) gabapentin Gabape .0 active Gabapent in eCW3 100 MG Oral ntin 2016 {caps 100 MG ([facility] Capsule 100 MG 12:00: ule} [place] Gabapentin 00 AM Health 100 MG EST Care) Methotrexat Methot 8.0 active Methotr exate eCW3 e 2.5 MG rexate 2016 {tabl 2.5 MG ([facility] Oral Tablet 2.5 MG 12:00: ets} [facility] 00 AM Health EST Care) Methotrexat Methot .0 active Methotr exate eCW3 e 2.5 MG rexate 2016 {tabl 2.5 MG ([facility] Oral Tablet 2.5 MG 12:00: ets} [facility] 00 AM Health EST Care) gabapentin Gabape .0 active Gabapent in eCW3 100 MG Oral ntin 2016 {caps 100 MG ([facility] Capsule 100 MG 12:00: ule} [place] Gabapentin 00 AM Health 100 MG EST Care) Cane - Cane - 02/26/ active Cane - eCW3 2015 ([facility] 12:00: [place] 00 AM Health EST Care) Methotrexat Methot .0 active Methotr exate eCW3 e 2.5 MG rexate 2016 {tabl 2.5 MG ([facility] Oral Tablet 2.5 MG 12:00: ets} [facility] 00 AM Health EST Care) Cane - Cane - 02/26/ active Cane - eCW3 2016 ([facility] 12:00: [place] 00 AM Health EST Care) Methotrexat Methot .0 active Methotr exate eCW3 e 2.5 MG rexate 2016 {tabl 2.5 MG ([facility] Oral Tablet 2.5 MG 12:00: ets} [facility] 00 AM Health EST Care) gabapentin Gabape .0 active Gabapent in eCW3 100 MG Oral ntin 2016 {caps 100 MG ([facility] Capsule 100 MG 12:00: ule} [place] Gabapentin 00 AM Health 100 MG EST Care) Cane - Cane - 02/26/ active Cane - eCW3 2015 ([facility] 12:00: [place] 00 AM Health EST Care) gabapentin Gabape 11/18/ 1.0 active Gabapent in eCW3 100 MG Oral ntin 2016 {caps 100 MG ([facility] Capsule 100 MG 12:00: ule} [place] Gabapentin 00 AM Health 100 MG EST Care) Cane - Cane - 02/26/ active Cane - eCW3 2016 ([facility] 12:00: [place] 00 AM Health EST Care) gabapentin Gabape 1.0 active Gabapent in eCW3 100 MG Oral ntin 2016 {caps 100 MG ([facility] Capsule 100 MG 12:00: ule} [place] Gabapentin 00 AM Health 100 MG EST Care) Methotrexat Methot 8.0 active Methotr exate eCW3 e 2.5 MG rexate 2016 {tabl 2.5 MG ([facility] Oral Tablet 2.5 MG 12:00: ets} [facility] 00 AM Health EST Care) Cane - Cane - 02/26/ active Cane - eCW3 2016 ([place] 12:00: [place] 00 AM Health EST Care) Methotrexat Methot .0 active Methotr exate eCW3 e 2.5 MG rexate 2016 {tabl 2.5 MG ([facility] Oral Tablet 2.5 MG 12:00: ets} [facility] 00 AM Health EST Care) Cane - Cane - 02/26/ active Cane - eCW3 2016 ([facility] 12:00: [place] 00 AM Health EST Care) Methotrexat Methot .0 active Methotr exate eCW3 e 2.5 MG rexate 2016 {tabl 2.5 MG ([facility] Oral Tablet 2.5 MG 12:00: ets} [facility] 00 AM Health EST Care) Cane - Cane - 02/26/ active Cane - eCW3 2016 ([facility] 12:00: [place] 00 AM Health EST Care) Cane - Cane - 02/26/ active Cane - eCW3 2016 ([place] 12:00: [place] 00 AM Health EST Care) gabapentin Gabape .0 active Gabapent in eCW3 100 MG Oral ntin 2016 {caps 100 MG ([facility] Capsule 100 MG 12:00: ule} [place] Gabapentin 00 AM Health 100 MG EST Care) Methotrexat Methot 8.0 active Methotr exate eCW3 e 2.5 MG rexate 2016 {tabl 2.5 MG ([facility] [facility] Oral Tablet 2.5 MG 12:00: ets} [facility] 00 AM Health EST Care) gabapentin Gabape .0 active Gabapent in eCW3 100 MG Oral ntin 2016 {caps 100 MG ([facility] Capsule 100 MG 12:00: ule} [place] Gabapentin 00 AM Health 100 MG EST Care) gabapentin Gabape .0 active Gabapent in eCW3 100 MG Oral ntin 2016 {caps 100 MG ([facility] Capsule 100 MG 12:00: ule} [place] Gabapentin 00 AM Health 100 MG EST Care) Methotrexat Methot 8.0 active Methotr exate eCW3 e 2.5 MG rexate 2016 {tabl 2.5 MG ([facility] Oral Tablet 2.5 MG 12:00: ets} [facility] 00 AM Health EST Care) gabapentin Gabape .0 active Gabapent in eCW3 100 MG Oral ntin 2016 {caps 100 MG ([facility] Capsule 100 MG 12:00: ule} [place] Gabapentin 00 AM Health 100 MG EST Care) Cane - Cane - 02/26/ active Cane - eCW3 2015 ([facility] 12:00: [place] 00 AM Health EST Care) Loratadine Lorata 1.0 active Loratadi ne eCW3 10 MG Oral dine 2016 {tabl 10 MG ([facility] Tablet 10 MG 12:00: et} [place] 00 AM Health EDT Care) Albuterol Ipratr 3.0 active Ipratropi um- eCW3 0.833 MG/ML opium- 2016 {ml} Albuterol ( [place] / [place] 12:00: 0.5-2.5 (3) [facility] Ipratropium rol 00 AM MG/3ML Healt h [place] 0.5-2. EDT Care) 0.167 MG/ML 5 (3) Inhalant MG/3ML Solution Ipratropium -Albuterol 0.5-2.5 (3) MG/3ML Nebulizer UNK 01/20/ active Nebulizer e CW3 Compressor 2016 Compressor - ( [place] - 12:00: [place] 00 AM Health EDT Care) jason Valente .0 active Singula ir 10 eCW3 10 MG Oral air 10 2015 {tabl MG ([facility] [facility] Tablet MG 12:00: et_in [place] [Singulair] 00 AM _the_ [facility] Singulair EDT eveni Care) 10 MG ng} Loratadine Lorata .0 active Loratadi ne eCW3 10 MG Oral dine 2015 {tabl 10 MG ([facility] Tablet 10 MG 12:00: et} [place] 00 AM Health EDT Care) Albuterol Ipratr 3.0 active Ipratropi um- eCW3 0.833 MG/ML opium- 2016 {ml} Albuterol ( [place] / [place] 12:00: 0.5-2.5 (3) [place] Ipratropium rol 00 AM MG/3ML Healt h [place] 0.5-2. EDT Care) 0.167 MG/ML 5 (3) Inhalant MG/3ML Solution Ipratropium -Albuterol 0.5-2.5 (3) MG/3ML Loratadine Lorata .0 active Loratadi ne eCW3 10 MG Oral dine 2015 {tabl 10 MG ([facility] Tablet 10 MG 12:00: et} [place] 00 AM Health EDT Care) Loratadine Lorata .0 active Loratadi ne eCW3 10 MG Oral dine 2015 {tabl 10 MG ([place] Tablet 10 MG 12:00: et} [place] 00 AM Health EDT Care) [facility] .0 active Singula ir 10 eCW3 10 MG Oral air 10 2015 {tabl MG ([place] Tablet MG 12:00: et_in [place] [Singulair] 00 AM _the_ Health Singulair EDT eveni Care) 10 MG ng} Loratadine Lorata .0 active Loratadi ne eCW3 10 MG Oral dine 2015 {tabl 10 MG ([place] Tablet 10 MG 12:00: et} [place] 00 AM Health EDT Care) [facility] .0 active Singula ir 10 eCW3 10 MG Oral air 10 2015 {tabl MG ([place] Tablet MG 12:00: et_in [place] [Singulair] 00 AM _the_ [facility] EDT even Care) 10 MG ng} Albuterol Ipratr .0 active Ipratropi um- eCW3 0.833 MG/ML opium- 2015 {ml} Albuterol ( [place] / [place] 12:00: 0.5-2.5 (3) [place] [facility] Ipratropium rol 00 AM MG/3ML Healt h [place] 0.5-2. EDT Care) 0.167 MG/ML 5 (3) Inhalant MG/3ML Solution Ipratropium -Albuterol 0.5-2.5 (3) MG/3ML montelukast Singul . active Singula ir 10 eCW3 10 MG Oral air 2015 {tabl MG ([place] Tablet MG 12:00: et_in [place] [Singulair] 00 AM _the_ [facility] EDT eveni Care) 10 MG ng} Albuterol Ipratr .0 active Ipratropi um- eCW3 0.833 MG/ML opium- 2015 {ml} Albuterol ( [place] / [place] 12:00: 0.5-2.5 (3) [place] Ipratropium rol 00 AM MG/3ML Healt h [place] 0.5-2. EDT Care) 0.167 MG/ML 5 (3) Inhalant MG/3ML Solution Ipratropium -Albuterol 0.5-2.5 (3) MG/3ML Loratadine Lorata .0 active Loratadi ne eCW3 10 MG Oral dine 2015 {tabl 10 MG ([place] Tablet 10 MG 12:00: et} [place] 00 AM Health EDT Care) Loratadine Lorata .0 active Loratadi ne eCW3 10 MG Oral dine 2015 {tabl 10 MG ([place] Tablet 10 MG 12:00: et} [place] 00 AM Health EDT Care) Albuterol Ipratr .0 active Ipratropi um- eCW3 0.833 MG/ML opium- 2015 {ml} Albuterol ( [place] / [place] 12:00: 0.5-2.5 (3) [place] [facility] Ipratropium rol 00 AM MG/3ML Healt h [place] 0.5-2. EDT Care) 0.167 MG/ML 5 (3) Inhalant MG/3ML Solution Ipratropium -Albuterol 0.5-2.5 (3) MG/3ML montelukast Singul .0 active Singula ir 10 eCW3 10 MG Oral air 10 2015 {tabl MG ([place] Tablet MG 12:00: et_in [place] [Singulair] 00 AM _the_ [facility] Singulair EDT eveni Care) 10 MG ng} Loratadine Lorata .0 active Loratadi ne eCW3 10 MG Oral dine 2015 {tabl 10 MG ([place] Tablet 10 MG 12:00: et} [place] 00 AM Health EDT Care) Albuterol Ipratr 3.0 active Ipratropi um- eCW3 0.833 MG/ML opium- 2015 {ml} Albuterol ( [place] / [place] 12:00: 0.5-2.5 (3) [place] [facility] Ipratropium rol 00 AM MG/3ML Healt h [place] 0.5-2. EDT Care) 0.167 MG/ML 5 (3) Inhalant MG/3ML Solution Ipratropium -Albuterol 0.5-2.5 (3) MG/3ML Nebulizer UNK 01/20/ active Nebulizer e CW3 Compressor 2016 Compressor - ( [place] - 12:00: [place] 00 AM Health EDT Care) Nebulizer UNK 01/20/ active Nebulizer e CW3 Compressor 2016 Compressor - ( [place] - 12:00: [place] 00 AM Health EDT Care) Albuterol Ipratr 3.0 active Ipratropi um- eCW3 0.833 MG/ML opium- 2015 {ml} Albuterol ( [place] / [place] 12:00: 0.5-2.5 (3) [place] Ipratropium rol 00 AM MG/3ML Healt h [place] 0.5-2. EDT Care) 0.167 MG/ML 5 (3) Inhalant MG/3ML Solution Ipratropium -Albuterol 0.5-2.5 (3) MG/3ML Loratadine Lorata .0 active Loratadi ne eCW3 10 MG Oral dine 2015 {tabl 10 MG ([facility] Tablet 10 MG 12:00: et} [place] 00 AM Health EDT Care) [facility] .0 active Singula ir 10 eCW3 10 MG Oral air 2015 {tabl MG ([place] Tablet MG 12:00: et_in [place] [Singulair] 00 AM _the_ [facility] EDT even Care) 10 MG ng} Nebulizer UNK 01/20/ active Nebulizer e CW3 Compressor 2015 Compressor - ( [place] - 12:00: [place] 00 AM [facility] EDT Care) [facility] .0 active Singula ir 10 eCW3 10 MG Oral air 2015 {tabl MG ([place] Tablet MG 12:00: et_in [place] [Singulair] 00 AM _[facility] EDT eveni Care) 10 MG ng} Albuterol Ipratr 3.0 active Ipratropi um- eCW3 0.833 MG/ML opium- 2015 {ml} Albuterol ( [place] / [place] 12:00: 0.5-2.5 (3) [place] Ipratropium rol 00 AM MG/3ML Healt h [place] 0.5-2. EDT Care) 0.167 MG/ML 5 (3) Inhalant MG/3ML Solution Ipratropium -Albuterol 0.5-2.5 (3) MG/3ML Nebulizer UNK 01/20/ active Nebulizer e CW3 Compressor 2015 Compressor - ( [place] - 12:00: [place] 00 AM Health EDT Care) Albuterol Ipratr 3.0 active Ipratropi um- eCW3 0.833 MG/ML opium- 2015 {ml} Albuterol ( [place] / [place] 12:00: 0.5-2.5 (3) [place] [facility] Ipratropium rol 00 AM MG/3ML Healt h [place] 0.5-2. EDT Care) 0.167 MG/ML 5 (3) Inhalant MG/3ML Solution Ipratropium -Albuterol 0.5-2.5 (3) MG/3ML Nebulizer UNK 01/20/ active Nebulizer e CW3 Compressor 2015 Compressor - ( - 12:00: [place] 00 AM Health EDT Care) montelukast Singul .0 active Singula ir 10 eCW3 10 MG Oral air 2015 {tabl MG ([place] Tablet MG 12:00: et_in [place] [Singulair] 00 [facility] 10 MG ng} Nebulizer UNK 01/20/ active Nebulizer e CW3 Compressor 2015 Compressor - ( - 12:00: [place] 00 AM Health EDT Care) Nebulizer UNK 01/20/ active Nebulizer e CW3 Compressor 2015 Compressor - ( - 12:00: [place] 00 AM Health EDT Care) montelukast [facility] .0 active Singula ir 10 eCW3 10 MG Oral air 2015 {tabl MG ([place] Tablet MG 12:00: et_in [place] [Singulair] 00 AM [facility]) 10 MG ng} Nebulizer UNK 01/20/ active Nebulizer e CW3 Compressor 2015 Compressor - ( 12:00: [place] 00 AM Health EDT Care) gabapentin gabape 09/05/ active 1 cap(s) eCW2 (Open 100 MG Oral ntin 2015 Door Capsule 100 mg 12:00: Family gabapentin 00 AM Medical 100 mg EDT Center) Metformin metfor 09/05/ active 1 tab(s) eCW2 (Open hydrochlori min 2015 Door de 500 MG 500 mg 12:00: Family Oral Tablet 00 AM Medical metformin EDT Center) 500 mg ferrous ferrou 07/22/ active 1 tab(s) eC W2 (Open sulfate 325 s 2015 Door MG Oral sulfat 12:00: Family Tablet e 325 00 AM Medical ferrous mg EDT Center) sulfate 325 mg Calcium calciu 09/17/ active 1 tab(s) eC W2 (Open Carbonate m 2013 Door 1250 MG carbon 12:00: Family Oral Tablet ate 00 AM Medical calcium 1250 EDT Center) carbonate mg 1250 mg Folic Acid folic 07/18/ active 1 tab(s) eCW2 (Open 1 MG Oral acid 1 2013 Door Tablet mg 12:00: Family folic acid 00 AM Medical 1 mg EDT Center) Insulin Lantus 01/12/ active 50 units eC W2 (Open Glargine 100 2010 Door 100 UNT/ML units/ 12:00: Famil y Injectable mL 00 AM Medical Solution EDT Center) [Lantus] Lantus 100 units/mL Azithromyci Azithr active Azithromy ena eCW3 n 250 MG omycin 250 MG ([place] Oral Tablet 250 MG [facility]) pioglitazon Piogli 1.0 active Pioglitaz one eCW3 e 45 MG tazone {tabl HCl 45 MG ([facility] Oral Tablet HCl 45 et} [place] Pioglitazon Health e HCl 45 MG Care) Insulin, NovoLo active NovoLog 100 eCW3 Aspart, g 100 UNIT/ML ([place] Human 100 UNIT/M [place] UNT/ML Health Injectable Care) Solution [NovoLog] NovoLog 100 UNIT/ML LANCET UNK active LANCET eCW3 ([facility]) Sulfasalazi Sulfas active Sulfasala zin eCW3 ne 500 MG alazin e 500 MG ([facility] Oral Tablet e 500 [facility] Health Care) Insulin Lantus active Lantus 100 eC W3 Glargine 100 UNIT/ML ([place] 100 UNT/ML UNIT/[facility] [place] Injectable [facility] Solution Care) [Lantus] Lantus 100 UNIT/ML Metformin Metfor 1.0 active Metformin e CW3 hydrochlori min {tabl HCl 500 mg ( [place] de 500 MG HCl et_wi [place] Oral Tablet 500 mg th_me Healt h Metformin als} Care) HCl 500 mg Alcohol UNK active Alcohol Prep eC W3 Prep Pads Pads 70 % ([facility] on 70 % [facility]) Rosuvastati rosuva 1.00 ORAL complet take 1 N EXTGEN n calcium statin {tbl} ed tablet by (S aint 20 MG Oral 20 mg oral route Chrissy sephs Tablet tablet every day Medica rosuvastati [place]) n 20 mg tablet Azithromyci Azithr active Azithromy ena eCW3 n 250 MG omycin 250 MG ([place] Oral Tablet 250 MG [facility]) Rosuvastati Cresto active 1 tab(s) eCW2 (Open n calcium r 10 Door 10 MG Oral mg Family [facility] [[facility]] [place]) Crestor 10 mg Azithromyci Azithr active Azithromy ena eCW3 n 250 MG omycin 250 MG ([place] Oral Tablet 250 MG [facility]) Insulin, NovoLo active NovoLog 100 eCW3 Aspart, g 100 UNIT/ML ([place] Human 100 UNIT/M [place] UNT/ML [facility]) Solution [NovoLog] NovoLog 100 UNIT/ML Rosuvastati Cresto 1.0 active Crestor 2 0 eCW3 n calcium r 20 {tabl MG ([place] 20 MG Oral MG et} [facility] [[facility]] [facility]) Crestor 20 MG CONTOUR UNK active CONTOUR eCW3 GLUCOMETER GLUCOMETER ([facility]) Cefuroxime Cefuro active Cefuroxime eCW3 500 MG Oral sourav Axetil 500 (H udson Tablet Axetil MG [place] Cefuroxime 500 MG [facility] Axetil 500 [facility]) MG Azithromyci Azithr active Azithromy ena eCW3 n 250 MG omycin 250 MG ([place] Oral Tablet 250 MG [facility]) CONTOUR UNK active CONTOUR eCW3 GLUCOMETER GLUCOMETER ([facility]) Rosuvastati Cresto 1.0 active Crestor 2 0 eCW3 n calcium r 20 {tabl MG ([place] 20 MG Oral MG et} [facility] [[facility]] [facility]) Crestor 20 MG LANCET UNK active LANCET eCW3 ([facility]) Alcohol UNK active Alcohol Prep eC W3 Prep Pads Pads 70 % ([place] 70 % [facility]) benzonatate complet [facility] 100 mg ed [facility] Insulin, NovoLo active NovoLog 100 eCW3 Aspart, g 100 UNIT/ML ([place] Human 100 UNIT/M [place] UNT/ML [facility] Injectable [facility]) Solution [NovoLog] NovoLog 100 UNIT/ML acetaminoph complet [employer] Mark t en (Mapap ed (acetaminoph Chrissy sephs (acetaminop en) Medical hen)) 500 Center mg Capsule Rosuvastati Cresto 1.0 active Crestor 2 0 eCW3 n calcium r 20 {tabl MG ([place] 20 MG Oral MG et} [place] Tablet Health [Crestor] Care) Crestor 20 MG losartan 50 complet Saint mg Tablet [facility] Center metFORMIN complet [facility] 1,000 mg [facility] sulfaSALAzi complet [facility] ne 500 mg [facility] Hydrochloro Triamt 1.0 active Triamtere ne- eCW3 thiazide 25 erene- {tabl HCTZ 37.5- 25 ([place] MG / HCTZ et_in MG [place] Triamterene 37.5-2 _the_ Healt h 37.5 MG 5 MG morni [facility]) Oral Tablet ng} Triamterene -HCTZ 37.5-25 MG pantoprazol complet Saint e 40 mg [facility] tablet,[facility] (/EC) gabapentin complet [facility] 100 mg [facility] rosuvastati complet [facility] n 20 mg [facility] CONTOUR UNK active CONTOUR eCW3 GLUCOMETER [facility] predniSONE complet [facility] 2.5 mg [facility] Microlet Microl active Microlet eCW 3 Lancets - et Lancets - ([place] Lancet [facility]) Cefuroxime Cefuro active Cefuroxime eCW3 500 MG Oral sourav Axetil 500 (H udson Tablet Axetil MG [place] Cefuroxime 500 MG [facility] Axetil 500 Care) MG ONE TOUCH UNK active ONE TOUCH eCW 3 TEST STRIPS TEST STRIPS ( [place] compatible compatible [place] with with patient Health patient Care) Metformin Metfor 1.0 active Metformin e CW3 hydrochlori min {tabl HCl 500 mg ( [place] de 500 MG HCl et_wi [place] Oral Tablet 500 mg th_me Healt h Metformin als} Care) HCl 500 mg Azithromyci Azithr active Azithromy ena eCW3 n 250 MG omycin 250 MG ([place] Oral Tablet 250 MG [facility]) Insulin Lantus active Lantus 100 eC W3 Glargine 100 UNIT/ML ([place] 100 UNT/ML UNIT/M [place] Injectable L Health Solution Care) [Lantus] Lantus 100 UNIT/ML ONE TOUCH UNK active ONE TOUCH eCW 3 TEST STRIPS TEST STRIPS ( [place] compatible compatible [place] with with patient Health patient Care) pioglitazon Piogli 1.0 active Pioglitaz one eCW3 e 45 MG tazone {tabl HCl 45 MG ([facility] Oral Tablet HCl 45 et} [place] Pioglitazon MG Health e HCl 45 MG Care) ONE TOUCH UNK active ONE TOUCH eCW 3 TEST STRIPS TEST STRIPS ( [place] compatible compatible [place] with with patient Health patient Care) Sulfasalazi Sulfas active Sulfasala zin eCW3 ne 500 MG alazin e 500 MG ([facility] Oral Tablet e 500 [place] MG Health Care) Rosuvastati Cresto 1.0 active Crestor 2 0 eCW3 n calcium r 20 {tabl MG ([place] 20 MG Oral MG et} [facility] Health [Crestor] Care) Crestor 20 MG Alcohol UNK active Alcohol Prep eC W3 Prep Pads Pads 70 % ([place] 70 % [facility]) CONTOUR UNK active CONTOUR eCW3 GLUCOMETER GLUCOMETER ( dson NIDDM NIDDM [facility]) Microlet Microl active Microlet eCW 3 Lancets - et Lancets - ([place] Lancet [facility]) Acetaminoph Acetam 2.0 active Acetamino phe eCW3 en 500 MG inophe {tabl n 500 mg ( dson Oral Tablet n 500 et_as [place] Acetaminoph mg _need Health en 500 mg ed} Care) ONE TOUCH UNK active ONE TOUCH eCW 3 TEST STRIPS TEST STRIPS ( [place] compatible compatible [place] with with patient Health patient Care) Insulin Lantus active Lantus 100 eC W3 Glargine 100 UNIT/ML ([place] 100 UNT/ML UNIT/M [place] Injectable L Health Solution Care) [Lantus] Lantus 100 UNIT/ML ONE TOUCH UNK active ONE TOUCH eCW 3 TEST STRIPS TEST STRIPS ( [place] compatible compatible [place] with with patient Health patient Care) Methotrexat methot active take 8 eC W2 (Open e 2.5 MG rexate tablets by Doo r Oral Tablet 2.5 mg mouth once Family methotrexat every week Me dical e 2.5 mg Center) Hydrochloro Triamt 1.0 active Triamtere ne- eCW3 thiazide 25 erene- {tabl HCTZ 37.5- 25 ([place] MG / HCTZ et_in MG [place] Triamterene 37.5-2 _the_ Healt h 37.5 MG 5 MG morni Care) Oral Tablet ng} Triamterene -HCTZ 37.5-25 MG 120 ACTUAT Symbic active Symbicort eCW3 Budesonide ort 80-4.5 ([place] 0.08 80-4.5 MCG/ACT [place] MG/ACTUAT / MCG/AC Health formoterol T Care) fumarate 0.0045 MG/ACTUAT Metered Dose Inhaler [Symbicort] Symbicort 80-4.5 MCG/ACT Cefuroxime Cefuro active Cefuroxime eCW3 500 MG Oral sourav Axetil 500 (H udson Tablet Axetil MG [place] Cefuroxime 500 MG Health Axetil 500 Care) MG 120 ACTUAT Symbic active Symbicort eCW3 Budesonide ort 80-4.5 ([place] 0.08 80-4.5 MCG/ACT [place] MG/ACTUAT / MCG/AC Health formoterol T Care) fumarate 0.0045 MG/ACTUAT Metered Dose Inhaler [Symbicort] Symbicort 80-4.5 MCG/ACT Rosuvastati Cresto 1.0 active Crestor 2 0 eCW3 n calcium r 20 {tabl MG ([place] 20 MG Oral MG et} [facility] Health [Crestor] Care) Crestor 20 MG Acetaminoph Acetam 2.0 active Acetamino phe eCW3 en 500 MG inophe {tabl n 500 mg (Hu dson Oral Tablet n 500 et_as [place] Acetaminoph mg _need Health en 500 mg ed} Care) Rosuvastati Cresto 1.0 active Crestor 2 0 eCW3 n calcium r 20 {tabl MG (Santos 20 MG Oral MG et} [place] [facility] [Crestor] Care) Crestor 20 MG Rosuvastati Cresto 1.0 active Crestor 2 0 eCW3 n calcium r 20 {tabl MG ([place] 20 MG Oral MG et} [place] [facility] [Crestor] Care) Crestor 20 MG Microlet Microl active Microlet eCW 3 Lancets - et Lancets - ([facility] on [place] [facility] Care) gabapentin gabape 1 ORAL active take 1 NEX TGEN 100 MG Oral ntin {caps capsule by ( [facility] Capsule 100 mg ule} oral route 3 Chrissy sephs gabapentin capsul times every Medical 100 mg e day Center) capsule LANCET UNK active LANCET eCW3 ([facility] Care) ONE TOUCH UNK active ONE TOUCH eCW 3 TEST STRIPS TEST STRIPS ( [place] compatible compatible [place] with with patient Health patient Care) Metformin Metfor 1.0 active Metformin e CW3 hydrochlori min {tabl HCl 500 mg ( [place] de 500 MG HCl et_wi [place] Oral Tablet 500 mg th_me Healt h Metformin als} Care) HCl 500 mg Cefuroxime Cefuro active Cefuroxime eCW3 500 MG Oral sourav Axetil 500 (H udson Tablet Axetil MG [place] Cefuroxime 500 MG [facility] Axetil 500 Care) MG Insulin, NovoLo active NovoLog 100 eCW3 Aspart, g 100 UNIT/ML ([place] Human 100 UNIT/M [place] UNT/ML [facility] Injectable Care) Solution [NovoLog] NovoLog 100 UNIT/ML Sulfasalazi Sulfas active Sulfasala zin eCW3 ne 500 MG alazin e 500 MG ([facility] son Oral Tablet e 500 [place] [facility] Care) Cefuroxime Cefuro active Cefuroxime eCW3 500 MG Oral sourav Axetil 500 (H udson Tablet Axetil MG [place] Cefuroxime 500 MG [facility] Axetil 500 Care) MG Hydrochloro Triamt 1.0 active Triamtere ne- eCW3 thiazide 25 erene- {tabl HCTZ 37.5- 25 ([place]antos MG / HCTZ et_in MG [place] Triamterene 37.5-2 _the_ Healt h 37.5 MG 5 MG morni Care) Oral Tablet ng} Triamterene -HCTZ 37.5-25 MG Alcohol UNK active Alcohol Prep eC W3 Prep Pads Pads 70 % ([place] 70 % [facility]) Rosuvastati Cresto 1.0 active Crestor 2 0 eCW3 n calcium r 20 {tabl MG ([place] 20 MG Oral MG et} [place] Tablet Health [Crestor] Care) Crestor 20 MG Metformin Metfor 1.0 active Metformin e CW3 hydrochlori min {tabl HCl 500 mg ( [place] de 500 MG HCl et_wi [place] Oral Tablet 500 mg th_me Healt h Metformin als} Care) HCl 500 mg ONE TOUCH UNK active ONE TOUCH eCW 3 TEST STRIPS TEST STRIPS ( [place] compatible compatible [place] with with patient Health patient Care) Insulin Lantus active Lantus 100 eC W3 Glargine 100 UNIT/ML ([place] 100 UNT/ML UNIT/ [place] Injectable L Health Solution Care) [Lantus] Lantus 100 UNIT/ML Metformin Metfor 1.0 active Metformin e CW3 hydrochlori min {tabl HCl 500 mg ( [place] de 500 MG HCl et_wi [place] Oral Tablet 500 mg th_me Healt h Metformin als} Care) HCl 500 mg 120 ACTUAT Symbic active Symbicort eCW3 Budesonide ort 80-4.5 ([place]os 0.08 80-4.5 MCG/ACT [place] MG/ACTUAT / MCG/AC Health formoterol T Care) fumarate 0.0045 MG/ACTUAT Metered Dose Inhaler [Symbicort] Symbicort 80-4.5 MCG/ACT Azithromyci AZITHr 1 complet Anthony nt n 250 MG omycin ed Hannah Oral Tablet 250 mg Medica l AZITHromyci Tablet Center n 250 mg , Tablet, Ordere Ordered By: d By: Marium HollyPDkenny Huggins ns: 1 re, tablet oral FNPDir daily ection s: 1 tablet oral daily Insulin Lantus active Lantus 100 eC W3 Glargine 100 UNIT/ML ([place] 100 UNT/ML UNIT/[facility] [place] Injectable L Health Solution Care) [Lantus] Lantus 100 UNIT/ML Cefuroxime Cefuro active Cefuroxime eCW3 500 MG Oral sourav Axetil 500 (H udson Tablet Axetil MG [place] Cefuroxime 500 MG Health Axetil 500 Care) MG Metformin Metfor 1.0 active Metformin e CW3 hydrochlori min {tabl HCl 500 mg ( [place] de 500 MG HCl et_wi [place] Oral Tablet 500 mg th_me Healt h Metformin als} Care) HCl 500 mg 120 ACTUAT Symbic active Symbicort eCW3 Budesonide ort 80-4.5 ([place] 0.08 80-4.5 MCG/ACT [place] MG/ACTUAT / MCG/AC Health formoterol T Care) fumarate 0.0045 MG/ACTUAT Metered Dose Inhaler [Symbicort] Symbicort 80-4.5 MCG/ACT CONTOUR UNK active CONTOUR eCW3 GLUCOMETER GLUCOMETER ( dson NIDDM NIDDM [facility]) Acetaminoph Acetam 2.0 active Acetamino phe eCW3 en 500 MG inophe {tabl n 500 mg ( dson Oral Tablet n 500 et_as [place] Acetaminoph mg _need Health en 500 mg ed} Care) LANCET UNK active LANCET eCW3 ([facility]) Insulin Lantus active Lantus 100 eC W3 Glargine 100 UNIT/ML ([place] 100 UNT/ML UNIT/[facility] [place] Injectable L Health Solution Care) [Lantus] Lantus 100 UNIT/ML 120 ACTUAT Symbic active Symbicort eCW3 Budesonide ort 80-4.5 ([place] 0.08 80-4.5 MCG/ACT [place] MG/ACTUAT / MCG/[facility] formoterol T Care) fumarate 0.0045 MG/ACTUAT Metered Dose Inhaler [Symbicort] Symbicort 80-4.5 MCG/ACT Acetaminoph Acetam 2.0 active Acetamino phe eCW3 en 500 MG inophe {tabl n 500 mg ( dson Oral Tablet n 500 et_as [place] Acetaminoph mg _need Health en 500 mg ed} Care) Sulfasalazi sulfas 2 ORAL active take 2 NE XTGEN ne 500 MG alazin {tbl} tablet by (S aint Oral Tablet e 500 oral route 2 Hannah sulfasalazi mg times every M edical ne 500 mg tablet day after [address] ter) tablet meals Hydrochloro Triamt 1.0 active Triamtere ne- eCW3 thiazide 25 erene- {tabl HCTZ 37.5- 25 ([place] MG / HCTZ et_in MG [place] Triamterene 37.5-2 _the_ Healt h 37.5 MG 5 MG morni Care) Oral Tablet ng} Triamterene -HCTZ 37.5-25 MG Acetaminoph Acetam 2.0 active Acetamino phe eCW3 en 500 MG inophe {tabl n 500 mg ( dson Oral Tablet n 500 et_as [place] Acetaminoph mg _need Health en 500 mg ed} Care) Microlet Microl active Microlet eCW 3 Lancets - et Lancets - ([place] [facility]) Hydrochloro Triamt 1.0 active Triamtere ne- eCW3 thiazide 25 erene- {tabl HCTZ 37.5- 25 ([place] MG / HCTZ et_in MG [place] Triamterene 37.5-2 _the_ Healt h 37.5 MG 5 MG morni Care) Oral Tablet ng} Triamterene -HCTZ 37.5-25 MG pantoprazol Proton 1.00 ORAL active pantopraz ole NEXTGEN e 40 MG ix 40 {tbl} 40 MG ([facility] Delayed mg Delayed [place] Release tablet Release Oral Me dical Oral Tablet ,delay Tablet Cent er) [Protonix] ed [Protonix] Protonix 40 releas mg e tablet,ferdinand yed release CONTOUR UNK active CONTOUR eCW3 GLUCOMETER GLUCOMETER ([facility] NIDDM NIDDM [facility]) 120 ACTUAT Symbic active Symbicort eCW3 Budesonide ort 80-4.5 ([place] 0.08 80-4.5 MCG/ACT [place] MG/ACTUAT / MCG/[facility] formoterol T Care) fumarate 0.0045 MG/ACTUAT Metered Dose Inhaler [Symbicort] Symbicort 80-4.5 MCG/ACT Insulin Lantus active Lantus 100 eC W3 Glargine 100 UNIT/ML ([place] 100 UNT/ML UNIT/M [place] Injectable L Health Solution Care) [Lantus] Lantus 100 UNIT/ML LANCET UNK active LANCET eCW3 ([facility]) Acetaminoph Acetam 2.0 active Acetamino phe eCW3 en 500 MG inophe {tabl n 500 mg ( dson Oral Tablet n 500 et_as [place] Acetaminoph mg _need Health en 500 mg ed} Care) Alcohol UNK active Alcohol Prep eC W3 Prep Pads Pads 70 % ([place] 70 % [facility]) Acetaminoph Acetam 2.0 active Acetamino phe eCW3 en 500 MG inophe {tabl n 500 mg (Hu dson Oral Tablet n 500 et_as [place] Acetaminoph mg _need Health en 500 mg ed} Care) pioglitazon Piogli 1.0 active Pioglitaz one eCW3 e 45 MG tazone {tabl HCl 45 MG ([facility] son Oral Tablet HCl 45 et} [place] Pioglitazon MG Health e HCl 45 MG Care) Metformin Metfor 1.0 active Metformin e CW3 hydrochlori min {tabl HCl 500 mg ( [place] de 500 MG HCl et_wi [place] Oral Tablet 500 mg th_me Healt h Metformin als} Care) HCl 500 mg Microlet Microl active Microlet eCW 3 Lancets - et Lancets - ([facility] on Lancet [facility]) Alcohol UNK active Alcohol Prep eC W3 Prep Pads Pads 70 % ([facility] on 70 % [facility]) pioglitazon Piogli 1.0 active Pioglitaz one eCW3 e 45 MG tazone {tabl HCl 45 MG ([facility] son Oral Tablet HCl 45 et} [place] Pioglitazon MG Health e HCl 45 MG Care) LANCET UNK active LANCET eCW3 ([facility]) Microlet Microl active Microlet eCW 3 Lancets - et Lancets - ([facility] on Lancet [facility]) Cefuroxime Cefuro active Cefuroxime eCW3 500 MG Oral sourav Axetil 500 (H udson Tablet Axetil MG [place] Cefuroxime 500 MG Health Axetil 500 Care) MG Sulfasalazi Sulfas active Sulfasala zin eCW3 ne 500 MG alazin e 500 MG ([facility] Oral Tablet e 500 [place] MG Health Care) Azithromyci Azithr active Azithromy ena eCW3 n 250 MG omycin 250 MG ([place] Oral Tablet 250 MG [facility]) Sulfasalazi Sulfas active Sulfasala zin eCW3 ne 500 MG alazin e 500 MG ([facility] Oral Tablet e 500 [place] MG Health Care) ONE TOUCH UNK active ONE TOUCH eCW 3 TEST STRIPS TEST STRIPS ( [place] compatible compatible [place] with with patient Health patient Care) Sulfasalazi Sulfas active Sulfasala zin eCW3 ne 500 MG alazin e 500 MG ([facility] Oral Tablet e 500 [place] MG Health Care) pioglitazon Piogli 1.0 active Pioglitaz one eCW3 e 45 MG tazone {tabl HCl 45 MG ([facility] son Oral Tablet HCl 45 et} [place] Pioglitazon MG Health e HCl 45 MG Care) Azithromyci Azithr active Azithromy ena eCW3 n 250 MG omycin 250 MG ([place] Oral Tablet 250 MG [facility]) Microlet Microl active Microlet eCW 3 Lancets - et Lancets - ([place] Lancet [facility]) Alcohol UNK active Alcohol Prep eC W3 Prep Pads Pads 70 % ([place] 70 % [facility]) Azithromyci Azithr active Azithromy ena eCW3 n 250 MG omycin 250 MG ([place] Oral Tablet 250 MG [facility]) Cefuroxime Cefuro active Cefuroxime eCW3 500 MG Oral sourav Axetil 500 (H udson Tablet Axetil MG [place] Cefuroxime 500 MG [facility] Axetil 500 [facility]) MG 120 ACTUAT Symbic active Symbicort eCW3 Budesonide ort 80-4.5 ([place] 0.08 80-4.5 MCG/ACT [place] MG/ACTUAT / MCG/AC Health formoterol T Care) fumarate 0.0045 MG/ACTUAT Metered Dose Inhaler [Symbicort] Symbicort 80-4.5 MCG/ACT Insulin, NovoLo active NovoLog 100 eCW3 Aspart, g 100 UNIT/ML ([place] Human 100 UNIT/M [place] UNT/ML [facility] Injectable Care) Solution [NovoLog] NovoLog 100 UNIT/ML Insulin, NovoLo active NovoLog 100 eCW3 Aspart, g 100 UNIT/ML ([place] Human 100 UNIT/M [place] UNT/ML [facility] Care) Solution [NovoLog] NovoLog 100 UNIT/ML Alcohol UNK active Alcohol Prep eC W3 Prep Pads Pads 70 % ([place] 70 % [facility]) CONTOUR UNK active CONTOUR eCW3 GLUCOMETER GLUCOMETER ([facility] NIDDM NIDDM [facility]) 120 ACTUAT Symbic active Symbicort eCW3 Budesonide ort 80-4.5 ([place] 0.08 80-4.5 MCG/ACT [place] MG/ACTUAT / MCG/AC Health formoterol T Care) fumarate 0.0045 MG/ACTUAT Metered Dose Inhaler [Symbicort] Symbicort 80-4.5 MCG/ACT Azithromyci Azithr active Azithromy ena eCW3 n 250 MG omycin 250 MG ([place] Oral Tablet 250 MG [facility]) Insulin, NovoLo active NovoLog 100 eCW3 Aspart, g 100 UNIT/ML ([place] Human 100 UNIT/M [place] UNT/ML [facility] Injectable Care) Solution [NovoLog] NovoLog 100 UNIT/ML LANCET UNK active LANCET eCW3 ([facility]) Hydrochloro Triamt 1.0 active Triamtere ne- eCW3 thiazide 25 erene- {tabl HCTZ 37.5- 25 ([place]antos MG / HCTZ et_in MG [place] Triamterene 37.5-2 _the_ Healt h 37.5 MG 5 MG morni Care) Oral Tablet ng} Triamterene -HCTZ 37.5-25 MG Microlet Microl active Microlet eCW 3 Lancets - et Lancets - ([facility]) Metformin Metfor 1.0 active Metformin e CW3 hydrochlori min {tabl HCl 500 mg ( [place] de 500 MG HCl et_wi [place] Oral Tablet 500 mg th_nh Healt h Metformin als} Care) HCl 500 mg pioglitazon Piogli 1.0 active Pioglitaz one eCW3 e 45 MG tazone {tabl HCl 45 MG ([facility] Oral Tablet HCl 45 et} [place] Pioglitazon Health e HCl 45 MG Care) CONTOUR UNK active CONTOUR eCW3 GLUCOMETER GLUCOMETER ([facility]SSM [facility]) Sulfasalazi Sulfas active Sulfasala zin eCW3 ne 500 MG alazin e 500 MG ([facility] Oral Tablet e 500 [place] [facility] Care) ONE TOUCH UNK active ONE TOUCH eCW 3 TEST STRIPS TEST STRIPS ( [place] compatible compatible [place] with with patient Health patient Care) Microlet Microl active Microlet eCW 3 Lancets - et Lancets - ([facility] on [facility]) Cefuroxime Cefuro active Cefuroxime eCW3 500 MG Oral sourav Axetil 500 (H udson Tablet Axetil MG [place] Cefuroxime 500 MG [facility] Axetil 500 Care) MG Insulin Lantus active Lantus 100 eC W3 Glargine 100 UNIT/ML ([place] 100 UNT/ML UNIT/[facility] [place] Injectable [facility] Solution Care) [Lantus] Lantus 100 UNIT/ML Sulfasalazi Sulfas active Sulfasala zin eCW3 ne 500 MG alazin e 500 MG ([facility] son Oral Tablet e 500 [place] MG Health Care) Metformin Metfor 1.0 active Metformin e CW3 hydrochlori min {tabl HCl 500 mg ( [place] de 500 MG HCl et_wi [place] Oral Tablet 500 mg th_me Healt h Metformin als} Care) HCl 500 mg Acetaminoph Acetam 2.0 active Acetamino phe eCW3 en 500 MG inophe {tabl n 500 mg (Hu dson Oral Tablet n 500 et_as [place] Acetaminoph mg _need Health en 500 mg ed} Care) Acetaminoph Acetam 2.0 active Acetamino phe eCW3 en 500 MG inophe {tabl n 500 mg (Hu dson Oral Tablet n 500 et_as [place] Acetaminoph mg _need Health en 500 mg ed} Care) LANCET UNK active LANCET eCW3 ([facility]) Hydrochloro Triamt 1.0 active Triamtere ne- eCW3 thiazide 25 erene- {tabl HCTZ 37.5- 25 ([place]os MG / HCTZ et_in MG [place] Triamterene 37.5-2 _the_ Healt h 37.5 MG 5 MG morni Care) Oral Tablet ng} Triamterene -HCTZ 37.5-25 MG Insulin, NovoLo active NovoLog 100 eCW3 Aspart, g 100 UNIT/ML ([place] Human 100 UNIT/ [place] UNT/ML L Health Injectable Care) Solution [NovoLog] NovoLog 100 UNIT/ML Insulin Lantus active Lantus 100 eC W3 Glargine 100 UNIT/ML ([place] 100 UNT/ML UNIT/M [place] Injectable L Health Solution Care) [Lantus] Lantus 100 UNIT/ML Insulin, NovoLo active NovoLog 100 eCW3 Aspart, g 100 UNIT/ML ([place] Human 100 UNIT/M [place] UNT/ML L Health Injectable Care) Solution [NovoLog] NovoLog 100 UNIT/ML pioglitazon Piogli 1.0 active Pioglitaz one eCW3 e 45 MG tazone {tabl HCl 45 MG ([facility] son Oral Tablet HCl 45 et} [place] Pioglitazon MG Health e HCl 45 MG Care) 120 ACTUAT Symbic active Symbicort eCW3 Budesonide ort 80-4.5 ([place] 0.08 80-4.5 MCG/ACT [place] MG/ACTUAT / MCG/ Health formoterol [facility]) fumarate 0.0045 MG/ACTUAT Metered Dose Inhaler [Symbicort] Symbicort 80-4.5 MCG/ACT LANCET UNK active LANCET eCW3 ([facility]) metFORMIN 1 complet [facility] 500 mg ed [facility] TabletDirec Medical tions: 1 Center tablet oral twice a day Rosuvastati Cresto 1.0 active Crestor 2 0 eCW3 n calcium r 20 {tabl MG (Santos 20 MG Oral MG et} [facility] Health [Crestor] Care) Crestor 20 MG CONTOUR UNK active CONTOUR eCW3 GLUCOMETER GLUCOMETER ([facility] Alcohol UNK active Alcohol Prep eC W3 Prep Pads Pads 70 % ([facility] on 70 % [facility]) Diclofenac diclof 1 complet Mark t Sodium 0.01 [address]ac [facility] MG/MG sodium Medical Topical Gel 1 % Center diclofenac Gel, sodium 1 % Ordere Gel, d By: Ordered By: Glamil GlamilAustin Hdez, FNPDirectio FNPDir ns: 1 ection application s: 1 topical applic twice a day ation PRN pain topica l twice a day PRN pain Unknown complet eCW2 Medications ed ([facility]) Hydrochloro Triamt 1.0 active Triamtere ne- eCW3 thiazide 25 erene- {tabl HCTZ 37.5- 25 ([place]os MG / HCTZ et_in MG [place] Triamterene 37.5-2 _the_ Healt h 37.5 MG 5 MG [facility]) Oral Tablet ng} Triamterene -HCTZ 37.5-25 MG Sulfasalazi Sulfas active Sulfasala zin eCW3 ne 500 MG alazin e 500 MG ([facility] Oral Tablet e 500 [facility]) Hydrochloro Triamt 1.0 active Triamtere ne- eCW3 thiazide 25 erene- {tabl HCTZ 37.5- 25 ([place] MG / HCTZ et_in MG [place] Triamterene 37.5-2 _the_ Healt h 37.5 MG 5 MG morni Care) Oral Tablet ng} Triamterene -HCTZ 37.5-25 MG pioglitazon Piogli 1.0 active Pioglitaz one eCW3 e 45 MG tazone {tabl HCl 45 MG (Hud son Oral Tablet HCl 45 et} [place] Pioglitazon MG Health e HCl 45 MG Care) pioglitazon Piogli 1.0 active Pioglitaz one eCW3 e 45 MG tazone {tabl HCl 45 MG (Hud son Oral Tablet HCl 45 et} [place] Pioglitazon MG Health e HCl 45 MG Care) Insurance Providers Payer name Policy type Policy ID Covered Covered democrat's Policy P gissell / Coverage democrat ID relationship to [place] Inf ormation type [place] HEALTH FIRST [id number] SP [id number] MEDICARE HEALTH FIRST [id number] SP [id number] [facility] HEALTHCARE MCARE OPD [place] [id number] SP [id number] [facility] [place] DUAL [id number] SP [id number] COMPLETE MEDICAID [id number] SP [id number] AFFINITY [id number] SP [id number] MEDICARE MEDICAID [id number] SP [id number] MIAN MEDICARE [id number] SP [id number] AFFINITY [id number] SP [id number] MEDICARE MEDICARE [id number] SP [id number] A MEDICARE [id number] SP [id number] HEALTH FIRST [id number] SP [id number] MEDICARE M [id number] 01 [id number] A W [id number] M [id number] [id number] [facility] [id number] 01 [id number] HEALTHCARE [facility] [id number] SP [id number] COMPLETE Problems, Conditions, and Diagnoses Code Display Name Description Problem Type Effective Data Dates Source(s) 485349549 Diabetes mellitus Diabetes mellitus Problem 10/04/2017 NEXTGEN without without 12:00:00 AM ([facility]) [id number] Asthma Asthma Problem 10/04/2017 NEXTGEN 12:00:00 AM ([facility]) Z96.1 Pseudophakia of Pseudophakia of Problem 02/26/2017 eCW3 ([place] both eyes both eyes 12:00:00 AM [facility] EST Care) H52.4 Presbyopia of both Presbyopia of both Problem 7 eCW3 ([place] eyes eyes 12:00:00 AM [facility] EST Care) H52.13 Myopia of both Myopia of both Problem 02/26/2017 eCW3 ( [place] eyes eyes 12:00:00 AM [facility] EST Care) H52.4 Presbyopia of both Presbyopia of both Problem 7 eCW2 ([place] eyes eyes 12:00:00 AM [facility] EST Care) Z96.1 Pseudophakia of Pseudophakia of Problem 02/26/2017 eCW2 ([place] both eyes both eyes 12:00:00 AM [facility] EST Care) H52.13 Myopia of both Myopia of both Problem 02/26/2017 eCW2 ( [place] eyes eyes 12:00:00 AM [facility] EST Care) H26.493 Secondary cataract Secondary cataract Problem 7 eCW3 ([place] of both eyes with of both eyes with 12:00:00 AM [facility] vision obscured vision obscured EST Care ) H26.493 Secondary cataract Secondary cataract Problem 7 eCW2 ([place] of both eyes with of both eyes with 12:00:00 AM [facility] vision obscured vision obscured EST Care ) Z68.31 Body mass index Adult BMI Problem 02/03/2017 eCW3 (Hud son 30.00 to 34.99 31.0-31.9 kg/sq m 12:00:00 AM [facility] EDT Care) Z68.31 Body mass index Adult BMI Problem 02/03/2017 eCW2 (Hud son 30.00 to 34.99 31.0-31.9 kg/sq m 12:00:[address] [facility] EDT Care) M19.90 Arthritis Arthritis Problem 02/02/2017 eCW3 ([place]os 12:00:00 AM [place] [facility] EDT Care) M19.90 Arthritis Arthritis Problem 02/02/2017 eCW2 ([place] 12:00:00 AM [place] [facility] EDT Care) J84.9 Interstitial lung Interstitial lung Problem 01/25/2017 eCW3 ([place] disease disease 12:00:00 AM [facility] EDT Care) J84.9 Interstitial lung Interstitial lung Problem 01/25/2017 eCW2 ([place] disease disease 12:00:00 AM [facility] EDT Care) J45.40 Moderate Moderate Problem 12/24/2016 eCW3 ([place] persistent asthma persistent asthma 12:00:00 AM [facility] without without EDT Care) complication complication J45.40 Moderate Moderate Problem 12/24/2016 eCW2 ([place] persistent asthma persistent asthma 12:00:00 AM [facility] without without EDT Care) complication complication J18.9 CAP (community CAP (community Problem 10/21/2016 eCW3 ( [place] acquired acquired 12:00:00 AM [facility] pneumonia) pneumonia) EDT Care) M06.9 Rheumatoid RA (rheumatoid Problem 10/21/2016 eCW3 ([place] arthritis arthritis) 12:00:00 AM [facility] EDT Care) J18.9 CAP (community CAP (community Problem 10/21/2016 eCW2 ( [place] acquired acquired 12:00:00 AM [facility] pneumonia) pneumonia) EDT Care) M06.9 Rheumatoid RA (rheumatoid Problem 10/21/2016 eCW2 ([place] arthritis arthritis) 12:00:00 AM [facility] EDT Care) J44.9 Chronic Chronic Problem 07/26/2016 eCW3 ([place] obstructive obstructive 12:00:00 AM [facility] pulmonary disease, pulmonary disease, EDT Care) unspecified unspecified J30.1 Seasonal allergic Seasonal allergic Problem 07/26/2016 eCW3 ([place] rhinitis due to rhinitis due to 12:00:00 AM [facility] pollen pollen EDT Care) J45.909 Unspecified Unspecified Problem 07/26/2016 eCW3 ([place] asthma, asthma, 12:00:00 AM [facility] uncomplicated uncomplicated EDT Care) J45.909 Unspecified Unspecified Problem 07/26/2016 eCW2 ([place] asthma, asthma, 12:00:00 AM [facility] uncomplicated uncomplicated EDT Care) J30.1 Seasonal allergic Seasonal allergic Problem 07/26/2016 eCW2 ([place] rhinitis due to rhinitis due to 12:00:00 AM [facility] pollen pollen EDT Care) J44.9 Chronic Chronic Problem 07/26/2016 eCW2 ([place] obstructive obstructive 12:00:00 AM [facility] pulmonary disease, pulmonary disease, EDT Care) unspecified unspecified J45.901 Asthma Asthma Problem 06/03/2016 eCW3 ([place] exacerbation exacerbation 12:00:00 AM [facility] EST Care) K59.01 Slow transit Slow transit Problem 06/03/2016 eCW3 ([place] constipation constipation 12:00:00 AM [facility] EST Care) J45.901 Asthma Asthma Problem 06/03/2016 eCW2 ([place] exacerbation exacerbation 12:00:00 AM [facility] EST Care) K59.01 Slow transit Slow transit Problem 06/03/2016 eCW2 ([place] constipation constipation 12:00:00 AM [facility] EST Care) D50.0 Iron deficiency Iron deficiency Problem 05/26/2016 eCW3 ([place] anemia due to anemia due to 12:00:00 AM [facility] chronic blood loss chronic blood loss EST Care) D46.4 RA (refractory RA (refractory Problem 05/26/2016 eCW3 ( [place] anemia) anemia) 12:00:00 AM [facility] EST Care) D46.4 RA (refractory RA (refractory Problem 05/26/2016 eCW2 ( [place] anemia) anemia) 12:00:00 AM [facility] EST Care) D50.0 Iron deficiency Iron deficiency Problem 05/26/2016 eCW2 ([place] anemia due to anemia due to 12:00:00 AM [facility] chronic blood loss chronic blood loss EST Care) L98.499 Ulcer Ulcer Problem 03/09/2016 eCW3 ([place] 12:00:00 AM [facility] EST Care) G62.9 Neuropathy Neuropathy Problem 03/09/2016 eCW3 ([place] 12:00:00 AM [facility] EST Care) 250.80 Diabetic ulcer of Diabetic ulcer of Problem 03/09/2016 eCW3 ([place] toe toe 12:00:00 AM [facility] EST Care) 250.80 Diabetic ulcer of Diabetic ulcer of Problem 03/09/2016 eCW2 ([place] toe toe 12:00:00 AM [facility] EST Care) G62.9 Neuropathy Neuropathy Problem 03/09/2016 eCW2 ([facility] 12:00:00 AM [facility] EST Care) L98.499 Ulcer Ulcer Problem 03/09/2016 eCW2 ([place] 12:00:00 AM [facility] Care) Z87.01 Hx: recurrent Hx: recurrent Problem 01/21/2016 eCW3 (Hu dson pneumonia pneumonia 12:00:00 AM [facility] EDT Care) Z87.01 Hx: recurrent Hx: recurrent Problem 01/21/2016 eCW2 (Hu dson pneumonia pneumonia 12:00:00 AM [facility] EDT Care) E78.4 Other Other Problem 01/05/2016 eCW3 ([place] hyperlipidemia hyperlipidemia 12:00:00 AM [facility] EDT Care) E11.9 DM - Diabetes DM (diabetes Problem 01/05/2016 eCW3 ([facility] son mellitus mellitus) 12:00:00 AM [facility] EDT Care) E11.9 DM - Diabetes DM (diabetes Problem 01/05/2016 eCW2 ([facility] son mellitus mellitus) 12:00:00 AM [facility] EDT Care) E78.4 Other Other Problem 01/05/2016 eCW2 ([facility] hyperlipidemia hyperlipidemia 12:00:00 AM [facility] EDT Care) K21.9 GERD GERD Problem 12/05/2015 eCW3 ([facility] (gastroesophageal (gastroesophageal 12:00:00 AM [facility] reflux disease) reflux disease) EDT Care ) K21.9 GERD GERD Problem 12/05/2015 eCW2 ([facility] (gastroesophageal (gastroesophageal 12:00:00 AM [facility] reflux disease) reflux disease) EDT Care ) K31.84 Gastroparesis Gastroparesis Problem 05/20/2015 eCW2 (Op en 12:00:00 AM [facility]) Z68.28 BMI BMI Problem 05/20/2015 eCW2 (Open 28.0-28.9,adult 28.0-28.9,adult 12:00:00 AM [facility]) J45.909 Reactive airway Reactive airway Problem 05/20/2015 eCW2 (Open disease disease 12:00:00 AM [facility]) E11.40 Neuropathy in Neuropathy in Problem 04/21/2015 eCW2 (Op en diabetes diabetes 12:00:00 AM [facility]) Z68.26 BMI BMI Problem 04/21/2015 eCW2 (Open 26.0-26.9,adult 26.0-26.9,adult 12:00:00 AM [facility]) E11.9 Diabetes mellitus Diabetes mellitus Problem 03/19/2015 eCW2 (Open type 2 without type 2 without 12:00:00 AM [facility] retinopathy retinopathy [facility]) E78.5 Hyperlipidemia Hyperlipidemia Problem 01/17/2015 eCW2 ( Open 12:00:00 AM [facility]) I10 Hypertension Hypertension Problem 01/17/2015 eCW2 (Open 12:00:00 AM [facility]) E66.3 Overweight Overweight Problem 01/17/2015 eCW2 (Open 12:00:00 AM [facility]) Z68.24 Body mass index Body mass index Problem 01/17/2015 eCW2 (Open (BMI) of 24.0-24.9 (BMI) of 24.0-24.9 12:00:00 AM [facility] in adult in adult [facility]) S82.899A Fracture of ankle Fracture of ankle Problem 01/17/2015 eCW2 (Open 12:00:00 AM [facility]) M06.9 Rheumatoid Rheumatoid Problem 01/17/2015 eCW2 (Open arthritis arthritis 12:00:00 AM [facility]) M54.30 Sciatica Sciatica Problem 01/17/2015 eCW2 (Open 12:00:00 AM [facility]) [id number] Rheumatoid Rheumatoid Problem [facility] arthritis arthritis ([facility]) [id number] Hypertensive Hypertensive Problem [facility] disorder disorder ([facility]) J18.9 Pneumonia, PNEUMONIA, Diagnosis 09/15/2018 [facility] unspecified UNSPECIFIED 10:48:00 AM Medical organism ORGANISM EDT Center J45.909 Unspecified UNSPECIFIED Diagnosis 06/29/2018 [facility]ner asthma, ASTHMA, 12:29:00 PM Medical uncomplicated UNCOMPLICATED EDT Center E11.9 Type 2 diabetes TYPE 2 DIABETES Diagnosis 06/29/2018 [facility] mellitus without MELLITUS WITHOUT 12:29:00 PM M edical complications COMPLICATIONS EDT Center J40 Bronchitis, not BRONCHITIS, NOT Diagnosis 06/29/2018 [facility] specified as acute SPECIFIED ACUTE 12:29:00 PM Medical or chronic OR CHRONIC EDT Center R05 Cough COUGH Diagnosis 06/29/2018 [facility] 12:29:00 PM Medical EDT Center M25.512 Pain in left PAIN IN LEFT Diagnosis 05/18/2018 [facility] shoulder SHOULDER 01:40:00 PM Medical [facility] M25.511 Pain in right PAIN IN RIGHT Diagnosis 05/18/2018 [facility] shoulder SHOULDER 01:40:00 PM [facility] Z79.84 detention SWORD SWALLOWER Diagnosis 05/12/2018 [facility] (current) use of (CURRENT) USE OF 03:32:00 PM M edical oral hypoglycemic ORAL HYPOGLYCEMIC [facility] drugs DRUGS M79.18 MYALGIA, OTHER MYALGIA, OTHER Diagnosis 05/12/2018 [facility] SITE SITE 03:32:00 PM [facility] M79.661 Pain in right PAIN IN RIGHT Diagnosis 05/12/2018 [facility] lower leg LOWER LEG 03:32:00 PM [facility] Surgeries/Procedures Procedure Description Date Indications Data Source(s) OFFICE/OUTPATIENT 05/16/2018 [facility] (S aint VISIT, EST 12:00:00 AM [facility]) 05/16/2018 12:00:00 AM EST OFFICE/OUTPATIENT 05/09/2018 [facility] (S aint VISIT, EST 12:00:00 AM [facility]) 05/09/2018 12:00:00 AM EST OFFICE/OUTPATIENT 04/26/2018 [facility] (S aint VISIT, EST 12:00:00 AM [facility]) 04/26/2018 12:00:00 AM EST OFFICE/OUTPATIENT 03/15/2018 [facility] (S aint VISIT, EST 12:00:00 AM [facility]) 03/15/2018 12:00:00 AM EST OFFICE/OUTPATIENT 03/01/2018 [facility] (S aint VISIT, EST 12:00:00 AM [facility]) 03/01/2018 12:00:00 AM EST OFFICE/OUTPATIENT 02/22/2018 [facility] (S aint VISIT, EST 12:00:00 AM [facility]) 02/22/2018 12:00:00 AM EST Federally qualified 12/05/2017 eCW2 ([facility] ([facility]) 12:00:00 AM Family Medical visit, established EDT Center) patient; a medically-necessary, [id number] encounter (one-on-one) between an established patient and a [facility] practitioner during which time one or more [facility] services are rendered and includes a typical bundle of medicare-covered services that would be furnished pharmacist per diem to a patient receiving a [facility] visit DIL RETINA EXAM INTERP 12/05/2017 eCW2 ([facility] No Known procedures No Known procedures e CW2 ([facility]) Results ID Date Data Source [id number] 12/08/2019 02:01:00 PM EDT [facility] Name Value Range Interpretation Code Description Data Alysia rce(s) Supporting Document(s ) SARS-CoV-2 [facility] Ql TAMMY+probe This lab was ordered by [facility] a nd reported by [facility]. ID Date Data Source Liver Profile 05/12/2018 08:45:00 PM EST [facility] Name Value Range Interpretation Description Data Sup porting Code Source(s) Document(s ) Alanine 7-30 <content [facility] aminotransferase styleCode="Bold"> Abdirahman hs [Enzymatic Alanine Medical activity/volume] Aminotransferase Center in Serum or Plasma (ALT) </content>29 IU/L<content styleCode="Italic s"> (7-30 IU/L)</content> Alkaline 38-126 <content [facility] phosphatase styleCode="Bold"> Hannah [Enzymatic Alkaline Medical activity/volume] Phosphatase (ALP) Cente r in Serum or Plasma </content>75 IU/L<content styleCode="Italic s"> (38-126 IU/L)</content> Bilirubin.total 0.2-1.3 <content [facility] [Mass/volume] in styleCode="Bold"> Abdirahman hs Serum or Plasma Bilirubin Total Medical </content>0.4 Center MG/DL<content styleCode="Italic s"> (0.2-1.3 MG/DL)</content> Aspartate 14-36 <content [facility] aminotransferase styleCode="Bold"> Abdirahman hs [Enzymatic Aspartate Medical activity/volume] Aminotransferase Center in Serum or Plasma (AST) </content>25 IU/L<content styleCode="Italic s"> (14-36 IU/L)</content> Albumin 3.5-5.0 <content [facility] [Mass/volume] in styleCode="Bold"> Abdirahman hs Serum or Plasma Albumin Medical </content>4.4 Center G/DL<content styleCode="Italic s"> (3.5-5.0 G/DL)</content> ID Date Data Source GFR(Creatinine) 05/12/2018 08:45:00 PM [facility] Name Value Range Interpretation Code Description Data Alysia rce(s) Supporting Document(s ) UNK > 60 <content [facility] styleCode="Bold"> Medical Cent er EGFR </content>131 GFR<content styleCode="Italic s"> (> 60 GFR)</content> ID Date Data Source CHMROUTINECCDA 05/12/2018 08:45:00 PM [facility] Name Value Range Interpretation Description Data Sup porting Code Source(s) Document(s ) UNK 2.3-3.5 <content [facility] styleCode="Bold Medical ">Globulin Center </content>2.5 G/DL<content styleCode="Ital ics"> (2.3-3.5 G/DL)</content> UNK >= 1.0 <content [facility] styleCode="Bold Medical ">AG Ratio Center </content>1.8 NM<content styleCode="Ital ics"> (>= 1.0 NM)</content> Protein 6.3-8.2 <content [facility] Hannah [Mass/volum styleCode="Bold Medical e] in Serum ">Total Protein Center or Plasma </content>6.9 G/DL<content styleCode="Ital ics"> (6.3-8.2 G/DL)</content> ID Date Data Source BMP 05/12/2018 08:45:00 PM [facility] Name Value Range Interpretation Description Data Sup porting Code Source(s) Document(s ) Carbon dioxide, 22-30 <content [facility] total styleCode="Bold"> Hannah [Moles/volume] in Carbon Dioxide Medical Serum or Plasma </content>25 Center MEQ/L<content styleCode="Italic s"> (22-30 MEQ/L)</content> Potassium 3.5-5.3 <content [facility] [Moles/volume] in styleCode="Bold"> Asaf phs Serum or Plasma Potassium Medical </content>4.6 Center MEQ/L<content styleCode="Italic s"> (3.5-5.3 MEQ/L)</content> Chloride 98-107 <content [facility] [Moles/volume] in styleCode="Bold"> Asaf [facility] Serum or Plasma Chloride Medical </content>103 Center MEQ/L<content styleCode="Italic s"> (98-107 MEQ/L)</content> Sodium 137-145 <content [facility] [Moles/volume] in styleCode="Bold"> Asaf [facility] Serum or Plasma Sodium Medical </content>137 Center MEQ/L<content styleCode="Italic s"> (137-145 MEQ/L)</content> UNK 7-17 <content [facility] styleCode="Bold"> Hannah BUN </content>11 Medical MG/DL<content Center styleCode="Italic s"> (7-17 MG/DL)</content> Creatinine 0.5-1.3 <content [facility] [Mass/volume] in styleCode="Bold"> Abdirahman hs Serum or Plasma Creatinine Medical </content>0.5 Center MG/DL<content styleCode="Italic s"> (0.5-1.3 MG/DL)</content> Glucose 74-106 Above high <content [facility] [Mass/volume] in normal styleCode="Bold"> Abdirahman hs Serum or Plasma Glucose Medical </content>200 Center MG/DL H<content styleCode="Italic s"> (74-106 MG/DL)</content> Calcium 8.4-10. <content [facility] [Mass/volume] in 2 styleCode="Bold"> Abdirahman hs Serum or Plasma Calcium Medical </content>9.4 Center MG/DL<content styleCode="Italic s"> (8.4-10.2 MG/DL)</content> Aspartate 14-36 <content [facility] aminotransferase styleCode="Bold"> Abdirahman hs [Enzymatic Aspartate Medical activity/volume] Aminotransferase Center in Serum or Plasma (AST) </content>25 IU/L<content styleCode="Italic s"> (14-36 IU/L)</content> UNK > 60 <content [facility] styleCode="Bold"> Hannah EGFR Medical </content>131 Center GFR<content styleCode="Italic s"> (> 60 GFR)</content> Alanine 7-30 <content [facility] aminotransferase styleCode="Bold"> Abdirahman hs [Enzymatic Alanine Medical activity/volume] Aminotransferase Center in Serum or Plasma (ALT) </content>29 IU/L<content styleCode="Italic s"> (7-30 IU/L)</content> Albumin 3.5-5.0 <content [facility] [Mass/volume] in styleCode="Bold"> Abdirahman hs Serum or Plasma Albumin Medical </content>4.4 Center G/DL<content styleCode="Italic s"> (3.5-5.0 G/DL)</content> Bilirubin.total 0.2-1.3 <content [facility] [Mass/volume] in styleCode="Bold"> Abdirahman hs Serum or Plasma Bilirubin Total Medical </content>0.4 Center MG/DL<content styleCode="Italic s"> (0.2-1.3 MG/DL)</content> Alkaline 38-126 <content [facility] phosphatase styleCode="Bold"> Hannah [Enzymatic Alkaline Medical activity/volume] Phosphatase (ALP) Cente r in Serum or Plasma </content>75 IU/L<content styleCode="Italic s"> (38-126 IU/L)</content> ID Date Data Source Liver 05/12/2018 08:45:00 PM EST [facility] Profile.[id number] Name Value Range Interpretation Description Data Sup porting Code Source(s) Document(s ) Aspartate 14-36 <content [facility] aminotransferase styleCode="Bold"> Abdirahman hs [Enzymatic Aspartate Medical activity/volume] Aminotransferase Center in Serum or Plasma (AST) </content>25 IU/L<content styleCode="Italic s"> (14-36 IU/L)</content> Albumin 3.5-5.0 <content [facility] [Mass/volume] in styleCode="Bold"> Abdirahman hs Serum or Plasma Albumin Medical </content>4.4 Center G/DL<content styleCode="Italic s"> (3.5-5.0 G/DL)</content> Alanine 7-30 <content [facility] aminotransferase styleCode="Bold"> Abdirahman hs [Enzymatic Alanine Medical activity/volume] Aminotransferase Center in Serum or Plasma (ALT) </content>29 IU/L<content styleCode="Italic s"> (7-30 IU/L)</content> Bilirubin.total 0.2-1.3 <content [facility] [Mass/volume] in styleCode="Bold"> Abdirahman hs Serum or Plasma Bilirubin Total Medical </content>0.4 Center MG/DL<content styleCode="Italic s"> (0.2-1.3 MG/DL)</content> Alkaline 38-126 <content [facility] phosphatase styleCode="Bold"> Hannah [Enzymatic Alkaline Medical activity/volume] Phosphatase (ALP) Cente r in Serum or Plasma </content>75 IU/L<content styleCode="Italic s"> (38-126 IU/L)</content> ID Date Data Source GFR(Creatinine).[id number] 05/12/2018 08:45:00 PM [facility] 0-0500 Name Value Range Interpretation Code Description Data Alysia rce(s) Supporting Document(s ) UNK > 60 <content [facility] styleCode="Bold"> Medical Cent er EGFR </content>131 GFR<content styleCode="Italic s"> (> 60 GFR)</content> ID Date Data Source CHMROUTINECCDA.[id number] 05/12/2018 08:45:00 PM [facility] -0500 Name Value Range Interpretation Description Data Sup porting Code Source(s) Document(s ) UNK >= 1.0 <content [facility] styleCode="Bold Medical ">AG Ratio Center </content>1.8 NM<content styleCode="Ital ics"> (>= 1.0 NM)</content> Protein 6.3-8.2 <content [facility] Hannah [Mass/volum styleCode="Bold Medical e] in Serum ">Total Protein Center or Plasma </content>6.9 G/DL<content styleCode="Ital ics"> (6.3-8.2 G/DL)</content> UNK 2.3-3.5 <content [facility] styleCode="Bold Medical ">Globulin Center </content>2.5 G/DL<content styleCode="Ital ics"> (2.3-3.5 G/DL)</content> ID Date Data Source [id number] 05/12/2018 08:45:00 PM EST [facility] Center Name Value Range Interpretation Description Data Sup porting Code Source(s) Document(s ) Sodium 137-145 <content [facility] [Moles/volume] in styleCode="Bold"> Asaf phs Serum or Plasma Sodium Medical </content>137 Center MEQ/L<content styleCode="Italic s"> (137-145 MEQ/L)</content> Potassium 3.5-5.3 <content [facility] [Moles/volume] in styleCode="Bold"> Asaf phs Serum or Plasma Potassium Medical </content>4.6 Center MEQ/L<content styleCode="Italic s"> (3.5-5.3 MEQ/L)</content> Carbon dioxide, 22-30 <content [facility] total styleCode="Bold"> Hannah [Moles/volume] in Carbon Dioxide Medical Serum or Plasma </content>25 Center MEQ/L<content styleCode="Italic s"> (22-30 MEQ/L)</content> Chloride 98-107 <content [facility] [Moles/volume] in styleCode="Bold"> Asaf phs Serum or Plasma Chloride Medical </content>103 Center MEQ/L<content styleCode="Italic s"> (98-107 MEQ/L)</content> UNK 7-17 <content [facility] styleCode="Bold"> Hannah BUN </content>11 Medical MG/DL<content Center styleCode="Italic s"> (7-17 MG/DL)</content> Glucose 74-106 Above high <content [facility] [Mass/volume] in normal styleCode="Bold"> Abdirahman hs Serum or Plasma Glucose Medical </content>200 Center MG/DL H<content styleCode="Italic s"> (74-106 MG/DL)</content> Calcium 8.4-10. <content [facility] [Mass/volume] in 2 styleCode="Bold"> Abdirahman hs Serum or Plasma Calcium Medical </content>9.4 Center MG/DL<content styleCode="Italic s"> (8.4-10.2 MG/DL)</content> Creatinine 0.5-1.3 <content [facility] [Mass/volume] in styleCode="Bold"> Abdirahman hs Serum or Plasma Creatinine Medical </content>0.5 Center MG/DL<content styleCode="Italic s"> (0.5-1.3 MG/DL)</content> UNK > 60 <content [facility] styleCode="Bold"> Hannah EGFR Medical </content>131 Center GFR<content styleCode="Italic s"> (> 60 GFR)</content> Bilirubin.total 0.2-1.3 <content [facility] [Mass/volume] in styleCode="Bold"> Abdirahman hs Serum or Plasma Bilirubin Total Medical </content>0.4 Center MG/DL<content styleCode="Italic s"> (0.2-1.3 MG/DL)</content> Alanine 7-30 <content [facility] aminotransferase styleCode="Bold"> Abdirahman hs [Enzymatic Alanine Medical activity/volume] Aminotransferase Center in Serum or Plasma (ALT) </content>29 IU/L<content styleCode="Italic s"> (7-30 IU/L)</content> Alkaline 38-126 <content [facility] phosphatase styleCode="Bold"> Hannah [Enzymatic Alkaline Medical activity/volume] Phosphatase (ALP) Cente r in Serum or Plasma </content>75 IU/L<content styleCode="Italic s"> (38-126 IU/L)</content> Aspartate 14-36 <content [facility] aminotransferase styleCode="Bold"> Abdirahman hs [Enzymatic Aspartate Medical activity/volume] Aminotransferase Center in Serum or Plasma (AST) </content>25 IU/L<content styleCode="Italic s"> (14-36 IU/L)</content> Albumin 3.5-5.0 <content [facility] [Mass/volume] in styleCode="Bold"> Abdirahman hs Serum or Plasma Albumin Medical </content>4.4 Center G/DL<content styleCode="Italic s"> (3.5-5.0 G/DL)</content> ID Date Data Source HematologyRou 05/12/2018 07:40:00 PM EST [facility] Name Value Range Interpretation Description Data Sup porting Code Source(s) Document(s ) Erythrocytes 4.0-5.1 <content [facility] [#/volume] in styleCode="Bold Hannah Blood by ">Red Blood Medical Automated count Cell Count Center </content>4.59 MCUMM<content styleCode="Ital ics"> (4.0-5.1 MCUMM)</content > Leukocytes 4.4-11.0 <content [facility] [#/volume] in styleCode="Bold Hannah Blood by ">White Blood Medical Automated count Cell Count Center </content>10.12 KCUMM<content styleCode="Ital ics"> (4.4-11.0 KCUMM)</content > Erythrocyte mean 80.0-100 <content [facility] corpuscular .0 styleCode="Bold Hannah volume [Entitic ">Mean Medical volume] by Corpuscular Center Automated count Volume </content>92.4 FL<content styleCode="Ital ics"> (80.0-100.0 FL)</content> Hematocrit 36.0-46. <content [facility] [Volume 0 styleCode="Bold Hannah Fraction] of ">Hematocrit Medical Blood by </content>42.4 Center Automated count %<content styleCode="Ital ics"> (36.0-46.0 %)</content> Hemoglobin 12.3-16. <content [facility] [Mass/volume] in 0 styleCode="Bold Hannah Blood ">Hemoglobin Medical </content>13.8 Center G/DL<content styleCode="Ital ics"> (12.3-16.0 G/DL)</content> Erythrocyte mean 26.0-34. <content [facility] corpuscular 0 styleCode="Bold Hannah hemoglobin ">Mean Medical [Entitic mass] Corposcular Center by Automated Hemoglobin count </content>30.1 PG<content styleCode="Ital ics"> (26.0-34.0 PG)</content> Erythrocyte 11.5-14. Above high <content [facility] distribution 5 normal styleCode="Bold Hannah width [Ratio] by ">Red Cell Medical Automated count Distribution Center Width </content>16.4 % H<content styleCode="Ital ics"> (11.5-14.5 %)</content> Erythrocyte mean 32.0-37. <content [facility] corpuscular 0 styleCode="Bold Hannah hemoglobin ">Mean Corpus. Medical concentration Hgb Center [Mass/volume] by Concentration Automated count (MCHC) </content>32.5 G/DL<content styleCode="Ital ics"> (32.0-37.0 G/DL)</content> Platelet mean 8.0-11.0 Above high <content [facility] volume [Entitic normal styleCode="Bold Hannah volume] in Blood ">Mean Platelet Medical by Automated Volume Center count </content>11.2 FL H<content styleCode="Ital ics"> (8.0-11.0 FL)</content> Platelets 130-400 <content [facility] [#/volume] in styleCode="Bold Hannah Blood by ">Platelet Medical Automated count Count Center </content>176 KCUMM<content styleCode="Ital ics"> (130-400 KCUMM)</content > UNK 0 Above high <content [facility] normal styleCode="Bold Hannah ">Nucleated Red Medical Blood Cell Center </content>0.2 /100 H<content styleCode="Ital ics"> (0 /100)</content> UNK 0.0 Above high <content [facility] normal styleCode="Bold Hannah ">Nucleated Red Medical Blood Cell Center Count </content>0.02 KCUMM H<content styleCode="Ital ics"> (0.0 KCUMM)</content > ID Date Data Source Coagulation Rout 05/12/2018 07:40:00 PM EST [facility] Name Value Range Interpretation Description Data Sup porting Code Source(s) Document(s ) UNK 9.0-13.0 <content [facility] styleCode="Bold" Hannah >Protime Medical </content>10.4 Center SEC<content styleCode="Itali cs"> (9.0-13.0 SEC)</content> aPTT in 25.1-36. <content [facility] Platelet poor 5 styleCode="Bold" Hannah plasma by >Partial Medical Coagulation Thromboplastin Center assay Time </content>28.6 SEC<content styleCode="Itali cs"> (25.1-36.5 SEC)</content> INR in 0.80-1.2 <content [facility] Platelet poor 0 styleCode="Bold" Hannah plasma by >INR Medical Coagulation </content>0.92 Center assay #<content styleCode="Itali cs"> (0.80-1.20 #)</content> ID Date Data Source BloodBank 05/12/2018 07:40:00 PM [facility] Name Value Range Interpretation Code Description Data Alysia rce(s) Supporting Document(s ) UNK NEGATIVE <content [facility] styleCode="Bold" Medical Cente r >Antibody Screen </content>NEGATI VE <content styleCode="Itali cs"> (NEGATIVE )</content> UNK <content [facility] styleCode="Bold" Medical Cente r >Blood Type </content>GROUP B (Reference Range: not available)
UNK <content [facility] styleCode="Bold" Medical Cente r >RH Type </content>POSITI VE (Reference Range: not available)
ID Date Data Source Liver 05/12/2018 07:40:00 PM [facility] Profile.[id number] Name Value Range Interpretation Description Data Sup porting Code Source(s) Document(s ) Alkaline <content [facility] phosphatase styleCode="Bold"> Hannah [Enzymatic Alkaline Medical activity/volume] Phosphatase (ALP) Cente r in Serum or Plasma </content>Test not performed. IU/L (Reference Range: not available)
Alanine <content [facility] aminotransferase styleCode="Bold"> Abdirahman hs [Enzymatic Alanine Medical activity/volume] Aminotransferase Center in Serum or Plasma (ALT) </content>Test not performed. IU/L (Reference Range: not available)
Aspartate <content [facility] aminotransferase styleCode="Bold"> Abdirahman hs [Enzymatic Aspartate Medical activity/volume] Aminotransferase Center in Serum or Plasma (AST) </content>Test not performed. IU/L (Reference Range: not available)
Albumin <content [facility] [Mass/volume] in styleCode="Bold"> Abdirahman hs Serum or Plasma Albumin Medical </content>Test Center not performed. G/DL (Reference Range: not available)
UNK <content [facility] styleCode="Bold"> Hannah Bilirubin, Direct Medical </content>Test Center not performed. MG/DL (Reference Range: not available)
Bilirubin.total <content [facility] [Mass/volume] in styleCode="Bold"> Abdirahman hs Serum or Plasma Bilirubin Total Medical </content>Test Center not performed. MG/DL (Reference Range: not available)
ID Date Data Source HematologyRou.[id number] 05/12/2018 07:40:00 PM [facility] 0500 Name Value Range Interpretation Description Data Sup porting Code Source(s) Document(s ) Leukocytes 4.4-11.0 <content [facility] [#/volume] in styleCode="Bold Hannah Blood by ">White Blood Medical Automated count Cell Count Center </content>10.12 KCUMM<content styleCode="Ital ics"> (4.4-11.0 KCUMM)</content > Erythrocytes 4.0-5.1 <content [facility] [#/volume] in styleCode="Bold Hannah Blood by ">Red Blood Medical Automated count Cell Count Center </content>4.59 MCUMM<content styleCode="Ital ics"> (4.0-5.1 MCUMM)</content > Hemoglobin 12.3-16. <content [facility] [Mass/volume] in 0 styleCode="Bold Hannah Blood ">Hemoglobin Medical </content>13.8 Center G/DL<content styleCode="Ital ics"> (12.3-16.0 G/DL)</content> Erythrocyte mean 26.0-34. <content [facility] corpuscular 0 styleCode="Bold Hannah hemoglobin ">Mean Medical [Entitic mass] Corposcular Center by Automated Hemoglobin count </content>30.1 PG<content styleCode="Ital ics"> (26.0-34.0 PG)</content> Hematocrit 36.0-46. <content [facility] [Volume 0 styleCode="Bold Hannah Fraction] of ">Hematocrit Medical Blood by </content>42.4 Center Automated count %<content styleCode="Ital ics"> (36.0-46.0 %)</content> Erythrocyte mean 80.0-100 <content [facility] corpuscular .0 styleCode="Bold Hannah volume [Entitic ">Mean Medical volume] by Corpuscular Center Automated count Volume </content>92.4 FL<content styleCode="Ital ics"> (80.0-100.0 FL)</content> Platelet mean 8.0-11.0 Above high <content [facility] volume [Entitic normal styleCode="Bold Hannah volume] in Blood ">Mean Platelet Medical by Automated Volume Center count </content>11.2 FL H<content styleCode="Ital ics"> (8.0-11.0 FL)</content> Platelets 130-400 <content [facility] [#/volume] in styleCode="Bold Hannah Blood by ">Platelet Medical Automated count Count Center </content>176 KCUMM<content styleCode="Ital ics"> (130-400 KCUMM)</content > Erythrocyte mean 32.0-37. <content [facility] corpuscular 0 styleCode="Bold Hannah hemoglobin ">Mean Corpus. Medical concentration Hgb Center [Mass/volume] by Concentration Automated count (MCHC) </content>32.5 G/DL<content styleCode="Ital ics"> (32.0-37.0 G/DL)</content> Erythrocyte 11.5-14. Above high <content [facility] distribution 5 normal styleCode="Bold Hannah width [Ratio] by ">Red Cell Medical Automated count Distribution Center Width </content>16.4 % H<content styleCode="Ital ics"> (11.5-14.5 %)</content> UNK 0.0 Above high <content [facility] normal styleCode="Bold Hannah ">Nucleated Red Medical Blood Cell Center Count </content>0.02 KCUMM H<content styleCode="Ital ics"> (0.0 KCUMM)</content > UNK 0 Above high <content [facility] normal styleCode="Bold Hannah ">Nucleated Red Medical Blood Cell Center </content>0.2 /100 H<content styleCode="Ital ics"> (0 /100)</content> ID Date Data Source GFR(Creatinine).[id number] 05/12/2018 07:40:00 PM EST [facility] 0-0500 Name Value Range Interpretation Code Description Data Alysia rce(s) Supporting Document(s ) UNK <content [facility] styleCode="Bold"> Medical Cent er EGFR </content>Test not performed. GFR (Reference Range: not available)
ID Date Data Source Coagulation 05/12/2018 07:40:00 PM [facility] ical Center Rout.[id number] EST Name Value Range Interpretation Description Data Sup porting Code Source(s) Document(s ) INR in 0.80-1.2 <content [facility] Platelet poor 0 styleCode="Bold" Hannah plasma by >INR Medical Coagulation </content>0.92 Center assay #<content styleCode="Itali cs"> (0.80-1.20 #)</content> UNK 9.0-13.0 <content [facility] styleCode="Bold" Hannah >Protime Medical </content>10.4 Center SEC<content styleCode="Itali cs"> (9.0-13.0 SEC)</content> aPTT in 25.1-36. <content [facility] Platelet poor 5 styleCode="Bold" Hannah plasma by >Partial Medical Coagulation Thromboplastin Center assay Time </content>28.6 SEC<content styleCode="Itali cs"> (25.1-36.5 SEC)</content> ID Date Data Source BloodBank.[id number] 05/12/2018 07:40:00 PM EST [facility] Name Value Range Interpretation Code Description Data Alysia rce(s) Supporting Document(s ) UNK <content [facility] styleCode="Bold" Medical Cente r >Blood Type </content>GROUP B (Reference Range: not available)
UNK NEGATIVE <content [facility] styleCode="Bold" Medical Cente r >Antibody Screen </content>NEGATI VE <content styleCode="Itali cs"> (NEGATIVE )</content> UNK <content [facility] styleCode="Bold" Medical Cente r >RH Type </content>POSITI VE (Reference Range: not available)
ID Date Data Source [facility].[id number] 05/12/2018 07:40:00 PM EST [facility] Name Value Range Interpretation Description Data Sup porting Code Source(s) Document(s ) Sodium <content [facility] [Moles/volume] in styleCode="Bold"> Asaf phs Serum or Plasma Sodium Medical </content>Test Center not performed. MEQ/L (Reference Range: not available)
Chloride <content [facility] [Moles/volume] in styleCode="Bold"> Asaf phs Serum or Plasma Chloride Medical </content>Test Center not performed. MEQ/L (Reference Range: not available)
Carbon dioxide, <content [facility] total styleCode="Bold"> Hannah [Moles/volume] in Carbon Dioxide Medical Serum or Plasma </content>Test Center not performed. MEQ/L (Reference Range: not available)
Potassium <content [facility] [Moles/volume] in styleCode="Bold"> Asaf phs Serum or Plasma Potassium Medical </content>Test Center not performed. MEQ/L (Reference Range: not available)
Creatinine <content [facility] [Mass/volume] in styleCode="Bold"> Abdirahman hs Serum or Plasma Creatinine Medical </content>Test Center not performed. MG/DL (Reference Range: not available)
UNK <content [facility] styleCode="Bold"> Hannah BUN Medical </content>Test Center not performed. MG/DL (Reference Range: not available)
Aspartate <content [facility] aminotransferase styleCode="Bold"> Abdirahman hs [Enzymatic Aspartate Medical activity/volume] Aminotransferase Center in Serum or Plasma (AST) </content>Test not performed. IU/L (Reference Range: not available)
Glucose <content [facility] [Mass/volume] in styleCode="Bold"> Abdirahman hs Serum or Plasma Glucose Medical </content>Test Center not performed. MG/DL (Reference Range: not available)
Calcium <content [facility] [Mass/volume] in styleCode="Bold"> Abdirahman hs Serum or Plasma Calcium Medical </content>Test Center not performed. MG/DL (Reference Range: not available)
UNK <content [facility] styleCode="Bold"> [facility] EGFR Medical </content>Test Center not performed. GFR (Reference Range: not available)
Alkaline <content [facility] phosphatase styleCode="Bold"> [facility] [Enzymatic Alkaline Medical activity/volume] Phosphatase (ALP) Cente r in Serum or Plasma </content>Test not performed. IU/L (Reference Range: not available)
Albumin <content [facility] [Mass/volume] in styleCode="Bold"> Abdirahman hs Serum or Plasma Albumin Medical </content>Test Center not performed. G/DL (Reference Range: not available)
Bilirubin.total <content [facility] [Mass/volume] in styleCode="Bold"> Abdirahman hs Serum or Plasma Bilirubin Total Medical </content>Test Center not performed. MG/DL (Reference Range: not available)
Alanine <content [facility] aminotransferase styleCode="Bold"> Abdirahman hs [Enzymatic Alanine Medical activity/volume] Aminotransferase Center in Serum or Plasma (ALT) </content>Test not performed. IU/L (Reference Range: not available)
ID Date Data Source CHMROUTINECCDA.[id number] 05/09/2018 12:34:00 PM EST [facility] -0500 Name Value Range Interpretation Code Description Data Alysia rce(s) Supporting Document(s ) UNK 4.2-5.8 Above high normal <content [facility] styleCode="Bold" Medical Cente r >Hemoglobin A1C </content>8.8 % H<content styleCode="Itali cs"> (4.2-5.8 %)</content> ID Date Data Source Liver 01/25/2018 02:07:00 PM EDT [facility] Profile.[id number] Name Value Range Interpretation Description Data Sup porting Code Source(s) Document(s ) Alanine 7-30 Above high <content [facility] aminotransferase normal styleCode="Bold"> Abdirahman hs [Enzymatic Alanine Medical activity/volume] Aminotransferase Center in Serum or Plasma (ALT) </content>34 IU/L H<content styleCode="Italic s"> (7-30 IU/L)</content> Aspartate 14-36 <content [facility] aminotransferase styleCode="Bold"> Abdirahman hs [Enzymatic Aspartate Medical activity/volume] Aminotransferase Center in Serum or Plasma (AST) </content>35 IU/L<content styleCode="Italic s"> (14-36 IU/L)</content> Bilirubin.total 0.2-1.3 <content [facility] [Mass/volume] in styleCode="Bold"> Abdirahman hs Serum or Plasma Bilirubin Total Medical </content>0.3 Center MG/DL<content styleCode="Italic s"> (0.2-1.3 MG/DL)</content> Alkaline 38-126 <content [facility] phosphatase styleCode="Bold"> Hannah [Enzymatic Alkaline Medical activity/volume] Phosphatase (ALP) Cente r in Serum or Plasma </content>105 IU/L<content styleCode="Italic s"> (38-126 IU/L)</content> Albumin 3.5-5.0 <content [facility] [Mass/volume] in styleCode="Bold"> Abdirahman hs Serum or Plasma Albumin Medical </content>4.0 Center G/DL<content styleCode="Italic s"> (3.5-5.0 G/DL)</content> ID Date Data Source GFR(Creatinine).[id number] 01/25/2018 02:07:00 PM EDT [facility] Name Value Range Interpretation Code Description Data Alysia rce(s) Supporting Document(s ) UNK > 60 <content [facility] styleCode="Bold"> Medical Cent er EGFR </content>107 GFR<content styleCode="Italic s"> (> 60 GFR)</content> ID Date Data Source ChemistrySpecia.[id number] 01/25/2018 02:07:00 PM EDT [facility] 0-0400 Name Value Range Interpretation Description Data Sup porting Code Source(s) Document(s ) Cobalamin 239-931 <content [facility] (Vitamin B12) styleCode="[facility] Hannah [Mass/volume] d">Vitamin B12 Medical in Serum or </content>774 Center Plasma PG/ML<content styleCode="Genia lics"> (239-931 PG/ML)</conten t> ID Date Data Source BELEN.[id number] 01/25/2018 02:07:00 PM EDT [facility] -0400 Name Value Range Interpretation Description Data Sup porting Code Source(s) Document(s ) UNK 2.3-3.5 <content [facility] styleCode="[facility] d">Globulin Medical </content>3.2 Center G/DL<content styleCode="Genia lics"> (2.3-3.5 G/DL)</content > UNK >= 1.0 <content [facility] styleCode="[facility] d">AG Ratio Medical </content>1.2 Center NM<content styleCode="Genia lics"> (>= 1.0 NM)</content> UNK 4.2-5.8 Above high normal <content [facility] styleCode="[facility] d">Hemoglobin Medical A1C Center </content>9.7 % H<content styleCode="Genia lics"> (4.2-5.8 %)</content> Protein 6.3-8.2 <content [facility] [Mass/volume] styleCode="[facility] Hannah in Serum or d">Total Medical Plasma Protein Center </content>7.2 G/DL<content styleCode="Genia lics"> (6.3-8.2 G/DL)</content > Magnesium 1.6-2.3 <content [facility] [Mass/volume] styleCode="[facility] Hannah in Serum or d">Magnesium Medical Plasma </content>2.1 Center MG/DL<content styleCode="Genia lics"> (1.6-2.3 MG/DL)</conten t> ID Date Data Source [facility].[id number] 01/25/2018 02:07:00 PM EDT [facility] Name Value Range Interpretation Description Data Sup porting Code Source(s) Document(s ) Chloride 98-107 <content [facility] [Moles/volume] in styleCode="Bold"> Asaf phs Serum or Plasma Chloride Medical </content>101 Center MEQ/L<content styleCode="Italic s"> (98-107 MEQ/L)</content> Sodium 137-145 <content [facility] [Moles/volume] in styleCode="Bold"> Asaf phs Serum or Plasma Sodium Medical </content>140 Center MEQ/L<content styleCode="Italic s"> (137-145 MEQ/L)</content> Carbon dioxide, 22-30 <content [facility] total styleCode="Bold"> Hannah [Moles/volume] in Carbon Dioxide Medical Serum or Plasma </content>27 Center MEQ/L<content styleCode="Italic s"> (22-30 MEQ/L)</content> Potassium 3.5-5.3 <content [facility] [Moles/volume] in styleCode="Bold"> Asaf phs Serum or Plasma Potassium Medical </content>4.2 Center MEQ/L<content styleCode="Italic s"> (3.5-5.3 MEQ/L)</content> Calcium 8.4-10. <content [facility] [Mass/volume] in 2 styleCode="Bold"> Abdirahman hs Serum or Plasma Calcium Medical </content>9.7 Center MG/DL<content styleCode="Italic s"> (8.4-10.2 MG/DL)</content> UNK > 60 <content [facility] styleCode="Bold"> Hannah EGFR Medical </content>107 Center GFR<content styleCode="Italic s"> (> 60 GFR)</content> Creatinine 0.5-1.3 <content [facility] [Mass/volume] in styleCode="Bold"> Abdirahman hs Serum or Plasma Creatinine Medical </content>0.6 Center MG/DL<content styleCode="Italic s"> (0.5-1.3 MG/DL)</content> Glucose 74-106 Above high <content [facility] [Mass/volume] in normal styleCode="Bold"> Abdirahman hs Serum or Plasma Glucose Medical </content>167 Center MG/DL H<content styleCode="Italic s"> (74-106 MG/DL)</content> UNK 7-17 <content [facility] styleCode="Bold"> Hannah BUN </content>13 Medical MG/DL<content Center styleCode="Italic s"> (7-17 MG/DL)</content> Bilirubin.total 0.2-1.3 <content [facility] [Mass/volume] in styleCode="Bold"> Abdirahman hs Serum or Plasma Bilirubin Total Medical </content>0.3 Center MG/DL<content styleCode="Italic s"> (0.2-1.3 MG/DL)</content> Alanine 7-30 Above high <content [facility] aminotransferase normal styleCode="Bold"> Abdirahman hs [Enzymatic Alanine Medical activity/volume] Aminotransferase Center in Serum or Plasma (ALT) </content>34 IU/L H<content styleCode="Italic s"> (7-30 IU/L)</content> Alkaline 38-126 <content [facility] phosphatase styleCode="Bold"> Hannah [Enzymatic Alkaline Medical activity/volume] Phosphatase (ALP) Cente r in Serum or Plasma </content>105 IU/L<content styleCode="Italic s"> (38-126 IU/L)</content> Albumin 3.5-5.0 <content [facility] [Mass/volume] in styleCode="Bold"> Abdirahman hs Serum or Plasma Albumin Medical </content>4.0 Center G/DL<content styleCode="Italic s"> (3.5-5.0 G/DL)</content> Aspartate 14-36 <content [facility] aminotransferase styleCode="Bold"> Abdirahman hs [Enzymatic Aspartate Medical activity/volume] Aminotransferase Center in Serum or Plasma (AST) </content>35 IU/L<content styleCode="Italic s"> (14-36 IU/L)</content> ID Date Data Source Liver 10/04/2017 12:35:00 PM EDT [facility] Profile.[id number] Name Value Range Interpretation Description Data Sup porting Code Source(s) Document(s ) Alkaline 38-126 <content [facility] phosphatase styleCode="Bold"> Hannah [Enzymatic Alkaline Medical activity/volume] Phosphatase (ALP) Cente r in Serum or Plasma </content>101 IU/L<content styleCode="Italic s"> (38-126 IU/L)</content> Aspartate 14-36 <content [facility] aminotransferase styleCode="Bold"> Abdirahman hs [Enzymatic Aspartate Medical activity/volume] Aminotransferase Center in Serum or Plasma (AST) </content>30 IU/L<content styleCode="Italic s"> (14-36 IU/L)</content> Alanine 7-30 Above high <content [facility] aminotransferase normal styleCode="Bold"> Abdirahman hs [Enzymatic Alanine Medical activity/volume] Aminotransferase Center in Serum or Plasma (ALT) </content>32 IU/L H<content styleCode="Italic s"> (7-30 IU/L)</content> Bilirubin.total 0.2-1.3 <content [facility] [Mass/volume] in styleCode="Bold"> Abdirahman hs Serum or Plasma Bilirubin Total Medical </content>0.6 Center MG/DL<content styleCode="Italic s"> (0.2-1.3 MG/DL)</content> Albumin 3.5-5.0 <content [facility] [Mass/volume] in styleCode="Bold"> Abdirahman hs Serum or Plasma Albumin Medical </content>3.9 Center G/DL<content styleCode="Italic s"> (3.5-5.0 G/DL)</content> ID Date Data Source LIPID.[id number] 10/04/2017 12:35:00 PM EDT [facility] Name Value Range Interpretation Description Data Sup porting Code Source(s) Document(s ) Cholesterol -<200 <content [facility] [Mass/volume] in styleCode="[facility] Hannah Serum or Plasma d">Cholesterol Medical </content>185 Center MG/DL<content styleCode="Genia lics"> (-<200 MG/DL)</conten t> Triglyceride < 150 Above high normal <content [facility] [Mass/volume] in styleCode="[facility] Serum or Plasma d">Triglycerid [facility] Center </content>243 MG/DL H<content styleCode="Genia lics"> (< 150 MG/DL)</conten t> UNK > 60 Below low normal <content Saint styleCode="[facility] d">HDL- Medical Cholesterol Center </content>53 MG/DL L<content styleCode="Genia lics"> (> 60 MG/DL)</conten t> UNK < 100 <content [facility] styleCode="[facility] Jos d">LDL-[facility] henri Center </content>83 MG/DL<content styleCode="Genia lics"> (< 100 MG/DL)</conten t> ID Date Data Source HematologyRou.[id number] 10/04/2017 12:35:00 PM EDT [facility] 0400 Name Value Range Interpretation Description Data Sup porting Code Source(s) Document(s ) Hemoglobin 12.3-16. <content [facility] [Mass/volume] in 0 styleCode="Bold Hannah Blood ">Hemoglobin Medical </content>12.4 Center G/DL<content styleCode="Ital ics"> (12.3-16.0 G/DL)</content> Erythrocytes 4.0-5.1 Below low normal <content [facility] [#/volume] in styleCode="Bold Hannah Blood by ">Red Blood Medical Automated count Cell Count Center </content>3.98 MCUMM L<content styleCode="Ital ics"> (4.0-5.1 MCUMM)</content > Leukocytes 4.4-11.0 Above high <content [facility] [#/volume] in normal styleCode="Bold Hannah Blood by ">White Blood Medical Automated count Cell Count Center </content>11.54 KCUMM H<content styleCode="Ital ics"> (4.4-11.0 KCUMM)</content > Erythrocyte mean 26.0-34. <content [facility] corpuscular 0 styleCode="Bold Hannah hemoglobin ">Mean Medical [Entitic mass] Corposcular Center by Automated Hemoglobin count </content>31.2 PG<content styleCode="Ital ics"> (26.0-34.0 PG)</content> Erythrocyte 11.5-14. Above high <content [facility] distribution 5 normal styleCode="Bold Hannah width [Ratio] by ">Red Cell Medical Automated count Distribution Center Width </content>15.8 % H<content styleCode="Ital ics"> (11.5-14.5 %)</content> Hematocrit 36.0-46. <content [facility] [Volume 0 styleCode="Bold Hannah Fraction] of ">Hematocrit Medical Blood by </content>38.0 Center Automated count %<content styleCode="Ital ics"> (36.0-46.0 %)</content> Erythrocyte mean 80.0-100 <content [facility] corpuscular .0 styleCode="Bold Hannah volume [Entitic ">Mean Medical volume] by Corpuscular Center Automated count Volume </content>95.5 FL<content styleCode="Ital ics"> (80.0-100.0 FL)</content> Erythrocyte mean 32.0-37. <content [facility] corpuscular 0 styleCode="Bold Hannah hemoglobin ">Mean Corpus. Medical concentration Hgb Center [Mass/volume] by Concentration Automated count (MCHC) </content>32.6 G/DL<content styleCode="Ital ics"> (32.0-37.0 G/DL)</content> UNK 1.6-7.3 Above high <content [facility] normal styleCode="Bold Hannah ">Neutrophil Medical Count Center </content>9.38 KCUMM H<content styleCode="Ital ics"> (1.6-7.3 KCUMM)</content > Platelets 130-400 <content [facility] [#/volume] in styleCode="Bold Hannah Blood by ">Platelet Medical Automated count Count Center </content>241 KCUMM<content styleCode="Ital ics"> (130-400 KCUMM)</content > Platelet mean 8.0-11.0 <content [facility] volume [Entitic styleCode="Bold Hannah volume] in Blood ">Mean Platelet Medical by Automated Volume Center count </content>11.0 FL<content styleCode="Ital ics"> (8.0-11.0 FL)</content> Neutrophils 36-66 Above high <content [facility] [#/volume] in normal styleCode="Bold Hannah Blood by ">Neutrophil Medical Automated count </content>81.3 Center % H<content styleCode="Ital ics"> (36-66 %)</content> Lymphocytes 24.0-44. Below low normal <content [facility] [#/volume] in 0 styleCode="Bold Hannah Blood by ">Lymphocyte Medical Automated count </content>9.8 % Center L<content styleCode="Ital ics"> (24.0-44.0 %)</content> UNK 0.2-0.9 <content [facility] styleCode="Bold Hannah ">Monocyte Medical Count Center </content>0.53 KCUMM<content styleCode="Ital ics"> (0.2-0.9 KCUMM)</content > UNK 1.0-4.8 <content [facility] styleCode="Bold Hannah ">Lymphocyte Medical Count Center </content>1.13 KCUMM<content styleCode="Ital ics"> (1.0-4.8 KCUMM)</content > Monocytes 3.0-10.0 <content [facility] [#/volume] in styleCode="Bold Hannah Blood by ">Monocyte Medical Automated count </content>4.6 Center %<content styleCode="Ital ics"> (3.0-10.0 %)</content> Eosinophils 0-5.0 <content [facility] [#/volume] in styleCode="Bold Hannah Blood by ">Eosinophil Medical Automated count </content>3.4 Center %<content styleCode="Ital ics"> (0-5.0 %)</content> UNK 0.0-0.6 <content [facility] styleCode="Bold Hannah ">Eosinophil Medical Count Center </content>0.39 KCUMM<content styleCode="Ital ics"> (0.0-0.6 KCUMM)</content > UNK 0.0-0.3 <content [facility] styleCode="Bold Hannah ">Basophil Medical Count Center </content>0.06 KCUMM<content styleCode="Ital ics"> (0.0-0.3 KCUMM)</content > Basophils 0.0-1.0 <content [facility] [#/volume] in styleCode="Bold Hannah Blood by ">Basophil Medical Automated count </content>0.5 Center %<content styleCode="Ital ics"> (0.0-1.0 %)</content> UNK < 1 <content [facility] styleCode="Bold Hannah ">Immature Medical Granulocyte Center Ratio </content>0.4 %<content styleCode="Ital ics"> (< 1 %)</content> UNK 0 <content [facility] styleCode="[facility]old Hannah ">Nucleated Red Medical Blood Cell Center </content>0.0 /100<content styleCode="Ital ics"> (0 /100)</content> UNK 0.0 <content [facility] styleCode="Bold Hannah ">Nucleated Red Medical Blood Cell Center Count </content>0.00 KCUMM<content styleCode="Ital ics"> (0.0 KCUMM)</content > UNK 0-0.1 <content [facility] styleCode="Bold Hannah ">Immature Medical Granulocyte Center Count </content>0.05 KCUMM<content styleCode="Ital ics"> (0-0.1 KCUMM)</content > ID Date Data Source GFR(Creatinine).[id number] 10/04/2017 12:35:00 PM EDT [facility] 0-0400 Name Value Range Interpretation Code Description Data Alysia rce(s) Supporting Document(s ) UNK > 60 <content [facility] styleCode="Bold"> Medical Cent er EGFR </content>89 GFR<content styleCode="Italic s"> (> 60 GFR)</content> ID Date Data Source CHMROUTINECCDA.[id number] 10/04/2017 12:35:00 PM EDT [facility] -0400 Name Value Range Interpretation Description Data Sup porting Code Source(s) Document(s ) UNK 2.3-3.5 <content [facility] styleCode="Bold Medical ">Globulin Center </content>3.5 G/DL<content styleCode="Ital ics"> (2.3-3.5 G/DL)</content> UNK >= 1.0 <content [facility] styleCode="Bold Medical ">AG Ratio Center </content>1.1 NM<content styleCode="Ital ics"> (>= 1.0 NM)</content> Protein 6.3-8.2 <content [facility] [Mass/volum styleCode="Bold Medical e] in Serum ">Total Protein Center or Plasma </content>7.4 G/DL<content styleCode="Ital ics"> (6.3-8.2 G/DL)</content> UNK 4.2-5.8 Above high normal <content [facility] styleCode="Bold Medical ">Hemoglobin Center A1C </content>7.3 % H<content styleCode="Ital ics"> (4.2-5.8 %)</content> ID Date Data Source [facility].[id number] 10/04/2017 12:35:[address] [facility] Name Value Range Interpretation Description Data Sup porting Code Source(s) Document(s ) Sodium 137-145 <content [facility] [Moles/volume] in styleCode="Bold"> [facility] Serum or Plasma Sodium Medical </content>139 Center MEQ/L<content styleCode="Italic s"> (137-145 MEQ/L)</content> Potassium 3.5-5.3 <content [facility] [Moles/volume] in styleCode="Bold"> Asaf phs Serum or Plasma Potassium Medical </content>4.2 Center MEQ/L<content styleCode="Italic s"> (3.5-5.3 MEQ/L)</content> Carbon dioxide, 22-30 <content [facility] total styleCode="Bold"> Hannah [Moles/volume] in Carbon Dioxide Medical Serum or Plasma </content>24 Center MEQ/L<content styleCode="Italic s"> (22-30 MEQ/L)</content> Chloride 98-107 <content [facility] [Moles/volume] in styleCode="Bold"> Asaf phs Serum or Plasma Chloride Medical </content>103 Center MEQ/L<content styleCode="Italic s"> (98-107 MEQ/L)</content> Glucose 74-106 Above high <content [facility] [Mass/volume] in normal styleCode="Bold"> Abdirahman hs Serum or Plasma Glucose Medical </content>192 Center MG/DL H<content styleCode="Italic s"> (74-106 MG/DL)</content> UNK 7-17 <content [facility] styleCode="Bold"> Hannah BUN </content>12 Medical MG/DL<content Center styleCode="Italic s"> (7-17 MG/DL)</content> Creatinine 0.5-1.3 <content [facility] [Mass/volume] in styleCode="Bold"> Abdirahman hs Serum or Plasma Creatinine Medical </content>0.7 Center MG/DL<content styleCode="Italic s"> (0.5-1.3 MG/DL)</content> Aspartate 14-36 <content [facility] aminotransferase styleCode="Bold"> Abdirahman hs [Enzymatic Aspartate Medical activity/volume] Aminotransferase Center in Serum or Plasma (AST) </content>30 IU/L<content styleCode="Italic s"> (14-36 IU/L)</content> Alanine 7-30 Above high <content [facility] aminotransferase normal styleCode="Bold"> Abdirahman hs [Enzymatic Alanine Medical activity/volume] Aminotransferase Center in Serum or Plasma (ALT) </content>32 IU/L H<content styleCode="Italic s"> (7-30 IU/L)</content> Calcium 8.4-10. <content [facility] [Mass/volume] in 2 styleCode="Bold"> Abdirahman hs Serum or Plasma Calcium Medical </content>9.3 Center MG/DL<content styleCode="Italic s"> (8.4-10.2 MG/DL)</content> UNK > 60 <content [facility] styleCode="Bold"> Hannah EGFR </content>89 Medical GFR<content Center styleCode="Italic s"> (> 60 GFR)</content> Alkaline 38-126 <content [facility] phosphatase styleCode="Bold"> Hannah [Enzymatic Alkaline Medical activity/volume] Phosphatase (ALP) Cente r in Serum or Plasma </content>101 IU/L<content styleCode="Italic s"> (38-126 IU/L)</content> Albumin 3.5-5.0 <content [facility] [Mass/volume] in styleCode="Bold"> Abdirahman hs Serum or Plasma Albumin Medical </content>3.9 Center G/DL<content styleCode="Italic s"> (3.5-5.0 G/DL)</content> Bilirubin.total 0.2-1.3 <content [facility] [Mass/volume] in styleCode="Bold"> Abdirahman hs Serum or Plasma Bilirubin Total Medical </content>0.6 Center MG/DL<content styleCode="Italic s"> (0.2-1.3 MG/DL)</content> Procedure Social History Code Duration Value Status Description Data Source(s ) Caffeine Use 11/12/2019 completed NEXTGEN (Anthony nt Details 12:00:00 AM EDT [facility]) Smoking 11/12/2019 Unknown if completed Unknown if ever NEXTGEN ( [facility] 12:00:00 AM EDT ever smoked smoked [facility]) Smoking 06/29/2018 Denies Ever completed Denies Ever [place] 01:25:00 PM EDT Smoked Smoked [facility] enter Smoking 06/29/2018 Denies Ever completed Denies Ever [place] 12:57:00 PM EDT Smoked Smoked Medical C enter Smoking 06/29/2018 Denies Ever completed Denies Ever [place] 12:06:00 PM EDT Smoked Smoked Medical C enter Smoking 05/12/2018 Denies Ever completed Denies Ever [place] 05:42:00 PM EST Smoked Smoked Medical C enter Smoking 05/12/2018 Denies Ever completed Denies Ever [place] 05:38:00 PM EST Smoked Smoked Medical C enter Smoking 05/12/2018 Denies Ever completed Denies Ever [place] 03:39:00 PM EST Smoked Smoked Medical C enter 02/22/2018 Current completed Current NEXTGEN ([facility] 12:00:00 AM EST non-smoker non-smoker [facility]) Smoking 09/28/2017 Never Smoker completed Never Smoker eCW3 ([place] 12:00:00 AM [facility]) Smoking 09/28/2017 Never Smoker completed Never Smoker eCW3 ([place] 12:00:00 AM [facility]) Smoking 09/28/2017 Never Smoker completed Never Smoker eCW3 ([place] [facility] 12:00:00 AM [facility]) Smoking 09/28/2017 Never Smoker completed Never Smoker eCW3 ([place] [facility] 12:00:00 AM [facility]) Smoking 09/28/2017 Never Smoker completed Never Smoker eCW3 ([place] [facility] 12:00:00 AM [facility]) Smoking 09/28/2017 Never Smoker completed Never Smoker eCW3 ([place] [facility] 12:00:00 AM [facility]) Smoking 09/28/2017 Never Smoker completed Never Smoker eCW3 ([place] [facility] 12:00:00 AM [facility]) Smoking 09/28/2017 Never Smoker completed Never Smoker eCW3 ([place] [facility] 12:00:00 AM [facility]) Smoking 09/28/2017 Never Smoker completed Never Smoker eCW3 ([place] [facility] 12:00:00 AM [facility]) Never Smoker completed Never Smoker eCW3 ([facility]) Never Smoker completed Never Smoker eCW3 ([facility]) Alcohol Use completed NEXTGEN ([facility]) Never Smoker completed Never Smoker eCW3 ([facility]) Never Smoker completed Never Smoker eCW3 ([facility]) Never Smoker completed Never Smoker eCW3 ([facility] on [facility]) Smoking Unknown if completed Unknown if ever [facility] ever smoked [facility] Never Smoker completed Never Smoker eCW3 ([facility]) Never Smoker completed Never Smoker eCW3 ([facility]) Never Smoker completed Never Smoker eCW3 ([facility]) Smoking Unknown if completed Unknown if ever eCW2 ([facility] son ever smoked smoked [facility]) Never Smoker completed Never Smoker eCW3 ([facility]) Smoking Unknown if completed Unknown if ever eCW2 ([facility] ever smoked smoked [facility]) Vital Signs ID Date Data Source UNK Name Value Range Interpretation Code Description Data Source(s) Respiratory rate 18 /min 18 /min [facility] Oxygen saturation 96 % 96 % [facility] by Pulse oximetry Heart rate 100 /min 100 /min [facility] Diastolic blood 59 mm[Hg] 59 mm[Hg] [facility] Systolic blood 121 mm[Hg] 121 mm[Hg] [facility] Body temperature 36.175115 [id number] Sylvia [facility] Body temperature 37.785467 [id number] Sylvia [facility] Respiratory rate 18 /min 18 /min [facility] Oxygen saturation 97 % 97 % [facility] by Pulse oximetry Heart rate 90 /min 90 /min [facility] Diastolic blood 79 mm[Hg] 79 mm[Hg] [facility] Systolic blood 137 mm[Hg] 137 mm[Hg] [facility] Body temperature 36.226837 [id number] Sylvia [facility] Respiratory rate 19 /min 19 /min [facility] Oxygen saturation 97 % 97 % [facility] by Pulse oximetry Heart rate 99 /min 99 /min [facility] Diastolic blood 78 mm[Hg] 78 mm[Hg] [facility] Systolic blood 146 mm[Hg] 146 mm[Hg] [facility] Oxygen saturation 96 % 96 % [facility] ([facility] in Arterial [facility] by Pulse oximetry Center) Body mass index 28.19 kg/m2 Overweight 28.19 kg/m2 NEXTGEN ([facility] (BMI) [Ratio] [facility]) Respiratory rate 20 /min 20 /min [facility] ([facility]) Body temperature 36.33 Sylvia 36.33 Sylvia [facility] ([facility]) Heart rate 100 /min 100 /min [facility] ([facility]) Diastolic blood 89 mm[Hg] 89 mm[Hg] NEXTGEN ( [facility] pressure [facility]) Systolic blood 138 mm[Hg] 138 mm[Hg] NEXTGEN ([facility] Body weight 67.676 kg 67.676 kg NEXTGEN ([facility] t [facility]) Body height 154.94 cm 154.94 cm [facility] ([facility]) Body temperature 36.008619 [id number] [facility] Respiratory rate 18 /min 18 /min [facility] Oxygen saturation 97 % 97 % [facility] Arterial blood [facility] by Pulse oximetry Heart rate 89 /min 89 /min [facility] Diastolic blood 93 mm[Hg] 93 mm[Hg] [facility] [place] Systolic blood 160 mm[Hg] 160 mm[Hg] [facility] Body temperature 36.752959 36.609324 [facility] Respiratory rate 18 /min 18 /min [facility] Oxygen saturation 96 % 96 % [facility] blood [facility] by Pulse oximetry Heart rate 88 /min 88 /min [facility] Diastolic blood 91 mm[Hg] 91 mm[Hg] [facility] pressure [facility] [place] Systolic blood 170 mm[Hg] 170 mm[Hg] [facility] Body temperature 36.795536 [id number] [facility] Respiratory rate 18 /min 18 /min [facility] Oxygen saturation 98 % 98 % [facility] blood [facility] by Pulse oximetry Heart rate 90 /min 90 /min [facility] Diastolic blood 87 mm[Hg] 87 mm[Hg] [facility] Systolic blood 146 mm[Hg] 146 mm[Hg] [facility] [place] Diastolic blood 100 mm[Hg] 100 mm[Hg] [facility] ( [facility] pressure [facility]) Systolic blood 167 mm[Hg] 167 mm[Hg] NEXTGEN (S aint pressure [facility]) Heart rate 93 /min 93 /min NEXTGEN ([place] [facility]) Diastolic blood 95 mm[Hg] 95 mm[Hg] NEXTGEN ( [facility] pressure [facility]) Systolic blood 170 mm[Hg] 170 mm[Hg] NEXTGEN (S [facility] pressure [facility]) Body weight 67.948 kg 67.948 kg NEXTGEN ([facility]) Body height 154.94 cm 154.94 cm [facility]) Oxygen saturation 96 % 96 % NEXTGEN ([facility] in Arterial blood [facility] by Pulse oximetry Center) Body mass index 28.30 kg/m2 Overweight 28.30 kg/m2 NEXTGEN ([facility] (BMI) [Ratio] [facility]) Respiratory rate 24 /min 24 /min NEXTGEN ([facility]) Body temperature 36.83 Sylvia 36.83 Sylvia [facility]) Oxygen saturation 98 % 98 % NEXTGEN ([facility] in Arterial blood [facility] by Pulse oximetry Center) Body mass index 28.15 kg/m2 Overweight 28.15 kg/m2 NEXTGEN ([facility] (BMI) [Ratio] [facility]) Respiratory rate 20 /min 20 /min NEXTGEN ([facility]) Body temperature 36.89 Sylvia 36.89 Sylvia [facility]) Heart rate 120 /min 120 /min NEXTGEN ([facility]) Diastolic blood 90 mm[Hg] 90 mm[Hg] NEXTGEN ( [facility]) Systolic blood 143 mm[Hg] 143 mm[Hg] NEXTGEN (S aint pressure [facility]) Body weight 67.585 kg 67.585 kg NEXTGEN ([facility]) Body height 154.94 cm 154.94 cm [facility]) Oxygen saturation 97 % 97 % NEXTGEN ([facility] in Arterial [facility] by Pulse oximetry Center) Body mass index 28.68 kg/m2 Overweight 28.68 kg/m2 NEXTGEN ([facility] (BMI) [Ratio] [facility]) Body temperature 36.89 Sylvia 36.89 Sylvia [facility]) Heart rate 77 /min 77 /min NEXTGEN ([facility]) Diastolic blood 75 mm[Hg] 75 mm[Hg] NEXTGEN ( [facility]) Systolic blood 141 mm[Hg] 141 mm[Hg] NEXTGEN ([facility]) Body weight 68.855 kg 68.855 kg [facility]) Body height 154.94 cm 154.94 cm [facility] ([facility]) Respiratory rate 18 /min 18 /min NEXTGEN ([facility]) Body temperature 36.56 Sylvia 36.56 Sylvia NEXTGEN ([facility]) Heart rate 79 /min 79 /min [facility]) Diastolic blood 73 mm[Hg] 73 mm[Hg] NEXTGEN ( [facility]) Systolic blood 121 mm[Hg] 121 mm[Hg] NEXTGEN ([facility]) Body height 154.94 cm 154.94 cm [facility] ([facility]) Oxygen saturation 97 % 97 % NEXTGEN ([facility] in Arterial blood [facility] by Pulse oximetry Center) Body mass index 28.49 kg/m2 Overweight 28.49 kg/m2 NEXTGEN ([facility] (BMI) [Ratio] [facility]) Respiratory rate 20 /min 20 /min [facility]) Body temperature 36.61 Sylvia 36.61 Sylvia [facility]) Heart rate 78 /min 78 /min [facility] ([facility]) Diastolic blood 75 mm[Hg] 75 mm[Hg] [facility] ( [facility]) Systolic blood 150 mm[Hg] 150 mm[Hg] [facility] ([facility]) Body weight 68.402 kg 68.402 kg [facility]) Body height 154.94 cm 154.94 cm [facility] ([facility]) Patient Treatment Plan of Care Planned Activity Planned Date Details Description Data Source (s) Rosuvastatin calcium 20 05/09/2018 12:00:00 NEXTGEN ([facility] MG Oral Tablet [facility]) Prednisone 2.5 MG Oral 05/09/2018 12:00:00 [facility] ([facility] Tablet [facility]) Ascorbic Acid 500 MG Oral 05/09/2018 12:00:00 NEXTGEN ([facility] Tablet [facility]) Losartan Potassium 50 MG 05/09/2018 12:00:00 NEXTGEN ([facility] Oral Tablet [facility]) pantoprazole 40 MG 05/09/2018 12:00:00 NE XTGEN ([facility] Delayed Release Oral [facility] Medical Tablet [Protonix] [place]) OneTouch Ultra Blue Test 05/09/2018 12:00:00 NEXTGEN ([facility] Strip [facility]) Vitamin B 12 0.5 MG Oral 05/09/2018 12:00:00 NEXTGEN ([facility] Tablet [facility]) Acetaminophen 500 MG Oral 04/26/2018 12:00:00 NEXTGEN ([facility] Capsule [Mapap] [facility]) gabapentin 100 MG Oral 04/26/2018 12:00:00 NEXTGEN ([facility] Capsule [facility]) Guaifenesin 20 MG/ML Oral 04/26/2018 12:00:00 NEXTGEN ([facility] Solution [facility]) benzonatate 100 MG Oral 04/26/2018 12:00:00 NEXTGEN ([facility] Capsule [Tessalon Perles] [facility]) Folic Acid 1 MG Oral 04/13/2018 12:00:00 NEXTGEN ([facility] Tablet [facility]) Contour Next Test Strips 03/28/2018 12:00:00 NEXTGEN ([facility]) Insulin Glargine 100 03/15/2018 12:00:00 NEXTGEN ([facility] UNT/ML Injectable [facility] Me dical Solution [Lantus] Center) Sulfasalazine 500 MG Oral 03/15/2018 12:00:00 NEXTGEN ([facility] Tablet [facility]) gabapentin 100 MG Oral 03/15/2018 12:00:00 NEXTGEN ([facility] Capsule [facility]) pantoprazole 40 MG 03/15/2018 12:00:00 NE XTGEN ([facility] Delayed Release Oral [facility] [Protonix] [place]) bacitracin zinc 0.5 03/07/2018 12:00:00 N EXTGEN ([facility] UNT/MG Topical Ointment [facility]) Famotidine 20 MG Oral 02/22/2018 12:00:00 NEXTGEN ([facility] Tablet [Pepcid] AM [facility]) Diclofenac Sodium 0.01 02/22/2018 12:00:00 NEXTGEN ([facility] MG/MG Topical Gel [facility]) Terbinafine hydrochloride 02/22/2018 12:00:00 NEXTGEN ([facility] 10 MG/ML Topical Cream [facility]) Metformin hydrochloride 02/22/2018 12:00:00 NEXTGEN ([facility] 1000 MG Oral Tablet [facility]) 3 ML Insulin Glargine 100 02/01/2018 12:00:00 NEXTGEN ([facility] UNT/ML Pen Injector [facility] [Lantus] [place]) Prednisone 20 MG Oral 02/01/2018 12:00:00 NEXTGEN ([facility] Tablet [facility]) Terbinafine hydrochloride 02/01/2018 12:00:00 NEXTGEN ([facility] 10 MG/ML Topical Cream [facility]) Losartan Potassium 25 MG 02/01/2018 12:00:00 NEXTGEN ([facility] Oral Tablet [facility]) Guaifenesin 20 MG/ML Oral 02/01/2018 12:00:00 NEXTGEN ([facility] Solution [facility]) Levofloxacin 500 MG Oral 01/25/2018 12:00:00 NEXTGEN ([facility] Tablet [Levaquin] [facility]) 120 ACTUAT Fluticasone 01/25/2018 12:00:00 NEXTGEN ([facility] propionate 0.11 MG/ACTUAT [facility] Metered Dose Inhaler [place]) [Flovent] BD Insulin Syringe 01/25/2018 12:00:00 NE XTGEN ([facility] Ult-Fine II 1 mL 31 gauge AM [facility] x 08/24" Center) Albuterol 1 MG/ML 01/25/2018 12:00:00 NEX TGEN ([facility] Inhalant Solution [facility]) bacitracin zinc 0.5 01/25/2018 12:00:00 N EXTGEN ([facility] UNT/MG Topical Ointment [facility]) Ascorbic Acid 500 MG Oral 01/25/2018 12:00:00 NEXTGEN ([facility] Tablet [facility]) Contour Next Strips 12/17/2017 12:00:00 N EXTGEN ([facility] AM [facility]) Folic Acid 1 MG Oral 12/17/2017 12:00:00 NEXTGEN ([facility] Tablet [facility]) Metformin hydrochloride 10/11/2017 12:00:00 NEXTGEN ([facility] 500 MG Oral Tablet [facility]) Azithromycin 250 MG Oral [facility] metFORMIN 500 mg [facility] Medical TabletDirections: 1 Center tablet oral twice a day metFORMIN 1,000 mg Tablet [facility] losartan 50 mg Tablet [facility] acetaminophen (Mapap [facility] (acetaminophen)) 500 mg Cent er Capsule benzonatate 100 mg [facility] Capsule [place] gabapentin 100 mg Capsule [facility] rosuvastatin 20 mg Tablet [facility] sulfaSALAzine 500 mg [facility] Tablet [place] pantoprazole 40 mg [facility] tablet,delayed release Cente r (DR/EC) predniSONE 2.5 mg Tablet [facility] Diclofenac Sodium 0.01 [facility] MG/MG Topical Gel [place] Rosuvastatin calcium 20 NEXT GEN (Saint MG Oral Tablet [facility] Medic [facility]) Sulfasalazine 500 MG Oral NE XTGEN ([facility]) pantoprazole 40 MG NEXTGEN ( [facility] Delayed Release Oral [facility] Medical Tablet [Protonix] [place]) gabapentin 100 MG Oral NEXTG EN ([facility])
[2020-01-05] MEDS ORDERED: IBUPROFEN 400 MG TABLET (FP) PO ONE ×2 (11:45→11:46)
--- NOTE | 2020-01-05 11:45 | PDOC ---
History of Present Illness - General Chief Complaint: Back Pain Stated Complaint: BACK PAIN Time Seen by Provider: 01/05/20 11:14 History Source: Patient Exam Limitations: No Limitations - History of Present Illness Initial Comments: 01/05/20 11:40 69-year old female with history of rheumatoid arthritis presents to ED with worsening back pain 3 days which she states has had over the past 2 years, taking Tylenol as needed for discomfort. Patient states took Tylenol last night with no improvement so decided come to the ER for further evaluation. Patient states she went to use the bathroom this morning at around 3 AM and the pain was so severe that she required to use objects in her home to walk. Patient states no lower extremity weakness, incontinence, or saddle anesthesia Is this a multiple visit Asthma Patient?: No Timing/Duration: getting worse Severity: moderate Associated Symptoms: reports: denies symptoms Past History - Travel History Traveled outside of the country in the last 30 days: No Close contact w/someone who was outside of country & ill: No - Medical History Allergies/Adverse Reactions: Allergies Allergy/AdvReac Type Severity Reaction Status Date / Time No Known Allergies Allergy Verified 01/05/20 10:55 Home Medications: Ambulatory Orders metFORMIN HCL [Glucophage -] 500 mg PO BID 03/26/15 Gabapentin 300 mg PO DAILY 08/12/16 Albuterol Sulfate Inhaler - [Ventolin HFA Inhaler -] 1 - 2 inh PO QID PRN 09/17/16 Insulin Glargine,Hum.rec.anlog [Lantus Solostar PEN -] 12 units SQ HS 09/20/16 Pantoprazole Sodium [Protonix -] 40 mg PO DAILY 09/20/16 Insulin Sliding Scale [Novolog Vial Sliding Scale -] See Protocol SQ ACHS #2 vial 02/01/17 Methotrexate [Mexate -] 20 mg PO WEEKLY #0 tab 02/01/17 Naproxen [Naprosyn -] 250 mg PO BID tablet 02/01/17 Tramadol HCl 25 mg PO TIDCM PRN #7 tablet MDD 75 mg 02/01/17 Prednisone 10 mg PO DAILY #30 tab 06/29/17 Azithromycin [Zithromax Tri-Charly (3 DAYS) -] 500 mg PO DAILY #3 tablet 04/14/19 Fluticasone/Vilanterol [Breo Ellipta 200-25 Mcg INH] 1 each IH DAILY 04/14/19 Losartan Potassium 100 mg PO DAILY 04/14/19 Montelukast Na [Singulair -] 10 mg PO HS 04/14/19 Rosuvastatin Calcium 20 mg PO HS 04/14/19 predniSONE [Deltasone -] 40 mg PO DAILY 5 Days #5 tablet 04/14/19 Asthma: Yes COPD: No Diabetes: Yes GI Disorders: Yes (Reflux) HTN: Yes Hypercholesterolemia: Yes - Surgical History Orthopedic Surgery: Yes (lt arm x3) - Psycho-Social/Smoking History Patient Lives Alone: Yes Lives with/in: lives alone (with field attendant) Smoking History: Never smoked Have you smoked in the past 12 months: No - Substance Abuse Hx (Audit-C & DAST Scrn) How often the patient has a drink containing alcohol: Never Score: In Men: 4 or > Positive; In Women: 3 or > Positive: 0 Screen Result (Pos requires Nsg. Audit-10AR): Negative Review of Systems - Review of Systems Able to Perform ROS?: Yes Is the patient limited Korean proficient: Yes Constitutional: No: Symptoms Reported Respiratory: No: Symptoms reported Cardiac (ROS): No: Symptoms Reported ABD/GI: No: Symptoms Reported : No: Symptoms Reported Musculoskeletal: Yes: Back Pain Integumentary: No: Symptoms Reported Neurological: No: Symptoms reported Endocrine: No: Symptoms Reported Hematologic/Lymphatic: No: Symptoms Reported *Physical Exam - Vital Signs Last Vital Signs Temp Pulse Resp BP Pulse Ox 98.8 F 89 16 136/73 100 01/05/20 10:56 01/05/20 10:56 01/05/20 10:56 01/05/20 10:56 01/05/20 10:56 - Physical Exam General Appearance: Yes: Nourished, Appropriately Dressed. No: Apparent Distress HEENT: positive: EOMI. negative: Pale Conjunctivae Neck: positive: Supple. negative: Tender, Decreased range of motion Respiratory/Chest: positive: Lungs Clear, Normal Breath Sounds. negative: Respiratory Distress, Accessory Muscle Use Cardiovascular: positive: Regular Rhythm, Regular Rate. negative: Murmur Gastrointestinal/Abdominal: positive: Soft. negative: Tenderness Extremity: positive: Normal Capillary Refill, Normal Inspection, Normal Range of Motion Integumentary: positive: Normal Color, Warm, Moist Neurologic: positive: Motor Strength 5/5 (able to lift legs without difficulty) ED Treatment Course - RADIOLOGY Radiology Studies Ordered: Category Date Time Status SPINE-LUMBAR ONLY [RAD] Stat Radiology 01/05/20 11:37 Ordered Medical Decision Making - Medical Decision Making 01/05/20 12:07 CC: Left lower back pain rating to her left leg worsened with ambulation. Patient with history of RA and history of chronic low back pain. Patient states took Tylenol with no improvement. Patient denies any worsening symptoms except for the pain to her left lower back. Patient states experiences "[id number]" to her left lower extremity and is followed by l tacker along with a neurologist for the above. Patient denies any saddle anesthesia incontinence today, or poor control. Exam: Tenderness at the L4-L5 level left lateral region. Patient also tender over the left sciatica upon exam. Patient able to lift up both legs while in wheelchair. Plan: Motrin along with lumbar x-ray ordered 01/05/20 13:20 Patient given Percocet and states feeling better. Will discharge patient home. X-ray shows no acute pathology. Patient also will be given a Medrol pack. Discharge - Discharge Information Problems reviewed: Yes Clinical Impression/Diagnosis: Low back pain with sciatica Condition: Improved Disposition: HOME - Follow up/Referral Referrals: Grayson Yu [Primary Care Provider] - - Patient Discharge Instructions Patient Printed Discharge Instructions: DI for Back Pain With Sciatica Additional Instructions: Please take Percocet at night and take Tylenol during the day. You may also try taking Motrin if needed. - Post Discharge Activity
== END 2020-01-05 14:32 | disposition home or self-care (01) ==
LOC: JER 10:45 → JERFT 10:45 → JER 14:32
DX: M54.5 Low back pain (principal)
CPT/HCPCS: 72100-TC-FY; 99283-25

== ENCOUNTER 2020-09-07 15:19 | Inpatient (IN) | payer OTHER ==
[2020-09-07 17:14] LABS: BASO % 0.8 % (0-2.0); EOS % 5.9 % (0-4.5); HEMATOCRIT 39.3 % (32.4-45.2); HEMOGLOBIN 13.3 GM/dL (10.7-15.3); LYMPH % 28.2 % (8-40); MCH 31.1 pg (25.7-33.7); MCHC 33.9 g/dl (32.0-36.0); MEAN CELL VOLUME 91.7 fl (80-96); MEAN PLT VOLUME 8.8 fl (7.5-11.1); MONO % 10.6 % (3.8-10.2); NEUT % 54.5 % (42.8-82.8); PLATELET COUNT 171 K/MM3 (134-434); RBC 4.28 M/mm3 (3.60-5.2); WHITE BLOOD COUNT 7.4 K/mm3 (4.0-10.0)
[2020-09-07 17:21] LABS: CHLORIDE 111 mmol/L (98-107); SODIUM 148 mmol/L (136-145)
[2020-09-07 17:24] LABS: ALBUMIN 3.7 g/dl (3.4-5.0); ANION GAP 8 MMOL/L (8-16); BLOOD UREA NITROGEN 8.9 mg/dL (7-18); CO2 29 mmol/L (21-32); GLUCOSE,RANDOM 97 mg/dL (74-106)
[2020-09-07 17:27] LABS: CREATININE 0.5 mg/dL (0.55-1.3); SGOT/AST 191 U/L (15-37); SGPT/ALT 160 U/L (13-61)
[2020-09-07 17:28] LABS: BILIRUBIN,TOTAL 0.5 mg/dL (0.2-1)
[2020-09-07 17:29] LABS: TOT PROT 6.7 g/dl (6.4-8.2)
[2020-09-07 17:30] LABS: ALK PHOS 58 U/L (45-117)
[2020-09-07 19:48] LABS: N-TERMINAL BNP 57.2 pg/ml (5-125)
[2020-09-07] MEDS ORDERED: CEFTRIAXONE 1 GM in DEXTROSE 5%-WATER - 50 ML IVPB ONE (23:58)
[2020-09-07] MEDS ORDERED: AZITHROMYCIN IVPB 500 MG in DEXTROSE 5%-WATER - 250 ML IVPB ONE (23:58)
[2020-09-08] MEDS ORDERED: predniSONE 1 MG TABLET (FP) PO ONE (00:08)
[2020-09-08] MEDS ORDERED: CEFTRIAXONE 1 GM/50 ML BAG ONE (02:05)
[2020-09-08] MEDS ORDERED: AZITHROMYCIN IVPB 500 MG/250 ML BAG IVPB ONE (02:56)
[2020-09-08 04:35] VITALS: BMI 20.3
[2020-09-08 06:53] LABS: BASO % 0.6 % (0-2.0); EOS % 7.1 % (0-4.5); HEMOGLOBIN 13.5 GM/dL (10.7-15.3); LYMPH % 23.8 % (8-40); MCH 31.3 pg (25.7-33.7); MCHC 33.8 g/dl (32.0-36.0); MEAN CELL VOLUME 92.8 fl (80-96); MEAN PLT VOLUME 9.4 fl (7.5-11.1); MONO % 7.2 % (3.8-10.2); NEUT % 61.3 % (42.8-82.8); PLATELET COUNT 167 K/MM3 (134-434); RBC 4.31 M/mm3 (3.60-5.2); RDW 15.8 % (11.6-15.6); WHITE BLOOD COUNT 10.8 K/mm3 (4.0-10.0)
[2020-09-08 07:16] LABS: ALBUMIN 3.8 g/dl (3.4-5.0); CALCIUM 8.9 mg/dL (8.5-10.1)
[2020-09-08 07:17] LABS: BLOOD UREA NITROGEN 11.1 mg/dL (7-18); MAGNESIUM 1.9 mg/dL (1.8-2.4)
[2020-09-08 07:19] LABS: CREATININE 0.5 mg/dL (0.55-1.3); PHOSPHOROUS 3.9 mg/dL (2.5-4.9)
[2020-09-08 07:20] LABS: BILIRUBIN,TOTAL 0.5 mg/dL (0.2-1); TOT PROT 6.8 g/dl (6.4-8.2)
[2020-09-08 07:25] LABS: N-TERMINAL BNP 103.6 pg/ml (5-125)
[2020-09-08] MEDS ORDERED: DEXTROSE 5%-WATER - 50 ML IVPB ONE (09:11)
[2020-09-08] MEDS ORDERED: cefTRIAXone SODIUM 1 GM VIAL ONE (09:11)
[2020-09-08] MEDS ORDERED: PATIENT'S OWN MEDICATION (NON-FORMULARY) (Budesonide/Glycopyr/Formoterol [Breztri Aerosphe IN SCH (10:00)
[2020-09-08] MEDS: LEVOTHYROXINE NA 25 MCG TABLET (FP) PO SCH (10:15)
[2020-09-08] MEDS: ENOXAPARIN NA (PORCINE) 40 MG/0.4 ML DISP.SYRIN SQ SCH (10:15)
[2020-09-08] MEDS: CEFTRIAXONE 1 GM in DEXTROSE 5%-WATER - 50 ML IVPB SCH (10:15)
[2020-09-08] MEDS: PANTOPRAZOLE 40 MG TABLET PO SCH (10:15)
[2020-09-08] MEDS ORDERED: traMADol HCL 50 MG TABLET PO PRN (10:42)
[2020-09-08] MEDS: methylPREDNISolone NA SUCC 40 MG/1 ML VIAL IVPUSH SCH ×2 (10:43→17:22)
[2020-09-08] MEDS: ACETAMINOPHEN 325 MG TABLET (FP) PO PRN ×2 (10:56→18:38)
[2020-09-08] MEDS: GABAPENTIN 300 MG CAPSULE PO SCH ×2 (13:52→21:59)
[2020-09-08] MEDS: ROSUVASTATIN CA 20 MG TABLET (FP) PO SCH (21:58)
[2020-09-09] MEDS: methylPREDNISolone NA SUCC 40 MG/1 ML VIAL IVPUSH SCH ×3 (01:56→19:04)
[2020-09-09] MEDS: LEVOTHYROXINE NA 25 MCG TABLET (FP) PO SCH (06:29)
[2020-09-09] MEDS: GABAPENTIN 300 MG CAPSULE PO SCH ×3 (06:29→22:02)
[2020-09-09] MEDS ORDERED: DEXTROSE 5%-WATER - 50 ML IVPB ONE (08:56)
[2020-09-09] MEDS ORDERED: cefTRIAXone SODIUM 1 GM VIAL ONE (08:56)
[2020-09-09] MEDS: ACETAMINOPHEN 325 MG TABLET (FP) PO PRN (09:19)
[2020-09-09] MEDS: PANTOPRAZOLE 40 MG TABLET PO SCH (09:19)
[2020-09-09] MEDS: ENOXAPARIN NA (PORCINE) 40 MG/0.4 ML DISP.SYRIN SQ SCH (09:20)
[2020-09-09] MEDS: CEFTRIAXONE 1 GM in DEXTROSE 5%-WATER - 50 ML IVPB SCH (09:20)
[2020-09-09] MEDS: ROSUVASTATIN CA 20 MG TABLET (FP) PO SCH (22:02)
[2020-09-10] MEDS: methylPREDNISolone NA SUCC 40 MG/1 ML VIAL IVPUSH SCH ×2 (01:03→10:00)
[2020-09-10] MEDS: LEVOTHYROXINE NA 25 MCG TABLET (FP) PO SCH (06:12)
[2020-09-10] MEDS: GABAPENTIN 300 MG CAPSULE PO SCH ×2 (06:12→13:07)
[2020-09-10] MEDS ORDERED: cefTRIAXone SODIUM 1 GM VIAL ONE (09:03)
[2020-09-10] MEDS ORDERED: DEXTROSE 5%-WATER - 50 ML IVPB ONE (09:03)
[2020-09-10] MEDS: PANTOPRAZOLE 40 MG TABLET PO SCH (10:00)
[2020-09-10] MEDS: ENOXAPARIN NA (PORCINE) 40 MG/0.4 ML DISP.SYRIN SQ SCH (10:00)
[2020-09-10] MEDS: CEFTRIAXONE 1 GM in DEXTROSE 5%-WATER - 50 ML IVPB SCH (10:00)
[2020-09-10 10:29] VITALS: BP 135/74; PULSE 90; TEMP 99.1
== END 2020-09-10 14:04 | disposition home health service (06) | DRG 198 ==
LOC: JER 15:19 → JERBED 22:42 → J4W 09-08 04:14
PROVIDERS: ADMIT Internal Medicine; ATTEND Family Medicine
DX: J84.9 Interstitial pulmonary disease, unspecified (principal); I10 Essential (primary) hypertension; E78.5 Hyperlipidemia, unspecified; E11.9 Type 2 diabetes mellitus without complications; J84.10 Pulmonary fibrosis, unspecified; M06.9 Rheumatoid arthritis, unspecified; E03.9 Hypothyroidism, unspecified; I45.10 Unspecified right bundle-branch block; R94.31 Abnormal electrocardiogram [ECG] [EKG]
CPT/HCPCS: 36415; 71045-TC-FY; 71046-TC-FY; 71275-TC; 76705-TC; 80053; 82962; 83735; 83880; 84100; 84436; 84484; 85025; 87040; 87804; 87899; 93005; 93010; 97116-GP; 97162-GP; 99285-25; C9803; Q9967; U0003; U0005

== ENCOUNTER 2021-04-07 17:30 | Observation (INO) | payer OTHER ==
[2021-04-07 18:16] VITALS: BMI 21.1
[2021-04-07] MEDS ORDERED: ACETAMINOPHEN 1000 MG/100 ML BAG IVPB ONE (18:54)
[2021-04-07 20:08] LABS: BASO % 0.5 % (0-2.0); EOS % 8.4 % (0-4.5); HEMATOCRIT 38.4 % (32.4-45.2); HEMOGLOBIN 12.9 GM/dL (10.7-15.3); LYMPH % 24.9 % (8-40); MCH 32.3 pg (25.7-33.7); MCHC 33.7 g/dl (32.0-36.0); MEAN CELL VOLUME 95.9 fl (80-96); MEAN PLT VOLUME 8.4 fl (7.5-11.1); MONO % 7.2 % (3.8-10.2); PLATELET COUNT 182 10^3/uL (134-434); RBC 4.01 M/mm3 (3.60-5.2); RDW 15.3 % (11.6-15.6); WHITE BLOOD COUNT 10.8 K/mm3 (4.0-10.0)
[2021-04-07 20:27] LABS: CHLORIDE 112 mmol/L (98-107); SODIUM 143 mmol/L (136-145)
[2021-04-07 20:28] LABS: CALCIUM 8.6 mg/dL (8.5-10.1)
[2021-04-07 20:30] LABS: ALBUMIN 3.4 g/dl (3.4-5.0); ANION GAP 5 MMOL/L (8-16); BLOOD UREA NITROGEN 12.8 mg/dL (7-18); CO2 26 mmol/L (21-32); GLUCOSE,RANDOM 69 mg/dL (74-106)
[2021-04-07 20:33] LABS: CREATININE 0.6 mg/dL (0.55-1.3); SGOT/AST 37 U/L (15-37); SGPT/ALT 55 U/L (13-61)
[2021-04-07 20:34] LABS: BILIRUBIN,TOTAL 0.5 mg/dL (0.2-1); TOT PROT 6.2 g/dl (6.4-8.2)
[2021-04-07 20:36] LABS: ALK PHOS 65 U/L (45-117)
[2021-04-07] MEDS ORDERED: AZITHROMYCIN IVPB 500 MG in DEXTROSE 5%-WATER - 250 ML IVPB ONE (20:45)
[2021-04-07] MEDS ORDERED: ACETAMINOPHEN INJECTION 100 ML IVPB ONE (21:26)
[2021-04-07] MEDS ORDERED: CEFTRIAXONE 1 GM/50 ML BAG ONE (21:26)
[2021-04-07] MEDS ORDERED: AZITHROMYCIN IVPB 500 MG/250 ML BAG IVPB ONE (21:27)
[2021-04-07 21:42] LABS: EPI CELLS 8 /uL (0-25.1); HYALINE CASTS 1 /uL (0-3.1); URINE APPEARANCE CLEAR; URINE BACTERIA 18 /uL (0-1359); URINE BILIRUBIN NEGATIVE (NEGATIVE); URINE COLOR YELLOW; URINE GLUCOSE (UA) NEGATIVE (NEGATIVE); URINE KETONE NEGATIVE (NEGATIVE); URINE LEUK ESTERASE TRACE (NEGATIVE); URINE NITRITE NEGATIVE (NEGATIVE); URINE PROTEIN NEGATIVE (NEGATIVE); URINE RBC 4 /uL (0-23.9); URINE UROBILINOGEN 0.2 mg/dL (0.2-1.0); URINE WBC 25 /uL (0-25.8)
[2021-04-07] MEDS ORDERED: ALBUTEROL SO4 0.083% IH SOL 2.5 MG/3 ML VIAL.NEB. NEB PRN (23:15)
[2021-04-07] MEDS ORDERED: POLYETHYLENE GLYCOL (HEALTHYLAX) 3350 17 GM PACKET PO PRN (23:15)
[2021-04-07] MEDS ORDERED: ACETAMINOPHEN 325 MG TABLET (FP) PO PRN (23:15)
[2021-04-07] MEDS ORDERED: traMADol HCL 50 MG TABLET PO PRN (23:24)
[2021-04-08] MEDS ORDERED: GABAPENTIN 100 MG CAPSULE ONE (06:52)
[2021-04-08] MEDS: GABAPENTIN 300 MG CAPSULE PO SCH ×2 (06:53→14:20)
[2021-04-08] MEDS ORDERED: INSULIN SLIDING SCALE (NOVOLOG) 1 VIAL SQ SCH (07:00)
[2021-04-08] MEDS ORDERED: LEVOTHYROXINE NA 25 MCG TABLET (FP) PO SCH (07:00)
[2021-04-08 08:08] LABS: BASO % 0.6 % (0-2.0); EOS % 13.7 % (0-4.5); HEMATOCRIT 37.2 % (32.4-45.2); HEMOGLOBIN 12.6 GM/dL (10.7-15.3); LYMPH % 27.6 % (8-40); MCH 32.5 pg (25.7-33.7); MCHC 33.9 g/dl (32.0-36.0); MEAN CELL VOLUME 95.7 fl (80-96); MONO % 7.5 % (3.8-10.2); NEUT % 50.6 % (42.8-82.8); PLATELET COUNT 183 10^3/uL (134-434); RBC 3.88 M/mm3 (3.60-5.2); RDW 15.6 % (11.6-15.6); WHITE BLOOD COUNT 9.4 K/mm3 (4.0-10.0)
[2021-04-08 08:14] LABS: INR 1.08 (0.83-1.09); PROTHROMBIN TIME (PATIENT) 12.1 SEC (9.7-13.0)
[2021-04-08 08:17] LABS: ACTIVATED PTT 27.5 SECONDS (25.2-36.5)
[2021-04-08 08:25] LABS: CHLORIDE 108 mmol/L (98-107); SODIUM 141 mmol/L (136-145)
[2021-04-08 08:26] LABS: CALCIUM 8.5 mg/dL (8.5-10.1)
[2021-04-08 08:27] LABS: ANION GAP 8 MMOL/L (8-16); BLOOD UREA NITROGEN 14.1 mg/dL (7-18); CO2 25 mmol/L (21-32); GLUCOSE,RANDOM 82 mg/dL (74-106)
[2021-04-08 08:30] LABS: CREATININE 0.8 mg/dL (0.55-1.3)
[2021-04-08] MEDS ORDERED: MULTIVITAMINS (DAILY MVI) TABLET (FP) PO SCH (10:00)
[2021-04-08] MEDS ORDERED: predniSONE 2.5 MG TABLET PO SCH (10:00)
[2021-04-08] MEDS ORDERED: LOSARTAN POTASSIUM 50 MG TABLET PO SCH (10:00)
[2021-04-08] MEDS ORDERED: CALCIUM 500MG/VIT-D 200 UNITS COMBO TABLET (FP) PO SCH (10:00)
[2021-04-08] MEDS ORDERED: EZETIMIBE 10 MG TABLET (FP) PO SCH (10:00)
[2021-04-08] MEDS ORDERED: ENOXAPARIN NA (PORCINE) 40 MG/0.4 ML DISP.SYRIN SQ SCH (10:00)
[2021-04-08] MEDS ORDERED: PANTOPRAZOLE 40 MG TABLET PO SCH (10:00)
[2021-04-08] MEDS ORDERED: MULTIVITAMINS (DAILY MVI) TABLET (FP) ONE (13:56)
[2021-04-08] MEDS ORDERED: PANTOPRAZOLE 40 MG TABLET ONE (13:56)
[2021-04-08] MEDS ORDERED: LOSARTAN POTASSIUM 50 MG TABLET ONE (13:56)
[2021-04-08] MEDS ORDERED: ENOXAPARIN NA (PORCINE) 40 MG/0.4 ML DISP.SYRIN SQ ONE (13:57)
[2021-04-08] MEDS ORDERED: LEVOTHYROXINE NA 25 MCG TABLET (FP) ONE (13:57)
[2021-04-08 15:13] VITALS: BP 134/74; PULSE 76; TEMP 98.2
[2021-04-08] MEDS ORDERED: AZITHROMYCIN IVPB 500 MG/250 ML BAG IVPB SCH (20:00)
[2021-04-08] MEDS ORDERED: CEFTRIAXONE 1 GM in DEXTROSE 5%-WATER - 50 ML IVPB SCH (21:00)
[2021-04-08] MEDS ORDERED: MONTELUKAST NA 10 MG TABLET PO SCH (22:00)
[2021-04-08] MEDS ORDERED: ROSUVASTATIN CA 40 MG TABLET PO SCH (22:00)
== END 2021-04-08 14:15 | disposition home or self-care (01) ==
LOC: JER 17:30 → JERBED 20:48
PROVIDERS: ADMIT Hospitalist; ATTEND Family Medicine
PROC: 3E03329 Introduction of Other Anti-infective into Peripheral Vein, Percutaneous Approach (ICD-10-PCS; principal; 2021-04-07)
PROC: 3E033NZ Introduction of Analgesics, Hypnotics, Sedatives into Peripheral Vein, Percutaneous Approach (ICD-10-PCS; 2021-04-07)
DX: R07.89 Other chest pain (principal); J18.9 Pneumonia, unspecified organism; J06.9 Acute upper respiratory infection, unspecified; J45.901 Unspecified asthma with (acute) exacerbation; J84.9 Interstitial pulmonary disease, unspecified; M06.9 Rheumatoid arthritis, unspecified; I10 Essential (primary) hypertension; E11.9 Type 2 diabetes mellitus without complications; E78.5 Hyperlipidemia, unspecified; E03.9 Hypothyroidism, unspecified; K21.9 Gastro-esophageal reflux disease without esophagitis
CPT/HCPCS: 36415; 71045-TC-FY; 80048; 80053; 81003; 82550; 82962; 84443; 84484; 85025; 85610; 85730; 87804; 93005; 93010; 96365; 96372; 96375; 99285-25; C9803; G0378; J0131; U0003; U0005